=== PATIENT | male | born 1935 | race Caucasian/White ===

== ENCOUNTER 2016-05-01 23:28 | Emergency (ER) | payer MEDICARE ==
[~2016-05-01] VITALS: Ht 177.8 cm; Wt 102.1 kg
--- NOTE | 2016-05-01 23:35 | ED Headache ---
General Chief Complaint: Head/Cervical Problems Stated Complaint: MIGRAINE History of Present Illness Time seen by provider: 11:30 Initial Comments 80-year-old male who comes in with left sided headache. States has been going on for 2 days. It comes and goes. States the last about 10 August minutes. States his kind of a throbbing. It is located in his left jain. Denies any nausea vomiting fevers chills or vision changes. States he never had any headache like this in the past. pt denies any headache at this time. Allergies and Home Medications Allergies Coded Allergies: No Known Drug Allergies (Unverified , 05/01/16) Home Medications Amlodipine Besylate 5 Mg Tablet 5 MG PO DAILY (Reported) Aspirin 81 Mg Tab.chew 81 MG PO DAILY (Reported) Sertraline HCl 50 Mg Tablet 50 MG PO DAILY (Reported) Constitutional: No chills, No dizziness, No fever Eyes: Denies Blurred Vision, Denies Decreased Acuity, Denies Vision Changes Ears, Nose, Mouth, Throat: denies ear pain, denies ear discharge Respiratory: No cough, No dyspnea on exertion, No short of breath Cardiovascular: No chest pain Gastrointestinal: no symptoms reported Genitourinary: no symptoms reported Musculoskeletal: no symptoms reported Skin: no symptoms reported Psychiatric/Neurological: See HPI Headache Past Ivipmrj-Nwzjol-Onsljv Hx Patient Social History Recent Foreign Travel: No Contact w/Someone Who Travel: No Physical Exam Vital Signs Vital Sign - Last 12Hours 05/01/16 23:33 Temp 98.4 Pulse 20 Resp 20 B/P 191/104 Pulse Ox 96 Capillary Refill : General Appearance: WD/WN no apparent distress HEENT: PERRL/EOMI normal ENT inspection Neck: non-tender full range of motion supple Cardiovascular: regular rate, rhythm no edema Respiratory: chest non-tender lungs clear normal breath sounds no respiratory distress Gastrointestinal: non tender soft Psychiatric: alert oriented x 3 Crainal Nerves: normal hearing normal speech PERRLNo facial droop, No facial paresthesias, No facial weakness Coordination/Gait: normal gait Motor/Sensory: no motor deficit no sensory deficit Skin: normal color warm/dry Lymphatic: no adenopathy Progress/Results/Core Measures Results/Orders Lab Results Laboratory Tests Test 05/01/16 23:30 05/01/16 23:38 Range/Units C-Reactive Protein High Sensitivity 0.27 0.00-0.50 MG/DL Alanine Aminotransferase (ALT/SGPT) 15 0-55 U/L Albumin 4.1 3.2-4.5 G/DL Alkaline Phosphatase 46 40-136 U/L Anion Gap 12 5-14 MMOL/L Aspartate Amino Transf (AST/SGOT) 17 5-34 U/L BUN/Creatinine Ratio 17 Basophils # (Auto) 0.0 0.0-0.1 10^3/uL Basophils (%) (Auto) 0 0-10 % Blood Urea Nitrogen 23 H 7-18 MG/DL Calcium Level 8.7 8.5-10.1 MG/DL Carbon Dioxide Level 22 21-32 MMOL/L Chloride Level 105 98-107 MMOL/L Creatinine 1.39 H 0.60-1.30 MG/DL Eosinophils # (Auto) 0.2 0.0-0.3 10^3/uL Eosinophils (%) (Auto) 3 0-10 % Estimat Glomerular Filtration Rate 49 Glucose Level 114 H 70-105 MG/DL Hematocrit 43 40-54 % Hemoglobin 14.8 13.3-17.7 G/DL Lymphocytes # (Auto) 1.9 1.0-4.0 X 10^3 Lymphocytes (%) (Auto) 25 12-44 % Mean Corpuscular Hemoglobin 32 25-34 PG Mean Corpuscular Hemoglobin Concent 35 32-36 G/DL Mean Corpuscular Volume 93 80-99 FL Mean Platelet Volume 11.4 H 7.4-10.4 FL Monocytes # (Auto) 0.7 0.0-1.0 X 10^3 Monocytes (%) (Auto) 10 0-12 % Neutrophils # (Auto) 4.6 1.8-7.8 X 10^3 Neutrophils (%) (Auto) 62 42-75 % Platelet Count 137 130-400 10^3/uL Potassium Level 4.1 3.6-5.0 MMOL/L Red Blood Count 4.62 4.35-5.85 10^6/uL Red Cell Distribution Width 13.4 10.0-14.5 % Sodium Level 139 135-145 MMOL/L Total Bilirubin 0.6 0.1-1.0 MG/DL Total Protein 7.2 6.4-8.2 G/DL White Blood Count 7.4 4.3-11.0 10^3/uL My Orders Orders-MCARTHUR,YVONNE L DO Ct Head Wo (05/01/16 23:35) Cbc With Automated Diff (05/01/16 23:35) Comprehensive Metabolic Panel (05/01/16 23:35) Erythrocyte Sedimentation Rate (05/01/16 23:35) Saline Lock/Iv-Start (05/01/16 23:41) Hs C Reactive Protein (05/01/16 23:45) Methylprednisolone Sod Succ (Solu-Medrol (05/02/16 00:30) Vital Signs/I&O Vital Sign - Last 12Hours 05/01/16 23:33 Temp 98.4 Pulse 20 Resp 20 B/P 191/104 Pulse Ox 96 Progress Note : Time: 00:26 Progress Note pt remained without headache throughout stay, discussed need to follow up with pcp to get esr results to ensure no temporal arteritis, will treat prophylactically with 80 solumedrol tonight. instructed pt to use tylenol or ibuprofen for headache as needed. Diagnostic Imaging Diagonstic Imaging: CT Comments no acute change, Reviewed: Reviewed [place] Study Departure Impression Impression: Primary Impression: Headache Qualified Code: R51 - Headache Disposition: 01 HOME, SELF-CARE Condition: Stable/Unchanged Departure-Patient Inst. Referrals: MARCELLA ANAND DO (PCP/Family) Primary Care Physician Patient Instructions: Headache, Adult (DC) YVONNE MCARTHUR DO May 01, 2016 23:35
[2016-05-01] MEDS ORDERED: SERT50TA9 PO (23:38)
[2016-05-01] MEDS ORDERED: ASPI-999 PO (23:38)
[2016-05-01] MEDS ORDERED: AMLO5TAB4 PO (23:38)
[2016-05-01 23:49] LABS: BASOPHILS % (AUTO) 0 % (0-10); EOSINOPHILS # (AUTO) 0.2 10^3/uL (0.0-0.3); EOSINOPHILS % (AUTO) 3 % (0-10); LYMPHOCYTES # (AUTO) 1.9 X 10^3 (1.0-4.0); LYMPHOCYTES % (AUTO) 25 % (12-44); MEAN CORPUSCULAR HEMOGLOBIN 32 PG (25-34); MEAN CORPUSCULAR HGB CONC 35 G/DL (32-36); MEAN CORPUSCULAR VOLUME 93 FL (80-99); MEAN PLATELET VOLUME 11.4 FL (7.4-10.4); MONOCYTES # (AUTO) 0.7 X 10^3 (0.0-1.0); MONOCYTES % (AUTO) 10 % (0-12); NEUTROPHILS # (AUTO) 4.6 X 10^3 (1.8-7.8); NEUTROPHILS % (AUTO) 62 % (42-75); PLATELET COUNT 137 10^3/uL (130-400); RED BLOOD COUNT 4.62 10^6/uL (4.35-5.85); RED CELL DISTRIBUTION WIDTH 13.4 % (10.0-14.5); WHITE BLOOD COUNT 7.4 10^3/uL (4.3-11.0)
[2016-05-02 00:07] LABS: ALBUMIN 4.1 G/DL (3.2-4.5); BILIRUBIN,TOTAL 0.6 MG/DL (0.1-1.0); CALCIUM 8.7 MG/DL (8.5-10.1); CREATININE SERUM 1.39 MG/DL (0.60-1.30); POTASSIUM 4.1 MMOL/L (3.6-5.0); TOTAL PROTEIN 7.2 G/DL (6.4-8.2)
[2016-05-02] MEDS ORDERED: methylPREDNISolone 40 MG/ML (Solu-MEDROL) VIAL IV ONE (00:30)
[2016-05-02 00:42] VITALS: BP 171/110
--- NOTE | 2016-05-02 05:29 | Diagnostic Imaging Report ---
Clinical indication: Patient with migraine headaches. Exam: Axial CT scan of brain performed without IV contrast. Comparison: None. Findings: There is no evidence of acute cerebral infarct, intracranial hemorrhage, or gross mass effect. There is patchy and confluent areas of low-attenuation white matter changes throughout both cerebral hemispheres and periventricular regions, likely representing chronic small vessel ischemic disease. There is normal parks-white matter distinction. The brain parenchymal volume appears appropriate for patient's age. There is mild prominence of the extra-axial CSF seen anteriorly, likely related to brain parenchymal volume loss. There is no significant midline shift or herniation. There is no evidence of hydrocephalus. The basal cisterns are unremarkable. The skull, extracranial soft tissue, and orbits are unremarkable. There is mild mucosal thickening involving the ethmoid sinus. Impression: 1.: There is no evidence of acute intracranial process. 2: Age-related brain parenchymal changes with diffuse chronic small vessel ischemic disease and leukoaraiosis. 3: Mild ethmoid sinus disease. I agree with [employer] report Dictated by: Dictated on workstation # [id number]
== END 2016-05-02 00:42 | disposition home or self-care (01) ==
LOC: EDUNIT# 23:28 → ER 23:29
DX: R51 Headache (principal); Z79.82 Long term (current) use of aspirin; Z79.899 Other long term (current) drug therapy
CPT/HCPCS: 36415; 70450; 80053; 85025; 85652; 86141; 96374

== ENCOUNTER 2016-05-26 15:12 | Inpatient (IN) | payer MEDICARE ==
[~2016-05-26] VITALS: Ht 170.2 cm; Wt 107.5 kg
[~2016-05-26 15:12] MED LIST: AMLO5TAB4 PO; ASPI-999 PO; SERT50TA9 PO
--- OUTSIDE RECORDS SUMMARY | 2016-05-26 15:16 | XMS REPORT | Continuity of Care Document ---
Author Author [facility] Organization [facility] Address Unknown Phone Unavailable Care Team Providers Care Structured Cabling Technician Name Role Phone MARCELLA ANAND DO PCP Insurance Providers Payer Name Policy Number Subscriber Name Relationship [employer] [id number] Criss Gill 18 Self / Same As Patient Advance Directives Directive Response Recorded Date/Time Advance Directives No 05/01/16 11:33pm Resuscitation Status Full Code 05/01/16 11:33pm Chief Complaint and Reason for Visit Chief Complaint Head/Cervical Problems Reason for Visit Headache Problems Active Problems Medical Problem Onset Date Status Headache Unknown Acute Medications Current Home Medications Medication Dose Units Route Directions Days/Qty Instructions Start Date Aspirin 81 Mg 81 Mg Oral Daily 05/01/16 Sertraline Hcl 50 Mg 50 Mg Oral Daily 05/01/16 Amlodipine Besylate 5 Mg 5 Mg Oral Daily 05/01/16 Social History Social History Problem Response Recorded Date/Time Alcohol Use Denies Use 05/01/2016 11:33pm Recreational Drug Use No 05/01/2016 11:33pm Recent Foreign Travel No 05/01/2016 11:33pm Recent Infectious Disease Exposure No 05/01/2016 11:33pm Hospitalization with Isolation Denies 05/01/2016 11:33pm Smoking Status Never a Smoker 05/01/2016 11:33pm Recent Hopitalizations No 05/01/2016 11:33pm Hospitalization with Isolation Denies 05/01/2016 11:33pm Query Response Start Date Stop Date Smoking Status Never a Smoker Hospital Discharge Instructions No hospital discharge instructions. Plan of Care Discharge Date 05/02/16 12:42am Disposition 01 HOME, SELF-CARE Condition at Discharge Stable/Unchanged Instructions/Education Provided Headache, Adult (DC) Prescriptions See Medication Section Referrals MARCELLA ANAND DO - Primary Care Physician Functional Status No functional status results. Allergies, Adverse Reactions, Alerts No known allergies. Immunizations No immunization records. Vital Signs Acute Vital Signs Vital Response Date/Time Temperature (Fahrenheit) 98.4 degrees F (97.6 - 99.5) 05/01/2016 11:33pm Temperature (Calculated Celsius) 36.62996 degrees C (36.4 - 37.5) 05/01/2016 11:33pm Pulse Rate (adult) 20 bpm (60 - 90) 05/01/2016 11:33pm Respiratory Rate 20 bpm (12 - 24) 05/01/2016 11:33pm O2 Sat by Pulse Oximetry 96 % (88 - 100) 05/01/2016 11:33pm Blood Pressure 191/104 mm Hg 05/01/2016 11:33pm Blood Pressure Mean 133 mm Hg 05/01/2016 11:33pm Pain Numeric Pain Scale 0-No Pain 05/01/2016 11:33pm Height (Feet) 5 feet 05/01/2016 11:33pm Height (Inches) 10 inches 05/01/2016 11:33pm Height (Calculated Centimeters) 177.755797 cm 05/01/2016 11:33pm Weight (Pounds) 225 pounds 05/01/2016 11:33pm Weight (Calculated Kilograms) 102.620245 kilograms 05/01/2016 11:33pm Capillary Refill Capillary Refill Less Than 3 Seconds 05/01/2016 11:33pm Height 5 ft 10 in Weight 225 lb Body Mass Index 32.3 kg/m^2 Results Laboratory Results Test Name Result Units Flags Reference Collection Date/Time Result Date/ Time Comments White Blood Count 7.4 10^3/uL 4.3-11.0 05/01/2016 11:38pm 05/01/2016 11 :50pm Red Blood Count 4.62 10^6/uL 4.35-5.85 05/01/2016 11:38pm 05/01/2016 11 :50pm Hemoglobin 14.8 G/DL 13.3-17.7 05/01/2016 11:38pm 05/01/2016 11:50pm Hematocrit 43 % 40-54 05/01/2016 11:38pm 05/01/2016 11:50pm Mean Corpuscular Volume 93 FL 80-99 05/01/2016 11:38pm 05/01/2016 11: 50pm Mean Corpuscular Hemoglobin 32 PG 25-34 05/01/2016 11:38pm 05/01/2016 11:50pm Mean Corpuscular Hemoglobin Concent 35 G/DL 32-36 05/01/2016 11:38pm 11:50pm Red Cell Distribution Width 13.4 % 10.0-14.5 05/01/2016 11:38pm 2016 11:50pm Platelet Count 137 10^3/uL 130-400 05/01/2016 11:38pm 05/01/2016 11: 50pm Mean Platelet Volume 11.4 FL H 7.4-10.4 05/01/2016 11:38pm 05/01/2016 11: 50pm Neutrophils (%) (Auto) 62 % 42-75 05/01/2016 11:38pm 05/01/2016 11: 50pm Lymphocytes (%) (Auto) 25 % 12-44 05/01/2016 11:38pm 05/01/2016 11: 50pm Monocytes (%) (Auto) 10 % 0-12 05/01/2016 11:38pm 05/01/2016 11:50pm Eosinophils (%) (Auto) 3 % 0-10 05/01/2016 11:38pm 05/01/2016 11:50pm Basophils (%) (Auto) 0 % 0-10 05/01/2016 11:38pm 05/01/2016 11:50pm Neutrophils # (Auto) 4.6 X 10^3 1.8-7.8 05/01/2016 11:38pm 05/01/2016 11:50pm Lymphocytes # (Auto) 1.9 X 10^3 1.0-4.0 05/01/2016 11:38pm 05/01/2016 11:50pm Monocytes # (Auto) 0.7 X 10^3 0.0-1.0 05/01/2016 11:38pm 05/01/2016 11: 50pm Eosinophils # (Auto) 0.2 10^3/uL 0.0-0.3 05/01/2016 11:38pm 05/01/2016 11:50pm Basophils # (Auto) 0.0 10^3/uL 0.0-0.1 05/01/2016 11:38pm 05/01/2016 11 :50pm Sodium Level 139 MMOL/L 135-145 05/01/2016 11:38pm 05/02/2016 12:08am Potassium Level 4.1 MMOL/L 3.6-5.0 05/01/2016 11:38pm 05/02/2016 12: 08am Chloride Level 105 MMOL/L 98-107 05/01/2016 11:38pm 05/02/2016 12:08am Carbon Dioxide Level 22 MMOL/L 21-32 05/01/2016 11:38pm 05/02/2016 12: 08am Anion Gap 12 MMOL/L 5-14 05/01/2016 11:38pm 05/02/2016 12:08am Blood Urea Nitrogen 23 MG/DL H 7-18 05/01/2016 11:38pm 05/02/2016 12: 08am Creatinine 1.39 MG/DL H 0.60-1.30 05/01/2016 11:38pm 05/02/2016 12:08am BUN/Creatinine Ratio 17 05/01/2016 11:38pm 05/02/2016 12:08am Estimat Glomerular Filtration Rate 49 05/01/2016 11:38pm 2016 12:08am GFR INTERPRETIVE DATA UNITS FOR ESTIMATED GFR (eGFR): mL/min/1.73 M2 REFERENCE RANGE FOR ESTIMATED GFR (eGFR) eGFR NORMAL eGFR >60 MODERATELY DECREASED eGFR 30-59 SEVERLY DECREASED eGFR 15-29 KIDNEY FAILURE <15 (OR DIALYSIS) Glucose Level 114 MG/DL H 70-105 05/01/2016 11:38pm 05/02/2016 12:08am Calcium Level 8.7 MG/DL 8.5-10.1 05/01/2016 11:38pm 05/02/2016 12:08am Total Bilirubin 0.6 MG/DL 0.1-1.0 05/01/2016 11:38pm 05/02/2016 12: 08am Alkaline Phosphatase 46 U/L 40-136 05/01/2016 11:38pm 05/02/2016 12: 08am Aspartate Amino Transf (AST/SGOT) 17 U/L 5-34 05/01/2016 11:38pm 2016 12:08am Alanine Aminotransferase (ALT/SGPT) 15 U/L 0-55 05/01/2016 11:38pm 12:08am Total Protein 7.2 G/DL 6.4-8.2 05/01/2016 11:38pm 05/02/2016 12:08am Albumin 4.1 G/DL 3.2-4.5 05/01/2016 11:38pm 05/02/2016 12:08am C-Reactive Protein High Sensitivity 0.27 MG/DL 0.00-0.50 05/01/2016 11: 30pm 05/02/2016 12:08am Procedures No known history of procedures. Encounters Encounter Location Arrival/Admit Date Discharge/Depart Date Attending Provider Registered Emergency Room [facility] 05/01/16 11:29pm YVONNE MCARTHUR DO Recent Diagnosis
[2016-05-26] MEDS ORDERED: LACTATED RINGERS 1,000 ML IV ONE (16:55)
[2016-05-26] MEDS ORDERED: ONDANSETRON 4 MG/2 ML (SDV) Z0FRAN IVP ONE (17:00)
[2016-05-26 17:18] LABS: BASOPHILS % (AUTO) 0 % (0-10); EOSINOPHILS % (AUTO) 0 % (0-10); LYMPHOCYTES # (AUTO) 0.8 X 10^3 (1.0-4.0); LYMPHOCYTES % (AUTO) 5 % (12-44); MEAN CORPUSCULAR HEMOGLOBIN 32 PG (25-34); MEAN CORPUSCULAR HGB CONC 35 G/DL (32-36); MEAN CORPUSCULAR VOLUME 93 FL (80-99); MEAN PLATELET VOLUME 10.9 FL (7.4-10.4); MONOCYTES # (AUTO) 1.6 X 10^3 (0.0-1.0); MONOCYTES % (AUTO) 9 % (0-12); NEUTROPHILS # (AUTO) 15.3 X 10^3 (1.8-7.8); NEUTROPHILS % (AUTO) 86 % (42-75); PLATELET COUNT 166 10^3/uL (130-400); RED BLOOD COUNT 4.14 10^6/uL (4.35-5.85); RED CELL DISTRIBUTION WIDTH 13.3 % (10.0-14.5); WHITE BLOOD COUNT 17.7 10^3/uL (4.3-11.0)
[2016-05-26 17:26] LABS: INR 1.1 (0.8-1.4); PROTHROMBIN TIME PATIENT 13.6 SEC (12.2-14.7)
--- NOTE | 2016-05-26 17:32 | Diagnostic Imaging Report ---
INDICATION: Status post fall. TECHNIQUE: Single view chest at 5:18 PM. CORRELATION STUDY: 01/22/2016 FINDINGS: Heart size relatively stable. Mediastinum is prominent likely relatively stable given difference in technique. Vasculature within normal limits. There does appear to be perhaps patchy infiltrate versus atelectasis at left lung base. Remaining lung ryder with senescent-type changes. Mildly displaced left posterolateral rib fractures appearing unchanged. IMPRESSION: 1. Patchy infiltrate versus atelectasis of the left lung base. Dictated by: Dictated on workstation # [id number]
[2016-05-26 17:41] LABS: ALANINE AMINOTRANSFERASE 43 U/L (0-55); ALBUMIN 3.8 G/DL (3.2-4.5); AMYLASE 25 U/L (25-125); ANION GAP 12 MMOL/L (5-14); ASPARTATE AMINO TRANSFERASE 43 U/L (5-34); BILIRUBIN,TOTAL 1.3 MG/DL (0.1-1.0); BLOOD UREA NITROGEN 29 MG/DL (7-18); BUN/CREATININE RATIO 22; CALCIUM 8.8 MG/DL (8.5-10.1); CARBON DIOXIDE 21 MMOL/L (21-32); CHLORIDE 102 MMOL/L (98-107); CREATININE SERUM 1.32 MG/DL (0.60-1.30); GFR ESTIMATED 52; GLUCOSE 145 MG/DL (70-105); LIPASE 7 U/L (8-78); MAGNESIUM 2.2 MG/DL (1.8-2.4); POTASSIUM 3.9 MMOL/L (3.6-5.0); SODIUM 135 MMOL/L (135-145); TOTAL PROTEIN 7.3 G/DL (6.4-8.2)
[2016-05-26 17:47] LABS: TROPONIN I < 0.30 NG/ML (<0.30)
[2016-05-26 17:50] LABS: LYMPHOCYTES % (MANUAL) 3 %; NEUTROPHILS % (MANUAL) 89 %
--- NOTE | 2016-05-26 17:53 | Diagnostic Imaging Report ---
INDICATION: Fall. Memory loss TECHNIQUE: Routine non contrast-enhanced axial images were obtained from the skull base to the vertex. COMPARISON: 05/01/2016 FINDINGS: The ventricles and cortical sulci are diffusely prominent, compatible with age-related volume loss. There are confluent areas of abnormal, low attenuation in the periventricular white matter. This is consistent with chronic small vessel ischemic changes. There is no midline shift or mass-effect. No acute intra-axial hemorrhage is seen. There are no abnormal areas of increased or decreased density to suggest acute hemorrhage or edema. No extra-axial masses or collections are present. The bony calvarium is intact. The visualized paranasal sinuses show minimal mucosal thickening of the left sphenoid sinus. The mastoid air cells are clear. IMPRESSION: 1. No acute intracranial abnormality. No CT evidence of mass, acute infarct or intracranial hemorrhage. 2. Chronic small vessel ischemic changes in the deep white matter. Dictated by: Dictated on workstation # [id number]
[2016-05-26] MEDS ORDERED: cefTRIAXone INJECTION 1,000 MG in NS (IVPB) 50 ML IV ONE (18:15)
--- NOTE | 2016-05-26 18:32 | ED General ---
General Chief Complaint: Trauma-Non Activation Stated Complaint: LLL PNEUMONIA,INFLUENZA LIKE ILLNESS,DEHYDRATION Nursing Triage Note: SENT OVER FROM DR CHAMORRO OFFICE. PT FELL OUT OF BED LAST NOC HITTING HEAD. DENIES LOC. STATES HE WAS NOT ABLE TO ANSWER ALL OF 'S QUESTIONS SO DR SENT HIM HERE. Nursing Sepsis Screen: No Definite Risk Source of Information: Patient History of Present Illness Time Seen by Provider: 16:40 Initial Comments PT ARRIVES VIA POV FROM DR. ANAND'S OFFICE PT STATES HE "WOKE UP ON THE FLOOR" DURING THE NIGHT/EARLY THIS AM. PT DOES NOT RECALL THE EVENT, BUT POSSIBLY HIT HIS HEAD, ALTHOUGH HE DOES NOT HAVE ANY PAIN IN HIS HEAD OR SCALP AND NO BRUISING OR SWELLING TO HIS HEAD. HE REPORTS NO APPARENT INJURY FROM THIS AND NO DISCRETE AREAS OF PAIN PT C/O FEELING VERY BAD IN GENERAL TODAY STATES HE HAS HAD SUBJECTIVE FEVER ALL DAY C/O BODY ACHES C/O NAUSEA, NO VOMITING--STATES HE HAS NOT HAD ANYTHING TO EAT OR DRINK ALL DAY TODAY BECAUSE HE WAS NAUSEATED AND AFRAID HE MIGHT GET SICK AND THROW UP IF HE ATE OR DRANK ANYTHING C/O NON-PRODUCTIVE COUGH AND CHEST CONGESTION C/O MILD SHORTNESS OF BREATH NO CHEST PAIN OR PAIN WITH BREATHING C/O URINARY URGENCY AND FREQUENCY TODAY NO ABDOMINAL OR BACK OR NECK PAIN NO KNOWN SICK CONTACTS PCP: DR. ANAND Allergies and Home Medications Allergies Coded Allergies: No Known Drug Allergies (Unverified , 05/01/16) Home Medications Amlodipine Besylate 5 Mg Tablet 5 MG PO DAILY (Reported) Aspirin 81 Mg Tab.chew 81 MG PO DAILY (Reported) Sertraline HCl 50 Mg Tablet 50 MG PO DAILY (Reported) Constitutional: see HPI chills fever malaise weakness EENTM: nose congestion see HPI Respiratory: see HPI cough short of breathNo wheezing Cardiovascular: no symptoms reportedNo chest pain, No edema, No palpitations, No vascular heart diseas Gastrointestinal: see HPINo abdominal pain, loss of appetite nauseaNo vomiting Genitourinary: see HPI frequency Musculoskeletal: see HPI (BODY ACHES) Skin: no symptoms reported Psychiatric/Neurological: See HPIDenies Headache, Denies Numbness, Denies Paresthesia, Denies Tingling, Denies Weakness Hematologic/Lymphatic: No Symptoms Reported Immunological/Allergic: no symptoms reported Past Dpbjial-Jmklaf-Fgdtmm Hx Patient Social History Alcohol Use: Denies Use Recreational Drug Use: No Smoking Status: Never a Smoker Recent Foreign Travel: No Contact w/Someone Who Travel: No Recent Infectious Disease Expo: No Recent Hopitalizations: No Surgeries HX Surgeries: Yes Surgeries: Eye Surgery Respiratory Hx Respiratory Disorders: No Cardiovascular Hx Cardiac Disorders: Yes Cardiac Disorders: Hypertension Neurological Hx Neurological Disorders: No Genitourinary Hx Genitourinary Disorders: No Gastrointestinal Hx Gastrointestinal Disorders: No Musculoskeletal Hx Musculoskeletal Disorders: No Endocrine Hx Endocrine Disorders: No HEENT HX ENT Disorders: No Cancer Hx Cancer: No Psychosocial Hx Psychiatric Problems: Yes Behavioral Health Disorders: Depression Integumentary HX Skin/Integumentary Disorder: No Blood Transfusions Hx Blood Disorders: No Physical Exam Vital Signs Vital Sign - Last 12Hours 05/26/16 16:15 Temp 98.5 Pulse 83 Resp 16 B/P 163/91 Pulse Ox 94 Capillary Refill : Less Than 3 Seconds General Appearance: No Apparent Distress WD/WN Other (LOOKS MILDLY ILL) HEENT: PERRL/EOMI TMs Normal Pharynx Normal Other (NASAL CONGESTION AND CLEAR RHINORRHEA; LEFT PAROTID GLAND MORE PROMINENT THAN RIGHT, BUT IS NON TENDER. ) Neck: Full Range of Motion Normal Inspection Non Tender Supple Respiratory: No Accessory Muscle Use No Respiratory Distress Rales (IN LEFT > RIGHT BASE) Cardiovascular: Regular Rate, Rhythm No Edema No JVD No Murmur Normal Peripheral Pulses Gastrointestinal: Normal Bowel Sounds No Organomegaly No Pulsatile Mass Non Tender Soft Back: Normal Inspection No CVA Tenderness No Vertebral Tenderness Extremity: Normal Capillary Refill Normal Inspection Normal Range of Motion Non Tender No Calf Tenderness No Pedal Edema Neurologic/Psychiatric: Alert Oriented x3 No Motor/Sensory Deficits hitting coach II- XII Norm as Tested Other (MILDLY LETHARGIC) Skin: Normal Color Warm/Dry Progress/Results/Core Measures Results/Orders Lab Results Laboratory Tests Test 05/26/16 17:00 Range/Units Activated Partial Thromboplast Time 29 24-35 SEC Alanine Aminotransferase (ALT/SGPT) 43 0-55 U/L Albumin 3.8 3.2-4.5 G/DL Alkaline Phosphatase 59 40-136 U/L Amylase Level 25 25-125 U/L Anion Gap 12 5-14 MMOL/L Aspartate Amino Transf (AST/SGOT) 43 H 5-34 U/L BUN/Creatinine Ratio 22 Basophils # (Auto) 0.0 0.0-0.1 10^3/uL Basophils (%) (Auto) 0 0-10 % Blood Morphology Comment NORMAL Blood Urea Nitrogen 29 H 7-18 MG/DL Calcium Level 8.8 8.5-10.1 MG/DL Carbon Dioxide Level 21 21-32 MMOL/L Chloride Level 102 98-107 MMOL/L Creatinine 1.32 H 0.60-1.30 MG/DL Eosinophils # (Auto) 0.0 0.0-0.3 10^3/uL Eosinophils (%) (Auto) 0 0-10 % Estimat Glomerular Filtration Rate 52 Glucose Level 145 H 70-105 MG/DL Hematocrit 38 L 40-54 % Hemoglobin 13.3 13.3-17.7 G/DL INR Comment 1.1 0.8-1.4 Lactic Acid Level 1.1 0.5-2.0 MMOL/L Lipase 7 L 8-78 U/L Lymphocytes # (Auto) 0.8 L 1.0-4.0 X 10^3 Lymphocytes % (Manual) 3 % Lymphocytes (%) (Auto) 5 L 12-44 % Magnesium Level 2.2 1.8-2.4 MG/DL Mean Corpuscular Hemoglobin 32 25-34 PG Mean Corpuscular Hemoglobin Concent 35 32-36 G/DL Mean Corpuscular Volume 93 80-99 FL Mean Platelet Volume 10.9 H 7.4-10.4 FL Monocytes # (Auto) 1.6 H 0.0-1.0 X 10^3 Monocytes % (Manual) 8 % Monocytes (%) (Auto) 9 0-12 % Neutrophils # (Auto) 15.3 H 1.8-7.8 X 10^3 Neutrophils % (Manual) 89 % Neutrophils (%) (Auto) 86 H 42-75 % Platelet Count 166 130-400 10^3/uL Potassium Level 3.9 3.6-5.0 MMOL/L Prothrombin Time 13.6 12.2-14.7 SEC Red Blood Count 4.14 L 4.35-5.85 10^6/uL Red Cell Distribution Width 13.3 10.0-14.5 % Sodium Level 135 135-145 MMOL/L Total Bilirubin 1.3 H 0.1-1.0 MG/DL Total Protein 7.3 6.4-8.2 G/DL Troponin I < 0.30 <0.30 NG/ML White Blood Count 17.7 H 4.3-11.0 10^3/uL Micro Results Microbiology 05/26/16 Influenza Types A,B Antigen (GENEVA) - Final, Complete My Orders Orders-ELMER RIZO DO Saline Lock/Iv-Start (05/26/16 16:46) Monitor-Rhythm Ecg Trace Only (05/26/16 16:46) Ct Head Wo (05/26/16 16:46) Cbc With Automated Diff (05/26/16 16:46) Comprehensive Metabolic Panel (05/26/16 16:46) Magnesium (05/26/16 16:46) Protime With Inr (05/26/16 16:46) Partial Thromboplastin Time (05/26/16 16:46) Troponin I (05/26/16 16:46) Ua Culture If Indicated (05/26/16 16:46) Chest 1 View, Ap/Pa Only (05/26/16 16:46) Amylase (05/26/16 16:55) Lactic Acid Analyzer (05/26/16 16:55) Lipase (05/26/16 16:55) Blood Culture (05/26/16 16:55) Influenza A And B Antigens (05/26/16 16:55) Ondansetron Injection (Zofran Injectio (05/26/16 17:00) Saline Lock/Iv-Start (05/26/16 16:55) Lactated Ringers (Lr 1000 Ml Iv Solution (05/26/16 16:55) Manual Differential (05/26/16 17:00) Ceftriaxone Injection (Rocephin Injectio (05/26/16 18:15) Albuterol/Ipra Inhalation Soln (Duoneb I (05/26/16 18:45) Rt Request For Service (05/26/16 18:37) Svn Sm Volume Nebulizer Rt-Rfs (05/26/16 18:37) Methylprednisolone Sod Succ (Solu-Medrol (05/26/16 19:00) Medications Given in ED Current Medications Medications Dose Ordered Sig/Norbert Route Start Time Stop Time Status Last Admin Dose Admin Lactated Ringer's 1,000 ml @ 0 mls/hr Q0M ONCE IV 05/26/16 16:55 05/26/16 16:57 DC 05/26/16 17:13 1,000 MLS/HR Ondansetron HCl 4 mg 4 mg ONCE ONCE IVP 05/26/16 17:00 05/26/16 17:01 DC 05/26/16 17:12 4 MG Vital Signs/I&O Vital Sign - Last 12Hours 05/26/16 16:15 Temp 98.5 Pulse 83 Resp 16 B/P 163/91 Pulse Ox 94 Blood Pressure Mean: 115 Progress Note : Progress Note 1840--PT NOW NOTED TO HAVE SOME AUDIBLE WHEEZING. NEB TREATMENT ORDERED. MILD DECREASE IN WHEEZING AFTER TREATMENT PT NOW STATES HE HAS BEEN HAVING WHEEZING FOR THE LAST 2-3 DAYS WELL OTHER SYMPTOMS NAUSEA IMPROVED WITH ZOFRAN, PT TOLERATING SIPS OF WATER AND ICE CHIPS Diagnostic Imaging Comments CT HEAD--NO ACUTE PROCESS, CHRONIC CHANGES CXR--LLL INFILTRATE/ATELECTASIS PER RADIOLOGIST REPORTS @ 1740 Reviewed: Reviewed by Me Departure Communication Progress Notes 7255--SPOKE WITH DR. ANAND--ACCEPTS PT FOR ADMIT Impression Impression: Primary Impression: LLL pneumonia Additional Impressions: Dehydration Influenza-like illness Disposition: ADMITTED INPATIENT Condition: Stable Decision to Admit Reason: Admit from ER (General) Decision to Admit/Date: May 26, 2016 Time/Decision to Admit Time: 17:55 Departure-Patient Inst. Referrals: MARCELLA ANAND DO (PCP/Family) Primary Care Physician ELMER RIZO DO May 26, 2016 18:32
[2016-05-26] MEDS ORDERED: RT-ALBUTEROL/IPRATROPIUM 3 ML (DUONEB) VIAL INH ONE (18:45)
[2016-05-26] MEDS ORDERED: methylPREDNISolone 125 MG (Solu-MEDROL) VIAL IVP ONE (19:00)
[2016-05-26 19:15] VITALS: BP 190/83
[2016-05-26] MEDS ORDERED: D5 1/2 NS 1000 ML IV SOLUTION 1,000 ML IV ONE (19:22)
[2016-05-26] MEDS ORDERED: AZITHROMYCIN 500 MG/NS 250 ML IVPB IV NR ×2 (19:30)
[2016-05-26] MEDS ORDERED: CATHETER FLUSH 10 ML SYR IV PRN (19:45)
[2016-05-26] MEDS ORDERED: ACETAMINOPHEN 500 MG TAB (TYLENOL) PO PRN (19:45)
[2016-05-26] MEDS ORDERED: IBUPROFEN 800 MG (MOTRIN) TAB PO PRN (19:45)
[2016-05-26] MEDS: D5 1/2 NS 1000 ML IV SOLUTION 1,000 ML IV SCH (19:45)
[2016-05-26] MEDS ORDERED: ONDANSETRON 4 MG/2 ML (SDV) Z0FRAN IV PRN (19:45)
[2016-05-26] MEDS: OSELTAMIVIR 75 MG (TAMIFLU) BOX OF 10 PO SCH (21:48)
[2016-05-26 22:00] VITALS: BP 180/93
[2016-05-27] VITALS (8 sets, daily range): BP systolic 142–177; BP diastolic 74–90
[2016-05-27] MEDS: methylPREDNISolone 125 MG (Solu-MEDROL) VIAL IV SCH ×3 (00:41→13:23)
[2016-05-27 01:35] LABS: BILIRUBIN,URINE NEGATIVE (NEGATIVE); KETONES,URINE NEGATIVE (NEGATIVE); LEUKOCYTE ESTERASE ,URINE 3+ (NEGATIVE); NITRITE,URINE NEGATIVE (NEGATIVE); PH,URINE 6 (5-9); PROTEIN,URINE 2+ (NEGATIVE); UROBILINOGEN,URINE 1 MG/DL (NORMAL)
[2016-05-27 01:45] LABS: WBC,URINE 50-100 /HPF
[2016-05-27] MEDS: D5 1/2 NS 1000 ML IV SOLUTION 1,000 ML IV SCH ×4 (02:25→22:25)
[2016-05-27 04:58] LABS: BASOPHILS % (AUTO) 0 % (0-10); EOSINOPHILS % (AUTO) 0 % (0-10); LYMPHOCYTES # (AUTO) 0.6 X 10^3 (1.0-4.0); LYMPHOCYTES % (AUTO) 4 % (12-44); MEAN CORPUSCULAR HEMOGLOBIN 32 PG (25-34); MEAN CORPUSCULAR HGB CONC 35 G/DL (32-36); MEAN CORPUSCULAR VOLUME 93 FL (80-99); MEAN PLATELET VOLUME 11.3 FL (7.4-10.4); MONOCYTES # (AUTO) 0.4 X 10^3 (0.0-1.0); MONOCYTES % (AUTO) 2 % (0-12); NEUTROPHILS % (AUTO) 94 % (42-75); PLATELET COUNT 149 10^3/uL (130-400); RED BLOOD COUNT 4.04 10^6/uL (4.35-5.85); RED CELL DISTRIBUTION WIDTH 13.1 % (10.0-14.5)
[2016-05-27 05:36] LABS: ALBUMIN 3.3 G/DL (3.2-4.5); BILIRUBIN,TOTAL 0.8 MG/DL (0.1-1.0); CALCIUM 8.7 MG/DL (8.5-10.1); CREATININE SERUM 1.2 MG/DL (0.60-1.30); POTASSIUM 4.1 MMOL/L (3.6-5.0); TOTAL PROTEIN 6.8 G/DL (6.4-8.2)
[2016-05-27] MEDS ORDERED: FLU TRIvalent (5 YOA+) 2016-17 (AFLURIA) 0.5 ML IM ONE (07:00)
--- NOTE | 2016-05-27 08:08 | History & Physicial ---
History of Present Illness History of Present Illness Reason for visit/HPI patient was brought to the office by daughter. Patient was found on the floor not aware of that happening. Patient confused. Patient did not know what 10-8 equals. Patient sent out to the emergency room. Chest x-ray shows pneumonia. Patient not eating the whole day. Patient had change in mental status. Patient has a history of 5 blood pressure. Family history mother lung cancer. Denies asthma TB diabetes heart disease lung disease. Surgeries patient denies having any Date of Admission May 26, 2016 at 17:55 I consulted on this patient on 05/27/16 08:04 Attending Physician Henrik Anand DO Admitting Physician Henrik Anand DO Consult Allergies and Home Medications Allergies Coded Allergies: No Known Drug Allergies (Unverified , 05/01/16) Home Medications Amlodipine Besylate 5 Mg Tablet 5 MG PO DAILY (Reported) Aspirin 81 Mg Tab.chew 81 MG PO DAILY (Reported) Sertraline HCl 50 Mg Tablet 50 MG PO DAILY (Reported) Past Yfykfen-Fguxhv-Ckptgr Hx Patient Social History Employed/Student: unemployed Alcohol Use: Denies Use Recreational Drug Use: No Smoking Status: Never a Smoker Physical Abuse Screen: No Sexual Abuse: No Recent Foreign Travel: No Contact w/other who traveled: No Recent Hopitalizations: No Recent Infectious Disease Expo: No Seasonal Allergies Seasonal Allergies: No Surgeries HX Surgeries: Yes Surgeries: Eye Surgery Respiratory Hx Respiratory Disorders: No Respiratory Disorders: Pneumonia Cardiovascular Hx Cardiovascular Disorders: Yes Cardiac Disorders: Hypertension Neurological Hx Neurological Disorders: No Reproductive System Sexually Transmitted Disease: No HIV/AIDS: No Genitourinary Hx Genitourinary Disorders: No Gastrointestinal Hx Gastrointestinal Disorders: No Musculoskeletal Hx Musculoskeletal Disorders: No Endocrine Hx Endocrine Disorders: No HEENT HX ENT Disorders: No Loss of Vision: Denies Hearing Impairment: Hard of Hearing Cancer Hx Cancer: No Psychosocial Hx Psychiatric Problems: Yes Behavioral Health Disorders: Depression Integumentary HX Skin/Integumentary Disorder: No Blood Transfusions Hx Blood Disorders: No Adverse Reaction to a Blood Tr: No Family Medical History Family Hx: FH: cancer 19 MOTHER Constitutional: malaise weakness other (confusion) EENTM: no symptoms reported Respiratory: cough wheezing Cardiovascular: no symptoms reported other (hypertension history) Gastrointestinal: no symptoms reported Genitourinary: no symptoms reported Physical Exam Vital Signs Vital Sign - Last 12Hours 05/26/16 05/26/16 05/26/16 16:15 19:15 23:53 Temp 98.5 Pulse 83 Resp 16 B/P 163/91 Pulse Ox 94 O2 Delivery Room Air O2 Flow Rate 2.00 Capillary Refill : Less Than 3 Seconds General Appearance: No Apparent Distress WD/WN Eyes: Bilateral Eye Normal Inspection HEENT: TMs Normal Normal ENT Inspection Neck: Full Range of Motion Normal Inspection Non Tender Supple Respiratory: Chest Non Tender Lungs Clear Normal Breath Sounds No Accessory Muscle Use No Respiratory Distress Cardiovascular: Regular Rate, Rhythm No Murmur Gastrointestinal: Non Tender Soft Assessment/Plan Assessment and Plan syncope. Altered mental status. Confusion. Pneumonia. Not eating. Renal insufficiency Clinical Quality Measures DVT/VTE Risk/Contraindication: Risk Factor Score Per Nursin RFS Level Per Nursing on Admit: 3=High HENRIK ANAND DO May 27, 2016 08:08
[2016-05-27] MEDS: ENOXAPARIN 40 MG/0.4 ML (LOVENOX) SYR SC SCH (09:51)
[2016-05-27] MEDS: ASPIRIN 81 MG CHEW (CHILDREN'S ASA) PO SCH (09:52)
[2016-05-27] MEDS: amLODIPine 5 MG (NORVASC) TAB PO SCH (09:52)
[2016-05-27] MEDS: AZITHROMYCIN 250 MG TAB (ZITHROMAX) PO SCH (09:53)
[2016-05-27] MEDS: SERTRALINE 50 MG (ZOLOFT) TABLET PO SCH (09:53)
[2016-05-27] MEDS: OSELTAMIVIR 75 MG (TAMIFLU) BOX OF 10 PO SCH ×2 (09:53→20:49)
[2016-05-27] MEDS: RT-ALBUTEROL SULF 2.5 MG/3 ML PRE-MIX VIAL INH SCH ×2 (13:52→20:12)
[2016-05-28] VITALS: BP 185/90
[2016-05-28 04:00] VITALS: BP 150/63
[2016-05-28 06:15] LABS: BASOPHILS % (AUTO) 0 % (0-10); EOSINOPHILS % (AUTO) 0 % (0-10); LYMPHOCYTES # (AUTO) 0.6 X 10^3 (1.0-4.0); LYMPHOCYTES % (AUTO) 4 % (12-44); MEAN CORPUSCULAR HEMOGLOBIN 32 PG (25-34); MEAN CORPUSCULAR HGB CONC 35 G/DL (32-36); MEAN CORPUSCULAR VOLUME 93 FL (80-99); MEAN PLATELET VOLUME 11.2 FL (7.4-10.4); MONOCYTES # (AUTO) 0.5 X 10^3 (0.0-1.0); MONOCYTES % (AUTO) 3 % (0-12); NEUTROPHILS % (AUTO) 93 % (42-75); PLATELET COUNT 173 10^3/uL (130-400); RED BLOOD COUNT 3.76 10^6/uL (4.35-5.85); RED CELL DISTRIBUTION WIDTH 13.1 % (10.0-14.5); WHITE BLOOD COUNT 16.1 10^3/uL (4.3-11.0)
[2016-05-28] MEDS: D5 1/2 NS 1000 ML IV SOLUTION 1,000 ML IV SCH (06:15)
[2016-05-28 06:43] LABS: ALANINE AMINOTRANSFERASE 112 U/L (0-55); ALBUMIN 3.2 G/DL (3.2-4.5); ANION GAP 12 MMOL/L (5-14); ASPARTATE AMINO TRANSFERASE 111 U/L (5-34); BILIRUBIN,TOTAL 0.3 MG/DL (0.1-1.0); BLOOD UREA NITROGEN 32 MG/DL (7-18); BUN/CREATININE RATIO 28; CALCIUM 8.4 MG/DL (8.5-10.1); CARBON DIOXIDE 20 MMOL/L (21-32); CHLORIDE 106 MMOL/L (98-107); CREATININE SERUM 1.13 MG/DL (0.60-1.30); GFR ESTIMATED > 60; GLUCOSE 155 MG/DL (70-105); POTASSIUM 4.1 MMOL/L (3.6-5.0); SODIUM 138 MMOL/L (135-145); TOTAL PROTEIN 6.4 G/DL (6.4-8.2)
[2016-05-28] MEDS: RT-ALBUTEROL SULF 2.5 MG/3 ML PRE-MIX VIAL INH SCH ×4 (07:30→19:17)
[2016-05-28 08:00] VITALS: BP 146/77
--- NOTE | 2016-05-28 08:12 | Progress Note (SOAP) ---
Subjective Subjective/Events-last exam syncope. Confusion. Leukocytosis. Pneumonia. infection. Elevated liver enzymes. Patient states she's feeling better today. Patient feels stuff in his chest going away. Patient not confused. Patient improving. Objective Exam Vital Signs Date Time Temp Pulse Resp B/P Pulse Ox O2 Delivery O2 Flow Rate FiO2 05/28/16 07:30 94 2.50 05/28/16 04:00 97.5 60 20 150/63 96 Room Air 05/28/16 00:00 97.7 76 20 185/90 94 Room Air 05/27/16 20:13 96 2.50 05/27/16 20:00 Nasal Cannula 2.00 05/27/16 19:57 95.6 74 20 177/77 96 Room Air 05/27/16 16:50 98.1 70 22 142/86 95 Room Air 05/27/16 13:54 2.50 05/27/16 12:00 97.0 67 20 153/74 96 Room Air I & O 05/28/16 07:00 Intake Total 2270 ml Output Total 1500 ml Balance 770 ml Capillary Refill : Less Than 3 Seconds General Appearance: No Apparent Distress WD/WN HEENT: Normal ENT Inspection Neck: Full Range of Motion Normal Inspection Respiratory: Chest Non Tender Normal Breath Sounds No Accessory Muscle Use Decreased Breath Sounds Cardiovascular: Regular Rate, Rhythm No Murmur Gastrointestinal: non tender soft Results Lab Laboratory Tests 05/28/16 05:54 Laboratory Tests 05/28/16 05:54: Alanine Aminotransferase (ALT/SGPT) 112H, Albumin 3.2, Alkaline Phosphatase 61, Anion Gap 12, Aspartate Amino Transf (AST/SGOT) 111H, BUN/Creatinine Ratio 28, Basophils # (Auto) 0.0, Basophils (%) (Auto) 0, Blood Urea Nitrogen 32H, Calcium Level 8.4L, Carbon Dioxide Level 20L, Chloride Level 106, Creatinine 1.13, Eosinophils # (Auto) 0.0, Eosinophils (%) (Auto) 0, Estimat Glomerular Filtration Rate > 60, Glucose Level 155H, Hematocrit 35L, Hemoglobin 12.1L, Lymphocytes # (Auto) 0.6L, Lymphocytes (%) (Auto) 4L, Mean Corpuscular Hemoglobin 32, Mean Corpuscular Hemoglobin Concent 35, Mean Corpuscular Volume 93, Mean Platelet Volume 11.2H, Monocytes # (Auto) 0.5, Monocytes (%) (Auto) 3, Neutrophils # (Auto) 15.0H, Neutrophils (%) (Auto) 93H, Platelet Count 173, Potassium Level 4.1, Red Blood Count 3.76L, Red Cell Distribution Width 13.1, Sodium Level 138, Total Bilirubin 0.3, Total Protein 6.4, White Blood Count 16.1H Microbiology 05/26/16 Blood Culture - Preliminary, Resulted No growth 05/26/16 Influenza Types A,B Antigen ([facility]) - Final, Complete Assessment/Plan Assessment/Plan Assess & Plan/Chief Complaint syncope. Confusion. Altered mental status. Pneumonia. infection. Weakness. Patient doing better. Patient alert knows the date. Elevated liver tests plateaued and put ibuprofen on hold Diagnosis/Problems: Clinical Quality Measures DVT/VTE Risk/Contraindication: Risk Factor Score Per Nursin RFS Level Per Nursing on Admit: 3=High MARCELLA ANAND DO May 28, 2016 08:12
--- NOTE | 2016-05-28 09:22 | Diagnostic Imaging Report ---
INDICATION: Pneumonia. TECHNIQUE: PA and lateral views of the chest were obtained at 0849 hours. COMPARISON: 05/26/2016. FINDINGS: The heart is borderline in size. The aorta is tortuous. There is no focal infiltrate, pneumothorax, or pleural fluid. There are multiple old left-sided rib fractures again noted. IMPRESSION: No acute infiltrate, pleural fluid, or pneumothorax. The small area of infiltrate questioned in the left base appears resolved compared to the prior study. There are multiple old left-sided rib fractures as well as an old left clavicle fracture. Dictated by: Dictated on workstation # [id number]
[2016-05-28] MEDS: ENOXAPARIN 40 MG/0.4 ML (LOVENOX) SYR SC SCH (11:07)
[2016-05-28] MEDS: AZITHROMYCIN 250 MG TAB (ZITHROMAX) PO SCH (11:07)
[2016-05-28] MEDS: ASPIRIN 81 MG CHEW (CHILDREN'S ASA) PO SCH (11:07)
[2016-05-28] MEDS: amLODIPine 5 MG (NORVASC) TAB PO SCH (11:07)
[2016-05-28] MEDS: SERTRALINE 50 MG (ZOLOFT) TABLET PO SCH (11:08)
[2016-05-28] MEDS: OSELTAMIVIR 75 MG (TAMIFLU) BOX OF 10 PO SCH ×2 (11:09→20:33)
[2016-05-28 11:24] LABS: BILIRUBIN,URINE NEGATIVE (NEGATIVE); KETONES,URINE NEGATIVE (NEGATIVE); LEUKOCYTE ESTERASE ,URINE NEGATIVE (NEGATIVE); NITRITE,URINE NEGATIVE (NEGATIVE); PH,URINE 6 (5-9); PROTEIN,URINE 2+ (NEGATIVE); UROBILINOGEN,URINE 1 MG/DL (NORMAL)
[2016-05-28 11:34] LABS: HYALINE CASTS, URINE 0-2 /LPF; SQUAMOUS EPITHELIAL CELL,UR 0-2 /HPF
[2016-05-28 12:00] VITALS: BP 157/82
[2016-05-28 16:00] VITALS: BP 142/74
[2016-05-28 20:00] VITALS: BP 143/72
[2016-05-29 00:51] VITALS: BP 158/81
[2016-05-29] MEDS: RT-ALBUTEROL SULF 2.5 MG/3 ML PRE-MIX VIAL INH SCH ×2 (07:16→11:00)
[2016-05-29 07:48] LABS: BASOPHILS % (AUTO) 0 % (0-10); EOSINOPHILS % (AUTO) 0 % (0-10); LYMPHOCYTES # (AUTO) 1.2 X 10^3 (1.0-4.0); LYMPHOCYTES % (AUTO) 11 % (12-44); MEAN CORPUSCULAR HEMOGLOBIN 32 PG (25-34); MEAN CORPUSCULAR HGB CONC 34 G/DL (32-36); MEAN CORPUSCULAR VOLUME 94 FL (80-99); MEAN PLATELET VOLUME 10.7 FL (7.4-10.4); MONOCYTES # (AUTO) 0.8 X 10^3 (0.0-1.0); MONOCYTES % (AUTO) 7 % (0-12); NEUTROPHILS # (AUTO) 8.7 X 10^3 (1.8-7.8); NEUTROPHILS % (AUTO) 82 % (42-75); PLATELET COUNT 168 10^3/uL (130-400); RED CELL DISTRIBUTION WIDTH 13.3 % (10.0-14.5); WHITE BLOOD COUNT 10.6 10^3/uL (4.3-11.0)
[2016-05-29] MEDS: AZITHROMYCIN 250 MG TAB (ZITHROMAX) PO SCH (07:53)
[2016-05-29] MEDS: amLODIPine 5 MG (NORVASC) TAB PO SCH (07:53)
[2016-05-29] MEDS: ASPIRIN 81 MG CHEW (CHILDREN'S ASA) PO SCH (07:54)
[2016-05-29] MEDS: OSELTAMIVIR 75 MG (TAMIFLU) BOX OF 10 PO SCH ×2 (07:54→20:20)
[2016-05-29] MEDS: ENOXAPARIN 40 MG/0.4 ML (LOVENOX) SYR SC SCH (07:54)
[2016-05-29] MEDS: SERTRALINE 50 MG (ZOLOFT) TABLET PO SCH (07:54)
[2016-05-29 08:00] VITALS: BP 182/86
[2016-05-29 08:10] LABS: ALANINE AMINOTRANSFERASE 125 U/L (0-55); ALBUMIN 2.8 G/DL (3.2-4.5); ANION GAP 8 MMOL/L (5-14); ASPARTATE AMINO TRANSFERASE 64 U/L (5-34); BILIRUBIN,TOTAL 0.3 MG/DL (0.1-1.0); BLOOD UREA NITROGEN 33 MG/DL (7-18); BUN/CREATININE RATIO 30; CALCIUM 7.9 MG/DL (8.5-10.1); CARBON DIOXIDE 25 MMOL/L (21-32); CHLORIDE 107 MMOL/L (98-107); GFR ESTIMATED > 60; GLUCOSE 110 MG/DL (70-105); POTASSIUM 3.8 MMOL/L (3.6-5.0); SODIUM 140 MMOL/L (135-145); TOTAL PROTEIN 5.7 G/DL (6.4-8.2)
[2016-05-29] MEDS ORDERED: fluCOnazole (DIFLUCAN) 100 MG TAB PO NR (08:15)
--- NOTE | 2016-05-29 08:19 | Progress Note (SOAP) ---
Subjective Subjective/Events-last exam pneumonia. UTI. Confusion. All these has resolved. Patient feeling better. Patient not having any complaints. Plan to discharge today Objective Exam Vital Signs Date Time Temp Pulse Resp B/P Pulse Ox O2 Delivery O2 Flow Rate FiO2 05/29/16 07:16 92 05/29/16 00:51 98.3 60 20 158/81 95 Room Air 05/28/16 20:05 Room Air 05/28/16 20:00 96.6 68 21 143/72 93 Room Air 05/28/16 19:17 91 05/28/16 16:00 96.9 60 18 142/74 97 Room Air 05/28/16 13:59 95 2.50 05/28/16 12:00 97.6 92 18 157/82 96 Room Air 05/28/16 10:45 97 2.50 I & O 05/29/16 07:00 Intake Total 1030 ml Output Total 1200 ml Balance -170 ml Capillary Refill : Less Than 3 Seconds General Appearance: No Apparent Distress WD/WN HEENT: Normal ENT Inspection Neck: Full Range of Motion Normal Inspection Respiratory: Chest Non Tender Lungs Clear Normal Breath Sounds No Accessory Muscle Use No Respiratory Distress Cardiovascular: Regular Rate, Rhythm No Murmur Gastrointestinal: non tender soft Results Lab Laboratory Tests 05/29/16 07:37 Laboratory Tests 05/28/16 11:15: Urine Bacteria NEGATIVE, Urine Bilirubin NEGATIVE, Urine Casts PRESENT, Urine Clarity CLEAR, Urine Color YELLOW, Urine Crystals NONE, Urine Culture Indicated NO, Urine Glucose (UA) 1+H, Urine Hyaline Casts 0-2H, Urine Ketones NEGATIVE, Urine Leukocyte Esterase NEGATIVE, Urine Mucus NEGATIVE, Urine Nitrite NEGATIVE , Urine Protein 2+H, Urine RBC NONE, Urine RBC (Auto) 2+H, Urine Specific Lohn 1.020, Urine Squamous Epithelial Cells 0-2, Urine Urobilinogen 1, Urine WBC NONE, Urine pH 6 05/29/16 07:37: Alanine Aminotransferase (ALT/SGPT) 125H, Albumin 2.8L, Alkaline Phosphatase 56 , Anion Gap 8, Aspartate Amino Transf (AST/SGOT) 64H, BUN/Creatinine Ratio 30, Basophils # (Auto) 0.0, Basophils (%) (Auto) 0, Blood Urea Nitrogen 33H, Calcium Level 7.9L, Carbon Dioxide Level 25, Chloride Level 107, Creatinine 1.10 , Eosinophils # (Auto) 0.0, Eosinophils (%) (Auto) 0, Estimat Glomerular Filtration Rate > 60, Glucose Level 110H, Hematocrit 36L, Hemoglobin 12.1L, Lymphocytes # (Auto) 1.2, Lymphocytes (%) (Auto) 11L, Mean Corpuscular Hemoglobin 32, Mean Corpuscular Hemoglobin Concent 34, Mean Corpuscular Volume 94, Mean Platelet Volume 10.7H, Monocytes # (Auto) 0.8, Monocytes (%) (Auto) 7, Neutrophils # (Auto) 8.7H, Neutrophils (%) (Auto) 82H, Platelet Count 168, Potassium Level 3.8, Red Blood Count 3.80L, Red Cell Distribution Width 13.3, Sodium Level 140, Total Bilirubin 0.3, Total Protein 5.7L, White Blood Count 10.6 Microbiology 05/26/16 Blood Culture - Preliminary, Resulted No growth 05/26/16 Influenza Types A,B Antigen ([facility]) - Final, Complete 05/27/16 Urine Culture - Preliminary, Resulted Strep Species, Alpha Hemolytic Yeast Species Assessment/Plan Assessment/Plan Assess & Plan/Chief Complaint syncope. Confusion. Altered mental status. Pneumonia. infection. Weakness. Patient doing better. Patient alert knows the date. Elevated liver tests plateaued and put ibuprofen on hold. . 05/29/16. Chest x-ray shows pneumonia resolved. UTI better. Patient not confused. Patient getting around better. Patient alert and knows what's going on. Patient has no confusion. Plan to discharge today on Omnicef 300 mg number 10 one twice a day and Ventolin HFA Diagnosis/Problems: Clinical Quality Measures DVT/VTE Risk/Contraindication: Risk Factor Score Per Nursin RFS Level Per Nursing on Admit: 3=High MARCELLA ANAND DO May 29, 2016 08:19
[2016-05-29] MEDS ORDERED: CEFD300C3 PO (08:22)
[2016-05-29] MEDS ORDERED: RT-ALBUINH IH (08:24)
[2016-05-29] MEDS ORDERED: RELABEL FOR HOME USE MC SCH (11:15)
[2016-05-29] MEDS ORDERED: OSELTAMIVIR 75 MG (TAMIFLU) BOX OF 10 PO SCH (11:15)
[2016-05-29 15:35] VITALS: BP 161/79
[2016-05-29] MEDS: D5 1/2 NS 1000 ML IV SOLUTION 1,000 ML IV SCH (16:47)
[2016-05-29] MEDS ORDERED: MILK OF MAGNESIA 400 MG/5 ML 30 ML UDC PO PRN (19:45)
[2016-05-29] MEDS: CATHETER FLUSH 10 ML SYR IV SCH (20:20)
[2016-05-30] VITALS: BP 171/91
[2016-05-30] MEDS: CATHETER FLUSH 10 ML SYR IV SCH (05:54)
[2016-05-30] MEDS: RT-ALBUTEROL SULF 2.5 MG/3 ML PRE-MIX VIAL INH SCH ×2 (06:34→09:54)
[2016-05-30 07:50] VITALS: BP 145/75
--- NOTE | 2016-05-30 07:55 | Progress Note (SOAP) ---
Subjective Subjective/Events-last exam patient feeling better. Patient wants to go home. Patient breathing good. Pneumonia. UTI. Confusion. Altered mental status. Hypertension. Blood pressure this morning good Objective Exam Vital Signs Date Time Temp Pulse Resp B/P Pulse Ox O2 Delivery O2 Flow Rate FiO2 05/30/16 06:34 91 05/30/16 00:00 99.8 71 22 171/91 94 Room Air 05/29/16 20:25 Room Air 05/29/16 15:35 98.5 72 22 161/79 95 Room Air 05/29/16 11:00 91 05/29/16 08:00 95 Room Air 05/29/16 08:00 96.2 62 20 182/86 93 Room Air I & O 05/30/16 07:00 Intake Total 1730 ml Output Total 1550 ml Balance 180 ml Capillary Refill : Less Than 3 Seconds General Appearance: No Apparent Distress WD/WN Respiratory: Chest Non Tender Lungs Clear Normal Breath Sounds No Accessory Muscle Use No Respiratory Distress Cardiovascular: Regular Rate, Rhythm No Murmur Gastrointestinal: non tender soft Results Lab Microbiology 05/26/16 Blood Culture - Preliminary, Resulted No growth 05/26/16 Influenza Types A,B Antigen ([facility]A) - Final, Complete 05/27/16 Urine Culture - Final, Complete Assessment/Plan Assessment/Plan Assess & Plan/Chief Complaint syncope. Confusion. Altered mental status. Pneumonia. infection. Weakness. Patient doing better. Patient alert knows the date. Elevated liver tests plateaued and put ibuprofen on hold. . 05/29/16. Chest x-ray shows pneumonia resolved. UTI better. Patient not confused. Patient getting around better. Patient alert and knows what's going on. Patient has no confusion. Plan to discharge today on Omnicef 300 mg number 10 one twice a day and Ventolin HFA. . 05/30/16. Patient feeling good. Patient ready to be discharge. Pneumonia. UTI. Diagnosis/Problems: Clinical Quality Measures DVT/VTE Risk/Contraindication: Risk Factor Score Per Nursin RFS Level Per Nursing on Admit: 3=High MARCELLA ANNAD DO May 30, 2016 07:55
[2016-05-30] MEDS: ASPIRIN 81 MG CHEW (CHILDREN'S ASA) PO SCH (08:02)
[2016-05-30] MEDS: OSELTAMIVIR 75 MG (TAMIFLU) BOX OF 10 PO SCH (08:03)
[2016-05-30] MEDS: AZITHROMYCIN 250 MG TAB (ZITHROMAX) PO SCH (08:03)
[2016-05-30] MEDS: SERTRALINE 50 MG (ZOLOFT) TABLET PO SCH (08:04)
[2016-05-30] MEDS: ENOXAPARIN 40 MG/0.4 ML (LOVENOX) SYR SC SCH (08:13)
[2016-05-30] MEDS: amLODIPine 5 MG (NORVASC) TAB PO SCH (08:13)
[2016-05-30 11:10] VITALS: BP 148/88
--- NOTE | 2016-06-01 07:30 | Discharge Summary ---
Diagnosis/Chief Complaint Date of Admission May 26, 2016 at 17:55 Date of Discharge May 30, 2016 at 11:10 Discharge Date: May 30, 2016 Admission Diagnosis Admission Diagnosis syncope. Altered mental status. Confusion. Pneumonia. Not eating. Renal insufficiency Discharge Diagnosis pneumonia unspecified organism . Dehydration. Essential hypertension. Syncope and collapse. Altered mental status. Disorientation. Leukocytosis. Renal insufficiency. Elevated liver tests. infection Reason Hospital Visit patient was brought to the office by daughter. Patient was found on the floor not aware of that happening. Patient confused. Patient did not know what 10-8 equals. Patient sent out to the emergency room. Chest x-ray shows pneumonia. Patient not eating the whole day. Patient had change in mental status. Patient has a history of 5 blood pressure. Family history mother lung cancer. Denies asthma TB diabetes heart disease lung disease. Surgeries patient denies having any Discharge Summary Discharge Physical Examination Allergies: Coded Allergies: No Known Drug Allergies (Unverified , 05/01/16) Vitals & I&Os Vital Signs Date Time Temp Pulse Resp B/P Pulse Ox O2 Delivery O2 Flow Rate FiO2 05/30/16 11:10 88 22 148/88 94 05/30/16 08:00 Room Air 05/30/16 07:50 98.4 05/28/16 13:59 2.50 Hospital Course patient in hospital did better. Patient was able to breathe better. Patient was alert. Acute mental status resolved Labs (last 24 hrs) Laboratory Tests 05/26/16 17:00: Activated Partial Thromboplast Time 29, Alanine Aminotransferase (ALT/SGPT) 43, Albumin 3.8, Alkaline Phosphatase 59, Amylase Level 25, Anion Gap 12, Aspartate Amino Transf (AST/SGOT) 43H, BUN/Creatinine Ratio 22, Basophils # (Auto) 0.0, Basophils (%) (Auto) 0, Blood Morphology Comment NORMAL, Blood Urea Nitrogen 29H , Calcium Level 8.8, Carbon Dioxide Level 21, Chloride Level 102, Creatinine 1.32H, Eosinophils # (Auto) 0.0, Eosinophils (%) (Auto) 0, Estimat Glomerular Filtration Rate 52, Glucose Level 145H, Hematocrit 38L, Hemoglobin 13.3, INR Comment 1.1, Lactic Acid Level 1.1, Lipase 7L, Lymphocytes # (Auto) 0.8L, Lymphocytes % (Manual) 3, Lymphocytes (%) (Auto) 5L, Magnesium Level 2.2, Mean Corpuscular Hemoglobin 32, Mean Corpuscular Hemoglobin Concent 35, Mean Corpuscular Volume 93, Mean Platelet Volume 10.9H, Monocytes # (Auto) 1.6H, Monocytes % (Manual) 8, Monocytes (%) (Auto) 9, Neutrophils # (Auto) 15.3H, Neutrophils % (Manual) 89, Neutrophils (%) (Auto) 86H, Platelet Count 166, Potassium Level 3.9, Prothrombin Time 13.6, Red Blood Count 4.14L, Red Cell Distribution Width 13.3, Sodium Level 135, Total Bilirubin 1.3H, Total Protein 7.3, Troponin I < 0.30, White Blood Count 17.7H 05/27/16 01:25: Urine Bacteria MODERATEH, Urine Bilirubin NEGATIVE, Urine Casts NONE, Urine Clarity VERY CLOUDYH, Urine Color YELLOW, Urine Crystals NONE, Urine Culture Indicated YES, Urine Glucose (UA) 3+H, Urine Ketones NEGATIVE, Urine Leukocyte Esterase 3+H, Urine Mucus MODERATEH, Urine Nitrite NEGATIVE, Urine Protein 2+H, Urine RBC NONE, Urine RBC (Auto) 4+H, Urine Specific [place] 1.010L, Urine Squamous Epithelial Cells 5-10, Urine Urobilinogen 1, Urine WBC 50-100H, Urine pH 6 05/27/16 04:20: Alanine Aminotransferase (ALT/SGPT) 62H, Albumin 3.3, Alkaline Phosphatase 62, Anion Gap 10, Aspartate Amino Transf (AST/SGOT) 52H, BUN/Creatinine Ratio 18, Basophils # (Auto) 0.0, Basophils (%) (Auto) 0, Blood Urea Nitrogen 22H, Calcium Level 8.7, Carbon Dioxide Level 22, Chloride Level 104, Creatinine 1.20 , Eosinophils # (Auto) 0.0, Eosinophils (%) (Auto) 0, Estimat Glomerular Filtration Rate 58, Glucose Level 263H, Hematocrit 37L, Hemoglobin 13.0L, Lymphocytes # (Auto) 0.6L, Lymphocytes (%) (Auto) 4L, Mean Corpuscular Hemoglobin 32, Mean Corpuscular Hemoglobin Concent 35, Mean Corpuscular Volume 93, Mean Platelet Volume 11.3H, Monocytes # (Auto) 0.4, Monocytes (%) (Auto) 2, Neutrophils # (Auto) 14.0H, Neutrophils (%) (Auto) 94H, Platelet Count 149, Potassium Level 4.1, Red Blood Count 4.04L, Red Cell Distribution Width 13.1, Sodium Level 136, Total Bilirubin 0.8, Total Protein 6.8, White Blood Count 15.0H 05/28/16 05:54: Alanine Aminotransferase (ALT/SGPT) 112H, Albumin 3.2, Alkaline Phosphatase 61, Anion Gap 12, Aspartate Amino Transf (AST/SGOT) 111H, BUN/Creatinine Ratio 28, Basophils # (Auto) 0.0, Basophils (%) (Auto) 0, Blood Urea Nitrogen 32H, Calcium Level 8.4L, Carbon Dioxide Level 20L, Chloride Level 106, Creatinine 1.13, Eosinophils # (Auto) 0.0, Eosinophils (%) (Auto) 0, Estimat Glomerular Filtration Rate > 60, Glucose Level 155H, Hematocrit 35L, Hemoglobin 12.1L, Lymphocytes # (Auto) 0.6L, Lymphocytes (%) (Auto) 4L, Mean Corpuscular Hemoglobin 32, Mean Corpuscular Hemoglobin Concent 35, Mean Corpuscular Volume 93, Mean Platelet Volume 11.2H, Monocytes # (Auto) 0.5, Monocytes (%) (Auto) 3, Neutrophils # (Auto) 15.0H, Neutrophils (%) (Auto) 93H, Platelet Count 173, Potassium Level 4.1, Red Blood Count 3.76L, Red Cell Distribution Width 13.1, Sodium Level 138, Total Bilirubin 0.3, Total Protein 6.4, White Blood Count 16.1H 05/28/16 11:15: Urine Bacteria NEGATIVE, Urine Bilirubin NEGATIVE, Urine Casts PRESENT, Urine Clarity CLEAR, Urine Color YELLOW, Urine Crystals NONE, Urine Culture Indicated NO, Urine Glucose (UA) 1+H, Urine Hyaline Casts 0-2H, Urine Ketones NEGATIVE, Urine Leukocyte Esterase NEGATIVE, Urine Mucus NEGATIVE, Urine Nitrite NEGATIVE , Urine Protein 2+H, Urine RBC NONE, Urine RBC (Auto) 2+H, Urine Specific [place] 1.020, Urine Squamous Epithelial Cells 0-2, Urine Urobilinogen 1, Urine WBC NONE, Urine pH 6 05/29/16 07:37: Alanine Aminotransferase (ALT/SGPT) 125H, Albumin 2.8L, Alkaline Phosphatase 56 , Anion Gap 8, Aspartate Amino Transf (AST/SGOT) 64H, BUN/Creatinine Ratio 30, Basophils # (Auto) 0.0, Basophils (%) (Auto) 0, Blood Urea Nitrogen 33H, Calcium Level 7.9L, Carbon Dioxide Level 25, Chloride Level 107, Creatinine 1.10 , Eosinophils # (Auto) 0.0, Eosinophils (%) (Auto) 0, Estimat Glomerular Filtration Rate > 60, Glucose Level 110H, Hematocrit 36L, Hemoglobin 12.1L, Lymphocytes # (Auto) 1.2, Lymphocytes (%) (Auto) 11L, Mean Corpuscular Hemoglobin 32, Mean Corpuscular Hemoglobin Concent 34, Mean Corpuscular Volume 94, Mean Platelet Volume 10.7H, Monocytes # (Auto) 0.8, Monocytes (%) (Auto) 7, Neutrophils # (Auto) 8.7H, Neutrophils (%) (Auto) 82H, Platelet Count 168, Potassium Level 3.8, Red Blood Count 3.80L, Red Cell Distribution Width 13.3, Sodium Level 140, Total Bilirubin 0.3, Total Protein 5.7L, White Blood Count 10.6 Microbiology 05/26/16 Blood Culture - Preliminary, Resulted No growth 05/26/16 Influenza Types A,B Antigen (GENEVA) - Final, Complete 05/27/16 Urine Culture - Final, Complete Laboratory Tests 05/26/16 17:00 05/27/16 04:20 05/28/16 05:54 05/29/16 07:37 Pending Labs Microbiology Date/Time Source Procedure Growth Status 05/26/16 18:36 Peripheral Rt Forearm Blood Culture - Preliminary No growth Resulted 05/26/16 17:00 Peripheral Lt Hand Blood Culture - Preliminary No growth Resulted 05/26/16 17:05 Nasopharynx Influenza Types A,B Antigen (GENEVA) - Final Complete 05/27/16 01:25 Urine Clean Catch Urine Culture - Final Complete Laboratory Tests 05/26/16 17:00: Activated Partial Thromboplast Time 29, Alanine Aminotransferase (ALT/SGPT) 43, Albumin 3.8, Alkaline Phosphatase 59, Amylase Level 25, Anion Gap 12, Aspartate Amino Transf (AST/SGOT) 43, BUN/Creatinine Ratio 22, Basophils # (Auto) 0.0, Basophils (%) (Auto) 0, Blood Morphology Comment NORMAL, Blood Urea Nitrogen 29 , Calcium Level 8.8, Carbon Dioxide Level 21, Chloride Level 102, Creatinine 1.32, Eosinophils # (Auto) 0.0, Eosinophils (%) (Auto) 0, Estimat Glomerular Filtration Rate 52, Glucose Level 145, Hematocrit 38, Hemoglobin 13.3, INR Comment 1.1, Lactic Acid Level 1.1, Lipase 7, Lymphocytes # (Auto) 0.8, Lymphocytes % (Manual) 3, Lymphocytes (%) (Auto) 5, Magnesium Level 2.2, Mean Corpuscular Hemoglobin 32, Mean Corpuscular Hemoglobin Concent 35, Mean Corpuscular Volume 93, Mean Platelet Volume 10.9, Monocytes # (Auto) 1.6, Monocytes % (Manual) 8, Monocytes (%) (Auto) 9, Neutrophils # (Auto) 15.3, Neutrophils % (Manual) 89, Neutrophils (%) (Auto) 86, Platelet Count 166, Potassium Level 3.9, Prothrombin Time 13.6, Red Blood Count 4.14, Red Cell Distribution Width 13.3, Sodium Level 135, Total Bilirubin 1.3, Total Protein 7.3, Troponin I < 0.30, White Blood Count 17.7 05/27/16 01:25: Urine Bacteria MODERATE, Urine Bilirubin NEGATIVE, Urine Casts NONE, Urine Clarity VERY CLOUDY, Urine Color YELLOW, Urine Crystals NONE, Urine Culture Indicated YES, Urine Glucose (UA) 3+, Urine Ketones NEGATIVE, Urine Leukocyte Esterase 3+, Urine Mucus MODERATE, Urine Nitrite NEGATIVE, Urine Protein 2+, Urine RBC NONE, Urine RBC (Auto) 4+, Urine Specific [place] 1.010, Urine Squamous Epithelial Cells 5-10, Urine Urobilinogen 1, Urine WBC 50-100, Urine pH 6 05/27/16 04:20: Alanine Aminotransferase (ALT/SGPT) 62, Albumin 3.3, Alkaline Phosphatase 62, Anion Gap 10, Aspartate Amino Transf (AST/SGOT) 52, BUN/Creatinine Ratio 18, Basophils # (Auto) 0.0, Basophils (%) (Auto) 0, Blood Urea Nitrogen 22, Calcium Level 8.7, Carbon Dioxide Level 22, Chloride Level 104, Creatinine 1.20, Eosinophils # (Auto) 0.0, Eosinophils (%) (Auto) 0, Estimat Glomerular Filtration Rate 58, Glucose Level 263, Hematocrit 37, Hemoglobin 13.0, Lymphocytes # (Auto) 0.6, Lymphocytes (%) (Auto) 4, Mean Corpuscular Hemoglobin 32, Mean Corpuscular Hemoglobin Concent 35, Mean Corpuscular Volume 93, Mean Platelet Volume 11.3, Monocytes # (Auto) 0.4, Monocytes (%) (Auto) 2, Neutrophils # (Auto) 14.0, Neutrophils (%) (Auto) 94, Platelet Count 149, Potassium Level 4.1, Red Blood Count 4.04, Red Cell Distribution Width 13.1, Sodium Level 136, Total Bilirubin 0.8, Total Protein 6.8, White Blood Count 15.0 05/28/16 05:54: Alanine Aminotransferase (ALT/SGPT) 112, Albumin 3.2, Alkaline Phosphatase 61, Anion Gap 12, Aspartate Amino Transf (AST/SGOT) 111, BUN/Creatinine Ratio 28, Basophils # (Auto) 0.0, Basophils (%) (Auto) 0, Blood Urea Nitrogen 32, Calcium Level 8.4, Carbon Dioxide Level 20, Chloride Level 106, Creatinine 1.13, Eosinophils # (Auto) 0.0, Eosinophils (%) (Auto) 0, Estimat Glomerular Filtration Rate > 60, Glucose Level 155, Hematocrit 35, Hemoglobin 12.1, Lymphocytes # (Auto) 0.6, Lymphocytes (%) (Auto) 4, Mean Corpuscular Hemoglobin 32, Mean Corpuscular Hemoglobin Concent 35, Mean Corpuscular Volume 93, Mean Platelet Volume 11.2, Monocytes # (Auto) 0.5, Monocytes (%) (Auto) 3, Neutrophils # (Auto) 15.0, Neutrophils (%) (Auto) 93, Platelet Count 173, Potassium Level 4.1, Red Blood Count 3.76, Red Cell Distribution Width 13.1, Sodium Level 138, Total Bilirubin 0.3, Total Protein 6.4, White Blood Count 16.1 05/28/16 11:15: Urine Bacteria NEGATIVE, Urine Bilirubin NEGATIVE, Urine Casts PRESENT, Urine Clarity CLEAR, Urine Color YELLOW, Urine Crystals NONE, Urine Culture Indicated NO, Urine Glucose (UA) 1+, Urine Hyaline Casts 0-2, Urine Ketones NEGATIVE, Urine Leukocyte Esterase NEGATIVE, Urine Mucus NEGATIVE, Urine Nitrite NEGATIVE , Urine Protein 2+, Urine RBC NONE, Urine RBC (Auto) 2+, Urine Specific [place] 1.020, Urine Squamous Epithelial Cells 0-2, Urine Urobilinogen 1, Urine WBC NONE , Urine pH 6 05/29/16 07:37: Alanine Aminotransferase (ALT/SGPT) 125, Albumin 2.8, Alkaline Phosphatase 56, Anion Gap 8, Aspartate Amino Transf (AST/SGOT) 64, BUN/Creatinine Ratio 30, Basophils # (Auto) 0.0, Basophils (%) (Auto) 0, Blood Urea Nitrogen 33, Calcium Level 7.9, Carbon Dioxide Level 25, Chloride Level 107, Creatinine 1.10, Eosinophils # (Auto) 0.0, Eosinophils (%) (Auto) 0, Estimat Glomerular Filtration Rate > 60, Glucose Level 110, Hematocrit 36, Hemoglobin 12.1, Lymphocytes # (Auto) 1.2, Lymphocytes (%) (Auto) 11, Mean Corpuscular Hemoglobin 32, Mean Corpuscular Hemoglobin Concent 34, Mean Corpuscular Volume 94, Mean Platelet Volume 10.7, Monocytes # (Auto) 0.8, Monocytes (%) (Auto) 7, Neutrophils # (Auto) 8.7, Neutrophils (%) (Auto) 82, Platelet Count 168, Potassium Level 3.8, Red Blood Count 3.80, Red Cell Distribution Width 13.3, Sodium Level 140, Total Bilirubin 0.3, Total Protein 5.7, White Blood Count 10.6 Radiology Reviewed CAT scan of the head no acute intracranial process area Chest x-ray 05/26/16 patchy infiltrate. Chest x-ray 05/28/16 no acute infiltrate. Infiltrate left base not there anymore Discussion & Recommendations to check liver tests in office Discharge Home Medications: Active Scripts Active Ventolin Hfa (Albuterol Sulfate) 1 Puff Puff 2 Puff IH TID 1 PUFF = 90 MCG Cefdinir 300 Mg Capsule 300 Mg PO BID Reported Norvasc (Amlodipine Besylate) 5 Mg Tablet 5 Mg PO DAILY Sertraline HCl 50 Mg Tablet 50 Mg PO DAILY Aspirin 81 Mg Tab.chew 81 Mg PO DAILY Instructions to patient/family Please see electonic discharge instructions given to patient. Clinical Quality Measures DVT/VTE Risk/Contraindication: Risk Factor Score Per Nursin RFS Level Per Nursing on Admit: 3=High MARCELLA ANAND DO Jun 01, 2016 07:30
== END 2016-05-30 11:10 | disposition home or self-care (01) | DRG 194 ==
LOC: EDUNIT# 15:12 → ER 15:14 → 4TH 17:55
PROVIDERS: ADMIT Family Medicine; ATTEND Family Medicine
DX: J18.9 Pneumonia, unspecified organism (principal); N39.0 Urinary tract infection, site not specified; E86.0 Dehydration; I10 Essential (primary) hypertension; R55 Syncope and collapse; R41.0 Disorientation, unspecified; R63.0 Anorexia; N28.9 Disorder of kidney and ureter, unspecified; F32.9 Major depressive disorder, single episode, unspecified; R79.89 Other specified abnormal findings of blood chemistry; Z91.81 History of falling
CPT/HCPCS: 36415; 70450; 71010; 71020; 80053; 81000; 82150; 83605; 83690; 83735; 84484; 85007; 85025; 85027; 85610; 85730; 87040; 87088; 87804; 93041; 94640; 94760; 96361; 96365; 96375

== ENCOUNTER 2016-06-25 18:15 | Inpatient (IN) | payer MEDICARE ==
[~2016-06-25] VITALS: Ht 175.3 cm; Wt 104.3 kg
[~2016-06-25 18:15] MED LIST changes: +CEFD300C3 PO; +RT-ALBUINH IH
[2016-06-25] MEDS ORDERED: LACTATED RINGERS 1,000 ML IV ONE (18:34)
--- NOTE | 2016-06-25 18:40 | ED GI ---
General Chief Complaint: Abdominal/GI Problems Stated Complaint: NAUSEA/VOMITING Nursing Triage Note: PT STATES N/V AND UPPER ABD PAIN FOR 2-3 DAYS Sepsis Screen: No Definite Risk Source of Information: Patient History of Present Illness Time Seen By Provider: 18:28 Initial Comments C/O EPIGASTRIC PAIN AND NAUSEA/VOMITING X 3 DAYS -- STATES HE HAD HAD NAUSEA FOR A WEEK VOMITED 2-3 TIMES JUST PRIOR TO ARRIVAL NO PAIN AT THIS TIME NO DIARRHEA C/O DECREASED URINE OUTPUT HAS NOT HAD ANYTHING TO EAT OR DRINK SINCE Thursday06/23/16 NO FEVER NO KNOWN SICK CONTACTS ADMITTED 05/26-05/30 FOR PNEUMONIA--THOSE SYMPTOMS RESOLVED. PCP: DR. ANAND Allergies and Home Medications Allergies Coded Allergies: No Known Drug Allergies (Unverified , 05/01/16) Home Medications Albuterol Sulfate 1 Puff Puff, 2 PUFF IH TID, #1 1 PUFF = 90 MCG Prescribed by: SHERRY CISNEROS on 05/29/16 0824 Amlodipine Besylate 5 Mg Tablet, 5 MG PO DAILY, (Reported) Aspirin 81 Mg Tab.chew, 81 MG PO DAILY, (Reported) Cefdinir 300 Mg Capsule, 300 MG PO BID, #10 Prescribed by: SHERRY CISNEROS on 05/29/16 0822 Sertraline HCl 50 Mg Tablet, 50 MG PO DAILY, (Reported) Review of Systems Constitutional: No chills, No diaphoresis, No dizziness, No fever, malaise, weakness EENTM: No Symptoms Reported Respiratory: No Symptoms Reported Cardiovascular: No Symptoms Reported Gastrointestinal: See HPI, Abdominal Pain, Denies Constipated, Denies Diarrhea , Nausea, Poor Appetite, Poor Fluid Intake, Vomiting Genitourinary: See HPI (DECREASED OUTPUT) Musculoskeletal: no symptoms reported Skin: no symptoms reported Psychiatric/Neurological: No Symptoms Reported Endocrine: No Symptoms Reported Hematologic/Lymphatic: No Symptoms Reported Past [id number] Hx Patient Social History Alcohol Use: Denies Use Recreational Drug Use: No Smoking Status: Never a Smoker Recent Foreign Travel: No Contact w/Someone Who Travel: No Recent Infectious Disease Expo: No Recent Hopitalizations: No Immunizations Up To Date Tetanus Booster (TDap): Unknown Seasonal Allergies Seasonal Allergies: No Surgeries HX Surgeries: Yes Surgeries: Eye Surgery Respiratory Hx Respiratory Disorders: Yes Respiratory Disorders: Pneumonia Cardiovascular Hx Cardiac Disorders: Yes Cardiac Disorders: Hypertension Neurological Hx Neurological Disorders: No Reproductive System Hx Reproductive Disorders: No Sexually Transmitted Disease: No HIV/AIDS: No Genitourinary Hx Genitourinary Disorders: No Gastrointestinal Hx Gastrointestinal Disorders: No Musculoskeletal Hx Musculoskeletal Disorders: No Endocrine Hx Endocrine Disorders: No HEENT HX ENT Disorders: No Loss of Vision: Denies Hearing Impairment: Hard of Hearing Cancer Hx Cancer: No Psychosocial Hx Psychiatric Problems: Yes Behavioral Health Disorders: Depression Integumentary HX Skin/Integumentary Disorder: No Blood Transfusions Hx Blood Disorders: No Adverse Reaction to a Blood Tr: No Family Medical History Family Medial History: FH: cancer 19 MOTHER Physical Exam Vital Signs VS - Last 72 Hours, by Label 06/25/16 18:26 Temp 98.2 Pulse 78 Resp 16 B/P (MAP) 159/101 Capillary Refill : Less Than 3 Seconds General Appearance: WD/WN, no apparent distress HEENT: PERRL/EOMI, other (DRY ORAL MUCOSA) Respiratory: normal breath sounds, no respiratory distress, no accessory muscle use Cardiovascular: regular rate, rhythm, no murmur Gastrointestinal: normal bowel sounds, non tender, soft, no organomegaly, no pulsatile mass, No distended, No guarding, No rebound, No tenderness, No hernia , No mass Extremities: normal inspection, no pedal edema, no calf tenderness, normal capillary refill Back: no CVA tenderness Neurologic/Psychiatric: bottom scrubber II-XII nml as tested, no motor/sensory deficits, alert, normal mood/affect, oriented x 3 Skin: normal color, warm/dry Progress/Results/Core Measures Results/Orders Lab Results Laboratory Tests Test 06/25/16 19:01 06/25/16 19:14 Range/Units White Blood Count 8.5 4.3-11.0 10^3/uL Red Blood Count 4.17 L 4.35-5.85 10^6/uL Hemoglobin 12.9 L 13.3-17.7 G/DL Hematocrit 38 L 40-54 % Mean Corpuscular Volume 91 80-99 FL Mean Corpuscular Hemoglobin 31 25-34 PG Mean Corpuscular Hemoglobin Concent 34 32-36 G/DL Red Cell Distribution Width 13.5 10.0-14.5 % Platelet Count 133 130-400 10^3/uL Mean Platelet Volume 11.0 H 7.4-10.4 FL Neutrophils (%) (Auto) 76 H 42-75 % Lymphocytes (%) (Auto) 13 12-44 % Monocytes (%) (Auto) 10 0-12 % Eosinophils (%) (Auto) 1 0-10 % Basophils (%) (Auto) 0 0-10 % Neutrophils # (Auto) 6.5 1.8-7.8 X 10^3 Lymphocytes # (Auto) 1.1 1.0-4.0 X 10^3 Monocytes # (Auto) 0.9 0.0-1.0 X 10^3 Eosinophils # (Auto) 0.1 0.0-0.3 10^3/uL Basophils # (Auto) 0.0 0.0-0.1 10^3/uL Sodium Level 139 135-145 MMOL/L Potassium Level 3.8 3.6-5.0 MMOL/L Chloride Level 104 98-107 MMOL/L Carbon Dioxide Level 22 21-32 MMOL/L Anion Gap 13 5-14 MMOL/L Blood Urea Nitrogen 12 7-18 MG/DL Creatinine 0.98 0.60-1.30 MG/DL Estimat Glomerular Filtration Rate > 60 BUN/Creatinine Ratio 12 Glucose Level 127 H 70-105 MG/DL Calcium Level 8.5 8.5-10.1 MG/DL Magnesium Level 2.0 1.8-2.4 MG/DL Total Bilirubin 5.5 H 0.1-1.0 MG/DL Aspartate Amino Transf (AST/SGOT) 444 H 5-34 U/L Alanine Aminotransferase (ALT/SGPT) 523 H 0-55 U/L Alkaline Phosphatase 396 H 40-136 U/L Total Protein 6.8 6.4-8.2 G/DL Albumin 3.5 3.2-4.5 G/DL Amylase Level 1924 H 25-125 U/L Lipase 2735 H 8-78 U/L Urine Color RUIZ H Urine Clarity SLIGHTLY CLOUDY Urine pH 7 5-9 Urine Specific [place] 1.015 L 1.016-1.022 Urine Protein 2+ H NEGATIVE Urine Glucose (UA) NEGATIVE NEGATIVE Urine Ketones NEGATIVE NEGATIVE Urine Nitrite NEGATIVE NEGATIVE Urine Bilirubin 2+ H NEGATIVE Urine Urobilinogen 8 H NORMAL MG/DL Urine Leukocyte Esterase 1+ H NEGATIVE Urine RBC (Auto) 1+ H NEGATIVE Urine RBC RARE /HPF Urine WBC 2-5 /HPF Urine Squamous Epithelial Cells 10-25 H /HPF Urine Crystals NONE /LPF Urine Bacteria TRACE /HPF Urine Casts NONE /LPF Urine Mucus MODERATE H /LPF Urine Culture Indicated NO My Orders Orders - ELMER RIZO K DO Saline Lock/Iv-Start (06/25/16 18:34) Amylase (06/25/16 18:34) Cbc With Automated Diff (06/25/16 18:34) Comprehensive Metabolic Panel (06/25/16 18:34) Lipase (06/25/16 18:34) Magnesium (06/25/16 18:34) Ua Culture If Indicated (06/25/16 18:34) Saline Lock/Iv-Start (06/25/16 18:34) Lactated Ringers (Lr 1000 Ml Iv Solution (06/25/16 18:34) Ct Abdomen/Pelvis Wo (06/25/16 18:34) Acute Abd Series (06/25/16 18:34) Saline Lock/Iv-Start (06/25/16 18:34) Ondansetron Injection (Zofran Injectio (06/25/16 18:45) Piperacillin Sodium/Tazobactam (Zosyn Vi (06/25/16 20:15) Pantoprazole Injection (Protonix Injecti (06/25/16 20:15) Medications Given in ED Current Medications Medications Dose Ordered Sig/Norbert Route Start Time Stop Time Status Last Admin Dose Admin Lactated Ringer's 1,000 ml @ 0 mls/hr Q0M ONCE IV 06/25/16 18:34 06/25/16 18:35 DC 06/25/16 18:41 999 MLS/HR Ondansetron HCl 4 mg ONCE ONCE IVP 06/25/16 18:45 06/25/16 18:46 DC 06/25/16 18:41 4 MG Vital Signs/I&O Vital Sign - Last 12Hours 06/25/16 18:26 Temp 98.2 Pulse 78 Resp 16 B/P (MAP) 159/101 Blood Pressure Mean: 120 Progress Note : Progress Note NAUSEA RESOLVED WITH ZOFRAN PT DOES NOT C/O PAIN DURING ER STAY Diagnostic Imaging Comments ACUTE ABDOMEN XRAYS--NO ACUTE PROCESS CT ABDOMEN/PELVIS--CHOLELITHIASIS WITH CHOLECYSTITIS AND PANCREATITIS. NO BILIARY DILATION, OTHER NON-ACUTE FINDINGS PER RADIOLOGIST REPORTS @ 2008 Reviewed: Reviewed by Me Departure Communication Progress Notes 1958--SPOKE WITH DR. ANAND. ACCEPTS PT FOR ADMIT. WOULD LIKE DR. HORTON CONSULTED IN THE AM. Impression Impression: Primary Impression: Cholecystitis, acute with cholelithiasis Additional Impressions: Pancreatitis Elevated liver enzymes Disposition: ADMITTED INPATIENT Condition: Improved Decision to Admit Reason: Admit from ER (General) Decision to Admit/Date: Jun 25, 2016 Time/Decision to Admit Time: 20:00 Departure-Patient Inst. Referrals: MARCELLA ANAND DO (PCP/Family) Primary Care Physician ELMER RIZO DO Jun 25, 2016 18:40
[2016-06-25] MEDS ORDERED: ONDANSETRON 4 MG/2 ML (SDV) Z0FRAN IVP ONE (18:45)
[2016-06-25 19:14] LABS: BASOPHILS % (AUTO) 0 % (0-10); EOSINOPHILS # (AUTO) 0.1 10^3/uL (0.0-0.3); EOSINOPHILS % (AUTO) 1 % (0-10); LYMPHOCYTES # (AUTO) 1.1 X 10^3 (1.0-4.0); LYMPHOCYTES % (AUTO) 13 % (12-44); MEAN CORPUSCULAR HEMOGLOBIN 31 PG (25-34); MEAN CORPUSCULAR HGB CONC 34 G/DL (32-36); MEAN CORPUSCULAR VOLUME 91 FL (80-99); MONOCYTES # (AUTO) 0.9 X 10^3 (0.0-1.0); MONOCYTES % (AUTO) 10 % (0-12); NEUTROPHILS # (AUTO) 6.5 X 10^3 (1.8-7.8); NEUTROPHILS % (AUTO) 76 % (42-75); PLATELET COUNT 133 10^3/uL (130-400); RED BLOOD COUNT 4.17 10^6/uL (4.35-5.85); RED CELL DISTRIBUTION WIDTH 13.5 % (10.0-14.5); WHITE BLOOD COUNT 8.5 10^3/uL (4.3-11.0)
[2016-06-25 19:20] LABS: KETONES,URINE NEGATIVE (NEGATIVE); LEUKOCYTE ESTERASE ,URINE 1+ (NEGATIVE); NITRITE,URINE NEGATIVE (NEGATIVE); PH,URINE 7 (5-9); PROTEIN,URINE 2+ (NEGATIVE); UROBILINOGEN,URINE 8 MG/DL (NORMAL)
[2016-06-25 19:29] LABS: ALANINE AMINOTRANSFERASE 523 U/L (0-55); ALBUMIN 3.5 G/DL (3.2-4.5); AMYLASE 1924 U/L (25-125); ANION GAP 13 MMOL/L (5-14); ASPARTATE AMINO TRANSFERASE 444 U/L (5-34); BILIRUBIN,TOTAL 5.5 MG/DL (0.1-1.0); BLOOD UREA NITROGEN 12 MG/DL (7-18); BUN/CREATININE RATIO 12; CALCIUM 8.5 MG/DL (8.5-10.1); CARBON DIOXIDE 22 MMOL/L (21-32); CHLORIDE 104 MMOL/L (98-107); CREATININE SERUM 0.98 MG/DL (0.60-1.30); GFR ESTIMATED > 60; GLUCOSE 127 MG/DL (70-105); POTASSIUM 3.8 MMOL/L (3.6-5.0); SODIUM 139 MMOL/L (135-145); TOTAL PROTEIN 6.8 G/DL (6.4-8.2)
[2016-06-25 19:30] LABS: BILIRUBIN,URINE 2+ (NEGATIVE)
[2016-06-25 19:52] LABS: LIPASE 2735 U/L (8-78)
--- NOTE | 2016-06-25 20:06 | Diagnostic Imaging Report ---
EXAMINATION: Acute abdomen series. INDICATION: Abdominal pain. FINDINGS: The accompanying erect PA chest shows the heart size to be within normal limits and stable when compared to 05/28/2016. The lungs are clear. There is still no sign of failure, pneumonia, or of pleural effusion. The mediastinum is not widened. The posttraumatic changes involving the left thorax and the left clavicle noted on the prior study are again visualized. There is no acute bony abnormality identified. Supine and erect views of the abdomen were obtained. There is gas in both the large and small bowel in a nonspecific fashion. There is no evidence for bowel obstruction. The cholelithiasis seen on the CT abdomen/pelvis exam performed prior to this study is not well appreciated on this exam. There is no mass or organomegaly evident. The enlargement of the prostate gland seen on the CT exam is not well appreciated on this study either. IMPRESSION: 1. The bowel gas pattern is nonspecific. There is no acute abnormality identified. 2. The cholelithiasis and the prostatomegaly seen on the CT exam performed prior to this study are not well appreciated on this exam. Dictated by: Dictated on workstation # [id number]
--- NOTE | 2016-06-25 20:07 | Diagnostic Imaging Report ---
PROCEDURE: CT abdomen and pelvis without contrast. TECHNIQUE: Multiple contiguous axial images were obtained through the abdomen and pelvis without the use of intravenous contrast. INDICATION: Abdominal pain. FINDINGS: The visualized lung bases demonstrate some mild dependent atelectasis. There are prior posttraumatic deformities demonstrated of multiple left-sided lower ribs. There is no pleural or pericardial effusion. The liver demonstrate a low-density cyst within the right hepatic lobe. No other intrahepatic abnormality is demonstrated. There are multiple gallstones present within the gallbladder. There is abnormal gallbladder distention and gallbladder wall thickening with some adjacent fat stranding suggesting cholecystitis. There is no abnormal biliary dilatation. The spleen appears normal in caliber. There is no adrenal mass. The kidneys are nonobstructed. There is a low-density exophytic lesion arising from the right kidney which appears nonobstructed. There is some mild induration demonstrated about the pancreas. Pancreatitis could not be excluded. There is no focal pancreatic abnormality. The small and large bowel appear normal in caliber without evidence of obstruction. Uncomplicated diverticulosis is noted. There is no evidence of diverticulitis. There is no free air, free fluid or abscess. There is no pathologic adenopathy. There are bilateral inguinal hernias. The prostate is enlarged. There are multilevel degenerative features present throughout the lumbar spine but no acute or suspicious osseous abnormality. There are bilateral pars defects at L5. IMPRESSION: 1. Numerous gallstones are demonstrated within the gallbladder with abnormal gallbladder wall thickening and adjacent fat stranding suggesting cholecystitis. There is no biliary dilatation. Ultrasound may be useful for further evaluation if indicated. 2. There is also some mild induration demonstrated about the pancreatic head. An associated pancreatitis would be a consideration. Correlate with lipase. 3. Diverticulosis. 4. Prostatic enlargement. 5. Inguinal hernias. 6. 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 Dictated by: Dictated on workstation # [id number]
[2016-06-25] MEDS ORDERED: PIPERACILLIN/TAZO 4.5 GM VIAL (ZOSYN) IV ONE (20:09)
[2016-06-25] MEDS ORDERED: NS (IVPB) 100 ML ONE (20:09)
[2016-06-25] MEDS ORDERED: PIPERACILLIN SODIUM/TAZOBACTAM 4.5 GM in NS (IVPB) 100 ML IV ONE (20:15)
[2016-06-25] MEDS ORDERED: PANTOPRAZOLE 40 MG/10 ML (PROTONIX) VIAL IV ONE (20:15)
[2016-06-25] MEDS ORDERED: ENALAPRILAT 2.5 MG/2 ML (VASOTEC) VIAL IV ONE ×2 (20:28→20:30)
[2016-06-25 21:10] VITALS: BP 178/79
[2016-06-25] MEDS ORDERED: D5 1/2 NS W/KCL 20 MEQ/L 1,000 ML IV ONE (21:14)
[2016-06-25] MEDS ORDERED: fentaNYL INJECTION 100 MCG/2 ML AMP IV PRN (21:30)
[2016-06-25 21:40] VITALS: BP 179/73
[2016-06-25] MEDS: ONDANSETRON 4 MG/2 ML (SDV) Z0FRAN IV PRN (22:39)
[2016-06-25] MEDS: CATHETER FLUSH 10 ML SYR IV SCH (22:39)
[2016-06-25] MEDS: D5 1/2 NS W/KCL 20 MEQ/L 1,000 ML IV SCH (22:40)
[2016-06-25 23:55] VITALS: BP 171/93
[2016-06-26] MEDS: ENALAPRILAT 2.5 MG/2 ML (VASOTEC) VIAL IV PRN ×2 (00:09→19:53)
[2016-06-26] MEDS: PIPERACILLIN/TAZOBACTAM 4.5 GM/NS100 ML IVPB IV SCH ×6 (02:33→15:15)
[2016-06-26 03:00] VITALS: BP 172/92
[2016-06-26 05:54] LABS: BASOPHILS % (AUTO) 0 % (0-10); EOSINOPHILS % (AUTO) 0 % (0-10); LYMPHOCYTES # (AUTO) 1.1 X 10^3 (1.0-4.0); LYMPHOCYTES % (AUTO) 9 % (12-44); MEAN CORPUSCULAR HEMOGLOBIN 31 PG (25-34); MEAN CORPUSCULAR HGB CONC 34 G/DL (32-36); MEAN CORPUSCULAR VOLUME 91 FL (80-99); MEAN PLATELET VOLUME 11.6 FL (7.4-10.4); MONOCYTES # (AUTO) 1.3 X 10^3 (0.0-1.0); MONOCYTES % (AUTO) 10 % (0-12); NEUTROPHILS # (AUTO) 10.6 X 10^3 (1.8-7.8); NEUTROPHILS % (AUTO) 81 % (42-75); PLATELET COUNT 131 10^3/uL (130-400); RED BLOOD COUNT 4.27 10^6/uL (4.35-5.85); RED CELL DISTRIBUTION WIDTH 13.8 % (10.0-14.5); WHITE BLOOD COUNT 13.1 10^3/uL (4.3-11.0)
[2016-06-26] MEDS: D5 1/2 NS W/KCL 20 MEQ/L 1,000 ML IV SCH ×3 (06:03→19:26)
[2016-06-26] MEDS: CATHETER FLUSH 10 ML SYR IV SCH ×3 (06:04→19:53)
[2016-06-26] MEDS: ONDANSETRON 4 MG/2 ML (SDV) Z0FRAN IV PRN ×2 (06:04→15:47)
[2016-06-26 06:19] LABS: ALANINE AMINOTRANSFERASE 468 U/L (0-55); ALBUMIN 3.3 G/DL (3.2-4.5); AMYLASE 647 U/L (25-125); ANION GAP 12 MMOL/L (5-14); ASPARTATE AMINO TRANSFERASE 344 U/L (5-34); BILIRUBIN,TOTAL 5.5 MG/DL (0.1-1.0); BLOOD UREA NITROGEN 10 MG/DL (7-18); BUN/CREATININE RATIO 10; CALCIUM 8.1 MG/DL (8.5-10.1); CARBON DIOXIDE 19 MMOL/L (21-32); CHLORIDE 105 MMOL/L (98-107); CREATININE SERUM 1.04 MG/DL (0.60-1.30); GFR ESTIMATED > 60; GLUCOSE 143 MG/DL (70-105); LIPASE 513 U/L (8-78); POTASSIUM 3.8 MMOL/L (3.6-5.0); SODIUM 136 MMOL/L (135-145); TOTAL PROTEIN 6.5 G/DL (6.4-8.2)
[2016-06-26] MEDS ORDERED: FLU TRIvalent (5 YOA+) 2016-17 (AFLURIA) 0.5 ML IM ONE (07:15)
[2016-06-26 08:00] VITALS: BP 163/81
[2016-06-26] MEDS: PANTOPRAZOLE 40 MG/10 ML (PROTONIX) VIAL IV SCH (08:06)
--- NOTE | 2016-06-26 08:39 | History & Physicial ---
History of Present Illness History of Present Illness Reason for visit/HPI patient came out to the emergency room due to having nausea and vomiting for days and abdominal pain. Prior to arrival patient had 3 vomiting episodes. CAT scan shows acute cholecystitis and pancreatitis. Patient has elevated liver tests and elevated amylase and lipase. Previous surgery denies any family history denies asthma TB diabetes Date of Admission Jun 25, 2016 at 20:13 I consulted on this patient on 06/26/16 08:35 Attending Physician Henrik Anand DO Admitting Physician Henrik Anand DO Consult Allergies and Home Medications Allergies Coded Allergies: No Known Drug Allergies (Unverified , 05/01/16) Home Medications Albuterol Sulfate 1 Puff Puff, 2 PUFF IH TID, #1 1 PUFF = 90 MCG Prescribed by: SHERRY CISNEROS on 05/29/16 0824 Amlodipine Besylate 5 Mg Tablet, 5 MG PO DAILY, (Reported) Aspirin 81 Mg Tab.chew, 81 MG PO DAILY, (Reported) Sertraline HCl 50 Mg Tablet, 50 MG PO DAILY, (Reported) Past Zmdbbnt-Tgmrsa-Fbfjye Hx Patient Social History Alcohol Use: Denies Use Recreational Drug Use: No Smoking Status: Never a Smoker Physical Abuse Screen: No Sexual Abuse: No Recent Foreign Travel: No Contact w/other who traveled: No Recent Hopitalizations: No Recent Infectious Disease Expo: No Immunizations Up To Date Tetanus Booster (TDap): Unknown Seasonal Allergies Seasonal Allergies: No Surgeries HX Surgeries: Yes Surgeries: Eye Surgery Respiratory Hx Respiratory Disorders: Yes Respiratory Disorders: Pneumonia Cardiovascular Hx Cardiovascular Disorders: Yes Cardiac Disorders: Hypertension Neurological Hx Neurological Disorders: No Reproductive System Hx Reproductive Disorders: No Sexually Transmitted Disease: No HIV/AIDS: No Genitourinary Hx Genitourinary Disorders: No Gastrointestinal Hx Gastrointestinal Disorders: No Musculoskeletal Hx Musculoskeletal Disorders: No Endocrine Hx Endocrine Disorders: No HEENT HX ENT Disorders: No Loss of Vision: Denies Hearing Impairment: Hard of Hearing Cancer Hx Cancer: No Psychosocial Hx Psychiatric Problems: Yes Behavioral Health Disorders: Depression Integumentary HX Skin/Integumentary Disorder: No Blood Transfusions Hx Blood Disorders: No Adverse Reaction to a Blood Tr: No Family Medical History Family Hx: FH: cancer 19 MOTHER Constitutional: weakness EENTM: no symptoms reported Respiratory: no symptoms reported Cardiovascular: no symptoms reported Gastrointestinal: RUQ, abdominal pain (RUQ) Genitourinary: decreased output Physical Exam Vital Signs Vital Sign - Last 12Hours 06/25/16 06/25/16 06/25/16 18:26 20:44 21:00 Temp 98.2 Pulse 78 Resp 16 B/P (MAP) 159/101 Pulse Ox 95 O2 Delivery Room Air Capillary Refill : Less Than 3 Seconds General Appearance: No Apparent Distress, WD/WN Eyes: Bilateral Eye Normal Inspection HEENT: Normal ENT Inspection Neck: Full Range of Motion, Normal Inspection Respiratory: Chest Non Tender, Lungs Clear, Normal Breath Sounds, No Accessory Muscle Use, No Respiratory Distress Cardiovascular: Regular Rate, Rhythm, No Murmur Gastrointestinal: Non Tender, Soft Assessment/Plan Assessment and Plan acute cholecystitis. Acute pancreatitis. History of hypertension. Stone obstruction Problems: Clinical Quality Measures DVT/VTE Risk/Contraindication: Risk Factor Score Per Nursin RFS Level Per Nursing on Admit: 4+=Very High HENRIK ANAND DO Jun 26, 2016 08:39
--- NOTE | 2016-06-26 10:36 | Diagnostic Imaging Report ---
PROCEDURE: US abdomen complete. TECHNIQUE: Multiple real-time grayscale images were obtained over the abdomen in various projections. INDICATION: Abdominal pain. FINDINGS: The pancreas is obscured by bowel gas. The liver demonstrates a simple-appearing cyst measuring 2 cm in the anterior right hepatic lobe. The liver parenchyma is partially obscured by bowel gas. There are multiple stones in the gallbladder with no associated wall thickening or intrahepatic fluid. There is dilatation of the CBD of mild degree at 7 mm. There is slight prominence of the intrahepatic bile ducts centrally as well. Sonographic Lee sign reportedly negative. The right kidney is 9.9 cm, and the left kidney is 8.7 cm in length. There is no hydronephrosis. The spleen is at the upper limits of normal in size, measuring 12.8 x 5.5 x 5.4 cm. No fluid collection or ascites seen. Aorta and IVC are obscured by bowel gas. IMPRESSION: 1. Cholelithiasis. No evidence of cholecystitis. 2. Minimal dilatation of the bile ducts. Consider MRCP evaluation to rule out a CBD stone. Dictated by: Dictated on workstation # [id number]
--- NOTE | 2016-06-26 11:36 | Consultation ---
History of Present Illness History of Present Illness Patient Consulted On(sanam/time) 06/26/16 11:27 Reason for Visit: acute upper abdominal pain resulting in ER visit. History of Present Illness acute abdominal pain with the discovery of gallstone pancreatitis. Bilirubin elevated and patient looks jaundiced. Denies previous episodes of biliary colic. Allergies and Home Medications Allergies Coded Allergies: No Known Drug Allergies (Unverified , 05/01/16) Home Medications Albuterol Sulfate 1 Puff Puff, 2 PUFF IH TID, #1 1 PUFF = 90 MCG Prescribed by: SHERRY CISNEROS on 05/29/16 0824 Amlodipine Besylate 5 Mg Tablet, 5 MG PO DAILY, (Reported) Aspirin 81 Mg Tab.chew, 81 MG PO DAILY, (Reported) Sertraline HCl 50 Mg Tablet, 50 MG PO DAILY, (Reported) Past Wuulhzi-Avcrjg-Dipbmh Hx Patient Social History Alcohol Use: Denies Use Recreational Drug Use: No Smoking Status: Never a Smoker Recent Foreign Travel: No Contact w/Someone Who Travel: No Recent Infectious Disease Expo: No Recent Hopitalizations: No Physical Abuse Screen: No Sexual Abuse: No Immunizations Up To Date Tetanus Booster (TDap): Unknown Seasonal Allergies Seasonal Allergies: No Surgeries HX Surgeries: Yes Surgeries: Eye Surgery Respiratory Hx Respiratory Disorders: Yes Respiratory Disorders: Pneumonia Cardiovascular Hx Cardiac Disorders: Yes Cardiac Disorders: Hypertension Neurological Hx Neurological Disorders: No Reproductive System Hx Reproductive Disorders: No Sexually Transmitted Disease: No HIV/AIDS: No Genitourinary Hx Genitourinary Disorders: No Gastrointestinal Hx Gastrointestinal Disorders: No Musculoskeletal Hx Musculoskeletal Disorders: No Musculoskeletal Disorders: Back Injury Endocrine Hx Endocrine Disorders: No HEENT HX ENT Disorders: No Loss of Vision: Denies Hearing Impairment: Hard of Hearing Cancer Hx Cancer: No Psychosocial Hx Psychiatric Problems: Yes Behavioral Health Disorders: Depression Integumentary HX Skin/Integumentary Disorder: No Blood Transfusions Hx Blood Disorders: No Adverse Reaction to a Blood Tr: No Family Medical History Family Medial History: FH: cancer 19 MOTHER Review of Systems-General Constitutional: weakness Respiratory: no symptoms reported Cardiovascular: no symptoms reported Gastrointestinal: RUQ, abdominal pain (RUQ), jaundice, loss of appetite, nausea Genitourinary: no symptoms reported Musculoskeletal: no symptoms reported Skin: change in color Psychiatric/Neurological: No Symptoms Reported Physical Exam-General Problems Physical Exam Vital Signs Vital Sign - Last 12Hours 06/25/16 06/25/16 06/25/16 18:26 20:44 21:00 Temp 98.2 Pulse 78 Resp 16 B/P (MAP) 159/101 Pulse Ox 95 O2 Delivery Room Air Capillary Refill : Less Than 3 Seconds General Appearance: no apparent distress HEENT: normal ENT inspection Neck: full range of motion, normal inspection Respiratory: lungs clear Cardiovascular: normal peripheral pulses Gastrointestinal: soft, tenderness Rectal: deferred Extremities: normal inspection Skin: jaundice Lymphatic: no adenopathy Comments mild epigastric tenderness with no guarding. No hernia Assessment/Plan Assessment/Plan Admission Diagnosis/Plan gentleman with gallstones and otitis. Hypertension, controlled. Hyperbilirubinemia. Most likely choledocholithiasis as the offending pathology. Reasonable to perform therapeutic ERCP first followed by cholecystectomy. Clinical Quality Measures DVT/VTE Risk/Contraindication: VTE Present on Admission: No Risk Factor Score Per Nursin RFS Level Per Nursing on Admit: 4+=Very High Contraindications-Pharm: Other *list below* SHASHI HORTON MD Jun 26, 2016 11:36 am
[2016-06-26 12:00] VITALS: BP 170/73
[2016-06-26 15:45] VITALS: BP 182/89
[2016-06-26 19:35] VITALS: BP 179/89
[2016-06-26] MEDS: ACETAMINOPHEN 650 MG SUPP (TYLENOL) PR PRN (22:28)
[2016-06-27] VITALS (15 sets, daily range): BP systolic 133–187; BP diastolic 56–91
[2016-06-27] MEDS: PIPERACILLIN/TAZOBACTAM 4.5 GM/NS100 ML IVPB IV SCH ×8 (00:02→23:40)
[2016-06-27] MEDS: D5 1/2 NS W/KCL 20 MEQ/L 1,000 ML IV SCH ×2 (02:14→09:29)
[2016-06-27] MEDS: CATHETER FLUSH 10 ML SYR IV SCH ×3 (05:42→21:44)
[2016-06-27] MEDS: ENALAPRILAT 2.5 MG/2 ML (VASOTEC) VIAL IV PRN (05:53)
[2016-06-27 06:18] LABS: BASOPHILS % (AUTO) 0 % (0-10); EOSINOPHILS % (AUTO) 0 % (0-10); LYMPHOCYTES # (AUTO) 1.2 X 10^3 (1.0-4.0); LYMPHOCYTES % (AUTO) 7 % (12-44); MEAN CORPUSCULAR HEMOGLOBIN 31 PG (25-34); MEAN CORPUSCULAR HGB CONC 34 G/DL (32-36); MEAN CORPUSCULAR VOLUME 91 FL (80-99); MEAN PLATELET VOLUME 11.4 FL (7.4-10.4); MONOCYTES # (AUTO) 1.4 X 10^3 (0.0-1.0); MONOCYTES % (AUTO) 8 % (0-12); NEUTROPHILS # (AUTO) 15.4 X 10^3 (1.8-7.8); NEUTROPHILS % (AUTO) 85 % (42-75); PLATELET COUNT 122 10^3/uL (130-400); RED CELL DISTRIBUTION WIDTH 13.8 % (10.0-14.5)
[2016-06-27 06:34] LABS: ALANINE AMINOTRANSFERASE 284 U/L (0-55); ALBUMIN 2.9 G/DL (3.2-4.5); ANION GAP 9 MMOL/L (5-14); ASPARTATE AMINO TRANSFERASE 96 U/L (5-34); BILIRUBIN,TOTAL 2.8 MG/DL (0.1-1.0); BLOOD UREA NITROGEN 8 MG/DL (7-18); BUN/CREATININE RATIO 8; CALCIUM 7.8 MG/DL (8.5-10.1); CARBON DIOXIDE 19 MMOL/L (21-32); CHLORIDE 105 MMOL/L (98-107); CREATININE SERUM 0.95 MG/DL (0.60-1.30); GFR ESTIMATED > 60; GLUCOSE 166 MG/DL (70-105); POTASSIUM 3.9 MMOL/L (3.6-5.0); SODIUM 133 MMOL/L (135-145); TOTAL PROTEIN 5.9 G/DL (6.4-8.2)
[2016-06-27 06:48] LABS: AMYLASE 119 U/L (25-125); LIPASE 85 U/L (8-78)
[2016-06-27 07:06] LABS: BAND NEUTROPHILS 2 %; LYMPHOCYTES % (MANUAL) 4 %; NEUTROPHILS % (MANUAL) 88 %
[2016-06-27 07:07] LABS: BASOPHILS % (MANUAL) 0 %; EOSINOPHILS % (MANUAL) 0 %; REACTIVE LYMPHOCYTES 3 %
--- NOTE | 2016-06-27 07:07 | Progress Note (SOAP) ---
Subjective Subjective/Events-last exam Fever finally broke. White blood cell count elevated at 18,100. Amylase 119 decreased lipase 85 decreased better. Liver enzymes decreased. Bilirubin 2.8 down from 5.5. Patient states he feels 50 percent better. Patient states she still has some pain but can't explain it. Patient had ERCP today done by Dr. López. Objective Exam Vital Signs Date Time Temp Pulse Resp B/P (MAP) Pulse Ox O2 Delivery O2 Flow Rate FiO2 06/27/16 06:31 146/56 06/27/16 05:49 72 22 178/89 93 Room Air 06/27/16 05:42 99.4 06/27/16 04:00 173/82 06/27/16 00:34 99.6 06/27/16 00:00 100.2 06/26/16 23:00 101.4 06/26/16 22:55 101.4 06/26/16 22:43 102.3 06/26/16 19:35 100.5 82 20 179/89 95 Room Air 06/26/16 15:45 100.3 80 22 182/89 95 Room Air 06/26/16 12:00 99.8 77 20 170/73 96 Room Air 06/26/16 08:00 99.2 74 20 163/81 92 Room Air I & O 06/27/16 07:00 Intake Total 1300 ml Balance 1300 ml Capillary Refill : Less Than 3 Seconds General Appearance: No Apparent Distress, WD/WN HEENT: Normal ENT Inspection Neck: Normal Inspection, Non Tender Respiratory: Chest Non Tender, Lungs Clear, Normal Breath Sounds, No Accessory Muscle Use, No Respiratory Distress Cardiovascular: Regular Rate, Rhythm, No Murmur Gastrointestinal: non tender, soft Results Lab Laboratory Tests 06/27/16 06:00 Laboratory Tests 06/27/16 06:00: White Blood Count 18.0H, Red Blood Count 3.90L, Hemoglobin 12.2L, Hematocrit 36L , Mean Corpuscular Volume 91, Mean Corpuscular Hemoglobin 31, Mean Corpuscular Hemoglobin Concent 34, Red Cell Distribution Width 13.8, Platelet Count 122L, Mean Platelet Volume 11.4H, Neutrophils (%) (Auto) 85H, Lymphocytes (%) (Auto) 7L, Monocytes (%) (Auto) 8, Eosinophils (%) (Auto) 0, Basophils (%) (Auto) 0, Neutrophils # (Auto) 15.4H, Lymphocytes # (Auto) 1.2, Monocytes # (Auto) 1.4H, Eosinophils # (Auto) 0.0, Basophils # (Auto) 0.0, Sodium Level 133L, Potassium Level 3.9, Chloride Level 105, Carbon Dioxide Level 19L, Anion Gap 9, Blood Urea Nitrogen 8, Creatinine 0.95, Estimat Glomerular Filtration Rate > 60, BUN/ Creatinine Ratio 8, Glucose Level 166H, Calcium Level 7.8L, Total Bilirubin 2.8H , Aspartate Amino Transf (AST/SGOT) 96H, Alanine Aminotransferase (ALT/SGPT) 284H, Alkaline Phosphatase 288H, Total Protein 5.9L, Albumin 2.9L, Amylase Level 119, Lipase 85H Assessment/Plan Assessment/Plan Assess & Plan/Chief Complaint Acute cholecystitis. Pancreatic stone. Pancreatitis resolving. Leukocytosis. Fever resolving. To have ERCP today. Clinical Quality Measures DVT/VTE Risk/Contraindication: VTE Present on Admission: No Risk Factor Score Per Nursin RFS Level Per Nursing on Admit: 4+=Very High Contraindications-Pharm: Other *list below* MARCELLA ANAND DO Jun 27, 2016 07:07
[2016-06-27] MEDS: PANTOPRAZOLE 40 MG/10 ML (PROTONIX) VIAL IV SCH (08:07)
[2016-06-27] MEDS: amLODIPine 5 MG (NORVASC) TAB PO SCH (08:07)
--- NOTE | 2016-06-27 10:38 | Progress Note-Pre Operative ---
Pre-Operative Progress Note H&P Reviewed The H&P was reviewed, patient examined and no changes noted. Date H&P Reviewed: Jun 27, 2016 Time H&P Reviewed: 10:38 Pre-Operative Diagnosis: Gallstone pancreatitis SHASHI HORTON MD Jun 27, 2016 10:38 am
--- NOTE | 2016-06-27 10:41 | Progress Note-Standard ---
Standard Progress Note Progress Notes/Assess & Plan Progress/Assessment & Plan 06/27/16: Spiked fever last night, resolved now. No abdominal pain. LFTs improving and therefore, it's reasonable to proceed with cholecystectomy with cholangiogram first, holding off ERCP Final Diagnosis Gallstone pancreatitis SHASHI HORTON MD Jun 27, 2016 10:41 am
[2016-06-27] MEDS ORDERED: ceFAZolin 2 GM/50 ML NS 50 ML IV NR (10:45)
[2016-06-27] MEDS: LACTATED RINGERS 1,000 ML IV PRN ×2 (11:05→12:37)
[2016-06-27] MEDS ORDERED: BUP/EPI 0.25% 1:200,000 (MARCAINE) 30 ML VIAL ONE (11:13)
[2016-06-27] MEDS ORDERED: ROCURONIUM 50 MG/5 ML (ZEMURON) VIAL IV ONE ×2 (11:14→12:45)
[2016-06-27] MEDS ORDERED: LIDOCAINE PF 2% 10 ML (XYLOCAINE) AMP ONE (11:14)
[2016-06-27] MEDS ORDERED: ONDANSETRON 4 MG/2 ML (SDV) Z0FRAN ONE ×2 (11:14→13:41)
[2016-06-27] MEDS ORDERED: proPOfol 200 MG/20 ML (DIPRIVAN) VIAL IV ONE (11:14)
[2016-06-27] MEDS ORDERED: LIDOCAINE JELLY 2% (XYLOCAINE) 5 ML TUBE ONE (11:14)
[2016-06-27] MEDS ORDERED: LACTATED RINGERS 1,000 ML IV ONE ×2 (11:14→12:45)
[2016-06-27] MEDS ORDERED: fentaNYL INJECTION 100 MCG/2 ML AMP ONE ×2 (11:15→13:41)
[2016-06-27] MEDS ORDERED: MIDAZOLAM 2 MG/2 ML (VERSED) VIAL ONE (11:15)
[2016-06-27] MEDS: metroNIDAZOLE 500MG/100ML IVPB 100 ML IV NR ×2 (11:21→11:23)
[2016-06-27] MEDS ORDERED: morphine INJ 10 MG/ML 1ML (SYR OR VIAL) ONE (13:41)
[2016-06-27] MEDS ORDERED: GLYCOPYRROLATE 0.2 MG/ML (ROBINUL) 2 ML VIAL ONE (13:50)
[2016-06-27] MEDS ORDERED: NEOSTIGMINE (BLOXIVERZ ) 1 MG/1ML 10 ML VIAL ONE (13:50)
[2016-06-27] MEDS ORDERED: SEVOFLURANE (ULTANE) 15 ML INHAL SOLN ONE (13:54)
[2016-06-27] MEDS ORDERED: MEPERIDINE (DEMEROL) INJ 50 MG/ML IVP PRN (14:15)
[2016-06-27] MEDS ORDERED: ONDANSETRON 4 MG/2 ML (SDV) Z0FRAN IVP PRN ×2 (14:15→15:15)
[2016-06-27] MEDS ORDERED: morphine INJ 10 MG/ML 1ML (SYR OR VIAL) IVP PRN (14:15)
--- NOTE | 2016-06-27 15:10 | Progress Note-Post Operative ---
Post-Operative Progess Note Pre-Operative Diagnosis Gallstone pancreatitis Post-Operative Diagnosis 1. Gallstone pancreatitis 2. Empyema of gallbladder Post-Op Procedure Note Date of Procedure: Jun 27, 2016 Name of Procedure: Robotic-assisted cholecystectomy Anesthesia Type Gen. Estimated blood loss (mL): 200 mL Specimen(s) collected Gallbladder SHASHI HORTON MD Jun 27, 2016 15:10
[2016-06-27] MEDS ORDERED: FUROSEMIDE 40 MG/4 ML INJ (LASIX) IVP NR (15:45)
[2016-06-27] MEDS: LACTATED RINGERS 1,000 ML IV SCH (16:16)
[2016-06-27] MEDS: fentaNYL INJECTION 100 MCG/2 ML AMP IV PRN ×2 (18:09→20:51)
[2016-06-27] MEDS: RT-ALBUTEROL/IPRATROPIUM 3 ML (DUONEB) VIAL INH SCH ×2 (20:15→22:19)
[2016-06-27] MEDS ORDERED: FUROSEMIDE 40 MG/4 ML INJ (LASIX) IVP ONE (21:45)
[2016-06-27 22:17] LABS: CALCIUM 8.2 MG/DL (8.5-10.1); CREATININE SERUM 1.41 MG/DL (0.60-1.30); MAGNESIUM 1.6 MG/DL (1.8-2.4); POTASSIUM 4.2 MMOL/L (3.6-5.0)
[2016-06-28] VITALS (23 sets, daily range): BP systolic 103–149; BP diastolic 58–115
[2016-06-28] MEDS: ACETAMINOPHEN 650 MG SUPP (TYLENOL) PR PRN (00:30)
[2016-06-28] MEDS: RT-ALBUTEROL/IPRATROPIUM 3 ML (DUONEB) VIAL INH SCH ×6 (02:26→20:56)
[2016-06-28 03:49] LABS: BASOPHILS % (AUTO) 0 % (0-10); EOSINOPHILS % (AUTO) 0 % (0-10); LYMPHOCYTES # (AUTO) 1.3 X 10^3 (1.0-4.0); LYMPHOCYTES % (AUTO) 7 % (12-44); MEAN CORPUSCULAR HEMOGLOBIN 31 PG (25-34); MEAN CORPUSCULAR HGB CONC 34 G/DL (32-36); MEAN CORPUSCULAR VOLUME 93 FL (80-99); MEAN PLATELET VOLUME 11.4 FL (7.4-10.4); MONOCYTES # (AUTO) 1.2 X 10^3 (0.0-1.0); MONOCYTES % (AUTO) 7 % (0-12); NEUTROPHILS % (AUTO) 86 % (42-75); PLATELET COUNT 130 10^3/uL (130-400); RED BLOOD COUNT 3.83 10^6/uL (4.35-5.85); RED CELL DISTRIBUTION WIDTH 14.1 % (10.0-14.5); WHITE BLOOD COUNT 18.5 10^3/uL (4.3-11.0)
[2016-06-28] MEDS: LACTATED RINGERS 1,000 ML IV SCH ×5 (04:07→22:45)
[2016-06-28 04:13] LABS: MAGNESIUM 1.3 MG/DL (1.8-2.4); PHOSPHORUS 3.4 MG/DL (2.3-4.7)
[2016-06-28 04:15] LABS: ALBUMIN 2.6 G/DL (3.2-4.5); BILIRUBIN,TOTAL 1.9 MG/DL (0.1-1.0); CALCIUM 7.7 MG/DL (8.5-10.1); CREATININE SERUM 1.7 MG/DL (0.60-1.30); POTASSIUM 4.1 MMOL/L (3.6-5.0); TOTAL PROTEIN 5.3 G/DL (6.4-8.2)
[2016-06-28 04:16] LABS: AMYLASE 34 U/L (25-125); LIPASE 16 U/L (8-78)
[2016-06-28] MEDS: CATHETER FLUSH 10 ML SYR IV SCH ×3 (04:33→20:06)
[2016-06-28] MEDS: POTASSIUM CL 10MEQ/50ML IVPB 50 ML IV SCH (04:51)
[2016-06-28] MEDS: KCL 20 MEQ TAB (K-DUR) PO SCH (04:52)
[2016-06-28] MEDS: MAGNESIUM 1 GM/100 ML IVPB 100 ML IV SCH ×5 (06:00→10:00)
--- NOTE | 2016-06-28 07:54 | Diagnostic Imaging Report ---
INDICATION: Dyspnea Upright portable chest shows normal heart size and vascularity. The lungs are clear. There is no effusion or pneumothorax. There is no significant change from 06/25/16. IMPRESSION: Stable chest. Dictated by: Dictated on workstation # [id number]
[2016-06-28] MEDS: PIPERACILLIN/TAZOBACTAM 4.5 GM/NS100 ML IVPB IV SCH ×4 (08:48→16:38)
--- NOTE | 2016-06-28 08:48 | Progress Note (SOAP) ---
Subjective Subjective/Events-last exam patient awake this morning. Patient alert. Patient afebrile. White blood cell count still elevated 18,500. Platelet little low at 130,000.. GFR decreased in the 30s. Amylase and lipase normal now. Bilirubin decreased 1.9. AST 39 decreased. AST 149 decreasing. Magnesium 1.3 replaced. Increase IV fluids 100 mL per hour. Patient had another gallbladder yesterday. Patient doing well Objective Exam Vital Signs Date Time Temp Pulse Resp B/P (MAP) Pulse Ox O2 Delivery O2 Flow Rate FiO2 06/28/16 08:27 97.9 06/28/16 07:00 85 06/28/16 06:28 93 2.00 06/28/16 05:00 82 25 103/63 93 Nasal Cannula 2.00 06/28/16 04:00 87 26 113/63 94 Nasal Cannula 2.00 06/28/16 04:00 98.1 06/28/16 04:00 92 2.00 06/28/16 03:00 93 27 111/66 93 Nasal Cannula 2.00 06/28/16 02:26 94 2.00 06/28/16 02:00 97 29 108/58 93 Nasal Cannula 2.00 06/28/16 01:47 101 06/28/16 01:02 99.4 06/28/16 01:00 103 29 115/67 92 Nasal Cannula 2.00 06/28/16 00:57 99.4 06/28/16 00:30 101.8 06/28/16 00:26 101.8 06/28/16 00:00 107 31 122/75 92 Nasal Cannula 2.00 06/28/16 00:00 92 2.00 06/27/16 23:37 100.8 107 16 133/77 92 Nasal Cannula 2.00 06/27/16 22:19 96 2.00 06/27/16 22:00 105 30 134/74 95 Nasal Cannula 2.00 06/27/16 21:00 105 28 141/82 95 Nasal Cannula 2.00 06/27/16 21:00 95 2.00 06/27/16 20:16 95 2.00 06/27/16 19:40 96.8 98 14 156/91 96 Nasal Cannula 2.00 06/27/16 19:00 90 19 156/91 90 Nasal Cannula 3.00 06/27/16 19:00 90 06/27/16 18:00 91 22 161/87 96 Nasal Cannula 3.00 06/27/16 17:15 Nasal Cannula 3.00 06/27/16 17:00 80 28 156/85 98 Nasal Cannula 3.00 06/27/16 16:00 73 26 147/74 96 Nasal Cannula 3.00 06/27/16 15:45 154/78 Nasal Cannula 3.00 06/27/16 15:15 66 29 143/78 96 Nasal Cannula 3.00 06/27/16 15:10 96.8 70 30 147/75 97 Nasal Cannula 3.00 I & O 06/28/16 07:00 Intake Total 1350 ml Output Total 2155 ml Balance -805 ml Capillary Refill : Less Than 3 Seconds General Appearance: No Apparent Distress, WD/WN HEENT: Normal ENT Inspection Neck: Full Range of Motion, Non Tender Respiratory: Chest Non Tender, Lungs Clear, No Accessory Muscle Use, No Respiratory Distress Cardiovascular: Regular Rate, Rhythm, No Murmur Gastrointestinal: non tender Results Lab Laboratory Tests 06/27/16 21:54 06/28/16 03:30 Laboratory Tests 06/27/16 21:54: Sodium Level 134L, Potassium Level 4.2, Chloride Level 104, Carbon Dioxide Level 20L, Anion Gap 10, Blood Urea Nitrogen 11, Creatinine 1.41H, Estimat Glomerular Filtration Rate 48, BUN/Creatinine Ratio 8, Glucose Level 144H, Calcium Level 8.2L, Magnesium Level 1.6L, B-Type Natriuretic Peptide 129.6H, Albumin 3.0L 06/28/16 03:30: Sodium Level 136, Potassium Level 4.1, Chloride Level 105, Carbon Dioxide Level 20L, Anion Gap 11, Blood Urea Nitrogen 14, Creatinine 1.70H, Estimat Glomerular Filtration Rate 39, BUN/Creatinine Ratio 8, Glucose Level 135H, Calcium Level 7.7L, Magnesium Level 1.3L, Albumin 2.6L, White Blood Count 18.5H, Red Blood Count 3.83L, Hemoglobin 12.0L, Hematocrit 36L, Mean Corpuscular Volume 93, Mean Corpuscular Hemoglobin 31, Mean Corpuscular Hemoglobin Concent 34, Red Cell Distribution Width 14.1, Platelet Count 130, Mean Platelet Volume 11.4H, Neutrophils (%) (Auto) 86H, Lymphocytes (%) (Auto) 7L, Monocytes (%) (Auto) 7, Eosinophils (%) (Auto) 0, Basophils (%) (Auto) 0, Neutrophils # (Auto) 16.0H, Lymphocytes # (Auto) 1.3, Monocytes # (Auto) 1.2H, Eosinophils # (Auto) 0.0, Basophils # (Auto) 0.0, Phosphorus Level 3.4, Total Bilirubin 1.9H, Aspartate Amino Transf (AST/SGOT) 35H, Alanine Aminotransferase (ALT/SGPT) 145H, Alkaline Phosphatase 211H, Total Protein 5.3L, Amylase Level 34, Lipase 16 Assessment/Plan Assessment/Plan Assess & Plan/Chief Complaint Acute cholecystitis. Pancreatic stone. Pancreatitis resolving. Leukocytosis. Fever resolving. To have ERCP today. . 06/28/16. Patient had gallbladder taken out yesterday. Gallbladder ugly. Patient's blood tests look better today. Pancreatic enzymes and liver enzymes decreased. Patient afebrile. GFR decreased. White blood cell count states that 500 still elevated Patient feeling better. Clinical Quality Measures DVT/VTE Risk/Contraindication: VTE Present on Admission: No Risk Factor Score Per Nursin RFS Level Per Nursing on Admit: 4+=Very High Contraindications-Pharm: Other *list below* MARCELLA ANAND DO Jun 28, 2016 08:48
[2016-06-28] MEDS ORDERED: NS IV 1000 ML 1,000 ML ONE (08:53)
[2016-06-28] MEDS: amLODIPine 5 MG (NORVASC) TAB PO SCH (08:57)
[2016-06-28] MEDS: PANTOPRAZOLE 40 MG/10 ML (PROTONIX) VIAL IV SCH (08:59)
[2016-06-28] MEDS: NS IV 1000 ML 1,000 ML IV SCH ×3 (09:00→21:49)
--- NOTE | 2016-06-28 10:23 | OPERATIVE REPORT ---
PROCEDURE PHYSICIAN: SHASHI HORTON DATE OF PROCEDURE: 06/27/2016 PREOPERATIVE DIAGNOSIS: Gallstone pancreatitis. POSTOPERATIVE DIAGNOSES: 1. Gallstone pancreatitis. 2. Empyema of gallbladder. OPERATION: Robotic assisted cholecystectomy. SURGEON: Juan ANESTHESIA: General anesthesia. BLOOD LOSS: 200 mL. FLUIDS: 1800 mL of crystalloids. TYPE OF WOUND: Type IV (dirty wound). INDICATION FOR THE PROCEDURE: This gentleman presented with gallstone pancreatitis. Due to hyperbilirubinemia, it was initially felt reasonable to perform therapeutic ERCP to clear his bile duct and follow by robotic assisted cholecystomy. However, his bilirubin decreased and therefore early cholecystectomy was felt to be reasonable. Informed consent was obtained after reviewing the operative details and complications of wound infection, bile leak, cardiorespiratory dysfunction and the potential for an endoscopic stent placement. DESCRIPTION OF PROCEDURE: He was placed supine on the operating table and general anesthesia induced using an endotracheal tube. 2 grams of Ancef and 500 mg of Flagyl were administered intravenously as prophylaxis against wound infection. Sequential compression devices were placed around his legs, to minimize the risk of venous thrombosis. Abdomen was prepared and draped in the usual sterile manner. A supraumbilical incision was made and pneumoperitoneum established using a Veress needle. Intra-abdominal pressure was maintained at 15 mmHg using carbon dioxide insufflation. A 12 mm trocar was placed and anatomy visualized using the high definition, 3 dimensional laparoscope associated with da Kike system. A phlegmon was found over the right upper quadrant. Under direct view, I placed an 8 mm cannula over each side of the abdomen, followed by a 5 mm trocar over the left upper quadrant. As the operation progressed, the 5 mm trocar had to be converted to 8 mm to facilitate larger instrumentation. In addition, another 12 mm trocar was placed over the right upper quadrant during the later part of the operation. The patient was then turned into reverse Trendelenburg position, with the right side tilted up. The robotic system was then docked in place. By blunt dissection, omentum contained over the phlegmon was revealing an empyema of the gallbladder. During the process of blunt dissection, pus extruded from the gallbladder, confirming empyema. By tedious dissection, a fundus first technique of cholecystectomy was performed using a combination of vessel sealing device and hook cautery. The neck of the gallbladder was isolated and initially I attempted to control it using an Endo MARCELLO stapler introduced via the 12 mm trocar over the right upper quadrant. Since it could not be accomplished, the stump was oversewn with a 2-0 V-Loc suture with robotic assistance. The gallbladder was then placed in an Endo Catch bag to be removed via the supraumbilical trocar site. Subhepatic space was thoroughly irrigated with saline and a 19-Stateless Navdeep-Martin drain left for postoperative drainage and in anticipation of bile leak. It was secured using a silk suture. Once the Endo Catch bag was removed, the fascia over the supraumbilical incision was closed using number 1 Vicryl. Skin incisions were closed using 4-0 Vicryl, in a subcuticular fashion. 0.25% Marcaine with epinephrine was infiltrated along the incisions, both preemptively and at the conclusion of the operation. He tolerated the procedure well, was extubated in the operating room and taken to the recovery room in a stable condition. [place], sponges, and instruments were correct the end of the operation. Job ID: [id number] Dictated Date: 06/27/2016 13:59:28 Field Research Assistant Date: 06/28/2016 10:15:34 / lee ROUSSEAU
--- NOTE | 2016-06-28 11:12 | Progress Note-Standard ---
Standard Progress Note Progress Notes/Assess & Plan Progress/Assessment & Plan intubated. resting well. OVIDIO Mcdonald CRNA Jun 28, 2016 11:12
--- NOTE | 2016-06-28 12:59 | Progress Note ---
Subjective Subjective/Events-last exam Pt seen and examined. Sitting up in chair, does not appear to be in any distress. States he feels "horrible"; I asked why and he said "I feel like I' ve been cut open". He admits to some RUQ and RLQ pain. He is taking liquids and denies N/V. States he is hungry. Pt walked a little bit this am, but is now back in bed. Review of Systems General: No Chills, No Night Sweats, Fatigue HEENT: No Head Aches, No Dysphasia, No Sore Throat Pulmonary: Dyspnea, Cough (non-productive) Cardiovascular: No: Chest Pain, Palpitations Gastrointestinal: Abdominal Pain, No: Nausea, Vomiting Objective Exam Vital Signs Date Time Temp Pulse Resp B/P (MAP) Pulse Ox O2 Delivery O2 Flow Rate FiO2 06/28/16 11:20 94 3.50 06/28/16 08:27 97.9 06/28/16 07:00 85 06/28/16 06:28 93 2.00 06/28/16 05:00 82 25 103/63 93 Nasal Cannula 2.00 06/28/16 04:00 87 26 113/63 94 Nasal Cannula 2.00 06/28/16 04:00 98.1 06/28/16 04:00 92 2.00 06/28/16 03:00 93 27 111/66 93 Nasal Cannula 2.00 06/28/16 02:26 94 2.00 06/28/16 02:00 97 29 108/58 93 Nasal Cannula 2.00 06/28/16 01:47 101 06/28/16 01:02 99.4 06/28/16 01:00 103 29 115/67 92 Nasal Cannula 2.00 06/28/16 00:57 99.4 06/28/16 00:30 101.8 06/28/16 00:26 101.8 06/28/16 00:00 107 31 122/75 92 Nasal Cannula 2.00 06/28/16 00:00 92 2.00 06/27/16 23:37 100.8 107 16 133/77 92 Nasal Cannula 2.00 06/27/16 22:19 96 2.00 06/27/16 22:00 105 30 134/74 95 Nasal Cannula 2.00 06/27/16 21:00 105 28 141/82 95 Nasal Cannula 2.00 06/27/16 21:00 95 2.00 06/27/16 20:16 95 2.00 06/27/16 19:40 96.8 98 14 156/91 96 Nasal Cannula 2.00 06/27/16 19:00 90 19 156/91 90 Nasal Cannula 3.00 06/27/16 19:00 90 06/27/16 18:00 91 22 161/87 96 Nasal Cannula 3.00 06/27/16 17:15 Nasal Cannula 3.00 06/27/16 17:00 80 28 156/85 98 Nasal Cannula 3.00 06/27/16 16:00 73 26 147/74 96 Nasal Cannula 3.00 06/27/16 15:45 154/78 Nasal Cannula 3.00 06/27/16 15:15 66 29 143/78 96 Nasal Cannula 3.00 06/27/16 15:10 96.8 70 30 147/75 97 Nasal Cannula 3.00 I & O 06/28/16 07:00 Intake Total 1350 ml Output Total 2155 ml Balance -805 ml Capillary Refill : Less Than 3 Seconds General Appearance: WD/WN, Mild Distress HEENT: PERRL/EOMI, No Scleral Icterus (L), No Scleral Icterus (R) Neck: Full Range of Motion, Non Tender Respiratory: Chest Non Tender, No Accessory Muscle Use, No Respiratory Distress , Crackles, Rhonci (at bases) Cardiovascular: Regular Rate, Rhythm, No Murmur Gastrointestinal: soft, no organomegaly, tenderness (RUQ and RLQ) Results Lab Laboratory Tests 06/27/16 21:54: Sodium Level 134L, Potassium Level 4.2, Chloride Level 104, Carbon Dioxide Level 20L, Anion Gap 10, Blood Urea Nitrogen 11, Creatinine 1.41H, Estimat Glomerular Filtration Rate 48, BUN/Creatinine Ratio 8, Glucose Level 144H, Calcium Level 8.2L, Magnesium Level 1.6L, B-Type Natriuretic Peptide 129.6H, Albumin 3.0L 06/28/16 03:30: Sodium Level 136, Potassium Level 4.1, Chloride Level 105, Carbon Dioxide Level 20L, Anion Gap 11, Blood Urea Nitrogen 14, Creatinine 1.70H, Estimat Glomerular Filtration Rate 39, BUN/Creatinine Ratio 8, Glucose Level 135H, Calcium Level 7.7L, Magnesium Level 1.3L, Albumin 2.6L, White Blood Count 18.5H, Red Blood Count 3.83L, Hemoglobin 12.0L, Hematocrit 36L, Mean Corpuscular Volume 93, Mean Corpuscular Hemoglobin 31, Mean Corpuscular Hemoglobin Concent 34, Red Cell Distribution Width 14.1, Platelet Count 130, Mean Platelet Volume 11.4H, Neutrophils (%) (Auto) 86H, Lymphocytes (%) (Auto) 7L, Monocytes (%) (Auto) 7, Eosinophils (%) (Auto) 0, Basophils (%) (Auto) 0, Neutrophils # (Auto) 16.0H, Lymphocytes # (Auto) 1.3, Monocytes # (Auto) 1.2H, Eosinophils # (Auto) 0.0, Basophils # (Auto) 0.0, Phosphorus Level 3.4, Total Bilirubin 1.9H, Aspartate Amino Transf (AST/SGOT) 35H, Alanine Aminotransferase (ALT/SGPT) 145H, Alkaline Phosphatase 211H, Total Protein 5.3L, Amylase Level 34, Lipase 16 Assessment/Plan Assessment/Plan Assessment/Plan Acute cholecystitis with Pancreatitis - S/P Robotic Cholecystectomy. Will need ERCP, which I was told is scheduled for 06/29. Will make NPO after MN Acute Renal Failure - may just be dehydration. Will try a fluid bolus and recheck labs, if creatnine continues rising may need further work-up, possibly stopping Lasix. Leukocytosis - probably secondary to surgery yesterday and bad gallbladder, continue ABX and monitor labs. Pt is afebrile. Hypomagnesemia - being replaced per protocol, but may need to be held because of increasing creatnine. Low protein - will start ensure clear liquids to help, hopefully pt can start eating more after ERCP. Pt has some crackles and rhonchi; encouraged to use IS, deep breathe and cough, will also consult RT for MAT protocol. Clinical Quality Measures DVT/VTE Risk/Contraindication: VTE Present on Admission: No Risk Factor Score Per Nursin RFS Level Per Nursing on Admit: 4+=Very High Contraindications-Pharm: Other *list below* LISSY ARCE DO Jun 28, 2016 12:59
--- NOTE | 2016-06-28 16:07 | Anesthesia-General Post-Op ---
General Patient Condition Mental Status/LOC: Same as Preop Cardiovascular: Satisfactory Nausea/Vomiting: Absent Respiratory: Satisfactory Pain: Controlled Complications: Absent Post Op Complications Complications None Follow Up Care/Instructions Patient Instructions None needed. Anesthesia/Patient Condition Patient Condition Patient is doing well, no complaints, stable vital signs, no apparent adverse anesthesia problems. No complications reported per nursing. OVIDIO BURROWS CRNA Jun 28, 2016 16:07
[2016-06-28] MEDS: fentaNYL INJECTION 100 MCG/2 ML AMP IV PRN (22:34)
[2016-06-29] VITALS (24 sets, daily range): BP systolic 123–169; BP diastolic 65–87
[2016-06-29] MEDS: PIPERACILLIN/TAZOBACTAM 4.5 GM/NS100 ML IVPB IV SCH ×6 (00:05→16:19)
[2016-06-29] MEDS: RT-ALBUTEROL/IPRATROPIUM 3 ML (DUONEB) VIAL INH SCH ×6 (02:27→22:22)
[2016-06-29 04:24] LABS: BASOPHILS % (AUTO) 0 % (0-10); EOSINOPHILS # (AUTO) 0.1 10^3/uL (0.0-0.3); EOSINOPHILS % (AUTO) 1 % (0-10); LYMPHOCYTES # (AUTO) 1.2 X 10^3 (1.0-4.0); LYMPHOCYTES % (AUTO) 10 % (12-44); MEAN CORPUSCULAR HEMOGLOBIN 31 PG (25-34); MEAN CORPUSCULAR HGB CONC 33 G/DL (32-36); MEAN CORPUSCULAR VOLUME 93 FL (80-99); MEAN PLATELET VOLUME 11.3 FL (7.4-10.4); MONOCYTES % (AUTO) 8 % (0-12); NEUTROPHILS # (AUTO) 10.1 X 10^3 (1.8-7.8); NEUTROPHILS % (AUTO) 81 % (42-75); PLATELET COUNT 128 10^3/uL (130-400); RED BLOOD COUNT 3.49 10^6/uL (4.35-5.85); RED CELL DISTRIBUTION WIDTH 14.1 % (10.0-14.5); WHITE BLOOD COUNT 12.4 10^3/uL (4.3-11.0)
[2016-06-29 04:45] LABS: ALBUMIN 2.4 G/DL (3.2-4.5); AMYLASE 18 U/L (25-125); BILIRUBIN,TOTAL 1.4 MG/DL (0.1-1.0); CALCIUM 7.4 MG/DL (8.5-10.1); CREATININE SERUM 1.43 MG/DL (0.60-1.30); LIPASE 8 U/L (8-78); PHOSPHORUS 2.5 MG/DL (2.3-4.7); POTASSIUM 3.7 MMOL/L (3.6-5.0); TOTAL PROTEIN 5.1 G/DL (6.4-8.2)
[2016-06-29] MEDS: LACTATED RINGERS 1,000 ML IV SCH ×5 (04:48→23:45)
[2016-06-29] MEDS: POTASSIUM CL 10MEQ/50ML IVPB 50 ML IV SCH (05:07)
[2016-06-29] MEDS: CATHETER FLUSH 10 ML SYR IV SCH ×3 (05:07→22:00)
[2016-06-29] MEDS: MAGNESIUM 1 GM/100 ML IVPB 100 ML IV SCH (05:11)
[2016-06-29] MEDS: KCL 20 MEQ TAB (K-DUR) PO SCH (05:11)
--- NOTE | 2016-06-29 07:45 | Progress Note (SOAP) ---
Subjective Subjective/Events-last exam acute pancreatitis with cholecystitis. Patient feeling better today. Pain less. Patient afebrile. White blood cell 12,400 better than yesterday at 18,500. Hemoglobin 10.7 hematocrit 32 less than yesterday. Platelet count 128. GFR better today 39 yesterday 47. Total bilirubin improved 1.4 from 1.9. Liver enzyme AST 19 normal. AST 146 coming down yesterday to 211 Objective Exam Vital Signs Date Time Temp Pulse Resp B/P (MAP) Pulse Ox O2 Delivery O2 Flow Rate FiO2 06/29/16 07:06 94 2.50 06/29/16 06:00 81 26 155/75 93 Nasal Cannula 2.00 06/29/16 05:00 78 24 140/75 94 Nasal Cannula 2.00 06/29/16 04:00 79 24 137/72 95 Nasal Cannula 2.00 06/29/16 03:00 83 14 150/74 96 Nasal Cannula 2.00 06/29/16 02:27 93 2.50 06/29/16 02:00 82 26 150/70 96 Nasal Cannula 2.00 06/29/16 01:00 85 06/29/16 01:00 85 28 148/69 95 Nasal Cannula 2.00 06/29/16 00:00 98.7 88 18 148/69 95 Nasal Cannula 2.00 06/28/16 23:00 88 28 140/76 96 Nasal Cannula 2.00 06/28/16 22:00 92 21 147/80 94 Nasal Cannula 2.00 06/28/16 21:00 92 15 129/79 94 Nasal Cannula 2.00 06/28/16 20:56 93 3.00 06/28/16 20:34 95 Nasal Cannula 2.00 06/28/16 20:00 92 20 141/98 95 Nasal Cannula 2.00 06/28/16 19:55 99.7 92 20 129/66 95 Nasal Cannula 2.00 06/28/16 19:00 94 06/28/16 19:00 94 30 124/64 94 Nasal Cannula 2.00 06/28/16 18:40 95 4.00 06/28/16 18:00 92 26 123/86 97 Nasal Cannula 2.00 06/28/16 17:00 90 26 126/115 95 Nasal Cannula 2.00 06/28/16 16:44 99.6 06/28/16 16:00 93 26 149/83 83 Nasal Cannula 2.00 06/28/16 15:00 88 26 144/68 96 Nasal Cannula 2.00 06/28/16 14:17 94 3.50 06/28/16 14:00 98.0 90 25 130/67 95 Nasal Cannula 2.00 06/28/16 13:00 91 06/28/16 13:00 89 26 125/69 94 Nasal Cannula 2.00 06/28/16 12:00 92 28 136/77 94 Nasal Cannula 2.00 06/28/16 12:00 97.9 06/28/16 11:20 94 3.50 06/28/16 11:00 87 25 137/73 95 Nasal Cannula 2.00 06/28/16 10:00 97.8 86 22 144/70 93 Nasal Cannula 2.00 06/28/16 09:00 Nasal Cannula 2.00 06/28/16 09:00 82 28 140/81 94 Nasal Cannula 2.00 06/28/16 08:27 97.9 06/28/16 08:00 88 28 133/63 93 Nasal Cannula 2.00 I & O 06/29/16 07:00 Intake Total 4090 ml Output Total 1135 ml Balance 2955 ml Capillary Refill : Less Than 3 Seconds General Appearance: No Apparent Distress, WD/WN HEENT: Normal ENT Inspection Neck: Full Range of Motion, Normal Inspection Respiratory: Chest Non Tender, No Accessory Muscle Use, No Respiratory Distress , Decreased Breath Sounds Cardiovascular: Regular Rate, Rhythm, No Murmur Gastrointestinal: other (discomfort in right upper quadrant to palpation) Results Lab Laboratory Tests 06/29/16 03:50 Laboratory Tests 06/29/16 03:50: White Blood Count 12.4H, Red Blood Count 3.49L, Hemoglobin 10.7L, Hematocrit 32L , Mean Corpuscular Volume 93, Mean Corpuscular Hemoglobin 31, Mean Corpuscular Hemoglobin Concent 33, Red Cell Distribution Width 14.1, Platelet Count 128L, Mean Platelet Volume 11.3H, Neutrophils (%) (Auto) 81H, Lymphocytes (%) (Auto) 10L, Monocytes (%) (Auto) 8, Eosinophils (%) (Auto) 1, Basophils (%) (Auto) 0, Neutrophils # (Auto) 10.1H, Lymphocytes # (Auto) 1.2, Monocytes # (Auto) 1.0, Eosinophils # (Auto) 0.1, Basophils # (Auto) 0.0, Sodium Level 133L, Potassium Level 3.7, Chloride Level 104, Carbon Dioxide Level 20L, Anion Gap 9, Blood Urea Nitrogen 16, Creatinine 1.43H, Estimat Glomerular Filtration Rate 47, BUN/ Creatinine Ratio 11, Glucose Level 112H, Calcium Level 7.4L, Phosphorus Level 2.5, Magnesium Level 2.0, Total Bilirubin 1.4H, Aspartate Amino Transf (AST/SGOT ) 18, Alanine Aminotransferase (ALT/SGPT) 73H, Alkaline Phosphatase 146H, Total Protein 5.1L, Albumin 2.4L, Amylase Level 18L, Lipase 8 Assessment/Plan Assessment/Plan Assess & Plan/Chief Complaint Acute cholecystitis. Pancreatic stone. Pancreatitis resolving. Leukocytosis. Fever resolving. To have ERCP today. . 06/28/16. Patient had gallbladder taken out yesterday. Gallbladder ugly. Patient's blood tests look better today. Pancreatic enzymes and liver enzymes decreased. Patient afebrile. GFR decreased. White blood cell count states that 500 still elevated Patient feeling better.. . 06/29/16. Acute cholecystitis with pancreatitis. Patient feeling better today. Lab tests have improved. History of hypertension. Patient afebrile. Patient's abdominal pain has improved Clinical Quality Measures DVT/VTE Risk/Contraindication: VTE Present on Admission: No Risk Factor Score Per Nursin RFS Level Per Nursing on Admit: 4+=Very High Contraindications-Pharm: Other *list below* MARCELLA ANAND DO Jun 29, 2016 07:45
[2016-06-29] MEDS: PANTOPRAZOLE 40 MG/10 ML (PROTONIX) VIAL IV SCH (08:00)
[2016-06-29] MEDS: amLODIPine 5 MG (NORVASC) TAB PO SCH (08:00)
[2016-06-29] MEDS: NS IV 1000 ML 1,000 ML IV SCH ×2 (08:00→21:13)
[2016-06-29] MEDS: fentaNYL INJECTION 100 MCG/2 ML AMP IV PRN ×2 (08:33→13:04)
--- NOTE | 2016-06-29 10:18 | Diagnostic Imaging Report ---
INDICATION: Dyspnea. FINDINGS: Portable chest shows normal heart size and vascularity. There is bilateral discoid atelectasis with no infiltrates or effusion seen. These findings are similar to the prior study from 06/28/2016. IMPRESSION: Stable chest. Dictated by: Dictated on workstation # [id number]
--- NOTE | 2016-06-29 10:34 | Progress Note ---
Subjective Subjective/Events-last exam Pt seen and examined, states he still feels "bad" but better than yesterday. Tolerating diet without Nausea or vomiting. He was able to walk to nursing station and back. Still has some "cough and rattles" when breathing. Review of Systems General: No Chills, No Night Sweats HEENT: No Head Aches, No Sore Throat Pulmonary: Dyspnea, Cough Cardiovascular: No: Chest Pain, Palpitations Gastrointestinal: Abdominal Pain, No: Nausea, Vomiting Objective Exam Vital Signs Date Time Temp Pulse Resp B/P (MAP) Pulse Ox O2 Delivery O2 Flow Rate FiO2 06/29/16 09:40 94 3.00 06/29/16 08:06 98.1 94 Nasal Cannula 2.50 06/29/16 07:06 94 2.50 06/29/16 07:00 80 06/29/16 06:00 81 26 155/75 93 Nasal Cannula 2.00 06/29/16 05:00 78 24 140/75 94 Nasal Cannula 2.00 06/29/16 04:00 79 24 137/72 95 Nasal Cannula 2.00 06/29/16 03:00 83 14 150/74 96 Nasal Cannula 2.00 06/29/16 02:27 93 2.50 06/29/16 02:00 82 26 150/70 96 Nasal Cannula 2.00 06/29/16 01:00 85 06/29/16 01:00 85 28 148/69 95 Nasal Cannula 2.00 06/29/16 00:00 98.7 88 18 148/69 95 Nasal Cannula 2.00 06/28/16 23:00 88 28 140/76 96 Nasal Cannula 2.00 06/28/16 22:00 92 21 147/80 94 Nasal Cannula 2.00 06/28/16 21:00 92 15 129/79 94 Nasal Cannula 2.00 06/28/16 20:56 93 3.00 06/28/16 20:34 95 Nasal Cannula 2.00 06/28/16 20:00 92 20 141/98 95 Nasal Cannula 2.00 06/28/16 19:55 99.7 92 20 129/66 95 Nasal Cannula 2.00 06/28/16 19:00 94 06/28/16 19:00 94 30 124/64 94 Nasal Cannula 2.00 06/28/16 18:40 95 4.00 06/28/16 18:00 92 26 123/86 97 Nasal Cannula 2.00 06/28/16 17:00 90 26 126/115 95 Nasal Cannula 2.00 06/28/16 16:44 99.6 06/28/16 16:00 93 26 149/83 83 Nasal Cannula 2.00 06/28/16 15:00 88 26 144/68 96 Nasal Cannula 2.00 06/28/16 14:17 94 3.50 06/28/16 14:00 98.0 90 25 130/67 95 Nasal Cannula 2.00 06/28/16 13:00 91 06/28/16 13:00 89 26 125/69 94 Nasal Cannula 2.00 06/28/16 12:00 92 28 136/77 94 Nasal Cannula 2.00 06/28/16 12:00 97.9 06/28/16 11:20 94 3.50 06/28/16 11:00 87 25 137/73 95 Nasal Cannula 2.00 I & O 06/29/16 07:00 Intake Total 4090 ml Output Total 1135 ml Balance 2955 ml Capillary Refill : Less Than 3 Seconds General Appearance: WD/WN, Mild Distress HEENT: PERRL/EOMI, No Scleral Icterus (L), No Scleral Icterus (R) Neck: Full Range of Motion, Normal Inspection Respiratory: Chest Non Tender, No Accessory Muscle Use, No Respiratory Distress , Crackles, Decreased Breath Sounds, Rhonci Cardiovascular: Regular Rate, Rhythm, No Murmur Gastrointestinal: soft, No distended, tenderness (mild tenderness Right side), other (reggie with serosanguinous fluid, light red) Neurologic/Psychiatric: Alert, Oriented x3 Results Lab Laboratory Tests 06/29/16 03:50: White Blood Count 12.4H, Red Blood Count 3.49L, Hemoglobin 10.7L, Hematocrit 32L , Mean Corpuscular Volume 93, Mean Corpuscular Hemoglobin 31, Mean Corpuscular Hemoglobin Concent 33, Red Cell Distribution Width 14.1, Platelet Count 128L, Mean Platelet Volume 11.3H, Neutrophils (%) (Auto) 81H, Lymphocytes (%) (Auto) 10L, Monocytes (%) (Auto) 8, Eosinophils (%) (Auto) 1, Basophils (%) (Auto) 0, Neutrophils # (Auto) 10.1H, Lymphocytes # (Auto) 1.2, Monocytes # (Auto) 1.0, Eosinophils # (Auto) 0.1, Basophils # (Auto) 0.0, Sodium Level 133L, Potassium Level 3.7, Chloride Level 104, Carbon Dioxide Level 20L, Anion Gap 9, Blood Urea Nitrogen 16, Creatinine 1.43H, Estimat Glomerular Filtration Rate 47, BUN/ Creatinine Ratio 11, Glucose Level 112H, Calcium Level 7.4L, Phosphorus Level 2.5, Magnesium Level 2.0, Total Bilirubin 1.4H, Aspartate Amino Transf (AST/SGOT ) 18, Alanine Aminotransferase (ALT/SGPT) 73H, Alkaline Phosphatase 146H, Total Protein 5.1L, Albumin 2.4L, Amylase Level 18L, Lipase 8 Assessment/Plan Assessment/Plan Assessment/Plan Acute cholecystitis with Pancreatitis - S/P Robotic Cholecystectomy. Will need ERCP, I was misinformed it is actually scheduled for 06/30. Will make NPO after MN Acute Renal Failure - may just be dehydration, improved slightyly; will continue fluids and recheck labs Leukocytosis - improved compared to yesterday, continue ABX and monitor labs. Pt is afebrile. Hypomagnesemia - being replaced per protocol, but may need to be held because of increasing creatnine. Low protein - will continue ensure clear liquids to help, hopefully pt can start eating more after ERCP. Pt has some crackles and rhonchi- Again encouraged to use IS, deep breathe and cough, RT is performing MAT protocol; will add Mucinex. Hyponatremia - will monitor, may need to replace. Clinical Quality Measures DVT/VTE Risk/Contraindication: VTE Present on Admission: No Risk Factor Score Per Nursin RFS Level Per Nursing on Admit: 4+=Very High Contraindications-Pharm: Other *list below* LISSY ARCE DO Jun 29, 2016 10:34
[2016-06-29] MEDS ORDERED: guaiFENesin (MUCINEX) 600 MG TAB PO ONE (16:09)
[2016-06-29] MEDS: guaiFENesin (MUCINEX) 600 MG TAB PO SCH (21:13)
[2016-06-30] VITALS (23 sets, daily range): BP systolic 128–188; BP diastolic 71–112
[2016-06-30] MEDS: PIPERACILLIN/TAZOBACTAM 4.5 GM/NS100 ML IVPB IV SCH ×6 (00:47→16:35)
[2016-06-30] MEDS: RT-ALBUTEROL/IPRATROPIUM 3 ML (DUONEB) VIAL INH SCH ×6 (02:06→21:22)
[2016-06-30 04:17] LABS: BASOPHILS % (AUTO) 0 % (0-10); EOSINOPHILS # (AUTO) 0.1 10^3/uL (0.0-0.3); EOSINOPHILS % (AUTO) 2 % (0-10); LYMPHOCYTES % (AUTO) 12 % (12-44); MEAN CORPUSCULAR HEMOGLOBIN 31 PG (25-34); MEAN CORPUSCULAR HGB CONC 33 G/DL (32-36); MEAN CORPUSCULAR VOLUME 93 FL (80-99); MEAN PLATELET VOLUME 11.1 FL (7.4-10.4); MONOCYTES # (AUTO) 0.7 X 10^3 (0.0-1.0); MONOCYTES % (AUTO) 9 % (0-12); NEUTROPHILS # (AUTO) 6.3 X 10^3 (1.8-7.8); NEUTROPHILS % (AUTO) 78 % (42-75); PLATELET COUNT 137 10^3/uL (130-400); RED BLOOD COUNT 3.24 10^6/uL (4.35-5.85); RED CELL DISTRIBUTION WIDTH 13.9 % (10.0-14.5); WHITE BLOOD COUNT 8.1 10^3/uL (4.3-11.0)
[2016-06-30 04:38] LABS: ALBUMIN 2.3 G/DL (3.2-4.5); BILIRUBIN,TOTAL 1.2 MG/DL (0.1-1.0); CALCIUM 7.3 MG/DL (8.5-10.1); CREATININE SERUM 1.17 MG/DL (0.60-1.30); MAGNESIUM 1.9 MG/DL (1.8-2.4); PHOSPHORUS 1.9 MG/DL (2.3-4.7); POTASSIUM 3.6 MMOL/L (3.6-5.0)
[2016-06-30] MEDS: LACTATED RINGERS 1,000 ML IV SCH (04:45)
[2016-06-30] MEDS: CATHETER FLUSH 10 ML SYR IV SCH ×3 (05:05→20:46)
[2016-06-30] MEDS: MAGNESIUM 1 GM/100 ML IVPB 100 ML IV SCH (05:05)
[2016-06-30] MEDS: KCL 20 MEQ TAB (K-DUR) PO SCH (05:05)
[2016-06-30] MEDS: POTASSIUM CL 10MEQ/50ML IVPB 50 ML IV SCH ×3 (05:05→06:31)
[2016-06-30] MEDS: NS IV 1000 ML 1,000 ML IV SCH (07:24)
--- NOTE | 2016-06-30 07:35 | Progress Note (SOAP) ---
Subjective Subjective/Events-last exam patient feeling better today. Patient not complaining of any pain. Patient afebrile. Patient passing gas. White blood cell count 8100 normal. Total bilirubin 1.2 decreased. Chest x-ray yesterday stable. Liver enzymes normal. Patient to have ERCP today in [place] Objective Exam Vital Signs Date Time Temp Pulse Resp B/P (MAP) Pulse Ox O2 Delivery O2 Flow Rate FiO2 06/30/16 07:19 95 2.00 06/30/16 06:00 78 28 155/112 94 Nasal Cannula 3.00 06/30/16 05:00 80 16 139/79 94 Nasal Cannula 3.00 06/30/16 04:00 98.0 06/30/16 04:00 79 26 155/77 94 Nasal Cannula 3.00 06/30/16 03:00 82 28 152/76 94 Nasal Cannula 3.00 06/30/16 02:06 93 2.00 06/30/16 02:00 81 27 160/78 93 Nasal Cannula 3.00 06/30/16 01:00 81 06/30/16 01:00 80 25 151/76 94 Nasal Cannula 3.00 06/30/16 00:00 98.5 81 20 158/74 94 Nasal Cannula 3.00 06/29/16 23:00 84 31 146/83 94 Nasal Cannula 3.00 06/29/16 22:22 93 2.00 06/29/16 22:00 82 39 163/83 92 Nasal Cannula 3.00 06/29/16 21:00 84 22 169/85 93 Nasal Cannula 3.00 06/29/16 21:00 95 Nasal Cannula 2.00 06/29/16 20:00 80 26 162/80 94 Nasal Cannula 3.00 06/29/16 20:00 99.1 06/29/16 19:00 79 28 151/73 94 Nasal Cannula 3.00 06/29/16 19:00 79 06/29/16 18:41 96 2.00 06/29/16 18:00 80 15 149/76 97 Nasal Cannula 3.00 06/29/16 17:00 78 27 142/81 96 Nasal Cannula 3.00 06/29/16 16:00 76 28 145/72 95 Nasal Cannula 3.00 06/29/16 15:00 77 24 136/77 95 Nasal Cannula 3.00 06/29/16 14:48 97 2.50 06/29/16 14:00 76 133/70 94 Nasal Cannula 3.00 06/29/16 13:00 87 06/29/16 13:00 87 31 159/81 92 Nasal Cannula 3.00 06/29/16 12:00 82 30 144/81 95 Nasal Cannula 3.00 06/29/16 12:00 99.3 Nasal Cannula 3.00 06/29/16 11:00 84 22 139/65 95 Nasal Cannula 2.50 06/29/16 10:00 92 28 123/87 94 Nasal Cannula 2.50 06/29/16 09:40 94 3.00 06/29/16 09:00 95 Nasal Cannula 2.00 06/29/16 09:00 87 20 138/75 91 Nasal Cannula 2.50 06/29/16 08:06 98.1 94 Nasal Cannula 2.50 06/29/16 08:00 79 26 154/78 95 Nasal Cannula 2.00 I & O 06/30/16 07:00 Intake Total 1750 ml Output Total 1920 ml Balance -170 ml Capillary Refill : Less Than 3 Seconds General Appearance: No Apparent Distress, WD/WN HEENT: Normal ENT Inspection Neck: Full Range of Motion, Normal Inspection Respiratory: Chest Non Tender, No Accessory Muscle Use, No Respiratory Distress Cardiovascular: Regular Rate, Rhythm Gastrointestinal: soft, other (no pain) Results Lab Laboratory Tests 06/30/16 03:50 Laboratory Tests 06/30/16 03:50: White Blood Count 8.1, Red Blood Count 3.24L, Hemoglobin 10.0L, Hematocrit 30L, Mean Corpuscular Volume 93, Mean Corpuscular Hemoglobin 31, Mean Corpuscular Hemoglobin Concent 33, Red Cell Distribution Width 13.9, Platelet Count 137, Mean Platelet Volume 11.1H, Neutrophils (%) (Auto) 78H, Lymphocytes (%) (Auto) 12, Monocytes (%) (Auto) 9, Eosinophils (%) (Auto) 2, Basophils (%) (Auto) 0, Neutrophils # (Auto) 6.3, Lymphocytes # (Auto) 1.0, Monocytes # (Auto) 0.7, Eosinophils # (Auto) 0.1, Basophils # (Auto) 0.0, Sodium Level 137, Potassium Level 3.6, Chloride Level 108H, Carbon Dioxide Level 22, Anion Gap 7, Blood Urea Nitrogen 12, Creatinine 1.17, Estimat Glomerular Filtration Rate 60, BUN/ Creatinine Ratio 10, Glucose Level 136H, Calcium Level 7.3L, Phosphorus Level 1.9L, Magnesium Level 1.9, Total Bilirubin 1.2H, Aspartate Amino Transf (AST/ SGOT) 24, Alanine Aminotransferase (ALT/SGPT) 54, Alkaline Phosphatase 125, Total Protein 5.0L, Albumin 2.3L Assessment/Plan Assessment/Plan Assess & Plan/Chief Complaint Acute cholecystitis. Pancreatic stone. Pancreatitis resolving. Leukocytosis. Fever resolving. To have ERCP today. . 06/28/16. Patient had gallbladder taken out yesterday. Gallbladder ugly. Patient's blood tests look better today. Pancreatic enzymes and liver enzymes decreased. Patient afebrile. GFR decreased. White blood cell count states that 500 still elevated Patient feeling better.. . 06/29/16. Acute cholecystitis with pancreatitis. Patient feeling better today. Lab tests have improved. History of hypertension. Patient afebrile. Patient's abdominal pain has improved. . 06/30/16. Acute cholecystitis with pancreatitis. Patient feeling better today. Kidney function good. Lab tests improving. White blood cell count within normal limits. Bilirubin and liver enzymes decreasing. Chest x-ray stable. Hypertension history. Patient have ERCP today Clinical Quality Measures DVT/VTE Risk/Contraindication: VTE Present on Admission: No Risk Factor Score Per Nursin RFS Level Per Nursing on Admit: 4+=Very High Contraindications-Pharm: Other *list below* MARCELLA ANAND DO Jun 30, 2016 07:35
[2016-06-30] MEDS: PANTOPRAZOLE 40 MG/10 ML (PROTONIX) VIAL IV SCH (08:14)
[2016-06-30] MEDS: guaiFENesin (MUCINEX) 600 MG TAB PO SCH ×3 (08:14→20:51)
[2016-06-30] MEDS: ENALAPRILAT 2.5 MG/2 ML (VASOTEC) VIAL IV PRN ×2 (08:25→20:08)
[2016-06-30] MEDS: amLODIPine 5 MG (NORVASC) TAB PO SCH ×2 (08:25→08:33)
--- NOTE | 2016-06-30 09:14 | Diagnostic Imaging Report ---
INDICATION: Dyspnea. TECHNIQUE: Single view chest at 5:02 AM. CORRELATION STUDY: 06/29/2016. FINDINGS: The heart size and mediastinum are relatively stable. The vasculature is slightly increased from the prior study. There are small bilateral pleural effusions along with atelectasis or infiltrate at the lung bases, right greater than left. Multiple old left posterior rib fracture deformities. Old overriding displaced left clavicle fracture. IMPRESSION: The vasculature is overall slightly increased from the prior study along with small pleural effusions. Atelectasis or infiltrate at the lung bases. Dictated by: Dictated on workstation # [id number]
--- NOTE | 2016-06-30 09:50 | Physical Therapy Evaluation ---
PT Evaluation-General Medical Diagnosis Admission Date Jun 25, 2016 at 20:13 Medical Diagnosis: acute cholecystitis/elevated liver enzymes/pancreatitis Onset Date: Jun 25, 2016 Therapy Diagnosis Therapy Diagnosis: generalized weakness and debility Height/Weight Height (Feet): 5 Height (Inches): 9.00 Weight (Pounds): 230 Weight (Ounces): 2.0 Precautions Precautions/Isolations: Fall Prevention, Standard Precautions Referral Physician: Surendra Reason for Referral: Evaluation/Treatment Medical History Pertinent Medical History: HTN Additional Medical History N&V x several days Current History ERCP in [place] on this date Reviewed History: Yes Social History Home: Single Level Current Living Status: Spouse Entry Into Home: Level Entry Prior/Core FIM Prior Level of Function Functional [place] Measure 0=Not Assessed/NA 4=Minimal Assistance 1=Total Assistance 5=Supervision or Setup 2=Maximal Assistance 6=Modified [place] 3=Moderate Assistance 7=Complete [place] Bed Mobility: 7 Transfers (B,C,W/C) (FIM): 7 Gait: 7 PT Evaluation-Current Subjective Patient agrees to PT. He states he is feeling a little better today. Pain Numeric Pain Scale: 5-Moderate Pain Location: Lower Location Body Site: Abdomen Pain Description: Pressure Objective Patient Orientation: Normal For Age Problem Solving: Fair Attachments: Oxygen, Drains, Reaves Catheter, IV ROM/Strength ROM Lower Extremities bilateral LE WFL Strenght Lower Extremities right knee flexion/extension 3+/5; hip flexion 3/5; ankle dorsi/plantarflexion 3 +/5 left knee flexion/extension 3+/5; hip flexion 3/5; ankle dorsi/plantarflexion 3+ /5 Integumentary/Posture Integumentary refer to nursing notes Bowel Incontinence: No Bladder Incontinence: Reaves Cath Posture flexed hip posture Neuromuscular (Tone, Coordination, Reflexes) grossly intact Sensory Vision: Functional Hearing: Impaired Sensation Right Lower Extremit: Intact Sensation Left Lower Extremity: Intact Transfers Functional [place] Measure 0=Not Assessed/NA 4=Minimal Assistance 1=Total Assistance 5=Supervision or Setup 2=Maximal Assistance 6=Modified [place] 3=Moderate Assistance 7=Complete [place] Transfers (B, C, W/C) (FIM): 4 Scootin Rollin Supine to/from Sit: 4 Sit to/from Stand: 5 Gait Mode of Locomotion: Walk Anticipated Mode of Locomotion: Walk Gait (FIM): 4 Distance (FIM): 3=150 ft Distance: 225' Gait Level of Assist: 4 Gait Persons Needed: 1 Gait Assistive Device: FWW Comments/Gait Description CGA for safety Balance Sitting Static: Normal Sitting Dynamic: Normal Standing Static: Normal Standing Dynamic: Normal Assessment/Needs 80 y.o. male, will benefit from skilled PT to address functional strength and mobility to improve current LOF and to safely return to home with spouse at maximum LOF. Rehab Potential: Good PT Cna Caregiver Goals Fdc Goals PT Fdc Goals Time Frame: Jul 14, 2016 Transfers (B,C,W/C) (FIM): 6 Gait (FIM): 6 Gait distance (FIM): 3=150 ft Distance: 300' Gait Level of Assist: 6 Gait Assistive Device: None, FWW PT Plan Problem List Problem List: Activity Tolerance, Functional Strength Treatment/Plan Treatment Plan: Continue Plan of Care Treatment Plan: Bed Mobility, Education, Functional Activity Raheel, Functional Strength, Gait, Safety, Therapeutic Exercise, Transfers Treatment Duration: Jul 14, 2016 # of days/week 5-6 Visits Per Week: 5-6 Pt/Family Agrees w/Plan: Yes Safety Risks/Education Patient Education: Safety Issues Teaching Recipient: Patient Teaching Methods: Discussion Response to Teaching: Verbalize Understanding Discharge Recommendations Therapy D/C Recommendations: Home w/ Family Support, Physical Therapy Home Care Time/GCodes Time In: 830 Time Out: 900 Total Billed Treatment Time: 30 Total Billed Treatment 1 visit EVModC 30 min LEN ROSE PT Jun 30, 2016 09:50
[2016-06-30] MEDS ORDERED: POTASSIUM PHOSPHATE INJ 30 MM in NS (IVPB) 250 ML IV ONE (10:00)
[2016-06-30] MEDS ORDERED: POTASSIUM PHOSPHATE INJ 30 MM in NS (IVPB) 250 ML IV NR (10:00)
[2016-06-30] MEDS: fentaNYL INJECTION 100 MCG/2 ML AMP IV PRN (13:48)
--- NOTE | 2016-06-30 16:37 | Progress Note-Standard ---
Standard Progress Note Progress Notes/Assess & Plan Progress/Assessment & Plan 06/27/16: Spiked fever last night, resolved now. No abdominal pain. LFTs improving and therefore, it's reasonable to proceed with cholecystectomy with cholangiogram first, holding off ERCPcontinues to improve. No bile in 06/30/16:continues to improve. No bile in the drain. Liver function improving. Incisions dry. Poor respiratory deferred and encouraged to use incentive spirometry. [facility] Final Diagnosis acute gallstone pancreatitis with empyema of GB SHASHI HORTON MD Jun 30, 2016 4:37 pm
[2016-06-30] MEDS ORDERED: HYDROcodone/APAP 5 MG/325 MG (LORTAB) TAB PO PRN (16:45)
[2016-06-30] MEDS ORDERED: FUROSEMIDE 40 MG/4 ML INJ (LASIX) IVP ONE (21:30)
[2016-06-30 21:50] LABS: MEAN PLATELET VOLUME 10.6 FL (7.4-10.4); RED BLOOD COUNT 3.69 10^6/uL (4.35-5.85); RED CELL DISTRIBUTION WIDTH 14.1 % (10.0-14.5); WHITE BLOOD COUNT 10.4 10^3/uL (4.3-11.0)
--- NOTE | 2016-06-30 21:55 | Diagnostic Imaging Report ---
INDICATION: Wheezing. COMPARISON: 06/30/2016 at 5:02 AM. FINDINGS: Stable right basilar heterogeneous opacities. More linear opacities in the left lung base are unchanged. Small bilateral pleural effusions are similar. No pneumothorax. Stable cardiomediastinal silhouette. IMPRESSION: 1. Stable right basilar heterogeneous opacities. Left basilar patchy linear opacities are also similar. 2. Stable small bilateral pleural effusions. Dictated by: Dictated on workstation # [id number]
[2016-06-30 22:10] LABS: ALANINE AMINOTRANSFERASE 62 U/L (0-55); ALBUMIN 2.7 G/DL (3.2-4.5); ANION GAP 9 MMOL/L (5-14); ASPARTATE AMINO TRANSFERASE 39 U/L (5-34); BILIRUBIN,TOTAL 1.1 MG/DL (0.1-1.0); BLOOD UREA NITROGEN 14 MG/DL (7-18); BUN/CREATININE RATIO 12; CALCIUM 7.9 MG/DL (8.5-10.1); CARBON DIOXIDE 21 MMOL/L (21-32); CHLORIDE 106 MMOL/L (98-107); CREATININE SERUM 1.17 MG/DL (0.60-1.30); GFR ESTIMATED 60; GLUCOSE 187 MG/DL (70-105); SODIUM 136 MMOL/L (135-145); TOTAL PROTEIN 5.8 G/DL (6.4-8.2)
[2016-06-30 22:16] LABS: TROPONIN I < 0.30 NG/ML (<0.30)
[2016-07-01] MEDS: RT-ALBUTEROL/IPRATROPIUM 3 ML (DUONEB) VIAL INH SCH ×6 (02:50→22:46)
[2016-07-01 04:00] VITALS: BP 164/91
[2016-07-01 06:10] LABS: BASOPHILS % (AUTO) 0 % (0-10); EOSINOPHILS # (AUTO) 0.1 10^3/uL (0.0-0.3); EOSINOPHILS % (AUTO) 1 % (0-10); LYMPHOCYTES # (AUTO) 1.1 X 10^3 (1.0-4.0); LYMPHOCYTES % (AUTO) 10 % (12-44); MEAN CORPUSCULAR HEMOGLOBIN 30 PG (25-34); MEAN CORPUSCULAR HGB CONC 33 G/DL (32-36); MEAN CORPUSCULAR VOLUME 93 FL (80-99); MEAN PLATELET VOLUME 10.4 FL (7.4-10.4); MONOCYTES # (AUTO) 1.1 X 10^3 (0.0-1.0); MONOCYTES % (AUTO) 10 % (0-12); NEUTROPHILS # (AUTO) 8.6 X 10^3 (1.8-7.8); NEUTROPHILS % (AUTO) 79 % (42-75); PLATELET COUNT 156 10^3/uL (130-400); RED BLOOD COUNT 3.58 10^6/uL (4.35-5.85); RED CELL DISTRIBUTION WIDTH 14.1 % (10.0-14.5)
[2016-07-01 06:31] LABS: MAGNESIUM 1.7 MG/DL (1.8-2.4); PHOSPHORUS 2.8 MG/DL (2.3-4.7)
[2016-07-01 06:35] LABS: ALBUMIN 2.7 G/DL (3.2-4.5); BILIRUBIN,TOTAL 1.2 MG/DL (0.1-1.0); CREATININE SERUM 1.16 MG/DL (0.60-1.30); POTASSIUM 3.6 MMOL/L (3.6-5.0); TOTAL PROTEIN 5.8 G/DL (6.4-8.2)
[2016-07-01] MEDS: CATHETER FLUSH 10 ML SYR IV SCH ×3 (06:45→20:15)
[2016-07-01] MEDS ORDERED: FUROSEMIDE 40 MG/4 ML INJ (LASIX) IVP ONE (07:00)
--- NOTE | 2016-07-01 07:56 | Progress Note (SOAP) ---
Subjective Subjective/Events-last exam patient had a rough night last night with his breathing. Patient given Lasix and improved. Patient to have consult with cardiology and pulmonology. Chest x-ray stable. Patient hypertensive Objective Exam Vital Signs Date Time Temp Pulse Resp B/P (MAP) Pulse Ox O2 Delivery O2 Flow Rate FiO2 07/01/16 07:00 88 07/01/16 06:21 97 3.00 07/01/16 04:00 98.2 87 18 164/91 91 Nasal Cannula 3.00 07/01/16 02:50 96 3.00 07/01/16 01:03 93 06/30/16 23:29 99.3 95 36 174/84 96 Nasal Cannula 3.00 06/30/16 21:55 95 3.00 06/30/16 21:22 97 2.00 06/30/16 21:21 100.1 93 36 188/90 95 Nasal Cannula 3.00 06/30/16 21:00 Nasal Cannula 3.00 06/30/16 20:22 99.3 96 28 183/92 94 Nasal Cannula 3.00 06/30/16 19:30 95 18 168/88 95 Nasal Cannula 3.00 06/30/16 19:00 90 06/30/16 18:10 93 2.00 06/30/16 18:00 89 14 165/81 93 Nasal Cannula 3.00 06/30/16 17:00 79 31 152/75 91 Nasal Cannula 3.00 06/30/16 16:00 82 32 163/74 93 Nasal Cannula 3.00 06/30/16 16:00 98.9 06/30/16 15:00 78 23 143/80 98 Nasal Cannula 3.00 06/30/16 14:56 92 2.00 06/30/16 14:00 82 29 145/78 92 Nasal Cannula 3.00 06/30/16 13:00 85 31 159/83 95 Nasal Cannula 3.00 06/30/16 13:00 82 06/30/16 12:00 98.7 85 30 150/79 93 Nasal Cannula 3.00 06/30/16 12:00 Nasal Cannula 2.00 06/30/16 11:32 94 2.00 06/30/16 11:00 85 30 134/97 94 Nasal Cannula 3.00 06/30/16 10:00 84 32 129/71 95 Nasal Cannula 3.00 06/30/16 09:00 87 12 152/85 95 Nasal Cannula 3.00 06/30/16 08:05 Nasal Cannula 2.00 06/30/16 08:05 97.8 06/30/16 08:00 79 30 160/82 92 Nasal Cannula 3.00 I & O 07/01/16 07:00 Intake Total 2850 ml Output Total 2880 ml Balance -30 ml Capillary Refill : Less Than 3 Seconds General Appearance: No Apparent Distress, WD/WN HEENT: Normal ENT Inspection Neck: Full Range of Motion Respiratory: Chest Non Tender, No Accessory Muscle Use, No Respiratory Distress Cardiovascular: Regular Rate, Rhythm Gastrointestinal: non tender, soft Results Lab Laboratory Tests 06/30/16 21:44 07/01/16 05:53 Laboratory Tests 06/30/16 21:44: White Blood Count 10.4, Red Blood Count 3.69L, Hemoglobin 11.3L, Hematocrit 34L , Mean Corpuscular Volume 93, Mean Corpuscular Hemoglobin 31, Mean Corpuscular Hemoglobin Concent 33, Red Cell Distribution Width 14.1, Platelet Count 172, Mean Platelet Volume 10.6H, Sodium Level 136, Potassium Level 4.0, Chloride Level 106, Carbon Dioxide Level 21, Anion Gap 9, Blood Urea Nitrogen 14, Creatinine 1.17, Estimat Glomerular Filtration Rate 60, BUN/Creatinine Ratio 12 , Glucose Level 187H, Calcium Level 7.9L, Total Bilirubin 1.1H, Aspartate Amino Transf (AST/SGOT) 39H, Alanine Aminotransferase (ALT/SGPT) 62H, Alkaline Phosphatase 137H, Troponin I < 0.30, B-Type Natriuretic Peptide 75.9, Total Protein 5.8L, Albumin 2.7L 07/01/16 05:53: White Blood Count 11.0, Red Blood Count 3.58L, Hemoglobin 10.9L, Hematocrit 33L , Mean Corpuscular Volume 93, Mean Corpuscular Hemoglobin 30, Mean Corpuscular Hemoglobin Concent 33, Red Cell Distribution Width 14.1, Platelet Count 156, Mean Platelet Volume 10.4, Sodium Level 138, Potassium Level 3.6, Chloride Level 104, Carbon Dioxide Level 24, Anion Gap 10, Blood Urea Nitrogen 14, Creatinine 1.16, Estimat Glomerular Filtration Rate 60, BUN/Creatinine Ratio 12 , Glucose Level 143H, Calcium Level 8.0L, Total Bilirubin 1.2H, Aspartate Amino Transf (AST/SGOT) 31, Alanine Aminotransferase (ALT/SGPT) 58H, Alkaline Phosphatase 128, Total Protein 5.8L, Albumin 2.7L, Neutrophils (%) (Auto) 79H, Lymphocytes (%) (Auto) 10L, Monocytes (%) (Auto) 10, Eosinophils (%) (Auto) 1, Basophils (%) (Auto) 0, Neutrophils # (Auto) 8.6H, Lymphocytes # (Auto) 1.1, Monocytes # (Auto) 1.1H, Eosinophils # (Auto) 0.1, Basophils # (Auto) 0.0, Phosphorus Level 2.8, Magnesium Level 1.7L Assessment/Plan Assessment/Plan Assess & Plan/Chief Complaint Acute cholecystitis. Pancreatic stone. Pancreatitis resolving. Leukocytosis. Fever resolving. To have ERCP today. . 06/28/16. Patient had gallbladder taken out yesterday. Gallbladder ugly. Patient's blood tests look better today. Pancreatic enzymes and liver enzymes decreased. Patient afebrile. GFR decreased. White blood cell count states that 500 still elevated Patient feeling better.. . 06/29/16. Acute cholecystitis with pancreatitis. Patient feeling better today. Lab tests have improved. History of hypertension. Patient afebrile. Patient's abdominal pain has improved. . 06/30/16. Acute cholecystitis with pancreatitis. Patient feeling better today. Kidney function good. Lab tests improving. White blood cell count within normal limits. Bilirubin and liver enzymes decreasing. Chest x-ray stable. Hypertension history. Patient have ERCP today . Acute cholecystitis area Pancreatitis. Leukocytosis. Fever resolved. Patient had trouble breathing last night. Hypertension. To get cardiology and pulmonology on board Clinical Quality Measures DVT/VTE Risk/Contraindication: VTE Present on Admission: No Risk Factor Score Per Nursin RFS Level Per Nursing on Admit: 4+=Very High Contraindications-Pharm: Other *list below* MARCELLA ANAND DO Jul 01, 2016 07:56
[2016-07-01 08:00] VITALS: BP 152/86
--- NOTE | 2016-07-01 08:02 | Pulmonary Consultation ---
History of Present Illness History of Present Illness Date of Consultation 07/01/16 07:58 Date of Admission Reason for Visit: acute upper abdominal pain resulting in ER visit. History of Present Illness 80yo who presented secondary to gall stone pancreatitis pt is now s/p lap cholecystectomy on 06/27. Pt is having worsening dyspnea and wheezing. I am consulted for pulmonary management. Allergies and Home Medications Allergies Coded Allergies: No Known Drug Allergies (Unverified , 05/01/16) Home Medications Albuterol Sulfate 1 Puff Puff, 2 PUFF IH TID, #1 1 PUFF = 90 MCG Prescribed by: SHERRY CISNEROS on 05/29/16 0824 Amlodipine Besylate 5 Mg Tablet, 5 MG PO DAILY, (Reported) Aspirin 81 Mg Tab.chew, 81 MG PO DAILY, (Reported) Sertraline HCl 50 Mg Tablet, 50 MG PO DAILY, (Reported) Past Efegqmf-Xftxki-Njdwrk Hx Patient Social History Alcohol Use: Denies Use Recreational Drug Use: No Smoking Status: Never a Smoker Recent Foreign Travel: No Contact w/Someone Who Travel: No Recent Infectious Disease Expo: No Recent Hopitalizations: No Physical Abuse Screen: No Sexual Abuse: No Immunizations Up To Date Tetanus Booster (TDap): Unknown Seasonal Allergies Seasonal Allergies: No Surgeries HX Surgeries: Yes Surgeries: Eye Surgery Respiratory Hx Respiratory Disorders: Yes Respiratory Disorders: Pneumonia Cardiovascular Hx Cardiac Disorders: Yes Cardiac Disorders: Hypertension Neurological Hx Neurological Disorders: No Reproductive System Hx Reproductive Disorders: No Sexually Transmitted Disease: No HIV/AIDS: No Genitourinary Hx Genitourinary Disorders: No Gastrointestinal Hx Gastrointestinal Disorders: No Musculoskeletal Hx Musculoskeletal Disorders: No Musculoskeletal Disorders: Back Injury Endocrine Hx Endocrine Disorders: No HEENT HX ENT Disorders: No Loss of Vision: Denies Hearing Impairment: Hard of Hearing Cancer Hx Cancer: No Psychosocial Hx Psychiatric Problems: Yes Behavioral Health Disorders: Depression Integumentary HX Skin/Integumentary Disorder: No Blood Transfusions Hx Blood Disorders: No Adverse Reaction to a Blood Tr: No Family Medical History Family Medial History: FH: cancer 19 MOTHER Exam Exam Vital Signs Date Time Temp Pulse Resp B/P (MAP) Pulse Ox O2 Delivery O2 Flow Rate FiO2 07/01/16 07:00 88 07/01/16 06:21 97 3.00 07/01/16 04:00 98.2 87 18 164/91 91 Nasal Cannula 3.00 07/01/16 02:50 96 3.00 07/01/16 01:03 93 06/30/16 23:29 99.3 95 36 174/84 96 Nasal Cannula 3.00 06/30/16 21:55 95 3.00 06/30/16 21:22 97 2.00 06/30/16 21:21 100.1 93 36 188/90 95 Nasal Cannula 3.00 06/30/16 21:00 Nasal Cannula 3.00 06/30/16 20:22 99.3 96 28 183/92 94 Nasal Cannula 3.00 06/30/16 19:30 95 18 168/88 95 Nasal Cannula 3.00 06/30/16 19:00 90 06/30/16 18:10 93 2.00 06/30/16 18:00 89 14 165/81 93 Nasal Cannula 3.00 06/30/16 17:00 79 31 152/75 91 Nasal Cannula 3.00 06/30/16 16:00 82 32 163/74 93 Nasal Cannula 3.00 06/30/16 16:00 98.9 06/30/16 15:00 78 23 143/80 98 Nasal Cannula 3.00 06/30/16 14:56 92 2.00 06/30/16 14:00 82 29 145/78 92 Nasal Cannula 3.00 06/30/16 13:00 85 31 159/83 95 Nasal Cannula 3.00 06/30/16 13:00 82 06/30/16 12:00 98.7 85 30 150/79 93 Nasal Cannula 3.00 06/30/16 12:00 Nasal Cannula 2.00 06/30/16 11:32 94 2.00 06/30/16 11:00 85 30 134/97 94 Nasal Cannula 3.00 06/30/16 10:00 84 32 129/71 95 Nasal Cannula 3.00 06/30/16 09:00 87 12 152/85 95 Nasal Cannula 3.00 06/30/16 08:05 Nasal Cannula 2.00 06/30/16 08:05 97.8 06/30/16 08:00 79 30 160/82 92 Nasal Cannula 3.00 I & O 07/01/16 07:00 Intake Total 2850 ml Output Total 2880 ml Balance -30 ml General Appearance: No Apparent Distress, WD/WN HEENT: Normal ENT Inspection Neck: Full Range of Motion Respiratory: Chest Non Tender, No Accessory Muscle Use, No Respiratory Distress , Wheezing Cardiovascular: Regular Rate, Rhythm Capillary Refill: Less Than 3 Seconds Gastrointestinal: non tender, soft Neurologic/Psychiatric: Alert, Oriented x3 Results Lab Laboratory Tests 06/30/16 03:50 06/30/16 21:44 07/01/16 05:53 Assessment/Plan Assessment/Plan acute gallstone pancreatitis with empyema of GB Dyspnea with small bilateral pleural effusions and atelectasis r/o pneumonia -restart vanco zosyn -Start solumedrol -mcarthur culture -Increase activity -SVNS -monitor Clinical Quality Measures DVT/VTE Risk/Contraindication: VTE Present on Admission: No Risk Factor Score Per Nursin RFS Level Per Nursing on Admit: 4+=Very High Contraindications-Pharm: Other *list below* HALEY NOE DO Jul 01, 2016 08:02
[2016-07-01] MEDS ORDERED: PHARMACY TO DOSE IV SCH (08:15)
--- NOTE | 2016-07-01 08:15 | Progress Note-Standard ---
Standard Progress Note Progress Notes/Assess & Plan Progress/Assessment & Plan 06/27/16: Spiked fever last night, resolved now. No abdominal pain. LFTs improving and therefore, it's reasonable to proceed with cholecystectomy with cholangiogram first, holding off ERCPcontinues to improve. No bile in 06/30/16:continues to improve. No bile in the drain. Liver function improving. Incisions dry. Poor respiratory deferred and encouraged to use incentive spirometry. Could be transferred to the floor 07/01/16:very minimal output from the drain. No bile. Continues to suffer respiratory difficulties. Bilateral basal crepitations. Hypertension inadequately controlled. Urinary retention with the dribbling possibly due to prostatic hypertrophy. We'll consult cardiology and neurology to address the issues. 2-D echocardiogram requested. Anticipated longer hospital stay and therefore will be transferred to swing bed status Final Diagnosis gallstone pancreatitis. Empyema of gallbladder.hypertension. Prostatic hypertrophy. SHASHI HORTON MD Jul 01, 2016 8:14 am
[2016-07-01] MEDS ORDERED: VANCOMYCIN 2000 MG/NS 500 ML IVPB IV NR ×2 (08:30)
[2016-07-01 09:16] LABS: BILIRUBIN,URINE NEGATIVE (NEGATIVE); KETONES,URINE NEGATIVE (NEGATIVE); LEUKOCYTE ESTERASE ,URINE NEGATIVE (NEGATIVE); NITRITE,URINE NEGATIVE (NEGATIVE); PH,URINE 6 (5-9); PROTEIN,URINE NEGATIVE (NEGATIVE); SQUAMOUS EPITHELIAL CELL,UR 0-2 /HPF; UROBILINOGEN,URINE NORMAL (NORMAL)
[2016-07-01] MEDS: methylPREDNISolone 40 MG/ML (Solu-MEDROL) VIAL IV SCH ×3 (09:27→20:09)
[2016-07-01] MEDS: PIPERACILLIN SODIUM/TAZOBACTAM 4.5 GM in NS (IVPB) 100 ML IV SCH ×2 (09:29→15:31)
[2016-07-01] MEDS ORDERED: LIDOCAINE UROJET 2% GEL 10 ML PKG ONE (09:37)
[2016-07-01] MEDS: MAGNESIUM 1 GM/100 ML IVPB 100 ML IV SCH ×3 (09:38→11:56)
[2016-07-01] MEDS: amLODIPine 5 MG (NORVASC) TAB PO SCH (09:38)
[2016-07-01] MEDS: ENOXAPARIN 40 MG/0.4 ML (LOVENOX) SYR SC SCH (09:38)
[2016-07-01] MEDS: NEO/POLY/BAC (NEOSPORIN) OINT 15 GM TUBE TOP SCH ×2 (09:38→20:14)
[2016-07-01] MEDS: guaiFENesin (MUCINEX) 600 MG TAB PO SCH ×2 (09:38→20:10)
--- NOTE | 2016-07-01 09:45 | CONSULTATION REPORT ---
DATE OF CONSULTATION: 07/01/2016 ATTENDING PHYSICIAN: Dr. Martinez. Dr. Livingston SUMMARY: 80-year-old white man recovering from a cholecystectomy for cholecystitis and pancreatitis. His postop course was complicated by some cardiorespiratory issues and wheezing as well as urinary issues in the form of dribbling and retention. Questioning the patient about previous symptoms, he admits to nocturia x4, urgency, urgency incontinence, and question emptying his bladder. He is not on any medication for the prostate. He has never had any surgery on his prostate or bladder. PHYSICAL EXAM: Was deferred to the time of cystoscopy. IMPRESSION: 1. BPH with prostatism. 2. Possible overactive bladder. 3. Possible retention. PLAN: 1. Start him on Flomax. 2. Bladder scan postvoid residual and manage accordingly. 3. Cystoscopy at bedside under local today. 4. Urecholine, if used, should be wisely used because of the wheezing and possible COPD. Thank you for letting me participate in the care of this patient. We will follow with you. Job ID: [id number] Dictated Date: 07/01/2016 08:18:12 Core Blower Operator Date: 07/01/2016 09:40:16/carlos
--- NOTE | 2016-07-01 10:11 | Physical Therapy Progress Note ---
Therapy Progress Note Patient is on hold per RN due to decline in medical status. PT will consult RN in p.m. on POC. HOLD LEN ROSE PT Jul 01, 2016 10:11
--- NOTE | 2016-07-01 11:29 | Progress Note-Post Operative ---
Post-Operative Progess Note Surgeon (s)/Final Expense Agent (s) Surgeon LAKESHA PARRY MD Final Expense Agent: none Pre-Operative Diagnosis urine retention Post-Operative Diagnosis same Post-Op Procedure Note Date of Procedure: Jul 01, 2016 Name of Procedure Performed: cystoscopy Description of the Procedure: cystoscopy Findings of the Procedure enlarged prostate with obstruction Anesthesia Type local Estimated blood loss (mL): 0 Packing: o Specimen(s) collected/removed none LAKESHA PARRY MD Jul 01, 2016 11:29 am
[2016-07-01 12:00] VITALS: BP 163/79
[2016-07-01 16:00] VITALS: BP 146/77
[2016-07-01] MEDS: ALFUZOSIN HCL 10 MG TAB (UROXATRAL) PO SCH (17:58)
[2016-07-01] MEDS ORDERED: RT-ALBUTEROL/IPRATROPIUM 3 ML (DUONEB) VIAL INH PRN (20:00)
[2016-07-01 20:02] VITALS: BP 154/91
[2016-07-02] MEDS: PIPERACILLIN SODIUM/TAZOBACTAM 4.5 GM in NS (IVPB) 100 ML IV SCH ×4 (00:11→23:58)
[2016-07-02] MEDS: CATHETER FLUSH 10 ML SYR IV SCH ×3 (00:11→22:00)
[2016-07-02 00:35] VITALS: BP 121/65
[2016-07-02] MEDS: methylPREDNISolone 40 MG/ML (Solu-MEDROL) VIAL IV SCH ×4 (02:09→20:13)
[2016-07-02] MEDS: RT-ALBUTEROL/IPRATROPIUM 3 ML (DUONEB) VIAL INH SCH ×6 (02:14→21:31)
[2016-07-02 04:25] VITALS: BP 117/69
[2016-07-02 06:23] LABS: BASOPHILS % (AUTO) 0 % (0-10); EOSINOPHILS % (AUTO) 0 % (0-10); LYMPHOCYTES # (AUTO) 0.5 X 10^3 (1.0-4.0); LYMPHOCYTES % (AUTO) 4 % (12-44); MEAN CORPUSCULAR HEMOGLOBIN 31 PG (25-34); MEAN CORPUSCULAR HGB CONC 33 G/DL (32-36); MEAN CORPUSCULAR VOLUME 93 FL (80-99); MEAN PLATELET VOLUME 11.3 FL (7.4-10.4); MONOCYTES # (AUTO) 0.3 X 10^3 (0.0-1.0); MONOCYTES % (AUTO) 3 % (0-12); NEUTROPHILS # (AUTO) 10.3 X 10^3 (1.8-7.8); NEUTROPHILS % (AUTO) 93 % (42-75); PLATELET COUNT 169 10^3/uL (130-400); RED BLOOD COUNT 3.16 10^6/uL (4.35-5.85); RED CELL DISTRIBUTION WIDTH 13.7 % (10.0-14.5); WHITE BLOOD COUNT 11.1 10^3/uL (4.3-11.0)
[2016-07-02 06:39] LABS: ALBUMIN 2.6 G/DL (3.2-4.5); BILIRUBIN,TOTAL 0.8 MG/DL (0.1-1.0); CREATININE SERUM 1.33 MG/DL (0.60-1.30); MAGNESIUM 2.3 MG/DL (1.8-2.4); PHOSPHORUS 3.3 MG/DL (2.3-4.7); POTASSIUM 3.7 MMOL/L (3.6-5.0); TOTAL PROTEIN 5.8 G/DL (6.4-8.2)
[2016-07-02 06:41] LABS: BAND NEUTROPHILS 6 %; LYMPHOCYTES % (MANUAL) 3 %; NEUTROPHILS % (MANUAL) 90 %
--- NOTE | 2016-07-02 07:38 | Pulmonary Progress Note ---
Subjective Subjective/Events-last exam PT feels much improved. Exam Exam Vital Signs Date Time Temp Pulse Resp B/P (MAP) Pulse Ox O2 Delivery O2 Flow Rate FiO2 07/02/16 06:59 92 2.00 07/02/16 04:25 97.6 80 18 117/69 91 Nasal Cannula 2.00 07/02/16 02:14 91 2.00 07/02/16 01:16 89 07/02/16 00:35 96.6 85 18 121/65 91 Nasal Cannula 3.00 07/01/16 22:47 92 2.00 07/01/16 21:00 Nasal Cannula 3.00 07/01/16 20:02 96.5 98 24 154/91 93 Nasal Cannula 3.00 07/01/16 19:00 84 07/01/16 18:16 92 2.00 07/01/16 16:00 96.6 82 20 146/77 94 Nasal Cannula 3.00 07/01/16 13:00 94 2.00 07/01/16 13:00 92 07/01/16 12:00 97.4 89 20 163/79 93 Nasal Cannula 3.00 07/01/16 10:54 95 3.00 07/01/16 09:00 95 Nasal Cannula 3.00 07/01/16 08:00 98.3 87 22 152/86 94 Nasal Cannula 3.00 I & O 07/02/16 07:00 Intake Total 2550 ml Output Total 540 ml Balance 2010 ml General Appearance: No Apparent Distress, WD/WN HEENT: Normal ENT Inspection Neck: Full Range of Motion Respiratory: Chest Non Tender, No Accessory Muscle Use, No Respiratory Distress , Wheezing Cardiovascular: Regular Rate, Rhythm Capillary Refill: Less Than 3 Seconds Gastrointestinal: non tender, soft Neurologic/Psychiatric: Alert, Oriented x3 Results Lab Laboratory Tests 06/30/16 21:44 07/01/16 05:53 07/02/16 05:07 Assessment/Plan Assessment/Plan acute gallstone pancreatitis with empyema of GB Dyspnea with small bilateral pleural effusions and atelectasis/pneumonia - vanco zosyn - solumedrol -mcarthur culture pending -Increase activity -SVNS -monitor Clinical Quality Measures DVT/VTE Risk/Contraindication: VTE Present on Admission: No Risk Factor Score Per Nursin RFS Level Per Nursing on Admit: 4+=Very High Contraindications-Pharm: Other *list below* HALEY NOE DO Jul 02, 2016 07:38
--- NOTE | 2016-07-02 07:40 | Progress Note (SOAP) ---
Subjective Subjective/Events-last exam Patient feeling much better today and breathing better. Patient states he feels good. Lungs are clearer. Acute cholecystitis with pancreatitis. Hypertension. Atelectasis versus pneumonia Objective Exam Vital Signs Date Time Temp Pulse Resp B/P (MAP) Pulse Ox O2 Delivery O2 Flow Rate FiO2 07/02/16 06:59 92 2.00 07/02/16 04:25 97.6 80 18 117/69 91 Nasal Cannula 2.00 07/02/16 02:14 91 2.00 07/02/16 01:16 89 07/02/16 00:35 96.6 85 18 121/65 91 Nasal Cannula 3.00 07/01/16 22:47 92 2.00 07/01/16 21:00 Nasal Cannula 3.00 07/01/16 20:02 96.5 98 24 154/91 93 Nasal Cannula 3.00 07/01/16 19:00 84 07/01/16 18:16 92 2.00 07/01/16 16:00 96.6 82 20 146/77 94 Nasal Cannula 3.00 07/01/16 13:00 94 2.00 07/01/16 13:00 92 07/01/16 12:00 97.4 89 20 163/79 93 Nasal Cannula 3.00 07/01/16 10:54 95 3.00 07/01/16 09:00 95 Nasal Cannula 3.00 07/01/16 08:00 98.3 87 22 152/86 94 Nasal Cannula 3.00 I & O 07/02/16 07:00 Intake Total 2550 ml Output Total 540 ml Balance 2010 ml Capillary Refill : Less Than 3 SecondsLess Than 3 Seconds General Appearance: No Apparent Distress, WD/WN HEENT: Normal ENT Inspection Neck: Full Range of Motion, Normal Inspection Respiratory: Chest Non Tender, Lungs Clear, Normal Breath Sounds, No Accessory Muscle Use, No Respiratory Distress Gastrointestinal: soft Results Lab Laboratory Tests 07/02/16 05:07 Laboratory Tests 07/01/16 08:36: Urine Color YELLOW, Urine Clarity CLEAR, Urine pH 6, Urine Specific [place] 1.010L, Urine Protein NEGATIVE, Urine Glucose (UA) NEGATIVE, Urine Ketones NEGATIVE, Urine Nitrite NEGATIVE, Urine Bilirubin NEGATIVE, Urine Urobilinogen NORMAL, Urine Leukocyte Esterase NEGATIVE, Urine RBC (Auto) NEGATIVE, Urine RBC RARE, Urine WBC NONE, Urine Squamous Epithelial Cells 0-2, Urine Crystals NONE, Urine Bacteria NEGATIVE, Urine Casts NONE, Urine Mucus NEGATIVE, Urine Culture Indicated NO, Lactic Acid Level 0.83 07/02/16 05:07: White Blood Count 11.1H, Red Blood Count 3.16L, Hemoglobin 9.7L, Hematocrit 29L , Mean Corpuscular Volume 93, Mean Corpuscular Hemoglobin 31, Mean Corpuscular Hemoglobin Concent 33, Red Cell Distribution Width 13.7, Platelet Count 169, Mean Platelet Volume 11.3H, Neutrophils (%) (Auto) 93H, Lymphocytes (%) (Auto) 4L, Monocytes (%) (Auto) 3, Eosinophils (%) (Auto) 0, Basophils (%) (Auto) 0, Neutrophils # (Auto) 10.3H, Lymphocytes # (Auto) 0.5L, Monocytes # (Auto) 0.3, Eosinophils # (Auto) 0.0, Basophils # (Auto) 0.0, Neutrophils % (Manual) 90, Lymphocytes % (Manual) 3, Monocytes % (Manual) 1, Band Neutrophils 6, Blood Morphology Comment NORMAL, Sodium Level 138, Potassium Level 3.7, Chloride Level 104, Carbon Dioxide Level 25, Anion Gap 9, Blood Urea Nitrogen 21H, Creatinine 1.33H, Estimat Glomerular Filtration Rate 52, BUN/Creatinine Ratio 16 , Glucose Level 257H, Calcium Level 8.0L, Phosphorus Level 3.3, Magnesium Level 2.3, Total Bilirubin 0.8, Aspartate Amino Transf (AST/SGOT) 22, Alanine Aminotransferase (ALT/SGPT) 45, Alkaline Phosphatase 114, Total Protein 5.8L, Albumin 2.6L Assessment/Plan Assessment/Plan Assess & Plan/Chief Complaint Acute cholecystitis. Pancreatic stone. Pancreatitis resolving. Leukocytosis. Fever resolving. To have ERCP today. . 06/28/16. Patient had gallbladder taken out yesterday. Gallbladder ugly. Patient's blood tests look better today. Pancreatic enzymes and liver enzymes decreased. Patient afebrile. GFR decreased. White blood cell count states that 500 still elevated Patient feeling better.. . 06/29/16. Acute cholecystitis with pancreatitis. Patient feeling better today. Lab tests have improved. History of hypertension. Patient afebrile. Patient's abdominal pain has improved. . 06/30/16. Acute cholecystitis with pancreatitis. Patient feeling better today. Kidney function good. Lab tests improving. White blood cell count within normal limits. Bilirubin and liver enzymes decreasing. Chest x-ray stable. Hypertension history. Patient have ERCP today . Acute cholecystitis area Pancreatitis. Leukocytosis. Fever resolved. Patient had trouble breathing last night. Hypertension. To get cardiology and pulmonology on board. . Acute cholecystitis. Pancreatitis. Fever resolved. Patient breathing better today. Patient feeling good Hypertension resolved Clinical Quality Measures DVT/VTE Risk/Contraindication: VTE Present on Admission: No Risk Factor Score Per Nursin RFS Level Per Nursing on Admit: 4+=Very High Contraindications-Pharm: Other *list below* MARCELLA ANAND DO Jul 02, 2016 07:40
[2016-07-02 07:50] VITALS: BP 153/74
[2016-07-02] MEDS: VANCOMYCIN 1500 MG/NS 500 ML IVPB IV SCH ×2 (08:40)
[2016-07-02] MEDS: ENOXAPARIN 40 MG/0.4 ML (LOVENOX) SYR SC SCH (08:40)
[2016-07-02] MEDS: FINASTERIDE (PROSCAR) 5 MG TAB PO SCH (08:41)
[2016-07-02] MEDS: NEO/POLY/BAC (NEOSPORIN) OINT 15 GM TUBE TOP SCH ×2 (08:41→20:14)
[2016-07-02] MEDS: amLODIPine 5 MG (NORVASC) TAB PO SCH (08:41)
[2016-07-02] MEDS: guaiFENesin (MUCINEX) 600 MG TAB PO SCH ×2 (08:41→21:35)
--- NOTE | 2016-07-02 08:45 | Consultation-Cardiology ---
HPI-Cardiology Cardiology Consultation Date of Consultation 07/02/16 Date of Admission Indication: Dysnea HPI Patient is a very pleasant 80 year old male underwent cholecystectomy secondary to acute gallstone pancreatitis and empyema of gallbladder. Began having increased dyspnea Thursday night. Denies any CP, palpitations, dizziness, lightheadedness, or syncope. States dyspnea has improved some. No other complaints at this time. Patient was seen and evaluated with Keri is an 80-year-old gentleman status post cholecystectomy and pancreatitis, empyema of the gallbladder. Was recovering well, started having increasing shortness of breath, currently reporting improvement. Denied any further episode of chest pain, shortness of breath or palpitation. Home Medications & Allergies Allergies: Coded Allergies: No Known Drug Allergies (Unverified , 05/01/16) Home Medication List Reviewed: Yes [id number] Hx Patient Social History Alcohol Use: Denies Use Recreational Drug Use: No Smoking Status: Never a Smoker Recent Foreign Travel: No Recent Infectious Disease Expo: No Recent Hopitalizations: No Physical Abuse Screen: No Sexual Abuse: No Immunizations Up To Date Tetanus Booster (TDap): Unknown Past Medical History HTN, COPD Family Medical History Significant Family History: No Pertinent Family Hx Family History: FH: cancer 19 MOTHER Constitutional: No chills, No diaphoresis, No dizziness, No fever, malaise, No weakness EENTM: No blurred vision, No double vision, No ear pain, No nose pain, No throat pain, No vision loss Respiratory: cough, dyspnea on exertion, phlegm, short of breath, wheezing Cardiovascular: No chest pain, No edema, No palpitations, No syncope, No vascular heart diseas Gastrointestinal: No abdominal pain, No constipation, No diarrhea Genitourinary: No dysuria, No frequency, No hematuria Musculoskeletal: No back pain Skin: No dryness, No lesions Reviewed Test Results Reviewed Test Results Lab Laboratory Tests 07/02/16 05:07: White Blood Count 11.1H, Red Blood Count 3.16L, Hemoglobin 9.7L, Hematocrit 29L , Mean Corpuscular Volume 93, Mean Corpuscular Hemoglobin 31, Mean Corpuscular Hemoglobin Concent 33, Red Cell Distribution Width 13.7, Platelet Count 169, Mean Platelet Volume 11.3H, Neutrophils (%) (Auto) 93H, Lymphocytes (%) (Auto) 4L, Monocytes (%) (Auto) 3, Eosinophils (%) (Auto) 0, Basophils (%) (Auto) 0, Neutrophils # (Auto) 10.3H, Lymphocytes # (Auto) 0.5L, Monocytes # (Auto) 0.3, Eosinophils # (Auto) 0.0, Basophils # (Auto) 0.0, Neutrophils % (Manual) 90, Lymphocytes % (Manual) 3, Monocytes % (Manual) 1, Band Neutrophils 6, Blood Morphology Comment NORMAL, Sodium Level 138, Potassium Level 3.7, Chloride Level 104, Carbon Dioxide Level 25, Anion Gap 9, Blood Urea Nitrogen 21H, Creatinine 1.33H, Estimat Glomerular Filtration Rate 52, BUN/Creatinine Ratio 16 , Glucose Level 257H, Calcium Level 8.0L, Phosphorus Level 3.3, Magnesium Level 2.3, Total Bilirubin 0.8, Aspartate Amino Transf (AST/SGOT) 22, Alanine Aminotransferase (ALT/SGPT) 45, Alkaline Phosphatase 114, Total Protein 5.8L, Albumin 2.6L Physical Exam Vital Signs Vital Sign - Last 12Hours 06/26/16 06/27/16 03:00 15:10 Temp 100.3 Pulse 81 Resp 20 B/P (MAP) 172/92 Pulse Ox 93 O2 Delivery Room Air O2 Flow Rate 3.00 Capillary Refill : Less Than 3 SecondsLess Than 3 Seconds General Appearance: No Apparent Distress, WD/WN HEENT: PERRL/EOMI, Normal ENT Inspection Neck: Full Range of Motion, Normal Inspection, Non Tender, Supple Respiratory: Chest Non Tender, No Accessory Muscle Use, No Respiratory Distress , Decreased Breath Sounds Cardiovascular: Regular Rate, Rhythm, No Edema, No Gallop, No JVD, No Murmur, Normal Peripheral Pulses Gastrointestinal: Soft, Tenderness (RUQ, LUQ) Rectal: Deferred Back: No CVA Tenderness Extremity: Non Tender, No Calf Tenderness Neurologic/Psychiatric: Alert, Oriented x3, agricultural technical officer II-XII Norm as Tested Skin: Normal Color, Warm/Dry Lymphatic: No Adenopathy A/P-Cardiology Admission Diagnosis Dyspnea Pancreatitis and Empyema of GB HTN COPD Assessment/Plan Dyspnea- reports increased dyspnea Thursday night, now improved. CXR reveals sm. bilat effusion and atelectasis. BNP WNL. Results of 2D Echo pending. Patient was encouraged to continue with IS. Continue to monitor Acute gallstone pancreatitis with empyema of gallbladder- s/p cholecystectomy. Slowly recovering. LFT's WNL today. Continue to monitor. HTN- controlled. Continue to monitor BP/HR. COPD- continue MAT protocol. Patient was hospitalized in 2016 for pneumonia. Continue to monitor closely. Acute on chronic renal insufficiency- continue to monitor. Hypomagnesemia- replace, monitor. Thank you for allowing us to participate in the management of Mr. Isaac. This is Keri Christopher PA-C as a scribe for Dr. Jade. This is Dr Jade. Patient was seen and evaluated with Keri, he is an 80-year -old gentleman with cholecystectomy secondary to empyema of the gallbladder and pancreatitis, recovering slowly, had worsening shortness of breath, underwent 2- D echocardiogram evaluation which was showing normal left ventricular size and function with normal ejection fraction. His blood pressure is controlled. Has history of COPD, hospitalized for pneumonia in May, continue on mat protocol at this time, replace electrolytes and monitor closely. His dyspnea is unlikely cardiac in nature. Patient had SCD and currently on Lovenox 40 mg for DVT prophylaxis.on examination lungs were clear to auscultation bilaterally , heart is regular rate and rhythm. I reviewed the note and agree with the current scribe, made a few minor modification to the note and use Italic Font Clinical Quality Measures DVT/VTE Risk/Contraindication: VTE Present on Admission: No Risk Factor Score Per Nursin RFS Level Per Nursing on Admit: 4+=Very High Contraindications-Pharm: Other *list below* KERI EAGLE Jul 02, 2016 08:45 CARLOS JADE MD Jul 02, 2016 11:38
--- NOTE | 2016-07-02 09:46 | Progress Note (SOAP) ---
Subjective Subjective/Events-last exam doing well. tolerating diet and having bowel fxn. improving with PT and ADL's. Objective Exam Vital Signs Date Time Temp Pulse Resp B/P (MAP) Pulse Ox O2 Delivery O2 Flow Rate FiO2 07/02/16 07:50 95.3 81 22 153/74 93 Nasal Cannula 2.00 07/02/16 06:59 92 2.00 07/02/16 04:25 97.6 80 18 117/69 91 Nasal Cannula 2.00 07/02/16 02:14 91 2.00 07/02/16 01:16 89 07/02/16 00:35 96.6 85 18 121/65 91 Nasal Cannula 3.00 07/01/16 22:47 92 2.00 07/01/16 21:00 Nasal Cannula 3.00 07/01/16 20:02 96.5 98 24 154/91 93 Nasal Cannula 3.00 07/01/16 19:00 84 07/01/16 18:16 92 2.00 07/01/16 16:00 96.6 82 20 146/77 94 Nasal Cannula 3.00 07/01/16 13:00 94 2.00 07/01/16 13:00 92 07/01/16 12:00 97.4 89 20 163/79 93 Nasal Cannula 3.00 07/01/16 10:54 95 3.00 I & O 07/02/16 07:00 Intake Total 2550 ml Output Total 540 ml Balance 2010 ml Capillary Refill : Less Than 3 SecondsLess Than 3 Seconds General Appearance: No Apparent Distress HEENT: PERRL/EOMI Neck: Full Range of Motion Respiratory: Chest Non Tender, Lungs Clear Cardiovascular: Regular Rate, Rhythm Gastrointestinal: normal bowel sounds, soft Extremity: Normal Capillary Refill Neurologic/Psychiatric: Alert, Oriented x3 Skin: Normal Color Lymphatic: No Adenopathy Results Lab Laboratory Tests 07/02/16 05:07: White Blood Count 11.1H, Red Blood Count 3.16L, Hemoglobin 9.7L, Hematocrit 29L , Mean Corpuscular Volume 93, Mean Corpuscular Hemoglobin 31, Mean Corpuscular Hemoglobin Concent 33, Red Cell Distribution Width 13.7, Platelet Count 169, Mean Platelet Volume 11.3H, Neutrophils (%) (Auto) 93H, Lymphocytes (%) (Auto) 4L, Monocytes (%) (Auto) 3, Eosinophils (%) (Auto) 0, Basophils (%) (Auto) 0, Neutrophils # (Auto) 10.3H, Lymphocytes # (Auto) 0.5L, Monocytes # (Auto) 0.3, Eosinophils # (Auto) 0.0, Basophils # (Auto) 0.0, Neutrophils % (Manual) 90, Lymphocytes % (Manual) 3, Monocytes % (Manual) 1, Band Neutrophils 6, Blood Morphology Comment NORMAL, Sodium Level 138, Potassium Level 3.7, Chloride Level 104, Carbon Dioxide Level 25, Anion Gap 9, Blood Urea Nitrogen 21H, Creatinine 1.33H, Estimat Glomerular Filtration Rate 52, BUN/Creatinine Ratio 16 , Glucose Level 257H, Calcium Level 8.0L, Phosphorus Level 3.3, Magnesium Level 2.3, Total Bilirubin 0.8, Aspartate Amino Transf (AST/SGOT) 22, Alanine Aminotransferase (ALT/SGPT) 45, Alkaline Phosphatase 114, Total Protein 5.8L, Albumin 2.6L Assessment/Plan Assessment/Plan Assess & Plan/Chief Complaint s/p lap eli. continue PT and ambulation. Clinical Quality Measures DVT/VTE Risk/Contraindication: VTE Present on Admission: No Risk Factor Score Per Nursin RFS Level Per Nursing on Admit: 4+=Very High Contraindications-Pharm: Other *list below* TIKA SKAGGS MD Jul 02, 2016 09:46
--- NOTE | 2016-07-02 09:53 | ECHOCARDIOGRAPHY REPORT ---
PROCEDURE PHYSICIAN: NEIL LAINEZ DATE OF PROCEDURE: 07/01/2016 TWO DIMENSIONAL ECHOCARDIOGRAM REPORT PRIMARY PHYSICIAN: OTHER PHYSICIAN: REFERRING PHYSICIAN: ORDERING PHYSICIAN: INDICATION FOR THE PROCEDURE: MEASUREMENTS DERIVED VALUES LV DIAMETER (LAX) NORMALS NORMALS Diastolic 3.4 (3.6-5.2) Eject. Fract. (60%+/-6%) Systolic (2.3-3.9) Diastolic Vol. % Shortening (0.22-0.42) Systolic Vol. Aortic Root 3.3 IVS THICKNESS Diastolic 1.3 (0.6-1.1) LVPW THICKNESS Diastolic 1.2 (0.6-1.1) LA DIAMETER Systolic 3.5 (2.1-3.7) DESCRIPTION: Two dimensional echocardiography shows normal global left ventricular systolic function without distinct wall motion abnormality. The aortic, mitral and tricuspid valve leaflets show good leaflet excursion. There is no significant pericardial effusion. Doppler imaging shows trivial aortic and mitral regurgitation. There is no Doppler evidence of any significant valvular stenosis. Mitral inflow is consistent with grade 1 diastolic dysfunction of the left ventricle. There is no evidence of significant intracardiac shunt on this transthoracic echocardiographic study, although subcostal views are limited and the study is not ideal for evaluation for intracardiac shunt. Inferior vena cava does not appear to be dilated. It is mostly collapsed during this study. CONCLUSIONS: 1. Normal global left ventricular systolic function with an ejection fraction of approximately 65%. 2. Mild concentric left ventricular hypertrophy and mild diastolic dysfunction of the left ventricle. 3. Trivial mitral and aortic regurgitation. 4. No evidence of any significant valvular stenosis. 5. Pulmonary artery systolic pressure is estimated approximately 35 mmHg Job ID: [id number] Dictated Date: 07/01/2016 15:01:34 Visual Educator Date: 07/02/2016 09:46:46 / lee
--- NOTE | 2016-07-02 10:03 | Physical Therapy Daily Note ---
PT Daily Note-Current Subjective Pt sitting in recliner upon arrival. Per nursing, pt is better medically and it is okay to see pt today. Pt agrees to PT for walk. Pain Location: No Pain Reported Mental Status Patient Orientation: Person, Place, Time, Situation Attachments: Oxygen (2L in room but walked w/o), Drains, IV Transfers Functional [place] Measure 0=Not Assessed/NA 4=Minimal Assistance 1=Total Assistance 5=Supervision or Setup 2=Maximal Assistance 6=Modified [place] 3=Moderate Assistance 7=Complete IndependenceIRFPAI Quality Coding Scale 6 Independent with activity with or without an assistive device 5 Patient requires set up or clean up by helper. Patient completes activity by themselves 4 Supervision or touching assist (CGA). [place] provide cues , steadying assist 3 The helper provides less than half the effort to complete the activity 2 The helper provides more than half the effort to complete the activity 1 Dependent. The helper does all the effort to complete an activity 7 Patient refused to complete or attempt activity 9 The patient did not perform the activity before the current illness or injury 88 Not attempted due to Medical conditions or safety concerns Transfers (B, C, W/C) (FIM): 5 Scootin Sit to/from Stand: 5 Weight Bearing Weight Bearing Restriction: Full Weight Bearing Location Restriction: LE Bilateral Gait Training Gait (FIM): 4 Distance (FIM): 3=150 ft Distance: 350' Gait Level of Assist: 4 Gait Persons Needed: 1 Gait Assistive Device: FWW Pt's collins is slow but steady with no LOB and pt walks with slight slumped posture. Treatments Pt transferred from recliner to standing using FWW at [facility]. Pt didn't use O2 during ambulation, O2 remained at 92% during ambulation. Pt ambulated in hallway using FWW at [facility] for support and to help with IV pole. After ambulating , pt returned to room to rest. Wound Care Nurse checked pt before transferring back to sitting in recliner. Pt left with all needs met at end of tx. Assessment Current Status: Good Progress Pt's O2 remained at 92% so Pt notified nurse and she removed O2. Pt ambulated well and didn't fatigue quickly. Pt was steady with gait and PT only really needed to be CGA to assist keeping pt's brief up during walk. Pt is improving. 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 Time Frame: Jul 14, 2016 Transfers (B,C,W/C) (FIM): 6 Gait (FIM): 6 Gait distance (FIM): 3=150 ft Distance: 300' Gait Level of Assist: 6 Gait Assistive Device: None, FWW PT Plan Problem List Problem List: Activity Tolerance, Gait, Transfer Treatment/Plan Treatment Plan: Continue Plan of Care Treatment Plan: Bed Mobility, Education, Functional Activity Raheel, Functional Strength, Gait, Safety, Therapeutic Exercise, Transfers Treatment Duration: Jul 14, 2016 Visits Per Week: 5-6 Safety Risks/Education Patient Education: Gait Training, Transfer Techniques, Correct Positioning, Safety Issues Teaching Recipient: Patient Teaching Methods: Discussion Response to Teaching: Verbalize Understanding Time/GCodes Time In: 925 Time Out: 950 Total Billed Treatment Time: 25 Total Billed Treatment visit, GT (15m) & FA (10m) DON VIVEROS PTA Jul 02, 2016 10:03
--- NOTE | 2016-07-02 10:44 | Diagnostic Imaging Report ---
EXAMINATION: PA and lateral views of the chest. INDICATION: Wheezing. FINDINGS: There is right lower lobe infiltrate or atelectasis. When compared to the prior exam of 06/30/2016, there is improved aeration in the lung bases. There is a component of atelectasis in the right perihilar region. Relatively low lung volumes are seen bilaterally. The heart size is at the upper limits of normal. A tiny right pleural effusion is present. Left rib fractures are again seen. IMPRESSION: Low lung volumes. There is improved right basilar infiltrate and small effusion. Dictated by: Dictated on workstation # [id number]
--- NOTE | 2016-07-02 11:06 | OPERATIVE REPORT ---
PROCEDURE PHYSICIAN: LAKESHA PARRY DATE OF PROCEDURE: 07/01/2016 PREOPERATIVE DIAGNOSIS: Urinary retention. POSTOPERATIVE DIAGNOSIS: Urinary retention. OPERATION: Cystoscopy. SURGEON: Nicole ANESTHESIA: Local. COMPLICATIONS: None. PROCEDURE: With the patient supine in his bed, the genitalia were prepped and draped in usual sterile fashion The urethra was infiltrated with 2% lidocaine jelly and a flexible cystoscope was introduced under vision. The anterior urethra was normal. The prostate revealed enlargement of the lateral lobe meeting in the midline, causing bladder neck obstruction, bladder trabeculation and cellules. No foreign body, bladder tumor, stone visualized. Cystoscopy was confirmed in an antegrade fashion and the cystoscope was removed. The patient tolerated the procedure and anesthesia well and remained in his bed in stable condition. PLAN: We started him this morning on the Flomax we will add Proscar. We will try to avoid any surgical procedure whether a TURP or a UroLift procedure. Job ID: [id number] Dictated Date: 07/01/2016 11:30:54 Electrical Tester Date: 07/02/2016 11:02:37 / lee
[2016-07-02 11:45] VITALS: BP 138/63
[2016-07-02 16:35] VITALS: BP 130/72
[2016-07-02] MEDS: ALFUZOSIN HCL 10 MG TAB (UROXATRAL) PO SCH (17:36)
[2016-07-02 20:59] VITALS: BP 148/80
[2016-07-03] VITALS: BP 161/72
[2016-07-03] MEDS: RT-ALBUTEROL/IPRATROPIUM 3 ML (DUONEB) VIAL INH SCH ×6 (01:40→22:04)
[2016-07-03] MEDS: methylPREDNISolone 40 MG/ML (Solu-MEDROL) VIAL IV SCH ×2 (02:30→08:28)
[2016-07-03 04:00] VITALS: BP 145/78
[2016-07-03 05:09] LABS: BASOPHILS % (AUTO) 0 % (0-10); EOSINOPHILS % (AUTO) 0 % (0-10); LYMPHOCYTES # (AUTO) 0.8 X 10^3 (1.0-4.0); LYMPHOCYTES % (AUTO) 6 % (12-44); MEAN CORPUSCULAR HEMOGLOBIN 31 PG (25-34); MEAN CORPUSCULAR HGB CONC 33 G/DL (32-36); MEAN CORPUSCULAR VOLUME 94 FL (80-99); MEAN PLATELET VOLUME 10.9 FL (7.4-10.4); MONOCYTES # (AUTO) 0.5 X 10^3 (0.0-1.0); MONOCYTES % (AUTO) 3 % (0-12); NEUTROPHILS # (AUTO) 12.7 X 10^3 (1.8-7.8); NEUTROPHILS % (AUTO) 91 % (42-75); PLATELET COUNT 210 10^3/uL (130-400); RED BLOOD COUNT 3.21 10^6/uL (4.35-5.85); RED CELL DISTRIBUTION WIDTH 13.9 % (10.0-14.5)
[2016-07-03 05:30] LABS: CREATININE SERUM 1.3 MG/DL (0.60-1.30); MAGNESIUM 2.2 MG/DL (1.8-2.4); PHOSPHORUS 3.4 MG/DL (2.3-4.7); POTASSIUM 3.6 MMOL/L (3.6-5.0)
[2016-07-03] MEDS ORDERED: TROUGH ORDER-PHARMACY XX NR (07:00)
[2016-07-03 07:54] LABS: ALBUMIN 2.7 G/DL (3.2-4.5); BILIRUBIN,TOTAL 0.8 MG/DL (0.1-1.0); CALCIUM 8.2 MG/DL (8.5-10.1); CREATININE SERUM 1.27 MG/DL (0.60-1.30); POTASSIUM 3.8 MMOL/L (3.6-5.0); TOTAL PROTEIN 6.1 G/DL (6.4-8.2)
[2016-07-03] MEDS: CATHETER FLUSH 10 ML SYR IV SCH ×3 (07:59→22:28)
--- NOTE | 2016-07-03 08:17 | Progress Note (SOAP) ---
Subjective Subjective/Events-last exam acute cholecystitis. Pancreatitis. Dyspnea resolved. Patient feeling better. Chest x-ray yesterday improvement. Patient in the right direction Objective Exam Vital Signs Date Time Temp Pulse Resp B/P (MAP) Pulse Ox O2 Delivery O2 Flow Rate FiO2 07/03/16 07:09 91 1.00 07/03/16 04:00 97.2 85 18 145/78 98 Nasal Cannula 1.00 07/03/16 01:40 91 1.00 07/03/16 01:00 77 07/03/16 00:00 98.1 88 17 161/72 92 Nasal Cannula 1.00 07/02/16 21:31 92 1.00 07/02/16 21:00 Room Air 2.00 07/02/16 20:59 98.3 98 26 148/80 92 Nasal Cannula 1.00 07/02/16 19:00 81 07/02/16 18:34 92 1.00 07/02/16 16:35 96.1 76 20 130/72 91 Nasal Cannula 1.00 07/02/16 14:40 93 1.00 07/02/16 13:00 85 07/02/16 11:45 95.5 79 20 138/63 92 Nasal Cannula 2.00 07/02/16 10:47 91 07/02/16 09:00 Room Air I & O 07/03/16 07:00 Intake Total 1480 ml Output Total 55 ml Balance 1425 ml Capillary Refill : Less Than 3 SecondsLess Than 3 Seconds General Appearance: No Apparent Distress, WD/WN HEENT: Normal ENT Inspection Neck: Full Range of Motion, Normal Inspection Respiratory: Chest Non Tender, Normal Breath Sounds, No Accessory Muscle Use, No Respiratory Distress Cardiovascular: Regular Rate, Rhythm, No Murmur Gastrointestinal: non tender, soft, other (patient has drainage and) Results Lab Laboratory Tests 07/03/16 04:25 07/03/16 07:25 Laboratory Tests 07/03/16 04:25: White Blood Count 14.0H, Red Blood Count 3.21L, Hemoglobin 10.0L, Hematocrit 30L , Mean Corpuscular Volume 94, Mean Corpuscular Hemoglobin 31, Mean Corpuscular Hemoglobin Concent 33, Red Cell Distribution Width 13.9, Platelet Count 210, Mean Platelet Volume 10.9H, Neutrophils (%) (Auto) 91H, Lymphocytes (%) (Auto) 6L, Monocytes (%) (Auto) 3, Eosinophils (%) (Auto) 0, Basophils (%) (Auto) 0, Neutrophils # (Auto) 12.7H, Lymphocytes # (Auto) 0.8L, Monocytes # (Auto) 0.5, Eosinophils # (Auto) 0.0, Basophils # (Auto) 0.0, Sodium Level 139, Potassium Level 3.6, Chloride Level 104, Carbon Dioxide Level 24, Anion Gap 11, Blood Urea Nitrogen 25H, Creatinine 1.30, Estimat Glomerular Filtration Rate 53, BUN/ Creatinine Ratio 19, Glucose Level 210H, Calcium Level 8.0L, Phosphorus Level 3.4, Magnesium Level 2.2 07/03/16 07:25: Sodium Level 140, Potassium Level 3.8, Chloride Level 105, Carbon Dioxide Level 27, Anion Gap 8, Blood Urea Nitrogen 25H, Creatinine 1.27, Estimat Glomerular Filtration Rate 54, BUN/Creatinine Ratio 20, Glucose Level 181H, Calcium Level 8.2L, Total Bilirubin 0.8, Aspartate Amino Transf (AST/SGOT) 37H, Alanine Aminotransferase (ALT/SGPT) 58H, Alkaline Phosphatase 119, Total Protein 6.1L, Albumin 2.7L, Vancomycin Level Trough 10.9 Microbiology 07/01/16 Blood Culture - Preliminary, Resulted No growth Assessment/Plan Assessment/Plan Assess & Plan/Chief Complaint Acute cholecystitis. Pancreatic stone. Pancreatitis resolving. Leukocytosis. Fever resolving. To have ERCP today. . 06/28/16. Patient had gallbladder taken out yesterday. Gallbladder ugly. Patient's blood tests look better today. Pancreatic enzymes and liver enzymes decreased. Patient afebrile. GFR decreased. White blood cell count states that 500 still elevated Patient feeling better.. . 06/29/16. Acute cholecystitis with pancreatitis. Patient feeling better today. Lab tests have improved. History of hypertension. Patient afebrile. Patient's abdominal pain has improved. . 06/30/16. Acute cholecystitis with pancreatitis. Patient feeling better today. Kidney function good. Lab tests improving. White blood cell count within normal limits. Bilirubin and liver enzymes decreasing. Chest x-ray stable. Hypertension history. Patient have ERCP today . Acute cholecystitis area Pancreatitis. Leukocytosis. Fever resolved. Patient had trouble breathing last night. Hypertension. To get cardiology and pulmonology on board. . Acute cholecystitis. Pancreatitis. Fever resolved. Patient breathing better today. Patient feeling good Hypertension resolved. . 07/03/16 acute cholecystitis. Pancreatitis. Fever resolved. White blood cell count elevated due to Solu-Medrol. Breathing better. Patient feeling much better Clinical Quality Measures DVT/VTE Risk/Contraindication: VTE Present on Admission: No Risk Factor Score Per Nursin RFS Level Per Nursing on Admit: 4+=Very High Contraindications-Pharm: Other *list below* MARCELLA ANAND DO Jul 03, 2016 08:17
[2016-07-03 08:23] VITALS: BP 135/91
[2016-07-03] MEDS: PIPERACILLIN SODIUM/TAZOBACTAM 4.5 GM in NS (IVPB) 100 ML IV SCH (08:26)
[2016-07-03] MEDS: NEO/POLY/BAC (NEOSPORIN) OINT 15 GM TUBE TOP SCH ×2 (08:30→20:42)
[2016-07-03] MEDS: amLODIPine 5 MG (NORVASC) TAB PO SCH (08:30)
[2016-07-03] MEDS: FINASTERIDE (PROSCAR) 5 MG TAB PO SCH (08:30)
[2016-07-03] MEDS: guaiFENesin (MUCINEX) 600 MG TAB PO SCH ×2 (08:30→20:41)
[2016-07-03] MEDS: ENOXAPARIN 40 MG/0.4 ML (LOVENOX) SYR SC SCH (08:31)
--- NOTE | 2016-07-03 08:35 | Cardiology Progress Note ---
Subjective Subjective/Events-last exam patient is laying down in bed, feeling better, breathing better, denied any chest pain. Review of Systems General: No Chills, No Night Sweats, No Fatigue, No Malaise, No Appetite, No Other HEENT: No Head Aches, No Visual Changes, No Eye Pain, No Ear Pain, No Dysphasia , No Sinus Congestion, No Post Nasal Drip, No Sore Throat, No Other Pulmonary: Dyspnea, No Cough, No Pleuritic Chest Pain, No Other Cardiovascular: No: Chest Pain, Edema, Lt Headedness, Orthopnea, Other, Palpitations, Paroxysmal Noc. Dyspnea Objective-Cardiology Exam Last Set of Vital Signs Vital Signs 07/03/16 08:23 Temp 96.9 Pulse 85 Resp 20 B/P (MAP) 135/91 Pulse Ox 91 O2 Delivery Nasal Cannula O2 Flow Rate 1.00 Capillary Refill : Less Than 3 SecondsLess Than 3 Seconds I&O Intake and Output 07/03/16 00:00 Intake Total 1380 ml Output Total 40 ml Balance 1340 ml Intake Oral 1180 ml IV Total 200 ml Drainage Total 40 ml # Voids 8 # Bowel Movements 2 General: Alert, Oriented X3, Cooperative HEENT: Atraumatic, PERRLA Neck: Supple, No JVD, No Thyromegaly Lungs: Clear to Auscultation, Normal Air Movement Heart: Regular Rate, Normal S1, Normal S2, No Murmurs Abdomen: Normal Bowel Sounds, Soft, No Tenderness, No Hepatosplenomegaly, No Masses Extremities: No Clubbing, No Cyanosis, No Edema, Normal Pulses, No Tenderness/ Swelling Skin: No Rashes, No Breakdown, No Significant Lesion Neuro: Normal Gait, Normal Speech, Strength at 5/5 X4 Ext, Normal Tone, Sensation Intact Psych/Mental Status: Mental Status NL, Mood NL Results Lab Laboratory Tests 07/03/16 04:25 07/03/16 07:25 A/P-Cardiology Admission Diagnosis Dyspnea Pancreatitis and Empyema of GB HTN COPD Assessment/Plan Dyspnea, reporting improvement. Continue to monitor. Echocardiogram showed normal LV size and function with ejection fraction 60 percent. Continue to monitor. Acute gallstone pancreatitis with empyema of gallbladder- s/p cholecystectomy. Slowly recovering. LFT's WNL today. Continue to monitor. Hypertension, good control, continue to monitor. COPD- continue MAT protocol. Patient was hospitalized in 2016 for pneumonia. Continue to monitor closely. Acute on chronic renal insufficiency- continue to monitor. Clinical Quality Measures DVT/VTE Risk/Contraindication: VTE Present on Admission: No Risk Factor Score Per Nursin RFS Level Per Nursing on Admit: 4+=Very High Contraindications-Pharm: Other *list below* CARLOS LOMELI MD Jul 03, 2016 08:35
[2016-07-03] MEDS: VANCOMYCIN 1500 MG/NS 500 ML IVPB IV SCH ×2 (09:34)
--- NOTE | 2016-07-03 11:16 | Physical Therapy Daily Note ---
PT Daily Note-Current Subjective Patient is sitting up in recliner and states, "I just want to go home!" Pain Numeric Pain Scale: 0-No Pain Location: No Pain Reported Mental Status Patient Orientation: Normal For Age Attachments: Oxygen, IV Transfers Functional [place] Measure 0=Not Assessed/NA 4=Minimal Assistance 1=Total Assistance 5=Supervision or Setup 2=Maximal Assistance 6=Modified [place] 3=Moderate Assistance 7=Complete IndependenceIRFPAI Quality Coding Scale 6 Independent with activity with or without an assistive device 5 Patient requires set up or clean up by helper. Patient completes activity by themselves 4 Supervision or touching assist (CGA). [place] provide cues , steadying assist 3 The helper provides less than half the effort to complete the activity 2 The helper provides more than half the effort to complete the activity 1 Dependent. The helper does all the effort to complete an activity 7 Patient refused to complete or attempt activity 9 The patient did not perform the activity before the current illness or injury 88 Not attempted due to Medical conditions or safety concerns Transfers (B, C, W/C) (FIM): 6 Scootin Sit to/from Stand: 6 Gait Training Gait (FIM): 6 Distance (FIM): 3=150 ft Distance: 400' Gait Level of Assist: 6 Gait Assistive Device: FWW assist for IV pole and O2 tank Assessment Patient tolerated treatment well and remains up in recliner with needs met. Patient desires to return home soon. PT Chief Port Director Goals Chief Port Director Goals PT Chief Port Director Goals Time Frame: Jul 14, 2016 Transfers (B,C,W/C) (FIM): 6 Gait (FIM): 6 Gait distance (FIM): 3=150 ft Distance: 300' Gait Level of Assist: 6 Gait Assistive Device: None, FWW PT Plan Treatment/Plan Treatment Plan: Continue Plan of Care Treatment Plan: Bed Mobility, Education, Functional Activity Raheel, Functional Strength, Gait, Safety, Therapeutic Exercise, Transfers Treatment Duration: Jul 14, 2016 Visits Per Week: 5-6 Discharge Recommendations Equpiment Recommendations-D/C: Front Wheeled Walker Time/GCodes Time In: 1040 Time Out: 1050 Total Billed Treatment Time: 10 Total Billed Treatment 1 visit FA 10 min LEN ROSE PT Jul 03, 2016 11:16
--- NOTE | 2016-07-03 11:16 | Progress Note-Urology ---
Progress Note-Urology Progress Notes/Assess & Plan Progress/Assessment & Plan voiding on own, plan bladder scan PVR Final Diagnosis URINE RETENTION LAKESHA PARRY MD Jul 03, 2016 11:16 am
[2016-07-03 12:00] VITALS: BP 157/72
[2016-07-03 16:00] VITALS: BP 156/79
--- NOTE | 2016-07-03 16:50 | Progress Note (SOAP) ---
Subjective Subjective/Events-last exam doing well. tolerating diet. pain controlled. ambulating relatively well with PT. minimal JOSE output which is SS. Objective Exam Vital Signs Date Time Temp Pulse Resp B/P (MAP) Pulse Ox O2 Delivery O2 Flow Rate FiO2 07/03/16 14:54 93 1.00 07/03/16 13:00 83 07/03/16 12:00 96.9 82 16 157/72 93 Nasal Cannula 1.00 07/03/16 10:51 94 1.00 07/03/16 09:00 95 Nasal Cannula 2.50 07/03/16 08:23 96.9 85 20 135/91 91 Nasal Cannula 1.00 07/03/16 07:09 91 1.00 07/03/16 07:00 76 07/03/16 04:00 97.2 85 18 145/78 98 Nasal Cannula 1.00 07/03/16 01:40 91 1.00 07/03/16 01:00 77 07/03/16 00:00 98.1 88 17 161/72 92 Nasal Cannula 1.00 07/02/16 21:31 92 1.00 07/02/16 21:00 Room Air 2.00 07/02/16 20:59 98.3 98 26 148/80 92 Nasal Cannula 1.00 07/02/16 19:00 81 07/02/16 18:34 92 1.00 I & O 07/03/16 07:00 Intake Total 1480 ml Output Total 55 ml Balance 1425 ml Capillary Refill : Less Than 3 SecondsLess Than 3 Seconds General Appearance: No Apparent Distress HEENT: PERRL/EOMI Neck: Full Range of Motion Respiratory: Chest Non Tender, Normal Breath Sounds, Rhonci Cardiovascular: Regular Rate, Rhythm Gastrointestinal: normal bowel sounds, non tender, soft Extremity: Normal Capillary Refill Neurologic/Psychiatric: Alert, Oriented x3 Skin: Normal Color Lymphatic: No Adenopathy Results Lab Laboratory Tests 07/03/16 04:25: White Blood Count 14.0H, Red Blood Count 3.21L, Hemoglobin 10.0L, Hematocrit 30L , Mean Corpuscular Volume 94, Mean Corpuscular Hemoglobin 31, Mean Corpuscular Hemoglobin Concent 33, Red Cell Distribution Width 13.9, Platelet Count 210, Mean Platelet Volume 10.9H, Neutrophils (%) (Auto) 91H, Lymphocytes (%) (Auto) 6L, Monocytes (%) (Auto) 3, Eosinophils (%) (Auto) 0, Basophils (%) (Auto) 0, Neutrophils # (Auto) 12.7H, Lymphocytes # (Auto) 0.8L, Monocytes # (Auto) 0.5, Eosinophils # (Auto) 0.0, Basophils # (Auto) 0.0, Sodium Level 139, Potassium Level 3.6, Chloride Level 104, Carbon Dioxide Level 24, Anion Gap 11, Blood Urea Nitrogen 25H, Creatinine 1.30, Estimat Glomerular Filtration Rate 53, BUN/ Creatinine Ratio 19, Glucose Level 210H, Calcium Level 8.0L, Phosphorus Level 3.4, Magnesium Level 2.2 07/03/16 07:25: Sodium Level 140, Potassium Level 3.8, Chloride Level 105, Carbon Dioxide Level 27, Anion Gap 8, Blood Urea Nitrogen 25H, Creatinine 1.27, Estimat Glomerular Filtration Rate 54, BUN/Creatinine Ratio 20, Glucose Level 181H, Calcium Level 8.2L, Total Bilirubin 0.8, Aspartate Amino Transf (AST/SGOT) 37H, Alanine Aminotransferase (ALT/SGPT) 58H, Alkaline Phosphatase 119, Total Protein 6.1L, Albumin 2.7L, Vancomycin Level Trough 10.9 Microbiology 07/01/16 Blood Culture - Preliminary, Resulted No growth Assessment/Plan Assessment/Plan Assess & Plan/Chief Complaint s/p lap eli. continue PT and ambulation. remove drain in am. switch to PO abx. Clinical Quality Measures DVT/VTE Risk/Contraindication: VTE Present on Admission: No Risk Factor Score Per Nursin RFS Level Per Nursing on Admit: 4+=Very High Contraindications-Pharm: Other *list below* TIKA SKAGGS MD Jul 03, 2016 4:50 pm
--- NOTE | 2016-07-03 16:52 | Pulmonary Progress Note ---
PIYUSH JOHNSON WINDOW FRAMER 07/03/16 1652: Subjective Subjective/Events-last exam Pt reports feeling improved and that his breathing is better. He is requiring oxygen and does not wear oxygen at home, however he is requiring only 1 L and is >92%. Review of Systems General: No Chills, No Night Sweats, No Fatigue, No Malaise, No Appetite, No Other HEENT: No Head Aches, No Visual Changes, No Eye Pain, No Ear Pain, No Dysphasia , No Sinus Congestion, No Post Nasal Drip, No Sore Throat, No Other Pulmonary: No Dyspnea, No Cough, No Pleuritic Chest Pain, No Other Cardiovascular: No: Chest Pain, Edema, Lt Headedness, Orthopnea, Other, Palpitations, Paroxysmal Noc. Dyspnea Gastrointestinal: No: Abdominal Pain, Constipation, Diarrhea, Hematochezia, Melena, Nausea, Other, Vomiting Genitourinary: No Dysuria, No Frequency, No Incontinence, No Hematuria, No Retention, No Other Neurological: No: Change in speech, Confusion, Incoordination, Numbness, Other , Seizures, Weakness Exam Exam Vital Signs Date Time Temp Pulse Resp B/P (MAP) Pulse Ox O2 Delivery O2 Flow Rate FiO2 07/03/16 14:54 93 1.00 07/03/16 13:00 83 07/03/16 12:00 96.9 82 16 157/72 93 Nasal Cannula 1.00 07/03/16 10:51 94 1.00 07/03/16 09:00 95 Nasal Cannula 2.50 07/03/16 08:23 96.9 85 20 135/91 91 Nasal Cannula 1.00 07/03/16 07:09 91 1.00 07/03/16 07:00 76 07/03/16 04:00 97.2 85 18 145/78 98 Nasal Cannula 1.00 07/03/16 01:40 91 1.00 07/03/16 01:00 77 07/03/16 00:00 98.1 88 17 161/72 92 Nasal Cannula 1.00 07/02/16 21:31 92 1.00 07/02/16 21:00 Room Air 2.00 07/02/16 20:59 98.3 98 26 148/80 92 Nasal Cannula 1.00 07/02/16 19:00 81 07/02/16 18:34 92 1.00 I & O 07/03/16 07:00 Intake Total 1480 ml Output Total 55 ml Balance 1425 ml General Appearance: No Apparent Distress, WD/WN HEENT: Normal ENT Inspection Neck: Full Range of Motion, Normal Inspection Respiratory: Chest Non Tender, Normal Breath Sounds, No Accessory Muscle Use, No Respiratory Distress, Rhonci Cardiovascular: Regular Rate, Rhythm, No Murmur, Normal Peripheral Pulses Capillary Refill: Less Than 3 Seconds Peripheral Pulses: 2+ Dorsalis Pedis (R), 2+ Left Dors-Pedis (L) Gastrointestinal: non tender, soft, other (patient has drainage and) Extremity: Non Tender, No Calf Tenderness Neurologic/Psychiatric: Alert, Oriented x3, parking 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 Norm as Tested Skin: Normal Color, Warm/Dry Lymphatic: No Adenopathy Results Lab Laboratory Tests 07/02/16 05:07 07/03/16 04:25 07/03/16 07:25 Assessment/Plan Assessment/Plan acute gallstone pancreatitis with empyema of GB Dyspnea with small bilateral pleural effusions and atelectasis/pneumonia - vanco zosyn - solumedrol -mcarthur culture pending -Increase activity -SVNS -monitor Clinical Quality Measures DVT/VTE Risk/Contraindication: VTE Present on Admission: No Risk Factor Score Per Nursin RFS Level Per Nursing on Admit: 4+=Very High Contraindications-Pharm: Other *list below* HALEY NOE DO 07/04/16 0822: Subjective Subjective/Events-last exam PT is doing better. No complications noted. Exam Exam General Appearance: No Apparent Distress, WD/WN Respiratory: Chest Non Tender, Normal Breath Sounds, No Accessory Muscle Use, No Respiratory Distress Cardiovascular: Regular Rate, Rhythm, No Murmur, Normal Peripheral Pulses Assessment/Plan Assessment/Plan cute gallstone pancreatitis with empyema of GB Dyspnea with small bilateral pleural effusions and atelectasis/pneumonia - vanco zosyn - solumedrol -mcarthur culture pending -Increase activity -SVNS -monitor PIYUSH JOHNSON APRN Jul 03, 2016 16:52 HALEY NOE DO Jul 04, 2016 08:22
[2016-07-03] MEDS: ALFUZOSIN HCL 10 MG TAB (UROXATRAL) PO SCH (17:49)
[2016-07-03 20:00] VITALS: BP 173/85
[2016-07-03] MEDS ORDERED: VANCOMYCIN 1 GM/NS 250 ML IVPB IV SCH ×2 (21:00)
[2016-07-04] VITALS (8 sets, daily range): BP systolic 142–189; BP diastolic 68–90
[2016-07-04] MEDS: ENALAPRILAT 2.5 MG/2 ML (VASOTEC) VIAL IV PRN (00:01)
[2016-07-04] MEDS: RT-ALBUTEROL/IPRATROPIUM 3 ML (DUONEB) VIAL INH SCH ×6 (02:30→23:05)
[2016-07-04] MEDS: CATHETER FLUSH 10 ML SYR IV SCH ×3 (05:31→20:56)
[2016-07-04 06:15] LABS: BASOPHILS % (AUTO) 0 % (0-10); EOSINOPHILS % (AUTO) 0 % (0-10); LYMPHOCYTES # (AUTO) 1.1 X 10^3 (1.0-4.0); LYMPHOCYTES % (AUTO) 13 % (12-44); MEAN CORPUSCULAR HEMOGLOBIN 30 PG (25-34); MEAN CORPUSCULAR HGB CONC 31 G/DL (32-36); MEAN CORPUSCULAR VOLUME 94 FL (80-99); MEAN PLATELET VOLUME 10.6 FL (7.4-10.4); MONOCYTES # (AUTO) 0.6 X 10^3 (0.0-1.0); MONOCYTES % (AUTO) 6 % (0-12); NEUTROPHILS # (AUTO) 7.2 X 10^3 (1.8-7.8); NEUTROPHILS % (AUTO) 81 % (42-75); PLATELET COUNT 234 10^3/uL (130-400); RED BLOOD COUNT 3.17 10^6/uL (4.35-5.85); RED CELL DISTRIBUTION WIDTH 14.1 % (10.0-14.5); WHITE BLOOD COUNT 8.8 10^3/uL (4.3-11.0)
[2016-07-04 06:30] LABS: ANION GAP 7 MMOL/L (5-14); BLOOD UREA NITROGEN 27 MG/DL (7-18); BUN/CREATININE RATIO 24; CALCIUM 7.7 MG/DL (8.5-10.1); CARBON DIOXIDE 27 MMOL/L (21-32); CHLORIDE 110 MMOL/L (98-107); CREATININE SERUM 1.13 MG/DL (0.60-1.30); GFR ESTIMATED > 60; GLUCOSE 111 MG/DL (70-105); MAGNESIUM 2.1 MG/DL (1.8-2.4); PHOSPHORUS 2.9 MG/DL (2.3-4.7); POTASSIUM 3.6 MMOL/L (3.6-5.0); SODIUM 144 MMOL/L (135-145)
--- NOTE | 2016-07-04 08:01 | Progress Note (SOAP) ---
Subjective Subjective/Events-last exam acute cholecystitis with pancreatitis resolved. Empyema. Hypertension. Voiding okay. Patient feeling over 90 percent better. Patient is getting around. Patient voices no complaints Objective Exam Vital Signs Date Time Temp Pulse Resp B/P (MAP) Pulse Ox O2 Delivery O2 Flow Rate FiO2 07/04/16 06:19 94 1.00 07/04/16 04:25 70 18 158/81 97 Nasal Cannula 1.00 07/04/16 04:07 97.4 80 18 168/81 95 Nasal Cannula 1.00 07/04/16 02:30 93 1.00 07/04/16 01:30 98.4 81 19 161/79 94 Nasal Cannula 1.00 07/04/16 00:58 83 07/04/16 00:56 97.9 84 18 189/68 94 Nasal Cannula 1.00 07/03/16 22:09 94 1.00 07/03/16 20:00 97.4 92 20 173/85 93 Nasal Cannula 1.00 07/03/16 19:35 94 Nasal Cannula 2.00 07/03/16 18:53 86 07/03/16 18:28 93 1.00 07/03/16 16:00 96.5 84 20 156/79 94 Nasal Cannula 1.00 07/03/16 14:54 93 1.00 07/03/16 13:00 83 07/03/16 12:00 96.9 82 16 157/72 93 Nasal Cannula 1.00 07/03/16 10:51 94 1.00 07/03/16 09:00 95 Nasal Cannula 2.50 07/03/16 08:23 96.9 85 20 135/91 91 Nasal Cannula 1.00 I & O 07/04/16 07:00 Intake Total 2885 ml Output Total 1060 ml Balance 1825 ml Capillary Refill : Less Than 3 SecondsLess Than 3 Seconds General Appearance: No Apparent Distress, WD/WN HEENT: Normal ENT Inspection Neck: Full Range of Motion, Non Tender Respiratory: Chest Non Tender, Normal Breath Sounds, No Accessory Muscle Use, No Respiratory Distress, Other Cardiovascular: Regular Rate, Rhythm, No Murmur Gastrointestinal: non tender, soft Results Lab Laboratory Tests 07/04/16 05:31 Laboratory Tests 07/04/16 05:31: White Blood Count 8.8, Red Blood Count 3.17L, Hemoglobin 9.4L, Hematocrit 30L, Mean Corpuscular Volume 94, Mean Corpuscular Hemoglobin 30, Mean Corpuscular Hemoglobin Concent 31L, Red Cell Distribution Width 14.1, Platelet Count 234, Mean Platelet Volume 10.6H, Neutrophils (%) (Auto) 81H, Lymphocytes (%) (Auto) 13, Monocytes (%) (Auto) 6, Eosinophils (%) (Auto) 0, Basophils (%) (Auto) 0, Neutrophils # (Auto) 7.2, Lymphocytes # (Auto) 1.1, Monocytes # (Auto) 0.6, Eosinophils # (Auto) 0.0, Basophils # (Auto) 0.0, Sodium Level 144, Potassium Level 3.6, Chloride Level 110H, Carbon Dioxide Level 27, Anion Gap 7, Blood Urea Nitrogen 27H, Creatinine 1.13, Estimat Glomerular Filtration Rate > 60, BUN /Creatinine Ratio 24, Glucose Level 111H, Calcium Level 7.7L, Phosphorus Level 2.9, Magnesium Level 2.1 Microbiology 07/01/16 Blood Culture - Preliminary, Resulted No growth Assessment/Plan Assessment/Plan Assess & Plan/Chief Complaint Acute cholecystitis. Pancreatic stone. Pancreatitis resolving. Leukocytosis. Fever resolving. To have ERCP today. . 06/28/16. Patient had gallbladder taken out yesterday. Gallbladder ugly. Patient's blood tests look better today. Pancreatic enzymes and liver enzymes decreased. Patient afebrile. GFR decreased. White blood cell count states that 500 still elevated Patient feeling better.. . 06/29/16. Acute cholecystitis with pancreatitis. Patient feeling better today. Lab tests have improved. History of hypertension. Patient afebrile. Patient's abdominal pain has improved. . 06/30/16. Acute cholecystitis with pancreatitis. Patient feeling better today. Kidney function good. Lab tests improving. White blood cell count within normal limits. Bilirubin and liver enzymes decreasing. Chest x-ray stable. Hypertension history. Patient have ERCP today . Acute cholecystitis area Pancreatitis. Leukocytosis. Fever resolved. Patient had trouble breathing last night. Hypertension. To get cardiology and pulmonology on board. . Acute cholecystitis. Pancreatitis. Fever resolved. Patient breathing better today. Patient feeling good Hypertension resolved. . 07/03/16 acute cholecystitis. Pancreatitis. Fever resolved. White blood cell count elevated due to Solu-Medrol. Breathing better. Patient feeling much better. . 07/04/16 area Acute cholecystitis with pancreatitis. Pneumonia. Hypertension. Patient feeling much better. Patient feels over 90 percent better. Patient getting around. No problems urinating. Clinical Quality Measures DVT/VTE Risk/Contraindication: VTE Present on Admission: No Risk Factor Score Per Nursin RFS Level Per Nursing on Admit: 4+=Very High Contraindications-Pharm: Other *list below* MARCELLA ANAND DO Jul 04, 2016 08:01
--- NOTE | 2016-07-04 08:23 | Pulmonary Progress Note ---
Subjective Subjective/Events-last exam Pt is more wheezy today. Exam Exam Vital Signs Date Time Temp Pulse Resp B/P (MAP) Pulse Ox O2 Delivery O2 Flow Rate FiO2 07/04/16 06:19 94 1.00 07/04/16 04:25 70 18 158/81 97 Nasal Cannula 1.00 07/04/16 04:07 97.4 80 18 168/81 95 Nasal Cannula 1.00 07/04/16 02:30 93 1.00 07/04/16 01:30 98.4 81 19 161/79 94 Nasal Cannula 1.00 07/04/16 00:58 83 07/04/16 00:56 97.9 84 18 189/68 94 Nasal Cannula 1.00 07/03/16 22:09 94 1.00 07/03/16 20:00 97.4 92 20 173/85 93 Nasal Cannula 1.00 07/03/16 19:35 94 Nasal Cannula 2.00 07/03/16 18:53 86 07/03/16 18:28 93 1.00 07/03/16 16:00 96.5 84 20 156/79 94 Nasal Cannula 1.00 07/03/16 14:54 93 1.00 07/03/16 13:00 83 07/03/16 12:00 96.9 82 16 157/72 93 Nasal Cannula 1.00 07/03/16 10:51 94 1.00 07/03/16 09:00 95 Nasal Cannula 2.50 07/03/16 08:23 96.9 85 20 135/91 91 Nasal Cannula 1.00 I & O 07/04/16 07:00 Intake Total 2885 ml Output Total 1060 ml Balance 1825 ml General Appearance: No Apparent Distress, WD/WN HEENT: Normal ENT Inspection Neck: Full Range of Motion, Non Tender Respiratory: Chest Non Tender, Normal Breath Sounds, No Accessory Muscle Use, No Respiratory Distress Cardiovascular: Regular Rate, Rhythm, No Murmur, Normal Peripheral Pulses Capillary Refill: Less Than 3 Seconds Peripheral Pulses: 2+ Dorsalis Pedis (R), 2+ Left Dors-Pedis (L) Gastrointestinal: non tender, soft Extremity: Non Tender, No Calf Tenderness Neurologic/Psychiatric: Alert, Oriented x3, certified marine mechanic II-XII Norm as Tested Skin: Normal Color, Warm/Dry Lymphatic: No Adenopathy Results Lab Laboratory Tests 07/03/16 04:25 07/03/16 07:25 07/04/16 05:31 Assessment/Plan Assessment/Plan cute gallstone pancreatitis with empyema of GB Dyspnea with small bilateral pleural effusions and atelectasis/pneumonia - increase solumedrol and SVN txs -Increase activity -SVNS -monitor Hold discharge until tomorrow secondary acute bronchospasms Clinical Quality Measures DVT/VTE Risk/Contraindication: VTE Present on Admission: No Risk Factor Score Per Nursin RFS Level Per Nursing on Admit: 4+=Very High Contraindications-Pharm: Other *list below* HALEY NOE DO Jul 04, 2016 08:23
--- NOTE | 2016-07-04 08:51 | Diagnostic Imaging Report ---
INDICATION: Pneumonia PA and lateral views of the chest are obtained. Comparison is made to study of 07/02/2016. There is suboptimal inspiration with crowding of pulmonary markings in the perihilar and basilar regions. Multiple old left rib fractures are noted. There is associated blunting of the left costophrenic sulcus. Note is made of displaced left clavicle fracture. There is no pneumothorax or new infiltrate. No significant pleural fluid is identified. IMPRESSION: Old left chest wall trauma with mild basilar and perihilar atelectasis which may be due to suboptimal inspiration. Dictated by: Dictated on workstation # [id number]
[2016-07-04] MEDS ORDERED: methylPREDNISolone 40 MG/ML (Solu-MEDROL) VIAL IV SCH (09:00)
[2016-07-04] MEDS: guaiFENesin (MUCINEX) 600 MG TAB PO SCH ×2 (09:12→20:56)
[2016-07-04] MEDS: FINASTERIDE (PROSCAR) 5 MG TAB PO SCH (09:12)
[2016-07-04] MEDS: amLODIPine 5 MG (NORVASC) TAB PO SCH (09:13)
[2016-07-04] MEDS: ENOXAPARIN 40 MG/0.4 ML (LOVENOX) SYR SC SCH (09:36)
[2016-07-04] MEDS: NEO/POLY/BAC (NEOSPORIN) OINT 15 GM TUBE TOP SCH ×2 (09:37→20:55)
[2016-07-04] MEDS ORDERED: methylPREDNISolone 125 MG (Solu-MEDROL) VIAL IVP NR (09:49)
[2016-07-04] MEDS: CATHETER FLUSH 10 ML SYR IV PRN ×2 (10:32→17:45)
--- NOTE | 2016-07-04 12:17 | Physical Therapy Daily Note ---
PT Daily Note-Current Subjective Patient is in bed and agrees to PT. Pain Numeric Pain Scale: 0-No Pain Location: No Pain Reported Mental Status Patient Orientation: Normal For Age Attachments: Oxygen RT and PT discussed patient trial with no O2 secondary to not established at home prior. Transfers Functional [place] Measure 0=Not Assessed/NA 4=Minimal Assistance 1=Total Assistance 5=Supervision or Setup 2=Maximal Assistance 6=Modified [place] 3=Moderate Assistance 7=Complete IndependenceIRFPAI Quality Coding Scale 6 Independent with activity with or without an assistive device 5 Patient requires set up or clean up by helper. Patient completes activity by themselves 4 Supervision or touching assist (CGA). [place] provide cues , steadying assist 3 The helper provides less than half the effort to complete the activity 2 The helper provides more than half the effort to complete the activity 1 Dependent. The helper does all the effort to complete an activity 7 Patient refused to complete or attempt activity 9 The patient did not perform the activity before the current illness or injury 88 Not attempted due to Medical conditions or safety concerns Transfers (B, C, W/C) (FIM): 6 Scootin Rollin Supine to/from Sit: 6 Sit to/from Stand: 6 Gait Training Gait (FIM): 6 Distance (FIM): 3=150 ft Distance: 500' Gait Level of Assist: 6 Gait Persons Needed: 1 Gait Assistive Device: FWW SAO2 taken every 150' with SAO2 maintaining 95% on RA safe and functional with FWW; this PT recommends FWW for home use, SW notified Assessment Per RN, O2 2L placed on patient after treatment with SAO2 95% on RA. Patient has progressed with treatment and desires to return to home soon. This PT recommends FWW for home use for safety and stability with patient agreeing. SW notified. 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 Time Frame: Jul 14, 2016 Transfers (B,C,W/C) (FIM): 6 Gait (FIM): 6 Gait distance (FIM): 3=150 ft Distance: 300' Gait Level of Assist: 6 Gait Assistive Device: None, FWW PT Plan Treatment/Plan Treatment Plan: Continue Plan of Care Treatment Plan: Bed Mobility, Education, Functional Activity Raheel, Functional Strength, Gait, Safety, Therapeutic Exercise, Transfers Treatment Duration: Jul 14, 2016 Visits Per Week: 5-6 Discharge Recommendations Equpiment Recommendations-D/C: Front Wheeled Walker Time/GCodes Time In: 1020 Time Out: 1045 Total Billed Treatment Time: 25 Total Billed Treatment 1 visit FA x 2 25 min LEN ROSE PT Jul 04, 2016 12:17
--- NOTE | 2016-07-04 13:25 | Progress Note-Urology ---
Progress Note-Urology Progress Notes/Assess & Plan Progress/Assessment & Plan CONTINUES WELL ON FLOMAX AND PROSCAR. PVR 150CC. F/U OFFICE IN 3 WEEKS Final Diagnosis URINE RETENTION LAKESHA PARRY MD Jul 04, 2016 1:25 pm
--- NOTE | 2016-07-04 14:17 | Progress Note-Cardiology ---
Cardiology SOAP Progress Note Subjective: In bed. Feels breathing is doing better. No c/o abdominal discomfort. No c/o CP, palpitations, syncope or near syncope. Objective: I&O/Vital Signs Vital Sign - Last 12Hours 07/04/16 07/04/16 07/04/16 07/04/16 04:07 04:25 06:19 07:00 Temp 97.4 Pulse 80 70 77 Resp 18 18 B/P (MAP) 168/81 158/81 Pulse Ox 95 97 94 O2 Delivery Nasal Cannula Nasal Cannula O2 Flow Rate 1.00 1.00 1.00 07/04/16 07/04/16 07/04/16 07/04/16 08:00 08:00 10:04 12:00 Temp 96.9 96.8 Pulse 80 71 Resp 16 20 B/P (MAP) 142/76 167/77 Pulse Ox 93 95 95 94 O2 Delivery Nasal Cannula Nasal Cannula Nasal Cannula O2 Flow Rate 1.00 2.00 1.00 1.00 07/04/16 07/04/16 13:00 14:51 Pulse 83 Pulse Ox 95 O2 Flow Rate 1.00 Intake and Output 07/04/16 00:00 Intake Total 2785 ml Output Total 800 ml Balance 1985 ml Weight (Pounds): 233 Weight (Ounces): 8.0 Weight (Calculated Kilograms): 105.884307 Constitutional: AAO x 3 Respiratory: No accessory muscle use, No respiratory distress, other ( diminished bases bilat) Cardiovascular: regular rate-rhythm, No JVD, S1 and S2 Gastrointestional: soft, round, other (JOSE drain in place) Extremities: no lower extremity edema bilateral Neurologic/Psychiatric: grossly intact Results/Procedures: Labs Laboratory Tests 07/04/16 05:31: White Blood Count 8.8, Red Blood Count 3.17L, Hemoglobin 9.4L, Hematocrit 30L, Mean Corpuscular Volume 94, Mean Corpuscular Hemoglobin 30, Mean Corpuscular Hemoglobin Concent 31L, Red Cell Distribution Width 14.1, Platelet Count 234, Mean Platelet Volume 10.6H, Neutrophils (%) (Auto) 81H, Lymphocytes (%) (Auto) 13, Monocytes (%) (Auto) 6, Eosinophils (%) (Auto) 0, Basophils (%) (Auto) 0, Neutrophils # (Auto) 7.2, Lymphocytes # (Auto) 1.1, Monocytes # (Auto) 0.6, Eosinophils # (Auto) 0.0, Basophils # (Auto) 0.0, Sodium Level 144, Potassium Level 3.6, Chloride Level 110H, Carbon Dioxide Level 27, Anion Gap 7, Blood Urea Nitrogen 27H, Creatinine 1.13, Estimat Glomerular Filtration Rate > 60, BUN /Creatinine Ratio 24, Glucose Level 111H, Calcium Level 7.7L, Phosphorus Level 2.9, Magnesium Level 2.1 Microbiology 07/01/16 Blood Culture - Preliminary, Resulted No growth A/P: Assessment: Dyspnea - improved - management per pulmonary services Echocardiogram showed normal LV size and function with ejection fraction 60 percent on 07-01-[address] Jade Acute gallstone pancreatitis with empyema of gallbladder- s/p cholecystectomy Hypertension COPD- continue MAT protocol. Patient was hospitalized in 2016 for pneumonia - being followed by pulmonary services Acute on chronic renal insufficiency- continue to monitor Reported intolerance to LOURDES (-) d/t cough Plan: Cardiac status clinically stable Continue current regimen Monitor lab Physician Assessment Physician Assessment Lungs: fair to good air entry Cor: reg A&R * As documented in our note above CHAN JAMES Jul 04, 2016 14:17 NEIL LAINEZ MD FACP [facility] Jul 04, 2016 16:03
[2016-07-04] MEDS: methylPREDNISolone 40 MG/ML (Solu-MEDROL) VIAL IV SCH ×3 (15:44→17:48)
[2016-07-04] MEDS: ALFUZOSIN HCL 10 MG TAB (UROXATRAL) PO SCH (17:48)
[2016-07-05] VITALS: BP 130/75
[2016-07-05] MEDS: methylPREDNISolone 40 MG/ML (Solu-MEDROL) VIAL IV SCH ×4 (00:13→17:18)
[2016-07-05] MEDS: RT-ALBUTEROL/IPRATROPIUM 3 ML (DUONEB) VIAL INH SCH ×4 (02:25→15:03)
[2016-07-05 04:00] VITALS: BP 170/79
[2016-07-05] MEDS: CATHETER FLUSH 10 ML SYR IV SCH ×2 (05:39→13:06)
[2016-07-05 07:00] LABS: BASOPHILS % (AUTO) 0 % (0-10); EOSINOPHILS % (AUTO) 0 % (0-10); LYMPHOCYTES # (AUTO) 0.7 X 10^3 (1.0-4.0); LYMPHOCYTES % (AUTO) 7 % (12-44); MEAN CORPUSCULAR HEMOGLOBIN 30 PG (25-34); MEAN CORPUSCULAR HGB CONC 32 G/DL (32-36); MEAN CORPUSCULAR VOLUME 93 FL (80-99); MEAN PLATELET VOLUME 10.5 FL (7.4-10.4); MONOCYTES # (AUTO) 0.3 X 10^3 (0.0-1.0); MONOCYTES % (AUTO) 3 % (0-12); NEUTROPHILS % (AUTO) 90 % (42-75); PLATELET COUNT 261 10^3/uL (130-400); RED BLOOD COUNT 3.35 10^6/uL (4.35-5.85); RED CELL DISTRIBUTION WIDTH 13.9 % (10.0-14.5); WHITE BLOOD COUNT 10.1 10^3/uL (4.3-11.0)
[2016-07-05 07:17] LABS: ANION GAP 8 MMOL/L (5-14); BLOOD UREA NITROGEN 26 MG/DL (7-18); BUN/CREATININE RATIO 27; CALCIUM 7.6 MG/DL (8.5-10.1); CARBON DIOXIDE 26 MMOL/L (21-32); CHLORIDE 107 MMOL/L (98-107); CREATININE SERUM 0.96 MG/DL (0.60-1.30); GFR ESTIMATED > 60; GLUCOSE 162 MG/DL (70-105); MAGNESIUM 2.2 MG/DL (1.8-2.4); PHOSPHORUS 3.3 MG/DL (2.3-4.7); POTASSIUM 3.8 MMOL/L (3.6-5.0); SODIUM 141 MMOL/L (135-145)
[2016-07-05 08:00] VITALS: BP 163/77
[2016-07-05] MEDS ORDERED: TROUGH ORDER-PHARMACY XX ONE (08:00)
[2016-07-05] MEDS: amLODIPine 5 MG (NORVASC) TAB PO SCH (08:58)
[2016-07-05] MEDS: ENOXAPARIN 40 MG/0.4 ML (LOVENOX) SYR SC SCH (08:58)
[2016-07-05] MEDS: FINASTERIDE (PROSCAR) 5 MG TAB PO SCH (08:58)
[2016-07-05] MEDS: guaiFENesin (MUCINEX) 600 MG TAB PO SCH (08:58)
[2016-07-05] MEDS: NEO/POLY/BAC (NEOSPORIN) OINT 15 GM TUBE TOP SCH (08:59)
[2016-07-05] MEDS ORDERED: LEVOFLOXACIN 500 MG TAB (LEVAQUIN) PO ONE (09:45)
[2016-07-05] MEDS ORDERED: LACT1CAP72 PO (09:50)
[2016-07-05] MEDS ORDERED: PRED10TA22 PO (09:50)
[2016-07-05] MEDS ORDERED: LEVO500T80 PO (09:50)
[2016-07-05] MEDS ORDERED: NEOM28.33 TOP (09:50)
[2016-07-05] MEDS ORDERED: Finasteride PO (09:50)
[2016-07-05] MEDS ORDERED: ALFU10TA11 PO (09:50)
[2016-07-05] MEDS ORDERED: HYDR-3812 PO (09:50)
--- NOTE | 2016-07-05 09:52 | Discharge Inst-Complex ---
PDI Med Rec & Follow Up Appt. New Medications: Lactobacillus Combo No.10 (Probiotic) 1 Each Capsule 1 EACH PO DAILY, #30 CAP Levofloxacin (Levofloxacin) 500 Mg Tablet 500 MG PO DAILY, #6 TAB Prednisone (Prednisone) 10 Mg Tab.ds.pk 10 MG PO DAILY, #21 PKG Take 6 tabs(60mg)daily,decrease by 1 tab(10MG)daily. Alfuzosin HCl (Alfuzosin HCl ER) 10 Mg Tab.er.24h 10 MG PO DAILY@1800, #20 TAB 1 Refill Hydrocodone/Acetaminophen (Hydrocodon -Acetaminophen 5-325) 1 Each Tablet 1 TAB PO Q4H PRN for MODERATE PAIN, #60 TAB Neomycin Vazquez/Bacitrac Zn/Poly (Neosporin Ointment) 28.3 Gm Oint...g. 0 GM TOP BID for 10 Days, #1 TUBE apply to incision sites twice daily [Finasteride] () 5 MG TAB 5 MG PO DAILY, #30 TAB 1 Refill Continued Medications: Albuterol Sulfate (Ventolin Hfa) 1 Puff Puff 2 PUFF IH TID, #1 PUFF 1 PUFF = 90 MCG Amlodipine Besylate (Norvasc) 5 Mg Tablet 5 MG PO DAILY, TAB Aspirin (Aspirin) 81 Mg Tab.chew 81 MG PO DAILY, TAB Sertraline HCl (Sertraline HCl) 50 Mg Tablet 50 MG PO DAILY, TAB Prescription: Transmitted to Pharmacy Activity, Diet and PDI Resume Normal Activity: Yes Discharge Diet: Regular Diet Driving Instructions: No Driving for 1 Week Return to The Hospital For: any concern for worsening symptoms, increase in abdominal pain, nausea that is uncontrolled, or lifethreatening illness or injury Symptoms to Reoprt to : Appetite Changes, Bleeding Excessive, Fever Over 101 Degrees F, Pain/Pressure in Chest, Diarrhea(Persistant), Nausea/Vomiting, Shortness of Breath For Problems or Questions: Contact Your Physician, Go to Emergency Room Infection Signs and Symptoms: Increased Redness, Foul Odor of Wound, Increased Drainage, Skin Itchy or Has a Rash, Temperature Above 101 F MADONNA MONK MD Jul 05, 2016 09:52
--- NOTE | 2016-07-05 09:53 | Progress Note (SOAP) ---
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 THE PATIENT HAD CHOLECYSTECTOMY WITH DRAIN PLACEMENT LAST WEEK - HE REPORTS THAT HIS ABDOMINAL PAIN HAS IMPROVED, HE IS EATING WELL AND WOULD LIKE TO BE DISCHARGED TO HOME TODAY. HE REPORTS THAT HIS FAMILY IS COMING UP FROM [place] TODAY TO PICK HIM UP AND TAKE HIM HOME. Review of Systems General: Fatigue HEENT: No Head Aches Pulmonary: No Dyspnea, No Cough Cardiovascular: No: Chest Pain Gastrointestinal: No: Abdominal Pain, Nausea Genitourinary: No Dysuria Neurological: No: Confusion, Weakness Objective Exam Vital Signs Date Time Temp Pulse Resp B/P (MAP) Pulse Ox O2 Delivery O2 Flow Rate FiO2 07/05/16 08:00 97.3 83 20 163/77 93 Room Air 07/05/16 06:46 92 1.50 07/05/16 04:00 97.2 76 18 170/79 92 Room Air 07/05/16 02:26 92 1.50 07/05/16 01:00 80 07/05/16 00:00 97.8 85 18 130/75 93 Nasal Cannula 1.00 07/04/16 23:05 95 1.00 07/04/16 21:40 98.2 86 22 170/90 94 Room Air 07/04/16 20:00 Nasal Cannula 2.00 07/04/16 19:00 84 07/04/16 16:30 97.8 77 22 164/90 93 Room Air 07/04/16 14:51 95 1.00 07/04/16 13:00 83 07/04/16 12:00 96.8 71 20 167/77 94 Nasal Cannula 1.00 07/04/16 10:04 95 1.00 I & O 07/05/16 07:00 Intake Total 1590 ml Output Total 1765 ml Balance -175 ml Capillary Refill : Less Than 3 SecondsLess Than 3 Seconds General Appearance: No Apparent Distress, WD/WN HEENT: PERRL/EOMI, Pharynx Normal Neck: Full Range of Motion, Normal Inspection, Non Tender, Supple Respiratory: Chest Non Tender, Lungs Clear, Normal Breath Sounds, No Accessory Muscle Use Cardiovascular: Regular Rate, Rhythm, No Edema Gastrointestinal: normal bowel sounds, soft, no organomegaly, no pulsatile mass , other (MILDLY TTP OVER ABDOMEN - INCISION SITES C/D/I, DRAIN IN PLACE IN RIGHT UPPER ABDOMEN WITH CLEAR SEROUS DRAINAGE) Extremity: Normal Capillary Refill, No Calf Tenderness, No Pedal Edema Neurologic/Psychiatric: Alert, Oriented x3, No Motor/Sensory Deficits, Normal Mood/Affect Skin: Warm/Dry Lymphatic: No Adenopathy Results Lab Laboratory Tests 07/05/16 05:30: White Blood Count 10.1, Red Blood Count 3.35L, Hemoglobin 9.9L, Hematocrit 31L, Mean Corpuscular Volume 93, Mean Corpuscular Hemoglobin 30, Mean Corpuscular Hemoglobin Concent 32, Red Cell Distribution Width 13.9, Platelet Count 261, Mean Platelet Volume 10.5H, Neutrophils (%) (Auto) 90H, Lymphocytes (%) (Auto) 7L, Monocytes (%) (Auto) 3, Eosinophils (%) (Auto) 0, Basophils (%) (Auto) 0, Neutrophils # (Auto) 9.0H, Lymphocytes # (Auto) 0.7L, Monocytes # (Auto) 0.3, Eosinophils # (Auto) 0.0, Basophils # (Auto) 0.0, Sodium Level 141, Potassium Level 3.8, Chloride Level 107, Carbon Dioxide Level 26, Anion Gap 8, Blood Urea Nitrogen 26H, Creatinine 0.96, Estimat Glomerular Filtration Rate > 60, BUN/ Creatinine Ratio 27, Glucose Level 162H, Calcium Level 7.6L, Phosphorus Level 3.3, Magnesium Level 2.2 Microbiology 07/01/16 Blood Culture - Preliminary, Resulted No growth Assessment/Plan Assessment/Plan Assess & Plan/Chief Complaint ACUTE CHOLECYSTITIS HYPERTENSION BPH PT IS POST OP CHOLECYSTECTOMY WITH DRAIN PLACEMENT - DISCUSSED WITH DR. SKINNER - HE ADVISES PT TO BE ON ANTIBIOTIC X 7 MORE DAYS - ORAL DOSE THIS MORNING OF LEVAQUIN- RX FOR 6 MORE DAYS FROM TODAY - SENT TO PHARMACY. DRAIN TO BE REMOVED BY DR. SKINNER TODAY. HTN - RESTARTED NORVASC - BP FAIRLY WELL CONTROLLED. BPH - RX FOR MEDS SENT TO PHARMACY. PT TO BE DISCHARGED TO HOME TODAY. FOLLOW UP PER DR. HORTON AND DR. ANAND. Clinical Quality Measures DVT/VTE Risk/Contraindication: VTE Present on Admission: No Risk Factor Score Per Nursin RFS Level Per Nursing on Admit: 4+=Very High Contraindications-Pharm: Other *list below* FRANCISCO CHAN SCHEDULING ADMINISTRATOR 07/05/16 1043: Subjective Subjective/Events-last exam Patient seen with Dr. Skinner. Patient reports that he is doing well. Minimal discomfort. No N/V. Ambulating and tolerating diet. No fever/chills. Having BMs. Patient reports that he is ready to go home. Review of Systems General: No Chills, No Night Sweats Gastrointestinal: No: Abdominal Pain, Nausea, Vomiting Objective Exam General Appearance: No Apparent Distress, WD/WN HEENT: PERRL/EOMI Neck: Full Range of Motion, Normal Inspection, Non Tender, Supple Respiratory: Normal Breath Sounds, No Accessory Muscle Use, No Respiratory Distress Cardiovascular: Regular Rate, Rhythm Gastrointestinal: normal bowel sounds, soft, tenderness, other (RUQ drain with minimal serous drainage.) Extremity: Normal Capillary Refill, Normal Inspection, Normal Range of Motion, Non Tender, No Calf Tenderness, No Pedal Edema Neurologic/Psychiatric: Alert, Oriented x3 Skin: Normal Color, Warm/Dry MADONNA MONK MD Jul 05, 2016 09:53 FRANCISCO CHAN APRN Jul 05, 2016 10:43
--- NOTE | 2016-07-05 10:10 | Progress Note-Urology ---
Progress Note-Urology Progress Notes/Assess & Plan Progress/Assessment & Plan CONTINUES WELL BROWN. CHECK BLADDER SCAN PVR TODAY Final Diagnosis URINE RETENTION LAKESHA PARRY MD Jul 05, 2016 10:10 am
--- NOTE | 2016-07-05 10:51 | Progress Note (SOAP) ---
Subjective Subjective/Events-last exam Patient seen with Dr. Skinner. Patient reports doing well. No N/V. Minimal abdominal discomfort. Tolerating diet and ambulating. No fever/chills. Having BMs. Reports that he is ready to go home. Review of Systems General: No Chills, No Night Sweats Gastrointestinal: No: Abdominal Pain, Nausea, Vomiting Objective Exam Vital Signs Date Time Temp Pulse Resp B/P (MAP) Pulse Ox O2 Delivery O2 Flow Rate FiO2 07/05/16 08:00 97.3 83 20 163/77 93 Room Air 07/05/16 06:46 92 1.50 07/05/16 04:00 97.2 76 18 170/79 92 Room Air 07/05/16 02:26 92 1.50 07/05/16 01:00 80 07/05/16 00:00 97.8 85 18 130/75 93 Nasal Cannula 1.00 07/04/16 23:05 95 1.00 07/04/16 21:40 98.2 86 22 170/90 94 Room Air 07/04/16 20:00 Nasal Cannula 2.00 07/04/16 19:00 84 07/04/16 16:30 97.8 77 22 164/90 93 Room Air 07/04/16 14:51 95 1.00 07/04/16 13:00 83 07/04/16 12:00 96.8 71 20 167/77 94 Nasal Cannula 1.00 I & O 07/05/16 07:00 Intake Total 1590 ml Output Total 1765 ml Balance -175 ml Capillary Refill : Less Than 3 SecondsLess Than 3 Seconds General Appearance: No Apparent Distress, WD/WN HEENT: PERRL/EOMI Neck: Full Range of Motion, Normal Inspection, Non Tender, Supple Respiratory: Normal Breath Sounds, No Accessory Muscle Use, No Respiratory Distress Cardiovascular: Regular Rate, Rhythm Gastrointestinal: normal bowel sounds, soft, tenderness, other (RUQ drain with minimal serous drainage.) Extremity: Normal Capillary Refill, Normal Inspection, Normal Range of Motion, Non Tender, No Calf Tenderness, No Pedal Edema Neurologic/Psychiatric: Alert, Oriented x3 Skin: Normal Color, Warm/Dry Results Lab Laboratory Tests 07/05/16 05:30: White Blood Count 10.1, Red Blood Count 3.35L, Hemoglobin 9.9L, Hematocrit 31L, Mean Corpuscular Volume 93, Mean Corpuscular Hemoglobin 30, Mean Corpuscular Hemoglobin Concent 32, Red Cell Distribution Width 13.9, Platelet Count 261, Mean Platelet Volume 10.5H, Neutrophils (%) (Auto) 90H, Lymphocytes (%) (Auto) 7L, Monocytes (%) (Auto) 3, Eosinophils (%) (Auto) 0, Basophils (%) (Auto) 0, Neutrophils # (Auto) 9.0H, Lymphocytes # (Auto) 0.7L, Monocytes # (Auto) 0.3, Eosinophils # (Auto) 0.0, Basophils # (Auto) 0.0, Sodium Level 141, Potassium Level 3.8, Chloride Level 107, Carbon Dioxide Level 26, Anion Gap 8, Blood Urea Nitrogen 26H, Creatinine 0.96, Estimat Glomerular Filtration Rate > 60, BUN/ Creatinine Ratio 27, Glucose Level 162H, Calcium Level 7.6L, Phosphorus Level 3.3, Magnesium Level 2.2 Microbiology 07/01/16 Blood Culture - Preliminary, Resulted No growth Assessment/Plan Assessment/Plan Assess & Plan/Chief Complaint s/p lap eli. DC Drain. August D/C home with PO pain medication. Follow up with Dr. Martinez 1 week. Clinical Quality Measures DVT/VTE Risk/Contraindication: VTE Present on Admission: No Risk Factor Score Per Nursin RFS Level Per Nursing on Admit: 4+=Very High Contraindications-Pharm: Other *list below* FRANCISCO CHAN APRN Jul 05, 2016 10:51
[2016-07-05 12:00] VITALS: BP 157/76
--- NOTE | 2016-07-05 12:34 | Physical Therapy Daily Note ---
PT Daily Note-Current Subjective Pt denied pain. Pt ready for discharge. Pt agreeable to treatment. Transfers Functional [place] Measure 0=Not Assessed/NA 4=Minimal Assistance 1=Total Assistance 5=Supervision or Setup 2=Maximal Assistance 6=Modified [place] 3=Moderate Assistance 7=Complete IndependenceIRFPAI Quality Coding Scale 6 Independent with activity with or without an assistive device 5 Patient requires set up or clean up by helper. Patient completes activity by themselves 4 Supervision or touching assist (CGA). [place] provide cues , steadying assist 3 The helper provides less than half the effort to complete the activity 2 The helper provides more than half the effort to complete the activity 1 Dependent. The helper does all the effort to complete an activity 7 Patient refused to complete or attempt activity 9 The patient did not perform the activity before the current illness or injury 88 Not attempted due to Medical conditions or safety concerns Gait Training Gait Assistive Device: FWW Pt amb with FWW and SBA x 400ft at slow and steady speed. Assessment Current Status: Good Progress Pt back to bedside chair with call light and all needs met. Pt mod (I) with mobility and demonstrated good balance during gait training in hallway and good endurance as well. Pt ready for discharge. Pt has FWW and plans to go home today. 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
--- NOTE | 2016-07-05 15:21 | Cardiology Progress Note ---
Cardiology SOAP Progress Note Subjective: no cardiac complaints Objective: I&O/Vital Signs Vital Sign - Last 12Hours 07/05/16 07/05/16 07/05/16 07/05/16 04:00 06:46 08:00 10:46 Temp 97.2 97.3 Pulse 76 83 Resp 18 20 B/P (MAP) 170/79 163/77 Pulse Ox 92 92 93 92 O2 Delivery Room Air Room Air O2 Flow Rate 1.50 07/05/16 07/05/16 07/05/16 12:00 13:00 15:03 Temp 97.1 Pulse 86 78 Resp 16 B/P (MAP) 157/76 Pulse Ox 92 92 O2 Delivery Room Air Intake and Output 07/05/16 00:00 Intake Total 1240 ml Output Total 1335 ml Balance -95 ml Weight (Pounds): 230 Weight (Ounces): 8.0 Weight (Calculated Kilograms): [phone] Constitutional: AAO x 3 Respiratory: No accessory muscle use, No respiratory distress, other ( diminished bases bilat) Cardiovascular: regular rate-rhythm, No JVD, S1 and S2 Gastrointestional: soft, round, other (JOSE drain in place) Extremities: no lower extremity edema bilateral Neurologic/Psychiatric: grossly intact Results/Procedures: Labs Laboratory Tests 07/05/16 05:30: White Blood Count 10.1, Red Blood Count 3.35L, Hemoglobin 9.9L, Hematocrit 31L, Mean Corpuscular Volume 93, Mean Corpuscular Hemoglobin 30, Mean Corpuscular Hemoglobin Concent 32, Red Cell Distribution Width 13.9, Platelet Count 261, Mean Platelet Volume 10.5H, Neutrophils (%) (Auto) 90H, Lymphocytes (%) (Auto) 7L, Monocytes (%) (Auto) 3, Eosinophils (%) (Auto) 0, Basophils (%) (Auto) 0, Neutrophils # (Auto) 9.0H, Lymphocytes # (Auto) 0.7L, Monocytes # (Auto) 0.3, Eosinophils # (Auto) 0.0, Basophils # (Auto) 0.0, Sodium Level 141, Potassium Level 3.8, Chloride Level 107, Carbon Dioxide Level 26, Anion Gap 8, Blood Urea Nitrogen 26H, Creatinine 0.96, Estimat Glomerular Filtration Rate > 60, BUN/ Creatinine Ratio 27, Glucose Level 162H, Calcium Level 7.6L, Phosphorus Level 3.3, Magnesium Level 2.2 Microbiology 07/01/16 Blood Culture - Preliminary, Resulted No growth A/P: Assessment/Dx: Assessment: Dyspnea - improved - management per pulmonary services Echocardiogram showed normal LV size and function with ejection fraction 60 percent on 07-01-[address] Jade Acute gallstone pancreatitis with empyema of gallbladder- s/p cholecystectomy Hypertension COPD- continue MAT protocol. Patient was hospitalized in 2016 for pneumonia - being followed by pulmonary services Acute on chronic renal insufficiency- continue to monitor Reported intolerance to LOURDES (-) d/t cough Plan: Plan: Cardiac status clinically stable Continue current regimen Monitor lab patient is being discharged today. Magda MARIN MD Jul 05, 2016 15:21
[2016-07-05 16:00] VITALS: BP 147/76
[2016-07-05] MEDS: ALFUZOSIN HCL 10 MG TAB (UROXATRAL) PO SCH (17:18)
[2016-07-05] MEDS: CATHETER FLUSH 10 ML SYR IV PRN (17:18)
--- NOTE | 2016-07-08 07:09 | Discharge Summary ---
Diagnosis/Chief Complaint Date of Admission Jun 25, 2016 at 20:13 Date of Discharge Jul 05, 2016 at 18:15 Discharge Date: Jul 05, 2016 Discharge Time: 1030 Admission Diagnosis Admission Diagnosis acute cholecystitis. Acute pancreatitis. History of hypertension. Stone obstruction Discharge Diagnosis acute cholecystitis. Gallstones. Acute pancreatitis. Urine retention. Hypertension. Elevated liver tests. Anemia. Hypertension. Atelectasis. Pneumonia. Renal insufficiency. Hypomagnesemia. Reason Hospital Visit patient came out to the emergency room due to having nausea and vomiting for days and abdominal pain. Prior to arrival patient had 3 vomiting episodes. CAT scan shows acute cholecystitis and pancreatitis. Patient has elevated liver tests and elevated amylase and lipase. Previous surgery denies any family history denies asthma TB diabetes Discharge Summary Procedures surgery of gallbladder Consultations surgeon. Pulmonology. Urology. Discharge Physical Examination Allergies: Coded Allergies: No Known Drug Allergies (Unverified , 05/01/16) Vitals & I&Os Vital Signs Date Time Temp Pulse Resp B/P (MAP) Pulse Ox O2 Delivery O2 Flow Rate FiO2 07/05/16 18:15 07/05/16 16:00 96.2 85 20 94 Room Air 07/05/16 06:46 1.50 Hospital Course patient in hospital did have problems. Patient was discharged doing better. Labs (last 24 hrs) Laboratory Tests 06/25/16 19:01: White Blood Count 8.5, Red Blood Count 4.17L, Hemoglobin 12.9L, Hematocrit 38L, Mean Corpuscular Volume 91, Mean Corpuscular Hemoglobin 31, Mean Corpuscular Hemoglobin Concent 34, Red Cell Distribution Width 13.5, Platelet Count 133, Mean Platelet Volume 11.0H, Neutrophils (%) (Auto) 76H, Lymphocytes (%) (Auto) 13, Monocytes (%) (Auto) 10, Eosinophils (%) (Auto) 1, Basophils (%) (Auto) 0, Neutrophils # (Auto) 6.5, Lymphocytes # (Auto) 1.1, Monocytes # (Auto) 0.9, Eosinophils # (Auto) 0.1, Basophils # (Auto) 0.0, Sodium Level 139, Potassium Level 3.8, Chloride Level 104, Carbon Dioxide Level 22, Anion Gap 13, Blood Urea Nitrogen 12, Creatinine 0.98, Estimat Glomerular Filtration Rate > 60, BUN/ Creatinine Ratio 12, Glucose Level 127H, Calcium Level 8.5, Magnesium Level 2.0 , Total Bilirubin 5.5H, Aspartate Amino Transf (AST/SGOT) 444H, Alanine Aminotransferase (ALT/SGPT) 523H, Alkaline Phosphatase 396H, Total Protein 6.8, Albumin 3.5, Amylase Level 1924H, Lipase 2735H 06/25/16 19:14: Urine Color AMBERH, Urine Clarity SLIGHTLY CLOUDY, Urine pH 7, Urine Specific [place] 1.015L, Urine Protein 2+H, Urine Glucose (UA) NEGATIVE, Urine Ketones NEGATIVE, Urine Nitrite NEGATIVE, Urine Bilirubin 2+H, Urine Urobilinogen 8H, Urine Leukocyte Esterase 1+H, Urine RBC (Auto) 1+H, Urine RBC RARE, Urine WBC 2- 5, Urine Squamous Epithelial Cells 10-25H, Urine Crystals NONE, Urine Bacteria TRACE, Urine Casts NONE, Urine Mucus MODERATEH, Urine Culture Indicated NO 06/26/16 05:25: White Blood Count 13.1H, Red Blood Count 4.27L, Hemoglobin 13.2L, Hematocrit 39L , Mean Corpuscular Volume 91, Mean Corpuscular Hemoglobin 31, Mean Corpuscular Hemoglobin Concent 34, Red Cell Distribution Width 13.8, Platelet Count 131, Mean Platelet Volume 11.6H, Neutrophils (%) (Auto) 81H, Lymphocytes (%) (Auto) 9L, Monocytes (%) (Auto) 10, Eosinophils (%) (Auto) 0, Basophils (%) (Auto) 0, Neutrophils # (Auto) 10.6H, Lymphocytes # (Auto) 1.1, Monocytes # (Auto) 1.3H, Eosinophils # (Auto) 0.0, Basophils # (Auto) 0.0, Sodium Level 136, Potassium Level 3.8, Chloride Level 105, Carbon Dioxide Level 19L, Anion Gap 12, Blood Urea Nitrogen 10, Creatinine 1.04, Estimat Glomerular Filtration Rate > 60, BUN/ Creatinine Ratio 10, Glucose Level 143H, Calcium Level 8.1L, Total Bilirubin 5.5H, Aspartate Amino Transf (AST/SGOT) 344H, Alanine Aminotransferase (ALT/SGPT ) 468H, Alkaline Phosphatase 388H, Total Protein 6.5, Albumin 3.3, Amylase Level 647H, Lipase 513H 06/27/16 06:00: White Blood Count 18.0H, Red Blood Count 3.90L, Hemoglobin 12.2L, Hematocrit 36L , Mean Corpuscular Volume 91, Mean Corpuscular Hemoglobin 31, Mean Corpuscular Hemoglobin Concent 34, Red Cell Distribution Width 13.8, Platelet Count 122L, Mean Platelet Volume 11.4H, Neutrophils (%) (Auto) 85H, Lymphocytes (%) (Auto) 7L, Monocytes (%) (Auto) 8, Eosinophils (%) (Auto) 0, Basophils (%) (Auto) 0, Neutrophils # (Auto) 15.4H, Lymphocytes # (Auto) 1.2, Monocytes # (Auto) 1.4H, Eosinophils # (Auto) 0.0, Basophils # (Auto) 0.0, Sodium Level 133L, Potassium Level 3.9, Chloride Level 105, Carbon Dioxide Level 19L, Anion Gap 9, Blood Urea Nitrogen 8, Creatinine 0.95, Estimat Glomerular Filtration Rate > 60, BUN/ Creatinine Ratio 8, Glucose Level 166H, Calcium Level 7.8L, Total Bilirubin 2.8H , Aspartate Amino Transf (AST/SGOT) 96H, Alanine Aminotransferase (ALT/SGPT) 284H, Alkaline Phosphatase 288H, Total Protein 5.9L, Albumin 2.9L, Amylase Level 119, Lipase 85H, Neutrophils % (Manual) 88, Lymphocytes % (Manual) 4, Monocytes % (Manual) 3, Eosinophils % (Manual) 0, Basophils % (Manual) 0, Band Neutrophils 2, Reactive Lymphocytes 3, Blood Morphology Comment NORMAL 06/27/16 21:54: Sodium Level 134L, Potassium Level 4.2, Chloride Level 104, Carbon Dioxide Level 20L, Anion Gap 10, Blood Urea Nitrogen 11, Creatinine 1.41H, Estimat Glomerular Filtration Rate 48, BUN/Creatinine Ratio 8, Glucose Level 144H, Calcium Level 8.2L, Magnesium Level 1.6L, B-Type Natriuretic Peptide 129.6H, Albumin 3.0L 06/28/16 03:30: Sodium Level 136, Potassium Level 4.1, Chloride Level 105, Carbon Dioxide Level 20L, Anion Gap 11, Blood Urea Nitrogen 14, Creatinine 1.70H, Estimat Glomerular Filtration Rate 39, BUN/Creatinine Ratio 8, Glucose Level 135H, Calcium Level 7.7L, Magnesium Level 1.3L, Albumin 2.6L, White Blood Count 18.5H, Red Blood Count 3.83L, Hemoglobin 12.0L, Hematocrit 36L, Mean Corpuscular Volume 93, Mean Corpuscular Hemoglobin 31, Mean Corpuscular Hemoglobin Concent 34, Red Cell Distribution Width 14.1, Platelet Count 130, Mean Platelet Volume 11.4H, Neutrophils (%) (Auto) 86H, Lymphocytes (%) (Auto) 7L, Monocytes (%) (Auto) 7, Eosinophils (%) (Auto) 0, Basophils (%) (Auto) 0, Neutrophils # (Auto) 16.0H, Lymphocytes # (Auto) 1.3, Monocytes # (Auto) 1.2H, Eosinophils # (Auto) 0.0, Basophils # (Auto) 0.0, Phosphorus Level 3.4, Total Bilirubin 1.9H, Aspartate Amino Transf (AST/SGOT) 35H, Alanine Aminotransferase (ALT/SGPT) 145H, Alkaline Phosphatase 211H, Total Protein 5.3L, Amylase Level 34, Lipase 16 06/29/16 03:50: Sodium Level 133L, Potassium Level 3.7, Chloride Level 104, Carbon Dioxide Level 20L, Anion Gap 9, Blood Urea Nitrogen 16, Creatinine 1.43H, Estimat Glomerular Filtration Rate 47, BUN/Creatinine Ratio 11, Glucose Level 112H, Calcium Level 7.4L, Magnesium Level 2.0, Albumin 2.4L, White Blood Count 12.4H, Red Blood Count 3.49L, Hemoglobin 10.7L, Hematocrit 32L, Mean Corpuscular Volume 93, Mean Corpuscular Hemoglobin 31, Mean Corpuscular Hemoglobin Concent 33, Red Cell Distribution Width 14.1, Platelet Count 128L, Mean Platelet Volume 11.3H, Neutrophils (%) (Auto) 81H, Lymphocytes (%) (Auto) 10L, Monocytes (%) ( Auto) 8, Eosinophils (%) (Auto) 1, Basophils (%) (Auto) 0, Neutrophils # (Auto) 10.1H, Lymphocytes # (Auto) 1.2, Monocytes # (Auto) 1.0, Eosinophils # (Auto) 0.1, Basophils # (Auto) 0.0, Phosphorus Level 2.5, Total Bilirubin 1.4H, Aspartate Amino Transf (AST/SGOT) 18, Alanine Aminotransferase (ALT/SGPT) 73H, Alkaline Phosphatase 146H, Total Protein 5.1L, Amylase Level 18L, Lipase 8 06/30/16 03:50: Sodium Level 137, Potassium Level 3.6, Chloride Level 108H, Carbon Dioxide Level 22, Anion Gap 7, Blood Urea Nitrogen 12, Creatinine 1.17, Estimat Glomerular Filtration Rate 60, BUN/Creatinine Ratio 10, Glucose Level 136H, Calcium Level 7.3L, Magnesium Level 1.9, Albumin 2.3L, White Blood Count 8.1, Red Blood Count 3.24L, Hemoglobin 10.0L, Hematocrit 30L, Mean Corpuscular Volume 93, Mean Corpuscular Hemoglobin 31, Mean Corpuscular Hemoglobin Concent 33, Red Cell Distribution Width 13.9, Platelet Count 137, Mean Platelet Volume 11.1H, Neutrophils (%) (Auto) 78H, Lymphocytes (%) (Auto) 12, Monocytes (%) ( Auto) 9, Eosinophils (%) (Auto) 2, Basophils (%) (Auto) 0, Neutrophils # (Auto) 6.3, Lymphocytes # (Auto) 1.0, Monocytes # (Auto) 0.7, Eosinophils # (Auto) 0.1 , Basophils # (Auto) 0.0, Phosphorus Level 1.9L, Total Bilirubin 1.2H, Aspartate Amino Transf (AST/SGOT) 24, Alanine Aminotransferase (ALT/SGPT) 54, Alkaline Phosphatase 125, Total Protein 5.0L 06/30/16 21:44: White Blood Count 10.4, Red Blood Count 3.69L, Hemoglobin 11.3L, Hematocrit 34L , Mean Corpuscular Volume 93, Mean Corpuscular Hemoglobin 31, Mean Corpuscular Hemoglobin Concent 33, Red Cell Distribution Width 14.1, Platelet Count 172, Mean Platelet Volume 10.6H, Sodium Level 136, Potassium Level 4.0, Chloride Level 106, Carbon Dioxide Level 21, Anion Gap 9, Blood Urea Nitrogen 14, Creatinine 1.17, Estimat Glomerular Filtration Rate 60, BUN/Creatinine Ratio 12 , Glucose Level 187H, Calcium Level 7.9L, Total Bilirubin 1.1H, Aspartate Amino Transf (AST/SGOT) 39H, Alanine Aminotransferase (ALT/SGPT) 62H, Alkaline Phosphatase 137H, Troponin I < 0.30, B-Type Natriuretic Peptide 75.9, Total Protein 5.8L, Albumin 2.7L 07/01/16 05:53: White Blood Count 11.0, Red Blood Count 3.58L, Hemoglobin 10.9L, Hematocrit 33L , Mean Corpuscular Volume 93, Mean Corpuscular Hemoglobin 30, Mean Corpuscular Hemoglobin Concent 33, Red Cell Distribution Width 14.1, Platelet Count 156, Mean Platelet Volume 10.4, Sodium Level 138, Potassium Level 3.6, Chloride Level 104, Carbon Dioxide Level 24, Anion Gap 10, Blood Urea Nitrogen 14, Creatinine 1.16, Estimat Glomerular Filtration Rate 60, BUN/Creatinine Ratio 12 , Glucose Level 143H, Calcium Level 8.0L, Total Bilirubin 1.2H, Aspartate Amino Transf (AST/SGOT) 31, Alanine Aminotransferase (ALT/SGPT) 58H, Alkaline Phosphatase 128, Total Protein 5.8L, Albumin 2.7L, Neutrophils (%) (Auto) 79H, Lymphocytes (%) (Auto) 10L, Monocytes (%) (Auto) 10, Eosinophils (%) (Auto) 1, Basophils (%) (Auto) 0, Neutrophils # (Auto) 8.6H, Lymphocytes # (Auto) 1.1, Monocytes # (Auto) 1.1H, Eosinophils # (Auto) 0.1, Basophils # (Auto) 0.0, Phosphorus Level 2.8, Magnesium Level 1.7L 07/01/16 08:36: Urine Color YELLOW, Urine Clarity CLEAR, Urine pH 6, Urine Specific [place] 1.010L, Urine Protein NEGATIVE, Urine Glucose (UA) NEGATIVE, Urine Ketones NEGATIVE, Urine Nitrite NEGATIVE, Urine Bilirubin NEGATIVE, Urine Urobilinogen NORMAL, Urine Leukocyte Esterase NEGATIVE, Urine RBC (Auto) NEGATIVE, Urine RBC RARE, Urine WBC NONE, Urine Squamous Epithelial Cells 0-2, Urine Crystals NONE, Urine Bacteria NEGATIVE, Urine Casts NONE, Urine Mucus NEGATIVE, Urine Culture Indicated NO, Lactic Acid Level 0.83 07/02/16 05:07: White Blood Count 11.1H, Red Blood Count 3.16L, Hemoglobin 9.7L, Hematocrit 29L , Mean Corpuscular Volume 93, Mean Corpuscular Hemoglobin 31, Mean Corpuscular Hemoglobin Concent 33, Red Cell Distribution Width 13.7, Platelet Count 169, Mean Platelet Volume 11.3H, Sodium Level 138, Potassium Level 3.7, Chloride Level 104, Carbon Dioxide Level 25, Anion Gap 9, Blood Urea Nitrogen 21H, Creatinine 1.33H, Estimat Glomerular Filtration Rate 52, BUN/Creatinine Ratio 16 , Glucose Level 257H, Calcium Level 8.0L, Total Bilirubin 0.8, Aspartate Amino Transf (AST/SGOT) 22, Alanine Aminotransferase (ALT/SGPT) 45, Alkaline Phosphatase 114, Total Protein 5.8L, Albumin 2.6L, Neutrophils (%) (Auto) 93H, Lymphocytes (%) (Auto) 4L, Monocytes (%) (Auto) 3, Eosinophils (%) (Auto) 0, Basophils (%) (Auto) 0, Neutrophils # (Auto) 10.3H, Lymphocytes # (Auto) 0.5L, Monocytes # (Auto) 0.3, Eosinophils # (Auto) 0.0, Basophils # (Auto) 0.0, Phosphorus Level 3.3, Magnesium Level 2.3, Neutrophils % (Manual) 90, Lymphocytes % (Manual) 3, Monocytes % (Manual) 1, Band Neutrophils 6, Blood Morphology Comment NORMAL 07/03/16 04:25: White Blood Count 14.0H, Red Blood Count 3.21L, Hemoglobin 10.0L, Hematocrit 30L , Mean Corpuscular Volume 94, Mean Corpuscular Hemoglobin 31, Mean Corpuscular Hemoglobin Concent 33, Red Cell Distribution Width 13.9, Platelet Count 210, Mean Platelet Volume 10.9H, Neutrophils (%) (Auto) 91H, Lymphocytes (%) (Auto) 6L, Monocytes (%) (Auto) 3, Eosinophils (%) (Auto) 0, Basophils (%) (Auto) 0, Neutrophils # (Auto) 12.7H, Lymphocytes # (Auto) 0.8L, Monocytes # (Auto) 0.5, Eosinophils # (Auto) 0.0, Basophils # (Auto) 0.0, Sodium Level 139, Potassium Level 3.6, Chloride Level 104, Carbon Dioxide Level 24, Anion Gap 11, Blood Urea Nitrogen 25H, Creatinine 1.30, Estimat Glomerular Filtration Rate 53, BUN/ Creatinine Ratio 19, Glucose Level 210H, Calcium Level 8.0L, Phosphorus Level 3.4, Magnesium Level 2.2 07/03/16 07:25: Sodium Level 140, Potassium Level 3.8, Chloride Level 105, Carbon Dioxide Level 27, Anion Gap 8, Blood Urea Nitrogen 25H, Creatinine 1.27, Estimat Glomerular Filtration Rate 54, BUN/Creatinine Ratio 20, Glucose Level 181H, Calcium Level 8.2L, Total Bilirubin 0.8, Aspartate Amino Transf (AST/SGOT) 37H, Alanine Aminotransferase (ALT/SGPT) 58H, Alkaline Phosphatase 119, Total Protein 6.1L, Albumin 2.7L, Vancomycin Level Trough 10.9 07/04/16 05:31: White Blood Count 8.8, Red Blood Count 3.17L, Hemoglobin 9.4L, Hematocrit 30L, Mean Corpuscular Volume 94, Mean Corpuscular Hemoglobin 30, Mean Corpuscular Hemoglobin Concent 31L, Red Cell Distribution Width 14.1, Platelet Count 234, Mean Platelet Volume 10.6H, Neutrophils (%) (Auto) 81H, Lymphocytes (%) (Auto) 13, Monocytes (%) (Auto) 6, Eosinophils (%) (Auto) 0, Basophils (%) (Auto) 0, Neutrophils # (Auto) 7.2, Lymphocytes # (Auto) 1.1, Monocytes # (Auto) 0.6, Eosinophils # (Auto) 0.0, Basophils # (Auto) 0.0, Sodium Level 144, Potassium Level 3.6, Chloride Level 110H, Carbon Dioxide Level 27, Anion Gap 7, Blood Urea Nitrogen 27H, Creatinine 1.13, Estimat Glomerular Filtration Rate > 60, BUN /Creatinine Ratio 24, Glucose Level 111H, Calcium Level 7.7L, Phosphorus Level 2.9, Magnesium Level 2.1 07/05/16 05:30: White Blood Count 10.1, Red Blood Count 3.35L, Hemoglobin 9.9L, Hematocrit 31L, Mean Corpuscular Volume 93, Mean Corpuscular Hemoglobin 30, Mean Corpuscular Hemoglobin Concent 32, Red Cell Distribution Width 13.9, Platelet Count 261, Mean Platelet Volume 10.5H, Neutrophils (%) (Auto) 90H, Lymphocytes (%) (Auto) 7L, Monocytes (%) (Auto) 3, Eosinophils (%) (Auto) 0, Basophils (%) (Auto) 0, Neutrophils # (Auto) 9.0H, Lymphocytes # (Auto) 0.7L, Monocytes # (Auto) 0.3, Eosinophils # (Auto) 0.0, Basophils # (Auto) 0.0, Sodium Level 141, Potassium Level 3.8, Chloride Level 107, Carbon Dioxide Level 26, Anion Gap 8, Blood Urea Nitrogen 26H, Creatinine 0.96, Estimat Glomerular Filtration Rate > 60, BUN/ Creatinine Ratio 27, Glucose Level 162H, Calcium Level 7.6L, Phosphorus Level 3.3, Magnesium Level 2.2 Microbiology 07/01/16 Blood Culture - Final, Complete No growth Laboratory Tests 06/25/16 19:01 06/26/16 05:25 06/27/16 06:00 06/27/16 21:54 06/28/16 03:30 06/29/16 03:50 06/30/16 03:50 06/30/16 21:44 07/01/16 05:53 07/02/16 05:07 07/03/16 04:25 07/03/16 07:25 07/04/16 05:31 07/05/16 05:30 Pending Labs Microbiology Date/Time Source Procedure Growth Status 07/01/16 08:50 Peripheral Rt Hand Blood Culture - Final No growth Complete 07/01/16 08:45 Peripheral Lt Hand Blood Culture - Final No growth Complete 07/01/16 08:35 Peripheral Left Wrist Blood Culture - Final No growth Complete Laboratory Tests 06/25/16 19:01: White Blood Count 8.5, Red Blood Count 4.17, Hemoglobin 12.9, Hematocrit 38, Mean Corpuscular Volume 91, Mean Corpuscular Hemoglobin 31, Mean Corpuscular Hemoglobin Concent 34, Red Cell Distribution Width 13.5, Platelet Count 133, Mean Platelet Volume 11.0, Neutrophils (%) (Auto) 76, Lymphocytes (%) (Auto) 13 , Monocytes (%) (Auto) 10, Eosinophils (%) (Auto) 1, Basophils (%) (Auto) 0, Neutrophils # (Auto) 6.5, Lymphocytes # (Auto) 1.1, Monocytes # (Auto) 0.9, Eosinophils # (Auto) 0.1, Basophils # (Auto) 0.0, Sodium Level 139, Potassium Level 3.8, Chloride Level 104, Carbon Dioxide Level 22, Anion Gap 13, Blood Urea Nitrogen 12, Creatinine 0.98, Estimat Glomerular Filtration Rate > 60, BUN/ Creatinine Ratio 12, Glucose Level 127, Calcium Level 8.5, Magnesium Level 2.0, Total Bilirubin 5.5, Aspartate Amino Transf (AST/SGOT) 444, Alanine Aminotransferase (ALT/SGPT) 523, Alkaline Phosphatase 396, Total Protein 6.8, Albumin 3.5, Amylase Level 1924, Lipase 2735 06/25/16 19:14: Urine Color RUIZ, Urine Clarity SLIGHTLY CLOUDY, Urine pH 7, Urine Specific [place] 1.015, Urine Protein 2+, Urine Glucose (UA) NEGATIVE, Urine Ketones NEGATIVE, Urine Nitrite NEGATIVE, Urine Bilirubin 2+, Urine Urobilinogen 8, Urine Leukocyte Esterase 1+, Urine RBC (Auto) 1+, Urine RBC RARE, Urine WBC 2-5 , Urine Squamous Epithelial Cells 10-25, Urine Crystals NONE, Urine Bacteria TRACE, Urine Casts NONE, Urine Mucus MODERATE, Urine Culture Indicated NO 06/26/16 05:25: White Blood Count 13.1, Red Blood Count 4.27, Hemoglobin 13.2, Hematocrit 39, Mean Corpuscular Volume 91, Mean Corpuscular Hemoglobin 31, Mean Corpuscular Hemoglobin Concent 34, Red Cell Distribution Width 13.8, Platelet Count 131, Mean Platelet Volume 11.6, Neutrophils (%) (Auto) 81, Lymphocytes (%) (Auto) 9, Monocytes (%) (Auto) 10, Eosinophils (%) (Auto) 0, Basophils (%) (Auto) 0, Neutrophils # (Auto) 10.6, Lymphocytes # (Auto) 1.1, Monocytes # (Auto) 1.3, Eosinophils # (Auto) 0.0, Basophils # (Auto) 0.0, Sodium Level 136, Potassium Level 3.8, Chloride Level 105, Carbon Dioxide Level 19, Anion Gap 12, Blood Urea Nitrogen 10, Creatinine 1.04, Estimat Glomerular Filtration Rate > 60, BUN/ Creatinine Ratio 10, Glucose Level 143, Calcium Level 8.1, Total Bilirubin 5.5, Aspartate Amino Transf (AST/SGOT) 344, Alanine Aminotransferase (ALT/SGPT) 468, Alkaline Phosphatase 388, Total Protein 6.5, Albumin 3.3, Amylase Level 647, Lipase 513 06/27/16 06:00: White Blood Count 18.0, Red Blood Count 3.90, Hemoglobin 12.2, Hematocrit 36, Mean Corpuscular Volume 91, Mean Corpuscular Hemoglobin 31, Mean Corpuscular Hemoglobin Concent 34, Red Cell Distribution Width 13.8, Platelet Count 122, Mean Platelet Volume 11.4, Neutrophils (%) (Auto) 85, Lymphocytes (%) (Auto) 7, Monocytes (%) (Auto) 8, Eosinophils (%) (Auto) 0, Basophils (%) (Auto) 0, Neutrophils # (Auto) 15.4, Lymphocytes # (Auto) 1.2, Monocytes # (Auto) 1.4, Eosinophils # (Auto) 0.0, Basophils # (Auto) 0.0, Sodium Level 133, Potassium Level 3.9, Chloride Level 105, Carbon Dioxide Level 19, Anion Gap 9, Blood Urea Nitrogen 8, Creatinine 0.95, Estimat Glomerular Filtration Rate > 60, BUN/ Creatinine Ratio 8, Glucose Level 166, Calcium Level 7.8, Total Bilirubin 2.8, Aspartate Amino Transf (AST/SGOT) 96, Alanine Aminotransferase (ALT/SGPT) 284, Alkaline Phosphatase 288, Total Protein 5.9, Albumin 2.9, Amylase Level 119, Lipase 85, Neutrophils % (Manual) 88, Lymphocytes % (Manual) 4, Monocytes % ( Manual) 3, Eosinophils % (Manual) 0, Basophils % (Manual) 0, Band Neutrophils 2 , Reactive Lymphocytes 3, Blood Morphology Comment NORMAL 06/27/16 21:54: Sodium Level 134, Potassium Level 4.2, Chloride Level 104, Carbon Dioxide Level 20, Anion Gap 10, Blood Urea Nitrogen 11, Creatinine 1.41, Estimat Glomerular Filtration Rate 48, BUN/Creatinine Ratio 8, Glucose Level 144, Calcium Level 8.2 , Magnesium Level 1.6, B-Type Natriuretic Peptide 129.6, Albumin 3.0 06/28/16 03:30: Sodium Level 136, Potassium Level 4.1, Chloride Level 105, Carbon Dioxide Level 20, Anion Gap 11, Blood Urea Nitrogen 14, Creatinine 1.70, Estimat Glomerular Filtration Rate 39, BUN/Creatinine Ratio 8, Glucose Level 135, Calcium Level 7.7 , Magnesium Level 1.3, Albumin 2.6, White Blood Count 18.5, Red Blood Count 3.83 , Hemoglobin 12.0, Hematocrit 36, Mean Corpuscular Volume 93, Mean Corpuscular Hemoglobin 31, Mean Corpuscular Hemoglobin Concent 34, Red Cell Distribution Width 14.1, Platelet Count 130, Mean Platelet Volume 11.4, Neutrophils (%) (Auto ) 86, Lymphocytes (%) (Auto) 7, Monocytes (%) (Auto) 7, Eosinophils (%) (Auto) 0 , Basophils (%) (Auto) 0, Neutrophils # (Auto) 16.0, Lymphocytes # (Auto) 1.3, Monocytes # (Auto) 1.2, Eosinophils # (Auto) 0.0, Basophils # (Auto) 0.0, Phosphorus Level 3.4, Total Bilirubin 1.9, Aspartate Amino Transf (AST/SGOT) 35 , Alanine Aminotransferase (ALT/SGPT) 145, Alkaline Phosphatase 211, Total Protein 5.3, Amylase Level 34, Lipase 16 06/29/16 03:50: Sodium Level 133, Potassium Level 3.7, Chloride Level 104, Carbon Dioxide Level 20, Anion Gap 9, Blood Urea Nitrogen 16, Creatinine 1.43, Estimat Glomerular Filtration Rate 47, BUN/Creatinine Ratio 11, Glucose Level 112, Calcium Level 7.4, Magnesium Level 2.0, Albumin 2.4, White Blood Count 12.4, Red Blood Count 3.49, Hemoglobin 10.7, Hematocrit 32, Mean Corpuscular Volume 93, Mean Corpuscular Hemoglobin 31, Mean Corpuscular Hemoglobin Concent 33, Red Cell Distribution Width 14.1, Platelet Count 128, Mean Platelet Volume 11.3, Neutrophils (%) (Auto) 81, Lymphocytes (%) (Auto) 10, Monocytes (%) (Auto) 8, Eosinophils (%) (Auto) 1, Basophils (%) (Auto) 0, Neutrophils # (Auto) 10.1, Lymphocytes # (Auto) 1.2, Monocytes # (Auto) 1.0, Eosinophils # (Auto) 0.1, Basophils # (Auto) 0.0, Phosphorus Level 2.5, Total Bilirubin 1.4, Aspartate Amino Transf (AST/SGOT) 18, Alanine Aminotransferase (ALT/SGPT) 73, Alkaline Phosphatase 146, Total Protein 5.1, Amylase Level 18, Lipase 8 06/30/16 03:50: Sodium Level 137, Potassium Level 3.6, Chloride Level 108, Carbon Dioxide Level 22, Anion Gap 7, Blood Urea Nitrogen 12, Creatinine 1.17, Estimat Glomerular Filtration Rate 60, BUN/Creatinine Ratio 10, Glucose Level 136, Calcium Level 7.3, Magnesium Level 1.9, Albumin 2.3, White Blood Count 8.1, Red Blood Count 3.24, Hemoglobin 10.0, Hematocrit 30, Mean Corpuscular Volume 93, Mean Corpuscular Hemoglobin 31, Mean Corpuscular Hemoglobin Concent 33, Red Cell Distribution Width 13.9, Platelet Count 137, Mean Platelet Volume 11.1, Neutrophils (%) (Auto) 78, Lymphocytes (%) (Auto) 12, Monocytes (%) (Auto) 9, Eosinophils (%) (Auto) 2, Basophils (%) (Auto) 0, Neutrophils # (Auto) 6.3, Lymphocytes # (Auto) 1.0, Monocytes # (Auto) 0.7, Eosinophils # (Auto) 0.1, Basophils # (Auto) 0.0, Phosphorus Level 1.9, Total Bilirubin 1.2, Aspartate Amino Transf (AST/SGOT) 24, Alanine Aminotransferase (ALT/SGPT) 54, Alkaline Phosphatase 125, Total Protein 5.0 06/30/16 21:44: White Blood Count 10.4, Red Blood Count 3.69, Hemoglobin 11.3, Hematocrit 34, Mean Corpuscular Volume 93, Mean Corpuscular Hemoglobin 31, Mean Corpuscular Hemoglobin Concent 33, Red Cell Distribution Width 14.1, Platelet Count 172, Mean Platelet Volume 10.6, Sodium Level 136, Potassium Level 4.0, Chloride Level 106, Carbon Dioxide Level 21, Anion Gap 9, Blood Urea Nitrogen 14, Creatinine 1.17, Estimat Glomerular Filtration Rate 60, BUN/Creatinine Ratio 12 , Glucose Level 187, Calcium Level 7.9, Total Bilirubin 1.1, Aspartate Amino Transf (AST/SGOT) 39, Alanine Aminotransferase (ALT/SGPT) 62, Alkaline Phosphatase 137, Troponin I < 0.30, B-Type Natriuretic Peptide 75.9, Total Protein 5.8, Albumin 2.7 07/01/16 05:53: White Blood Count 11.0, Red Blood Count 3.58, Hemoglobin 10.9, Hematocrit 33, Mean Corpuscular Volume 93, Mean Corpuscular Hemoglobin 30, Mean Corpuscular Hemoglobin Concent 33, Red Cell Distribution Width 14.1, Platelet Count 156, Mean Platelet Volume 10.4, Sodium Level 138, Potassium Level 3.6, Chloride Level 104, Carbon Dioxide Level 24, Anion Gap 10, Blood Urea Nitrogen 14, Creatinine 1.16, Estimat Glomerular Filtration Rate 60, BUN/Creatinine Ratio 12 , Glucose Level 143, Calcium Level 8.0, Total Bilirubin 1.2, Aspartate Amino Transf (AST/SGOT) 31, Alanine Aminotransferase (ALT/SGPT) 58, Alkaline Phosphatase 128, Total Protein 5.8, Albumin 2.7, Neutrophils (%) (Auto) 79, Lymphocytes (%) (Auto) 10, Monocytes (%) (Auto) 10, Eosinophils (%) (Auto) 1, Basophils (%) (Auto) 0, Neutrophils # (Auto) 8.6, Lymphocytes # (Auto) 1.1, Monocytes # (Auto) 1.1, Eosinophils # (Auto) 0.1, Basophils # (Auto) 0.0, Phosphorus Level 2.8, Magnesium Level 1.7 07/01/16 08:36: Urine Color YELLOW, Urine Clarity CLEAR, Urine pH 6, Urine Specific [place] 1.010, Urine Protein NEGATIVE, Urine Glucose (UA) NEGATIVE, Urine Ketones NEGATIVE, Urine Nitrite NEGATIVE, Urine Bilirubin NEGATIVE, Urine Urobilinogen NORMAL, Urine Leukocyte Esterase NEGATIVE, Urine RBC (Auto) NEGATIVE, Urine RBC RARE, Urine WBC NONE, Urine Squamous Epithelial Cells 0-2, Urine Crystals NONE, Urine Bacteria NEGATIVE, Urine Casts NONE, Urine Mucus NEGATIVE, Urine Culture Indicated NO, Lactic Acid Level 0.83 07/02/16 05:07: White Blood Count 11.1, Red Blood Count 3.16, Hemoglobin 9.7, Hematocrit 29, Mean Corpuscular Volume 93, Mean Corpuscular Hemoglobin 31, Mean Corpuscular Hemoglobin Concent 33, Red Cell Distribution Width 13.7, Platelet Count 169, Mean Platelet Volume 11.3, Sodium Level 138, Potassium Level 3.7, Chloride Level 104, Carbon Dioxide Level 25, Anion Gap 9, Blood Urea Nitrogen 21, Creatinine 1.33, Estimat Glomerular Filtration Rate 52, BUN/Creatinine Ratio 16 , Glucose Level 257, Calcium Level 8.0, Total Bilirubin 0.8, Aspartate Amino Transf (AST/SGOT) 22, Alanine Aminotransferase (ALT/SGPT) 45, Alkaline Phosphatase 114, Total Protein 5.8, Albumin 2.6, Neutrophils (%) (Auto) 93, Lymphocytes (%) (Auto) 4, Monocytes (%) (Auto) 3, Eosinophils (%) (Auto) 0, Basophils (%) (Auto) 0, Neutrophils # (Auto) 10.3, Lymphocytes # (Auto) 0.5, Monocytes # (Auto) 0.3, Eosinophils # (Auto) 0.0, Basophils # (Auto) 0.0, Phosphorus Level 3.3, Magnesium Level 2.3, Neutrophils % (Manual) 90, Lymphocytes % (Manual) 3, Monocytes % (Manual) 1, Band Neutrophils 6, Blood Morphology Comment NORMAL 07/03/16 04:25: White Blood Count 14.0, Red Blood Count 3.21, Hemoglobin 10.0, Hematocrit 30, Mean Corpuscular Volume 94, Mean Corpuscular Hemoglobin 31, Mean Corpuscular Hemoglobin Concent 33, Red Cell Distribution Width 13.9, Platelet Count 210, Mean Platelet Volume 10.9, Neutrophils (%) (Auto) 91, Lymphocytes (%) (Auto) 6, Monocytes (%) (Auto) 3, Eosinophils (%) (Auto) 0, Basophils (%) (Auto) 0, Neutrophils # (Auto) 12.7, Lymphocytes # (Auto) 0.8, Monocytes # (Auto) 0.5, Eosinophils # (Auto) 0.0, Basophils # (Auto) 0.0, Sodium Level 139, Potassium Level 3.6, Chloride Level 104, Carbon Dioxide Level 24, Anion Gap 11, Blood Urea Nitrogen 25, Creatinine 1.30, Estimat Glomerular Filtration Rate 53, BUN/ Creatinine Ratio 19, Glucose Level 210, Calcium Level 8.0, Phosphorus Level 3.4 , Magnesium Level 2.2 07/03/16 07:25: Sodium Level 140, Potassium Level 3.8, Chloride Level 105, Carbon Dioxide Level 27, Anion Gap 8, Blood Urea Nitrogen 25, Creatinine 1.27, Estimat Glomerular Filtration Rate 54, BUN/Creatinine Ratio 20, Glucose Level 181, Calcium Level 8.2, Total Bilirubin 0.8, Aspartate Amino Transf (AST/SGOT) 37, Alanine Aminotransferase (ALT/SGPT) 58, Alkaline Phosphatase 119, Total Protein 6.1, Albumin 2.7, Vancomycin Level Trough 10.9 07/04/16 05:31: White Blood Count 8.8, Red Blood Count 3.17, Hemoglobin 9.4, Hematocrit 30, Mean Corpuscular Volume 94, Mean Corpuscular Hemoglobin 30, Mean Corpuscular Hemoglobin Concent 31, Red Cell Distribution Width 14.1, Platelet Count 234, Mean Platelet Volume 10.6, Neutrophils (%) (Auto) 81, Lymphocytes (%) (Auto) 13 , Monocytes (%) (Auto) 6, Eosinophils (%) (Auto) 0, Basophils (%) (Auto) 0, Neutrophils # (Auto) 7.2, Lymphocytes # (Auto) 1.1, Monocytes # (Auto) 0.6, Eosinophils # (Auto) 0.0, Basophils # (Auto) 0.0, Sodium Level 144, Potassium Level 3.6, Chloride Level 110, Carbon Dioxide Level 27, Anion Gap 7, Blood Urea Nitrogen 27, Creatinine 1.13, Estimat Glomerular Filtration Rate > 60, BUN/ Creatinine Ratio 24, Glucose Level 111, Calcium Level 7.7, Phosphorus Level 2.9 , Magnesium Level 2.1 07/05/16 05:30: White Blood Count 10.1, Red Blood Count 3.35, Hemoglobin 9.9, Hematocrit 31, Mean Corpuscular Volume 93, Mean Corpuscular Hemoglobin 30, Mean Corpuscular Hemoglobin Concent 32, Red Cell Distribution Width 13.9, Platelet Count 261, Mean Platelet Volume 10.5, Neutrophils (%) (Auto) 90, Lymphocytes (%) (Auto) 7, Monocytes (%) (Auto) 3, Eosinophils (%) (Auto) 0, Basophils (%) (Auto) 0, Neutrophils # (Auto) 9.0, Lymphocytes # (Auto) 0.7, Monocytes # (Auto) 0.3, Eosinophils # (Auto) 0.0, Basophils # (Auto) 0.0, Sodium Level 141, Potassium Level 3.8, Chloride Level 107, Carbon Dioxide Level 26, Anion Gap 8, Blood Urea Nitrogen 26, Creatinine 0.96, Estimat Glomerular Filtration Rate > 60, BUN/ Creatinine Ratio 27, Glucose Level 162, Calcium Level 7.6, Phosphorus Level 3.3 , Magnesium Level 2.2 Other pending tests CAT scan of the abdomen and pelvis. Numerous gallstones, acute cholecystitis and pancreatitis. Chest x-ray on admission nothing acute. Chest x-ray taken later atelectasis versus pneumonia or both Discharge Home Medications: Active Scripts Active Probiotic (Lactobacillus Combo No.10) 1 Each Capsule 1 Each PO DAILY Levofloxacin 500 Mg Tablet 500 Mg PO DAILY Prednisone 10 Mg Tab.ds.pk 10 Mg PO DAILY Take 6 tabs(60mg)daily,decrease by 1 tab(10MG)daily. Alfuzosin HCl ER (Alfuzosin HCl) 10 Mg Tab.er.24h 10 Mg PO DAILY@1800 Hydrocodon -Acetaminophen 5-325 (Hydrocodone/Acetaminophen) 1 Each Tablet 1 Tab PO Q4H PRN Neosporin Ointment (Neomycin Vazquez/Bacitrac Zn/Poly) 28.3 Gm Oint...g. 0 Gm TOP BID 10 Days apply to incision sites twice daily [Finasteride] 5 MG Tab 5 Mg PO DAILY Ventolin Hfa (Albuterol Sulfate) 1 Puff Puff 2 Puff IH TID 1 PUFF = 90 MCG Reported Norvasc (Amlodipine Besylate) 5 Mg Tablet 5 Mg PO DAILY Sertraline HCl 50 Mg Tablet 50 Mg PO DAILY Aspirin 81 Mg Tab.chew 81 Mg PO DAILY Instructions to patient/family Please see electonic discharge instructions given to patient. Clinical Quality Measures DVT/VTE Risk/Contraindication: VTE Present on Admission: No Risk Factor Score Per Nursin RFS Level Per Nursing on Admit: 4+=Very High Contraindications-Pharm: Other *list below* MARCELLA ANAND DO Jul 08, 2016 07:09
== END 2016-07-05 18:15 | disposition home or self-care (01) | DRG 417 ==
LOC: DELPENDDIS → EDUNIT# 18:15 → ER 18:16 → 4TH 20:13 → ICU 06-27 15:10 → 4TH 06-30 20:20 → DELPENDDIS 07-05 10:30 → UNDODISIN 07-05 11:03
PROVIDERS: ADMIT Family Medicine; ATTEND Family Medicine
PROC: 8E0W4CZ Robotic Assisted Procedure of Trunk Region, Percutaneous Endoscopic Approach (ICD-10-PCS; 2016-06-27)
PROC: 0FT44ZZ Resection of Gallbladder, Percutaneous Endoscopic Approach (ICD-10-PCS; principal; 2016-06-27 11:23)
PROC: 0TJB8ZZ Inspection of Bladder, Via Natural or Artificial Opening Endoscopic (ICD-10-PCS; 2016-07-01)
DX: K80.01 Calculus of gallbladder with acute cholecystitis with obstruction (principal); K85.10 Biliary acute pancreatitis without necrosis or infection; I12.9 Hypertensive chronic kidney disease with stage 1 through stage 4 chronic kidney disease, or unspecified chronic kidney disease; J98.11 Atelectasis; J44.0 Chronic obstructive pulmonary disease with (acute) lower respiratory infection; J18.9 Pneumonia, unspecified organism; J90 Pleural effusion, not elsewhere classified; N18.9 Chronic kidney disease, unspecified; F32.9 Major depressive disorder, single episode, unspecified; H91.90 Unspecified hearing loss, unspecified ear; K86.89 Other specified diseases of pancreas; E86.0 Dehydration; D72.829 Elevated white blood cell count, unspecified; E83.42 Hypomagnesemia; N40.1 Benign prostatic hyperplasia with lower urinary tract symptoms; R33.9 Retention of urine, unspecified; Z23 Encounter for immunization
CPT/HCPCS: 36415; 71010; 71020; 74022; 74176; 76700; 80048; 80053; 80202; 81000; 82040; 82150; 83605; 83690; 83735; 83880; 84100; 84484; 85007; 85025; 85027; 87040; 88304; 93005; 93306; 94640; 94664; 94760; 96374; 96375

== ENCOUNTER 2019-08-28 23:08 | Inpatient (IN) | payer MEDICARE ==
[~2019-08-28] VITALS: Ht 175.3 cm; Wt 104.6 kg
[~2019-08-28 23:08] MED LIST changes: +ACHD5005 PO; +ALFU10TA12 PO; +Finasteride PO; +LACT1CAP72 PO; +LEVO500T80 PO; +NEOM28.33 TOP; +PRED10TA22 PO
[2019-08-28] MEDS ORDERED: ALTEPLASE 100 MG/VIAL (ACTIVASE) ONE (23:20)
[2019-08-28] MEDS ORDERED: ALTEPLASE 100 MG/VIAL (ACTIVASE) IV ONE (23:25)
[2019-08-28] MEDS ORDERED: NS IV 1000 ML 1,000 ML IV SCH ×2 (23:25→23:55)
[2019-08-28] MEDS ORDERED: niCARdipine IV 50 MG in NS (IVPB) 240 ML IV SCH (23:30)
--- NOTE | 2019-08-28 23:33 | ED Neurological Problem ---
General Stated Complaint: STROKE LIKE SYMPTOMS Source: patient Exam Limitations: no limitations History of Present Illness Date Seen by Provider: August 28, 2019 Time Seen by Provider: 23:09 Initial Comments Patient arrives by POV from dinner with family and with a chief complaint that while at dinner he became unintelligible and unresponsive. No history of stroke. Not on blood thinners and not diabetic. Family says is been down all day since about breakfast time. He's been having a cough the past couple days and spent all day with his daughter, Ely. Ely relates she gave him a cough medicine that was prescribed to him. She does not know the name of it. He has not taken it and since then he's felt down. Some of the family felt that they saw some left-sided facial droop although Ely nor nursing staff saw that. Patient gives no meaningful history and is very somnolent upon arrival. Other than the cough the patient has not made any complaints of pain, nausea, fever, chills, diarrhea or constipation or other symptoms to family. They went out to dinner at [employer] [facility] and he was quiet but ate. As ever getting in the vehicle to leave the reached up in the front seat and said something unintelligible and that's when they decided to drive him to the emergency room. She is going to go home and get a copy of all of his medications and called him into us. Family says the patient is usually cognizant, conversational. He just got out of a longterm in [place] and came to live with his daughter 30 days ago. He is a full code. Allergies and Home Medications Allergies Coded Allergies: No Known Drug Allergies (Unverified , 05/01/16) Home Medications Albuterol Sulfate 1 Puff Puff, 2 PUFF IH TID 1 PUFF = 90 MCG Prescribed by: SHERRY CISNEROS on 05/29/16 0824 Alfuzosin HCl 10 Mg Tab.er.24h, 10 MG PO DAILY@1800 Prescribed by: MADONNA MONK on 07/05/16 0950 Amlodipine Besylate 5 Mg Tablet, 5 MG PO DAILY, (Reported) Aspirin 81 Mg Tab.chew, 81 MG PO DAILY, (Reported) Hydrocodone Bit/Acetaminophen 1 Each Tablet, 1 TAB PO Q4H PRN for MODERATE PAIN Prescribed by: MADONNA OMNK on 4/1/17 0950 Lactobacillus Combo No.10 1 Each Capsule, 1 EACH PO DAILY Prescribed by: MADONNA MONK on 07/05/16949 Levofloxacin 500 Mg Tablet, 500 MG PO DAILY Prescribed by: MADONNA MONK on 07/05/16949 Neomycin Vazquez/Bacitrac Zn/Poly 28.3 Gm Oint...g., 0 GM TOP BID apply to incision sites twice daily Prescribed by: MADONNA MONK on 07/05/16949 Prednisone 10 Mg Tab.ds.pk, 10 MG PO DAILY Take 6 tabs(60mg)daily,decrease by 1 tab(10MG)daily. Prescribed by: MADONNA MONK on 07/05/16949 Sertraline HCl 50 Mg Tablet, 50 MG PO DAILY, (Reported) [Finasteride] 5 MG TAB, 5 MG PO DAILY Prescribed by: MADONNA MONK on 07/05/16949 Patient Home Medication List Home Medication List Reviewed: Yes Review of Systems Review of Systems Constitutional: see HPI (patient does not contribute to history of present illness or review of systems. Family contributes); No chills, No fever; malaise Eyes: Denies Blindness, Denies Pain, Denies Photophobia Ears, Nose, Mouth, Throat: denies ear pain, denies mouth pain Respiratory: No hemoptysis, No phlegm, No short of breath, No wheezing Cardiovascular: No chest pain, No edema Gastrointestinal: No abdominal pain, No nausea, No vomiting Genitourinary: No discharge, No dysuria Musculoskeletal: No back pain, No joint pain Skin: No pruritus, No rash Psychiatric/Neurological: Denies Anxiety, Denies Depressed All Other Systems Reviewed Negative Unless Noted: Yes Past Rilrirf-Kdbkdc-Ectadn Hx Patient Social History Alcohol Use: Denies Use Recreational Drug Use: No Smoking Status: Never a Smoker Recent Hopitalizations: No Immunizations Up To Date Tetanus Booster (TDap): Unknown Seasonal Allergies Seasonal Allergies: No Past Medical History Surgeries: Yes Eye Surgery Respiratory: Yes Pneumonia Currently Using CPAP: No Currently Using BIPAP: No Cardiac: Yes Hypertension Neurological: No Reproductive Disorders: No Sexually Transmitted Disease: No HIV/AIDS: No Genitourinary: Yes (INCONTINENCE) Gastrointestinal: No Musculoskeletal: No (RIB FX) Back Injury Endocrine: No HEENT: Yes Loss of Vision: Denies Hearing Impairment: Hard of Hearing Cancer: No Psychosocial: Yes Depression Integumentary: No Blood Disorders: No Adverse Reaction/Blood Tranf: No Family Medical History FH: cancer 19 MOTHER No Pertinent Family Hx Physical Exam Vital Signs Capillary Refill : Height, Weight, BMI Height: 5'9.00" Weight: 230lbs. 8.0oz. [id number]; 32.5 BMI Method:Stated General Appearance: moderate distress, obese HEENT: PERRL/EOMI (3 mm reactive bilaterally), normal ENT inspection, TMs normal, pharynx normal Neck: full range of motion, normal inspection Respiratory: lungs clear, normal breath sounds, no respiratory distress, no accessory muscle use Cardiovascular: normal peripheral pulses, regular rate, rhythm, no edema Peripheral Pulses: 2+ Radial Pulses (R), 2+ Radial Pulses (L) Gastrointestinal: normal bowel sounds, non tender, soft Extremities: normal range of motion, non-tender, normal capillary refill Neurologic/Psychiatric: other (GCS 9) Crainal Nerves: abnormal speech (mute) Motor/Sensory: other (unable to cooperate with drift or sensory examination) Skin: normal color, warm/dry Stroke Onset of Symptoms Date of Onset of Symptoms: August 28, 2019 Time of Symptom Onset: 08:30 Onset of Symptoms: Yes Symptoms onset unknown: No NIH Stroke Scale Assessment Select: Initial Level of Consciousness: 2=By repeated stimulation (2), Level of Consciousness-Questions: 2=Answer neither question (2), LOC Commands: 2=Performs neither task (2), Gaze: Normal (0), Visual Avila: 0=No visual loss (0), Facial Movement (Facial Paresis): 1=Minor paralysis (1), Motor Function-Arms Right: 2=Some effort/gravity (2), Motor Function-Arms Left: 2=Some effort/gravity (2), Motor Function-Legs Right: 4=No movement (4), Motor Function-Legs Left: 4=No movement (4), Limb Ataxia: 2=Present in two limbs (2), Sensory: 2=Severe to total loss (2), Best Language: 3=Mute (3), Dysarthria: 2=Severe dysarthria (2), Extinction & Inattention: 0=No abnormality (0), Total: 28 Stroke Thrombolytic Exclusion Age 18 or Over: No Acute intenal hemorrhage: No History of CVA: No Uncontrolled Coagulation Defec: No Intracranial Hemorrhage: No Severe Hypertension: Yes GI or Bleed: No Subarachnoid Hemorrhage: No Intracranial Neoplasm/Aneurysm: No Surgery or Trauma: No Puncture of Non-Compressible V: No Recent CPR: No Diabetic Hemorrhagic Retinopat: No Organ Biopsy: No Recent Obstetric Delivery: No Glucose: No (120) Significant Hepatic Dysfunctio: No NIH Stoke Scale >22: Yes Bacterial Endocarditis: No Pericarditis: No Improving Symptoms: Yes Platelets: No TPA Contraindication: No IV - TPa Received IV - TPa Procedure Performed?: No (symptoms improving. The patient is now responding by shaking head yes or no to certain questions and more alert. Last known well time was this morning, greater than 12 hours ago.) NIH Stroke Scale NIH : Select: Initial Level of Consciousness: 2=By repeated stimulation Level of Consciousness-Questio: 2=Answer neither question LOC Commands: 2=Performs neither task Visual Avila: 0=No visual loss Facial Movement (Facial Paresi: 1=Minor paralysis Motor Function-Arms Right: 2=Some effort/gravity Motor Function-Arms Left: 2=Some effort/gravity Motor Function-Legs Right: 4=No movement Motor Function-Legs Left: 4=No movement Limb Ataxia: 2=Present in two limbs Sensory: 2=Severe to total loss Best Language: 3=Mute Dysarthria: 2=Severe dysarthria Extinction & Inattention: 0=No abnormality Progress/Results/Core Measures Results/Orders Lab Results Laboratory Tests Test 08/28/19 22:42 08/28/19 23:15 08/28/19 23:49 Range/Units White Blood Count 7.4 4.3-11.0 10^3/uL Red Blood Count 4.48 4.35-5.85 10^6/uL Hemoglobin 14.6 13.3-17.7 G/DL Hematocrit 44 40-54 % Mean Corpuscular Volume 98 80-99 FL Mean Corpuscular Hemoglobin 33 25-34 PG Mean Corpuscular Hemoglobin Concent 33 32-36 G/DL Red Cell Distribution Width 13.1 10.0-14.5 % Platelet Count 122 L 130-400 10^3/uL Mean Platelet Volume 11.2 H 7.4-10.4 FL Neutrophils (%) (Auto) 61 42-75 % Lymphocytes (%) (Auto) 25 12-44 % Monocytes (%) (Auto) 11 0-12 % Eosinophils (%) (Auto) 2 0-10 % Basophils (%) (Auto) 0 0-10 % Neutrophils # (Auto) 4.5 1.8-7.8 X 10^3 Lymphocytes # (Auto) 1.9 1.0-4.0 X 10^3 Monocytes # (Auto) 0.8 0.0-1.0 X 10^3 Eosinophils # (Auto) 0.2 0.0-0.3 10^3/uL Basophils # (Auto) 0.0 0.0-0.1 10^3/uL Prothrombin Time 13.1 12.2-14.7 SEC INR Comment 1.0 0.8-1.4 Activated Partial Thromboplast Time 28 24-35 SEC D-Dimer 0.48 0.00-0.49 UG/ML Sodium Level 141 135-145 MMOL/L Potassium Level 4.8 3.6-5.0 MMOL/L Chloride Level 105 98-107 MMOL/L Carbon Dioxide Level 24 21-32 MMOL/L Anion Gap 12 5-14 MMOL/L Blood Urea Nitrogen 22 H 7-18 MG/DL Creatinine 1.41 H 0.60-1.30 MG/DL Estimat Glomerular Filtration Rate 48 BUN/Creatinine Ratio 16 Glucose Level 105 70-105 MG/DL Calcium Level 9.1 8.5-10.1 MG/DL Corrected Calcium 9.0 8.5-10.1 MG/DL Total Bilirubin 0.6 0.1-1.0 MG/DL Aspartate Amino Transf (AST/SGOT) 17 5-34 U/L Alanine Aminotransferase (ALT/SGPT) 16 0-55 U/L Alkaline Phosphatase 55 40-136 U/L Troponin I < 0.028 <0.028 NG/ML Total Protein 7.7 6.4-8.2 GM/DL Albumin 4.1 3.2-4.5 GM/DL Salicylates Level < 5.0 L 5.0-20.0 MG/DL Acetaminophen Level < 10 L 10-30 UG/ML Serum Alcohol < 10 <10 MG/DL Glucometer 120 H 70-110 MG/DL Urine Color YELLOW Urine Clarity SL CLOUDY Urine pH 5.0 5-9 Urine Specific [place] 1.025 H 1.016-1.022 Urine Protein NEGATIVE NEGATIVE Urine Glucose (UA) NEGATIVE NEGATIVE Urine Ketones NEGATIVE NEGATIVE Urine Nitrite NEGATIVE NEGATIVE Urine Bilirubin NEGATIVE NEGATIVE Urine Urobilinogen 0.2 < = 1.0 MG/DL Urine Leukocyte Esterase NEGATIVE NEGATIVE Urine RBC (Auto) NEGATIVE NEGATIVE Urine RBC NONE /HPF Urine WBC RARE /HPF Urine Squamous Epithelial Cells NONE /HPF Urine Crystals NONE /LPF Urine Bacteria NEGATIVE /HPF Urine Casts PRESENT /LPF Urine Hyaline Casts RARE /LPF Urine Mucus SMALL H /LPF Urine Yeast FEW H /HPF Urine Culture Indicated NO Urine Opiates Screen NEGATIVE NEGATIVE Urine Oxycodone Screen NEGATIVE NEGATIVE Urine Methadone Screen NEGATIVE NEGATIVE Urine Propoxyphene Screen NEGATIVE NEGATIVE Urine Barbiturates Screen NEGATIVE NEGATIVE Ur Tricyclic Antidepressants Screen NEGATIVE NEGATIVE Urine Phencyclidine Screen NEGATIVE NEGATIVE Urine Amphetamines Screen NEGATIVE NEGATIVE Urine Methamphetamines Screen NEGATIVE NEGATIVE Urine Benzodiazepines Screen NEGATIVE NEGATIVE Urine Cocaine Screen NEGATIVE NEGATIVE Urine Cannabinoids Screen NEGATIVE NEGATIVE My Orders Orders - DARY GROVES Chest 1 View, Ap/Pa Only (08/28/19 ) Ct Head Wo-R/O Stroke (08/28/19 ) Cbc With Automated Diff (08/28/19 23:25) Protime With Inr (08/28/19 23:25) Partial Thromboplastin Time (08/28/19 23:25) Comprehensive Metabolic Panel (08/28/19 23:25) Fibrin Degradation Products (08/28/19 23:25) Troponin I (08/28/19 23:25) Ua Culture If Indicated (08/28/19 23:25) Catheter(Urinary) Insert & Ass 03,15 (08/28/19 23:25) Ekg Tracing (08/28/19 23:25) Nothing By Mouth (08/29/19 Breakfast) Accucheck Stat ONCE (08/28/19 23:25) Ed Iv/Invasive Line Start (08/28/19 23:25) Ed Iv/Invasive Line Start (08/28/19 23:25) Vital Signs Stroke Patient Q15M (08/28/19 23:25) O2 (08/28/19 23:25) Intake & Output 06,14,22 (08/28/19 23:25) Nicardipine Iv (Cardene I.V.) (08/28/19 23:30) Monitor-Rhythm Ecg Trace Only (08/28/19 23:25) Dysphagia Screening Tool (08/28/19 23:25) Alteplase (Activase) (Activase Injection (08/28/19 23:25) Ns Iv 1000 Ml (Sodium Chloride 0.9%) (08/28/19 23:25) Post Thrombolytic Adminstratio (08/28/19 23:25) Lipid Panel (08/29/19 06:00) Post Thrombolytic Adminstratio (08/28/19 23:25) Alteplase (Activase) (Activase Injection (08/28/19 23:20) Ed Iv/Invasive Line Start (08/28/19 23:55) Ns Iv 1000 Ml (Sodium Chloride 0.9%) (08/28/19 23:55) Drug Screen Stat (Urine) (08/29/19 00:18) Salicylate (08/29/19 00:18) Acetaminophen (08/29/19 00:18) Alcohol (08/29/19 00:18) Ct Angio Head/Neck (08/29/19 00:01) Iohexol Injection (Omnipaque 350 Mg/Ml 1 (08/29/19 01:30) Received Contrast (Hold Metformin- Contr (08/29/19 01:30) Ns (Ivpb) (Sodium Chloride 0.9% Ivpb Bag (08/29/19 01:30) Medications Given in ED Current Medications Medications Dose Ordered Sig/Norbert Route Start Time Stop Time Status Last Admin Dose Admin Iohexol 100 ml ONCE ONCE IV 08/29/19 01:30 08/29/19 01:31 DC 08/29/19 01:23 75 ML Sodium Chloride 100 ml ONCE ONCE IV 08/29/19 01:30 08/29/19 01:31 DC 08/29/19 01:23 80 ML Progress Progress Note #1: Time: 23:54 Progress Note After further discussing with family it seems a last known well time was actually sometime this morning before taking a cough medicine. This could be metabolic versus infectious given he has a history of a cough. Wear outside the window as well as his symptoms seem to be improving. Second blood pressure is 148 systolic and now 163 systolic. This seems less consistent with stroke. Plan to get a CT angiogram of the head and neck. Progress Note #2: Time: 02:23 Progress Note Patient's symptoms did begin to improve within the first hour of being here. He was not a gastric no in response to questions. Halting yes or no answers. H ypertensive encephalopathy versus the cyclobenzaprine versus CVA Vs other metabolic? Patient does know his name and moves his upper two extremities independently. He follows commands. GCS 14. Initial ECG Impression Date: August 28, 2019 Initial ECG Impression Time: 23:11 Initial ECG Rate: 68 Initial ECG Rhythm: Normal Sinus Initial ECG Intervals: Normal Initial ECG Impression: Normal Comment Normal sinus rhythm without ST elevation or depression. Diagnostic Imaging Diagonstic Imaging: Xray Plain Films/CT/US/NM/MRI: chest (1v) Comments No acute cardiopulmonary processes noted on one view chest x-ray. Reviewed: Reviewed by Me Diagonstic Imaging: CT (c IV Contrast) Comments No acute intracranial hemorrhage, mass effect, midline shift or tumor. Reviewed: Reviewed [place] Hawk Study, Reviewed by Me Diagonstic Imaging: CT (angiogram) Plain Films/CT/US/NM/MRI: head, other (neck) Comments Heavily calcified atherosclerotic plaque is seen within the proximal to midportion of the right internal carotid artery. Heavily calcified atherosclerotic plaque is seen in the proximal to midportion of the right Some stenosis suspected of the A2 segment of the right anterior cerebral artery. Some stenosis suspected of the M1 segment of the left middle cerebral artery. The distal aspects of the vertebral arteries are very small in caliber. It is unclear if this is related to a congenital anomaly versus diffuse atherosclerotic disease. The basilar artery is very small in caliber. It is unclear if this is related to a congenital anomaly versus atherosclerotic disease. The right posterior communicating artery is very small caliber is unclear if this is related to congenital anomaly versus atherosclerotic disease. Diffuse irregularity of the right posterior cerebral artery which is likely related to atherosclerotic disease. Mild irregularity of the left posterior cerebral artery which is likely related to atherosclerotic disease. Heavily calcified atherosclerotic plaque is seen in the proximal to midportion of the right internal carotid artery. Evaluation of the amount of stenosis cannot be adequately performed due to the artifact from the dense calcifications. The proximal aspect of the right external carotid artery is likely occluded. There is some opacification of the more distal external carotid artery and external carotid artery branches likely from collateral flow. Heavily calcified atherosclerotic plaque in the proximal to mid aspect of the left internal carotid artery. Evaluation for stenosis is limited due to the artifact from the dense calcifications. No definite significant stenosis is appreciated. The distal aspect of the left vertebral artery is very small in caliber it is unclear if this is related to congenital anomaly or atherosclerotic disease. The distal aspect the right vertebral artery is small in caliber. It's unclear his related to congenital anomaly or atherosclerotic disease. Reviewed: Reviewed Night Hawk Study, Reviewed by Me Consults : Consults Notes Dr Hodge; stroke neurologist on-call says it rarely could be an aphasic stroke although that usually is accompanied with right side facial droop or symptoms. If we do not find any contraindications from family and the timeline fits then he would be okay with discussing the risks, benefits and alternatives with family on using TPA. If family is okay with that then it would be okay to try TPA. 0245: Discussed the results with the stroke neurologist on-call and he says there is no definite occlusion and any arteries that would relate to the clinical presentation. He agrees with the evaluation of this the patient is having improving symptoms we should do an MRI in the morning put him on antiplatelets and look for other sources in addition to a stroke. He says at this point there is no role for interventional radiology. He does recommend maximizing risk management using medications. Departure Communication (Admissions) Time/Spoke to Admitting Phy: 02:55 Dr. Antoine: Discussed case lab imaging findings and she agrees to place the patient and the ICU with neuro checks and MRI in the morning. Impression Primary Impression: Encephalopathy acute Disposition: ADMITTED INPATIENT Condition: Stable Admissions Decision to Admit Reason: Admit from ER (General) Decision to Admit/Date: August 29, 2019 Time/Decision to Admit Time: 00:00 Departure-Patient Inst. Referrals: MARCELLA ANAND DO (PCP/Family) Primary Care Physician NIH Stroke Scale NIH Stroke Scale NIH : Select: Post CT Level of Consciousness: 0=Alert Level of Consciousness-Questio: 1=Answers one question LOC Commands: 0=Performs both tasks Gaze: 0=Normal Visual Avila: 0=No visual loss Facial Movement (Facial Paresi: 0=Normal symmetrical mnt Motor Function-Arms Right: 0=No drift Motor Function-Arms Left: 0=No drift Motor Function-Legs Right: 0=No drift Motor Function-Legs Left: 0=No drift Limb Ataxia: 0=Absent Sensory: 0=Normal:no loss Best Language: 2=Severe aphasia Dysarthria: 1=Mild to moderate loss Extinction & Inattention: 0=No abnormality NIH Stroke Scale Score: 4 DARY GROVES August 28, 2019 23:33
[2019-08-28 23:51] LABS: BASOPHILS % (AUTO) 0 % (0-10); EOSINOPHILS # (AUTO) 0.2 10^3/uL (0.0-0.3); EOSINOPHILS % (AUTO) 2 % (0-10); HEMATOCRIT 44 % (40-54); HEMOGLOBIN 14.6 G/DL (13.3-17.7); LYMPHOCYTES # (AUTO) 1.9 X 10^3 (1.0-4.0); LYMPHOCYTES % (AUTO) 25 % (12-44); MEAN CORPUSCULAR HEMOGLOBIN 33 PG (25-34); MEAN CORPUSCULAR HGB CONC 33 G/DL (32-36); MEAN CORPUSCULAR VOLUME 98 FL (80-99); MEAN PLATELET VOLUME 11.2 FL (7.4-10.4); MONOCYTES # (AUTO) 0.8 X 10^3 (0.0-1.0); MONOCYTES % (AUTO) 11 % (0-12); NEUTROPHILS # (AUTO) 4.5 X 10^3 (1.8-7.8); NEUTROPHILS % (AUTO) 61 % (42-75); PLATELET COUNT 122 10^3/uL (130-400); RED CELL DISTRIBUTION WIDTH 13.1 % (10.0-14.5); WHITE BLOOD COUNT 7.4 10^3/uL (4.3-11.0)
[2019-08-28 23:59] LABS: BILIRUBIN,URINE NEGATIVE (NEGATIVE); CLARITY,URINE SL CLOUDY; COLOR,URINE YELLOW; GLUCOSE, URINE (UA) NEGATIVE (NEGATIVE); KETONES,URINE NEGATIVE (NEGATIVE); LEUKOCYTE ESTERASE ,URINE NEGATIVE (NEGATIVE); NITRITE,URINE NEGATIVE (NEGATIVE); PROTEIN,URINE NEGATIVE (NEGATIVE)
[2019-08-29] VITALS (26 sets, daily range): BP systolic 100–176; BP diastolic 58–101
[2019-08-29 00:01] LABS: ALBUMIN 4.1 GM/DL (3.2-4.5); CHLORIDE 105 MMOL/L (98-107)
[2019-08-29 00:02] LABS: POTASSIUM 4.8 MMOL/L (3.6-5.0); SODIUM 141 MMOL/L (135-145)
[2019-08-29 00:03] LABS: CALCIUM 9.1 MG/DL (8.5-10.1)
[2019-08-29 00:04] LABS: FIBRIN DEGRADATION PRODUCTS 0.48 UG/ML (0.00-0.49); GLUCOSE 105 MG/DL (70-105); PROTHROMBIN TIME PATIENT 13.1 SEC (12.2-14.7); TOTAL PROTEIN 7.7 GM/DL (6.4-8.2)
[2019-08-29 00:05] LABS: CARBON DIOXIDE 24 MMOL/L (21-32)
[2019-08-29 00:06] LABS: BILIRUBIN,TOTAL 0.6 MG/DL (0.1-1.0)
[2019-08-29 00:07] LABS: ALKALINE PHOSPHATASE 55 U/L (40-136)
[2019-08-29 00:08] LABS: CREATININE SERUM 1.41 MG/DL (0.60-1.30); GFR ESTIMATED 48
[2019-08-29 00:09] LABS: BUN/CREATININE RATIO 16
[2019-08-29 00:09] LABS: BACTERIA,URINE NEGATIVE /HPF; HYALINE CASTS, URINE RARE /LPF; WBC,URINE RARE /HPF; YEAST,URINE FEW /HPF
[2019-08-29 00:10] LABS: ALANINE AMINOTRANSFERASE 16 U/L (0-55)
[2019-08-29 00:35] LABS: SALICYLATE < 5.0 MG/DL (5.0-20.0)
[2019-08-29 00:36] LABS: AMPHETAMINE SCREEN, URINE NEGATIVE (NEGATIVE); BARBITURATE SCREEN URINE NEGATIVE (NEGATIVE); BENZODIAZEPINES SCREEN URINE NEGATIVE (NEGATIVE); CANNABINOID SCREEN, URINE NEGATIVE (NEGATIVE); COCAINE SCREEN URINE NEGATIVE (NEGATIVE); METHADONE STAT NEGATIVE (NEGATIVE); METHAMPHETAMINE SCREEN URINE S NEGATIVE (NEGATIVE); OPIATE SCREEN URINE NEGATIVE (NEGATIVE); OXYCODONE STAT NEGATIVE (NEGATIVE); PROPOXYPHENE STAT NEGATIVE (NEGATIVE); TRICYCLIC ANTIDEPRESSANTS SCRE NEGATIVE (NEGATIVE)
[2019-08-29 00:36] LABS: ACETAMINOPHEN < 10 UG/ML (10-30)
[2019-08-29] MEDS ORDERED: NS 100 ML (IVPB) BAG IV ONE (01:30)
[2019-08-29] MEDS ORDERED: HOLD METFORMIN - RECEIVED CONTRAST 20 ML VIAL IV SCH (01:30)
[2019-08-29] MEDS ORDERED: IOHEXOL 350 MG/ML 100 ML (OMNIPAQUE 350) VIAL IV ONE (01:30)
--- OUTSIDE RECORDS SUMMARY | 2019-08-29 03:10 | XMS REPORT ---
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 [employer] Address [address] [address] Care Team Providers Care Pharmacy Technician Infusion Name Role Phone GELDALE MARCELLA A Unavailable GELLENDER DO, MARCELLA A Unavailable Unavailable GELLENDER DO, MARCELLA A Unavailable Unavailable DARRIUS DO, ELMER K Unavailable Unavailable MCARTHUR DO, YVONNE L Unavailable Unavailable PCP, NONE Unavailable Unavailable GERMAIN AYALA, DARY [place] Unavailable Unavailable Unavailable Unavailable Unavailable Unavailable Unavailable Unavailable Unavailable Unavailable Allergies Normalized Allergy Reported Date of Reaction(s) Care Provider Facility Allergy Type classification allergen Allergy Onset DA (20 Unclassified No Known Drug 05-01-2016 - no information MARCELLA Not Available sources.) Allergies GELLENDER , DO (46405) Medications No Information Problems Active Problems Problem Normalized Date Last Normalized Normalized Provider Fa cility Classification Problem(s) Recorded Problem Problem Sta tus Duration 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 GELLENDER , DO (53609) source.) hyperplasia with lower urinary tract symptoms Chronic kidney Chronic kidney Chronic Active MARCELLA No t Available disease (1 disease, GELLENDER , DO (76937) source.) unspecified Chronic Chronic Chronic Active MARCELLA Not Available obstructive obstructive GELLENDER , DO (28064) pulmonary pulmonary disease and disease with bronchiectasis acute lower (1 source.) respiratory infection Diseases of Elevated white Chronic Active MARCELLA Not A vailable white blood blood cell GELLENDER , DO (44763) cells (1 count, source.) unspecified Essential Essential Chronic Active MARCELLA Not Availabl e hypertension (primary) GELLENDER , DO (30307) (18 sources.) hypertension Hypertension Hypertensive Chronic Active MARCELLA Not Av ailable with chronic kidney GELLENDER , DO (32584) complications disease with and secondary stage 1 hypertension through stage (1 source.) 4 chronic kidney disease, or unspecified chronic kidney disease Other Hypomagnesemia Chronic Active MARCELLA Not Macey ilable nutritional; GELLENDER , DO (62340) endocrine; and metabolic disorders (1 source.) Headache; Migraine, no information Active YVONNE MCARTHUR , Not Available including unspecified, DO (67850) migraine (4 not sources.) intractable, without status migrainosus Translations: [ HEADACHE] 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 , 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 (1 carotid source.) arteries Other ear and Unspecified Chronic Active MARCELLA Not Av ailable sense organ hearing loss, GELLENDER , DO (54957) disorders (14 unspecified sources.) ear Past or Other Problems Problem Normalized Date Last Normalized Normalized Provider Fa cility Classification Problem(s) Recorded Problem Problem Sta tus Duration Residual Altered mental Episodic Completed MARCELLA Not Macey ilable codes; status, GELLENDARION , DO (57663) unclassified unspecified (1 source.) Other Anorexia Episodic Completed MARCELLA Not Available nutritional; GELLENDER , DO (23180) endocrine; and metabolic disorders (4 sources.) Pleurisy; Atelectasis Episodic Completed MARCELLA Not Availa ble pneumothorax; Translations: GELDALE , DO (01440) pulmonary [ PLEURAL collapse (1 EFFUSION, NOT source.) ELSEWHERE CLASSIFI] Other lower Cough Episodic Completed MARCELLA Not Availab le respiratory CHENG DO (12878) disease (1 source.) Other diseases Disorder of Episodic Completed MARCELLA Not A vailable of kidney and kidney and GELLENDER , DO (04493) ureters (4 ureter, sources.) unspecified Residual Disorientation Episodic Completed MARCELLA Not Macey ilable codes; , unspecified GELLENDER , DO (23184) unclassified (4 sources.) Immunizations Encounter for Episodic Completed MARCELLA Not Available and screening immunization CHENG , DO (71183) for infectious disease (1 source.) Other injuries History of Episodic Completed AMRCELLA Not Av ailable and conditions falling GELLENDER , DO (19422) due to external causes (4 sources.) Other intermediate Episodic Completed YVONNE MCARTHUR , Not Avai lable aftercare (2 (current) use DO (60238) sources.) of aspirin Mood disorders Major no information no information MARCELLA Not Available (18 sources.) depressive CHENG , DO (73166) disorder, single episode, unspecified Other Other long Episodic Completed YVONNE MCARTHUR , Not Macey ilable aftercare (2 term (current) DO (36068) sources.) drug therapy Other Other Episodic Completed MARCELLA Not Available screening for specified CHENG DO (85352) suspected abnormal conditions findings of (not mental blood disorders or chemistry infectious disease) (3 sources.) Pancreatic Other no information no information MARCELLA No t Available disorders (not specified CHENG DO (65508) diabetes) (14 diseases of sources.) pancreas Translations: [ BILIARY ACUTE PANCREATITIS WITHOUT NECRO] Genitourinary Retention of Episodic Completed MARCELLA Not A vailable symptoms and urine, CHENG , DO (42173) ill-defined unspecified conditions (1 source.) Syncope (4 Syncope and Episodic Completed MARCELLA Not Avail able sources.) collapse CHENG DO (88737) Urinary tract Urinary tract Episodic Completed MARCELLA Not Available infections (3 infection, CHENG DO (28926) sources.) site not specified Procedures Procedure Normalized Procedure Procedure Result Performer Facility Date INSPECTION OF BLADDER, no information no name Not Macey ilable (43288) ENDO RESECTION OF no information no name Not Available ( 26300) GALLBLADDER, PERCUTANEOUS E ROBOTIC ASSISTED no information no name Not Available (64404) PROCEDURE OF TRUNK, PER Immunizations The data below is from unstructured sourcesNo immunization records. Results Test Name Value Interpretation Reference Range Date Time Fa cility (Normalized) (Normalized) (Medline Reference) laboratory on 2019-08-28 Acetaminophen ug/mL (L) 08-28-2019 PENDING LOCA TION [Mass/Vol] 18:42-0400 [facility] ([id number]) Albumin 4.1 g/dL (NEG) 3.4 - 5.4 g/dL 08-28-2019 PENDING LOCATION [Mass/Vol] 18:42-0400 [facility] ([id number]) ALP [Catalytic 55 U/L (NEG) 44 - 147 U/L 08-28-2019 PEND ING LOCATION activity/Vol] 18:42-0400 [facility] ([id number]) ALT [Catalytic 16 U/L (NEG) 4 - 40 U/L 08-28-2019 PENDIN G LOCATION activity/Vol] 18:42-0400 [facility] ([id number]) Amphetamines Negative (no code) 08-28-2019 PENDING LOCAT ION Screen Ql (U) 19:49-0400 [facility] (43732) Anion gap 12 mmol/L (NEG) 3 - 11 mmol/L 08-28-2019 PENDING LOCATION [Moles/Vol] 18:42-0400 [facility] (40860) aPTT Coag (PPP) 28 s (NEG) 25 - 35 s 08-28-2019 PENDIN G LOCATION [Time] 18:42-0400 [facility] ([id number]) AST [Catalytic 17 U/L (NEG) 10 - 34 U/L 08-28-2019 PENDI NG LOCATION activity/Vol] 18:42-0400 [facility] (88842) Bacteria LM Ql Negative (no code) 08-28-2019 PENDING LOC ATION (Urine sed) 19:49-0400 [facility] (10109) Barbiturates Ql Negative (no code) 08-28-2019 PENDING LO CATION (U) 19:49-0400 [facility] (83781) Basophils (Bld) 0.0 10*3/uL (NEG) 0 - 0.3 10*3/uL 08-28-2019 PENDING LOCATION [#/Vol] 18:42-0400 [facility] (72220) Basophils/100 0 % (NEG) 0.5 - 1 % 08-28-2019 PENDING LOCATION WBC (Bld) 18:42-0400 [facility] (72210) Benzodiazepines Negative (no code) 08-28-2019 PENDING LO CATION Ql (U) 19:49-0400 [facility] ([id number]) Bilirubin 0.6 mg/dL (NEG) 0.1 - 1.2 mg/dL 08-28-2019 PENDIN G LOCATION [Mass/Vol] 18:42-0400 [facility] ([id number]) Bilirubin Ql (U) Negative (no code) 08-28-2019 PENDING L OCATION 19:49-0400 [facility] ([id number]) Calcium 9.1 mg/dL (NEG) 8.5 - 10.2 mg/dL 08-28-2019 PENDI NG LOCATION [Mass/Vol] 18:42-0400 [facility] ([id number]) Calcium 9.0 mg/dL (NEG) 8.5 - 10.2 mg/dL 08-28-2019 PENDI NG LOCATION [Mass/Vol] 18:42-0400 [facility] ([id number]) Cannabinoids Negative (no code) 08-28-2019 PENDING LOCAT ION Screen Ql (U) 19:49-0400 [facility] ([id number]) Casts LM Ql PRESENT (no code) 08-28-2019 PENDING LOCATI ON (Urine sed) 19:49-0400 [facility] (82521) Chloride 105 mmol/L (NEG) 95 - 106 mmol/L 08-28-2019 PENDI NG LOCATION [Moles/Vol] 18:42-0400 [facility] (65852) Clarity (U) SL CLOUDY (no code) 08-28-2019 PENDING LOCATI ON 19:49-0400 [facility] ([id number]) CO2 [Moles/Vol] 24 mmol/L (NEG) 23 - 29 mmol/L 2020 P ENDING LOCATION 18:42-0400 [facility] ([id number]) Cocaine Ql (U) Negative (no code) 08-28-2019 PENDING LOC ATION 19:49-0400 [facility] (84892) Color (U) YELLOW (no code) 08-28-2019 PENDING LOCATI ON 19:49-0400 [facility] ([id number]) Creatinine 1.41 mg/dL (H) 08-28-2019 PENDING LOCATI ON [Mass/Vol] 18:42-0400 [facility] (85258) Creatinine and 48 (no code) 08-28-2019 PENDING LOC ATION Glomerular 18:42-0400 [facility] ([id number]) filtration rate.predicted panel - Serum, Plasma or Blood Crystals LM Ql NONE (no code) 08-28-2019 PENDING LOC ATION (Urine sed) 19:49-0400 [facility] ([id number]) Eosinophils 0.2 10*3/uL (NEG) 0.05 - 0.5 08-28-2019 PENDING LOCATION (Bld) [#/Vol] 10*3/uL 18:42-0400 [facility] ([id number]) Eosinophils/100 2 % (NEG) 1 - 4 % 08-28-2019 PENDIN G LOCATION WBC (Bld) 18:42-0400 [facility] (77953) Epithelial NONE (no code) 08-28-2019 PENDING LOCATI ON cells.squamous 19:49-0400 [facility] (76002) LM Ql (Urine sed) Erythrocyte 13.1 % (NEG) 11.6 - 14.6 % 08-28-2019 PENDIN G LOCATION distribution 18:42-0400 [facility] (39562) width (RBC) [Ratio] Ethanol mg/dL (NEG) 0 - 80 mg/dL 08-28-2019 PENDING L OCATION [Mass/Vol] 18:42-0400 [facility] (10944) Fibrin D-dimer 0.48 (NEG) 08-28-2019 PENDING LOC ATION FEU (PPP) 18:42-0400 [facility] (31917) [Mass/Vol] Glucose 105 mg/dL (NEG) 60 - 125 mg/dL 08-28-2019 PENDING LOCATION [Mass/Vol] 18:42-0400 [facility] (83633) Glucose 120 mg/dL (H) 60 - 125 mg/dL 08-28-2019 PENDING LOCATION [Mass/Vol] 19:15-0400 [facility] (69951) Glucose Auto Negative (no code) 08-28-2019 PENDING LOCAT ION test strip Ql 19:49-0400 [facility] (90047) (U) Hematocrit (Bld) 44 % (NEG) 36.1 - 50.3 % 08-28-2019 P ENDING LOCATION [Volume 18:42-0400 [facility] (99608) fraction] Hemoglobin (Bld) 14.6 g/dL (NEG) 12.1 - 17.2 g/dL 08-28-2019 PENDING LOCATION [Mass/Vol] 18:42-0400 [facility] (85642) Hyaline casts LM RARE (no code) 08-28-2019 PENDING L OCATION Ql (Urine sed) 19:49-0400 [facility] ([id number]) INR Coag 1.0 (NEG) 08-28-2019 PENDING LOCATI ON (Platelet poor 18:42-0400 [facility] (48879) plasma or blood) [Relative time] Ketones Auto Negative (no code) 08-28-2019 PENDING LOCAT ION test strip Ql 19:49-0400 [facility] (06621) (U) Leukocyte Negative (no code) 08-28-2019 PENDING LOCATI ON esterase Test 19:49-0400 [facility] (47149) strip Ql (U) Lymphocytes 1.9 10*3/uL (NEG) 0.9 - 2.9 08-28-2019 PENDING LOCATION (Bld) [#/Vol] 10*3/uL 18:42-0400 [facility] (17306) Lymphocytes/100 25 % (NEG) 20 - 40 % 08-28-2019 PENDIN G LOCATION WBC (Bld) 18:42-0400 [facility] (00150) MCH (RBC) 33 pg (NEG) 27 - 31 pg 08-28-2019 PENDING LOC ATION [Entitic mass] 18:42-0400 [facility] ([id number]) MCHC (RBC) 33 g/dL (NEG) 32 - 36 g/dL 08-28-2019 PENDING LOCATION [Mass/Vol] 18:42-0400 [facility] ([id number]) MCV (RBC) 98 (NEG) 08-28-2019 PENDING LOCATI ON [Entitic vol] 18:42-0400 [facility] (31893) Methadone Screen Negative (no code) 08-28-2019 PENDING L OCATION Ql (U) 19:49-0400 [facility] (03873) Methamphetamine Negative (no code) 08-28-2019 PENDING LO CATION (U) [Mass/Vol] 19:49-0400 [facility] ([id number]) Monocytes (Bld) 0.8 10*3/uL (NEG) 0.3 - 0.9 08-28-2019 PEND ING LOCATION [#/Vol] 10*3/uL 18:42-0400 [facility] (19758) Monocytes/100 11 % (NEG) 2 - 8 % 08-28-2019 PENDING LOCATION WBC (Bld) 18:42-0400 [facility] ([id number]) Mucus Ql (Urine SMALL (A) 08-28-2019 PENDING LO CATION sed) 19:49-0400 [facility] (10501) Neutrophils 4.5 10*3/uL (NEG) 1.7 - 7 10*3/uL 08-28-2019 PE NDING LOCATION (Bld) [#/Vol] 18:42-0400 [facility] (67752) Neutrophils/100 61 % (NEG) 40 - 60 % 08-28-2019 PENDIN G LOCATION WBC (Bld) 18:42-0400 [facility] (18013) Nitrite Ql (U) Negative (no code) 08-28-2019 PENDING LOC ATION 19:49-0400 [facility] (15529) Opiates Screen Negative (no code) 08-28-2019 PENDING LOC ATION Ql (U) 19:49-0400 [facility] ([id number]) Oxycodone Ql (U) Negative (no code) 08-28-2019 PENDING L OCATION 19:49-0400 [facility] (15414) pH (U) 5.0 [pH] (no code) 4.6 - 8 [pH] 08-28-2019 PENDING L OCATION 19:49-0400 [facility] (96027) Phencyclidine Ql Negative (no code) 08-28-2019 PENDING L OCATION (U) 19:49-0400 [facility] (52761) Platelet mean 11.2 (H) 08-28-2019 PENDING LOCA TION volume (Bld) 18:42-0400 [facility] ([id number]) [Entitic vol] Platelets (Bld) 122 10*3/uL (L) 150 - 450 08-28-2019 PEND ING LOCATION [#/Vol] 10*3/uL 18:42-0400 [facility] ([id number]) Potassium 4.8 mmol/L (NEG) 3.7 - 5.2 mmol/L 08-28-2019 PEND ING LOCATION [Moles/Vol] 18:42-0400 [facility] (85503) Propoxyphene Ql Negative (no code) 08-28-2019 PENDING LO CATION (U) 19:49-0400 [facility] (38109) Protein 7.7 g/dL (NEG) 6.4 - 8.3 g/dL 08-28-2019 PENDING LOCATION [Mass/Vol] 18:42-0400 [facility] ([id number]) Protein Ql (U) Negative (no code) 08-28-2019 PENDING LOC ATION 19:49-0400 [facility] (52587) PT Coag (PPP) 13.1 s (NEG) 9.4 - 12.5 s 08-28-2019 PENDI NG LOCATION [Time] 18:42-0400 [facility] (32562) RBC (Bld) 4.48 10*6/uL (NEG) 4.2 - 6.1 08-28-2019 PENDING L OCATION [#/Vol] 10*6/uL 18:42-0400 [facility] (21580) RBC LM.HPF NONE (no code) 08-28-2019 PENDING LOCATI ON (Urine sed) 19:49-0400 [facility] (66939) [#/Area] RBC Ql (U) Negative (no code) 08-28-2019 PENDING LOCATI ON 19:49-0400 [facility] ([id number]) Salicylates mg/dL (L) 0 - 30 mg/dL 08-28-2019 PENDING LOCATION [Mass/Vol] 18:42-0400 [facility] (18192) Sodium 141 mmol/L (NEG) 135 - 145 mmol/L 08-28-2019 PEND ING LOCATION [Moles/Vol] 18:42-0400 [facility] (67179) Specific gravity 1.025 (A) 08-28-2019 PENDING L OCATION (U) [Rel 19:49-0400 [facility] (50978) density] Tricyclic Negative (no code) 08-28-2019 PENDING LOCATI ON antidepressants 19:49-0400 [facility] (89797) Screen Ql (U) Troponin ng/mL (NEG) 0 - 0.4 ng/mL 08-28-2019 PENDING LOCATION I.cardiac 18:42-0400 [facility] (89143) [Mass/Vol] Urea nitrogen 22 mg/dL (H) 7 - 20 mg/dL 08-28-2019 PENDI NG LOCATION [Mass/Vol] 18:42-0400 [facility] (74401) Urea 16 mg/mg (no code) 6 - 22 mg/mg 08-28-2019 PENDING L OCATION nitrogen/Creatin 18:42-0400 [facility] (10488) ine [Mass ratio] Urinalysis NO (no code) 08-28-2019 PENDING LOCATI ON complete W 19:49-0400 [facility] ([id number]) Reflex Culture panel - Urine Urobilinogen (U) 0.2 mg/dL (no code) 08-28-2019 PENDING L OCATION [Mass/Vol] 19:49-0400 [facility] ([id number]) WBC (Bld) 7.4 10*3/uL (NEG) 3.5 - 10.5 08-28-2019 PENDING L OCATION [#/Vol] 10*3/uL 18:42-0400 [facility] (50143) WBC LM.HPF RARE (no code) 08-28-2019 PENDING LOCATI ON (Urine sed) 19:49-0400 [facility] ([id number]) [#/Area] Yeast LM Ql FEW (A) 08-28-2019 PENDING LOCATI ON (Urine sed) 19:49-0400 [facility] ([id number]) Vital Signs The data below is from unstructured sources Vital Response Date/Time Temperature (Fahrenheit) 98.4 degree s F (97.6 - 99.5) 05/01/2016 11:33pm Temperature (Calculated Celsius) 36. 75358 degrees C (36.4 - 37.5) 05/01/2016 11:33pm [...] Pain 05/01/2016 11:33pm Height (Feet) 5 feet 11:33pm Height (Inches) 10 inches 05/01/2016 11:33pm Height (Calculated Centimeters) 177. 964784 cm 05/01/2016 11:33pm Weight (Pounds) 225 pounds 05/01/2016 11:33pm Weight (Calculated Kilograms) 102.05 8284 kilograms 05/01/2016 11:33pm Capillary Refill Capillary Refill Less Than 3 Seconds 05/01/2016 11:33pm Height 5 ft 10 in Weight 225 lb Body Mass Index 32.3 kg/m^2 Vital Response Date/Time Temperature (Fahrenheit) 96.2 degree s F (97.6 - 99.5) 07/05/2016 4:00pm Temperature (Calculated Celsius) 35. 69999 degrees C (36.4 - 37.5) 07/05/2016 4:00pm Temperature Source Tympanic 07/05/2016 4:00pm Pulse Rate (adult) 85 bpm (60 - 90) 07/05/2016 4:00pm Respiratory Rate 20 bpm (12 - 24) 07/05/2016 4:00pm O2 Sat by Pulse Oximetry 94 % (88 - 100) 07/05/2016 4:00pm Blood Pressure 147/76 mm Hg 07/05/2016 4:00pm Blood Pressure Mean 99 mm Hg 07/05/2016 4:00pm Pain Numeric Pain Scale 0-No Pain 07/05/2016 6:15pm Height (Feet) 5 feet 9:00pm Height (Inches) 9.00 inches 06/25/2016 9:00pm Height (Calculated Centimeters) 175. 623365 cm 06/25/2016 9:00pm Weight (Pounds) 230 pounds 07/05/2016 6:00am Weight (Ounces) 8.0 oz 0 07/04/2016 6:23am Weight (Calculated Grams) 880979.246 gm 07/05/2016 6:00am Weight (Calculated Kilograms) 104.32 6246 kilograms 07/05/2016 6:00am Calculated BMI 32.5 06/05 9:00pm Capillary Refill Capillary Refill Less Than 3 Seconds 07/03/2016 7:35pm Vital Response Date/Time Temperature (Fahrenheit) 96.2 degree s F (97.6 - 99.5) 07/05/2016 4:00pm Temperature (Calculated Celsius) 35. 37009 degrees C (36.4 - 37.5) 07/05/2016 4:00pm Temperature Source Tympanic 07/05/2016 4:00pm Pulse Rate (adult) 85 bpm (60 - 90) 07/05/2016 4:00pm Respiratory Rate 20 bpm (12 - 24) 07/05/2016 4:00pm O2 Sat by Pulse Oximetry 94 % (88 - 100) 07/05/2016 4:00pm Blood Pressure 147/76 mm Hg 07/05/2016 4:00pm Blood Pressure Mean 99 mm Hg 07/05/2016 4:00pm Pain Numeric Pain Scale 0-No Pain 07/05/2016 6:15pm Height (Feet) 5 feet 9:00pm Height (Inches) 9.00 inches 06/25/2016 9:00pm Height (Calculated Centimeters) 175. 222543 cm 06/25/2016 9:00pm Weight (Pounds) 230 pounds 07/05/2016 6:00am Weight (Ounces) 8.0 oz 0 07/04/2016 6:23am Weight (Calculated Grams) 858078.246 gm 07/05/2016 6:00am Weight (Calculated Kilograms) 104.32 6246 kilograms 07/05/2016 6:00am Calculated BMI 32.5 06/05 9:00pm Capillary Refill Capillary Refill Less Than 3 Seconds 07/03/2016 7:35pm Interventions No Information Plan of Treatment The data below is from unstructured sources Discharge Date 05/02/16 12:42am Disposition 01 HOME, SELF-CARE Condition at Discharge Stable/Unchan ged Instructions/Education Provided Head ache, Adult (DC) Prescriptions See Medication Section Referrals MARCELLA ANA[facility] Physician Discharge Date 07/05/16 6:15pm Disposition 01 HOME, SELF-CARE Instructions/Education Provided Chol ecystectomy, Laparoscopic Surgery Forms Provided PDI Surgical Prescriptions See Medication Section Referrals DR. NOE (Unspecified) Entered Date: 07/04/2016 11:14am Note: FOLLOW UP APPOINTMENT ON JULY 22 AT 8:30 AM. ([phone]) DR. PARRY (Unspecified) Entered Date: 07/04/2016 3:13pm Note: FOLLOW UP ON JULY 24 AT 2:00 PM ([id number]) Care Plan and Goals See Discharge In structions Section Discharge Date 07/05/16 6:15pm Disposition 01 HOME, SELF-CARE Instructions/Education Provided Chol ecystectomy, Laparoscopic Surgery Forms Provided PDI Surgical Prescriptions See Medication Section Referrals DR. NOE (Unspecified) Entered Date: 07/04/2016 11:14am Note: FOLLOW UP APPOINTMENT ON JULY 22 AT 8:30 AM. ([phone]) DR. PARRY (Unspecified) Entered Date: 07/04/2016 3:13pm Note: FOLLOW UP ON JULY 24 AT 2:00 PM ([phone]) Care Plan and Goals See Discharge In structions Section Goals No Information Social History No Information Functional Status The data below is from unstructured sources Query Response Date Saurav rded Patient Orientation Normal For Age July 04, 2016 12:17pm Patient Orientation Person Place Time Situation Normal For Age July 05, 2016 8:45am Comprehension Ability Understands Co ncepts July 04, 2016 8:00pm Mental Status No Information Encounters Encounter Normalized Encounter Encounter Diagnosis Care Provi darion Organization Date Type 08-28-2019 Emergency department no information DARY GROVES MD (no [facility] [address] patient visit phone) [facility] (no phone) 06-25-2016 Emergency department no information no name no organization name patient visit 05-26-2016 Evaluation and no information no name no organ ization name - management of 05-30-2016 inpatient 08-10-2019 Patient encounter no information NONE PCP (no phone ) [facility] procedure Center [facility] (no phone) 05-26-2016 Patient encounter no information no name no or ganization name - procedure 05-30-2016 05-02-2016 Patient encounter no information no name no or ganization name procedure 02-22-2016 Patient encounter no information no name no or ganization name procedure 01-22-2016 Patient encounter no information no name no or ganization name procedure Patient encounter no information no name no organizat ion name procedure Medical Equipment No Information Payers No Information Advance Directives Directive Response Recor ded Date/Time Advance Directives No 11:33pm Resuscitation Status Full Code 05/01/16 11:33pm Directive Response Recor ded Date/Time Advance Directives No 9:00pm Health Care Power of Supervisor Bott[employer] No 06/25/16 9:00pm Organ Donor No 06/25/16 9:00pm Resuscitation Status Full Code 06/25/16 9:00pm Discharge Instructions No hospital discharge instructions. Patient Instructions Physician Instructions Prescription: Transmitted to Pharmacy Resume Normal Activity: Yes Discharge Diet: Regular Diet Driving Instructions: No Driving for 1 Week Return to The Hospital For: any concern for worsening symptoms, increase in abdominal pain, nausea that is uncontrolled, or lifethreatening illness or injury Symptoms to Reoprt to DrGerald: Appetite Changes, Bleeding Excessive, Fever Over 101 Degrees F, Pain/Pressure in Chest, Diarrhea(Persistant), Nausea/Vomiting, Shortness of Breath For Problems or Questions: Contact Your Physician, Go to Emergency Room Infection Signs and Symptoms: Increased Redness, Foul Odor of Wound, Increased Drainage, Skin Itchy or Has a Rash, Temperature Above 101 F Additional Source Comments This clinical document has been generated using [employer] software that has been certified by the Office of the National Coordinator for Health Information Technology (ONC 15.99.04.3023.Diam.31.00.0.491812) and the National Committee for Computer Science Teacher (NCQA, as an eMeasure certified technology). FOR RECORDS PERTAINING TO PATIENTS WHO ARE OR HAVE BEEN ENROLLED IN A CHEMICAL D EPENDENCY/SUBSTANCE ABUSE PROGRAM, SOME INFORMATION MAY BE OMITTED. This clinica l summary was aggregated from multiple sources. Caution should be exercised in using it in the provision of clinical care. This summary normalizes information from multiple sources, and as a consequence, information in this document may ma terially change the coding, format and clinical context of patient data. In ricardo tion, data may be omitted in some cases. CLINICAL DECISIONS SHOULD BE BASED ON T HE PRIMARY CLINICAL RECORDS. [facility]. provides no warranty or guara ntee of the accuracy or completeness of information in this document.The followi ng information is based on time limited clinical information
--- OUTSIDE RECORDS SUMMARY | 2019-08-29 03:11 | XMS REPORT | Continuity of Care Document ---
Author Organization Unknown Address Unknown Phone Unavailable Allergies Active Description Code Type Severity Reaction Onset Reported/Identified Relationship to Patient Clinical Status Yes No Known Drug Allergies [id number] Drug Allergy Unknown N/A 05/01/2016 Medications There is no data. Problems Date Dx Coded Attending Type Code Diagnosis Diagnosed By 01/23/2016 GELMARCELLA HUNTER DO Ot R05 COUGH 01/23/2016 GELLENDER DO, MARCELLA Mcdaniels Ot R05 COUGH 02/12/2016 GELLENDER DO, MARCELLA Mcdaniels Ot R05 COUGH 02/22/2016 GELLENDER DO, MARCELLA Mcdaniels Ot R05 COUGH 02/22/2016 GELLENDER DO, MARCELLA Mcdaniels Ot R09.89 OTH SYMPTOMS AND SIGNS INVOLVING THE CIR 02/25/2016 GELLENDER DO, MARCELLA Mcdaniels Ot R09.89 OTH SYMPTOMS AND SIGNS INVOLVING THE CIR 02/25/2016 GELLENDER DO, MARCELLA Mcdaniels Ot I10 ESSENTIAL (PRIMARY) HYPERTENSION 02/25/2016 GELLENDER DO, MARCELLA Mcdaniels Ot 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 03/19/2016 GELLENDER DO, MARCELLA Mcdaniels Ot I10 ESSENTIAL (PRIMARY) HYPERTENSION 03/19/2016 GELLENDER DO, MARCELLA Mcdaniels Ot 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 05/02/2016 MCARTHUR DO, YVONNE L Ot G43.9 09 MIGRAINE, UNSP, NOT INTRACTABLE, WITHOUT 05/02/2016 MCARTHUR DO, YVONNE L Ot R51 HEADACHE 05/02/2016 MCARTHUR DO, YVONNE L Ot Z79.8 2 ROUTE SPECIALIST (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) USE OF ASPIRIN 05/02/2016 MCARTHUR DO, YVONNE L Ot Z79.8 99 OTHER RESIDENTIAL (CURRENT) DRUG THERAPY 05/02/2016 DENVERLENDER MARCELLA LUONG Ot R05 COUGH 05/02/2016 GELLENDER DO, MARCELLA Mcdaniels Ot I10 ESSENTIAL (PRIMARY) HYPERTENSION 05/02/2016 MARCELLA ANAND DO Ot 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 05/02/2016 MCARTHUR DO, YVONNE L Ot G43.9 09 MIGRAINE, UNSP, NOT INTRACTABLE, WITHOUT 05/02/2016 MCARTHUR DO, YVONNE L Ot R51 HEADACHE 05/02/2016 LYUBOV LUONG, YVONNE L Ot Z79.8 2 ROUTE SPECIALIST (CURRENT) USE OF ASPIRIN 05/02/2016 LYUBOV LUONG, YVONNE L Ot Z79.8 99 OTHER ROUTE SPECIALIST (CURRENT) DRUG THERAPY 05/30[facility]2016 [facility] Mcdaniels Ot E86.0 DEHYDRATION 05/30/2016 GELLENDER DO, MARCELLA Mcdaniels Ot F32.9 MAJOR DEPRESSIVE DISORDER, SINGLE EPISOD 05/30/2016 GELLENDER DO, MARCELLA Mcdaniels Ot I10 ESSENTIAL (PRIMARY) HYPERTENSION 05/30/2016 GELLENDER DO, MARCELLA Mcdaniels Ot J18.9 PNEUMONIA, UNSPECIFIED ORGANISM 05/30/2016 GELLENDER DO, MARCELLA Mcdaniels Ot N28.9 DISORDER OF KIDNEY AND URETER, UNSPECIFI 05/30/2016 GELLENDER DO, MARCELLA Mcdaniels Ot N39.0 URINARY TRACT INFECTION, SITE NOT SPECIF 05/30/2016 [facility] Mcdaniels Ot R41.0 DISORIENTATION, UNSPECIFIED 05/30/2016 GELLENDER DO, MARCELLA Mcdaniels Ot R55 SYNCOPE AND COLLAPSE 05/30/2016 GELLENDER DO, MARCELLA Mcdaniels Ot R63.0 ANOREXIA 05/30/2016 GELLENDER DO, MARCELLA Mcdaniels Ot R79.89 OTHER SPECIFIED ABNORMAL FINDINGS OF BLO 05/30/2016 GELLENDER DO, MARCELLA Mcdaniels Ot Z91.81 HISTORY OF FALLING 06/27/2016 GELLENDER DO, MARCELLA Mcdaniels Ot F32.9 MAJOR DEPRESSIVE DISORDER, SINGLE EPISOD 06/27/2016 GELLENDER DO, MARCELLA Mcdaniels Ot H91.90 UNSPECIFIED HEARING LOSS, UNSPECIFIED EA 06/27/2016 GELLENDER DO, MARCELLA Mcdaniels Ot I10 ESSENTIAL (PRIMARY) HYPERTENSION 06/27/2016 GELLENDER DO, MARCELLA Mcdaniels Ot K80.01 CALCULUS OF GALLBLADDER W ACUTE CHOLECYS 06/27/2016 GELLENDER DO, MARCELLA Mcdaniels Ot K85.10 BILIARY ACUTE PANCREATITIS WITHOUT NECRO 06/28/2016 GELLENDER DO, MARCELLA Mcdaniels Ot F32.9 MAJOR DEPRESSIVE DISORDER, SINGLE EPISOD 06/28/2016 GELLENDER DO, MARCELLA Mcdaniels Ot H91.90 UNSPECIFIED HEARING LOSS, UNSPECIFIED EA 06/28/2016 GELLENDER DO, MARCELLA Mcdaniels Ot I10 ESSENTIAL (PRIMARY) HYPERTENSION 06/28/2016 GELLENDER DO, MARCELLA Mcdaniels Ot K80.01 CALCULUS OF GALLBLADDER W ACUTE CHOLECYS 06/28/2016 GELLENDER DO, MARCELLA Mcdaniels Ot K85.10 BILIARY ACUTE PANCREATITIS WITHOUT NECRO 06/29/2016 GELLENDER DO, MARCELLA Mcdaniels Ot F32.9 MAJOR DEPRESSIVE DISORDER, SINGLE EPISOD 06/29/2016 GELLENDER DO, MARCELLA Mcdaniels Ot H91.90 UNSPECIFIED HEARING LOSS, UNSPECIFIED EA 06/29/2016 GELLENDER DO, MARCELLA Mcdaniels Ot I10 ESSENTIAL (PRIMARY) HYPERTENSION 06/29/2016 GELLENDER DO, MARCELLA Mcdaniels Ot K80.01 CALCULUS OF GALLBLADDER W ACUTE CHOLECYS 06/29/2016 GELLENDER DO, MARCELLA Mcdaniels Ot K85.10 BILIARY ACUTE PANCREATITIS WITHOUT NECRO 06/30/2016 GELLENDER DO, MARCELLA Mcdaniels Ot F32.9 MAJOR DEPRESSIVE DISORDER, SINGLE EPISOD 06/30/2016 GELLENDER DO, MARCELLA Mcdaniels Ot H91.90 UNSPECIFIED HEARING LOSS, UNSPECIFIED EA 06/30/2016 GELLENDER DO, MARCELLA Mcdaniels Ot I10 ESSENTIAL (PRIMARY) HYPERTENSION 06/30/2016 GELLENDER DO, MARCELLA Mcdaniels Ot K80.01 CALCULUS OF GALLBLADDER W ACUTE CHOLECYS 06/30/2016 GELLENDER DO, MARCELLA Mcdaniels Ot K85.10 BILIARY ACUTE PANCREATITIS WITHOUT NECRO 06/30/2016 GELLENDER DO, MARCELLA Mcdaniels Ot F32.9 MAJOR DEPRESSIVE DISORDER, SINGLE EPISOD 06/30/2016 GELLENDER DO, MARCELLA Mcdaniels Ot H91.90 UNSPECIFIED HEARING LOSS, UNSPECIFIED EA 06/30/2016 GELLENDER DO, MARCELLA Mcdaniels Ot I10 ESSENTIAL (PRIMARY) HYPERTENSION 06/30/2016 GELLENDER DO, MARCELLA Mcdaniels Ot K80.01 CALCULUS OF GALLBLADDER W ACUTE CHOLECYS 06/30/2016 GELLENDER DO, MARCELLA Mcdaniels Ot K85.10 BILIARY ACUTE PANCREATITIS WITHOUT NECRO 07/01/2016 GELLENDER DO, MARCELLA Mcdaniels Ot F32.9 MAJOR DEPRESSIVE DISORDER, SINGLE EPISOD 07/01/2016 GELLENDER DO, MARCELLA Mcdaniels Ot H91.90 UNSPECIFIED HEARING LOSS, UNSPECIFIED EA 07/01/2016 GELLENDER DO, MARCELLA Mcdaniels Ot I10 ESSENTIAL (PRIMARY) HYPERTENSION 07/01/2016 GELLENDER DO, MARCELLA Mcdaniels Ot K80.01 CALCULUS OF GALLBLADDER W ACUTE CHOLECYS 07/01/2016 GELLENDER DO, MARCELLA Mcdaniels Ot K85.10 BILIARY ACUTE PANCREATITIS WITHOUT NECRO 07/01/2016 GELLENDER DO, MARCELLA Mcdaniels Ot F32.9 MAJOR DEPRESSIVE DISORDER, SINGLE EPISOD 07/01/2016 GELLENDER DO, MARCELLA Mcdaniels Ot H91.90 UNSPECIFIED HEARING LOSS, UNSPECIFIED EA 07/01/2016 GELLENDER DO, MARCELLA Mcdaniels Ot I10 ESSENTIAL (PRIMARY) HYPERTENSION 07/01/2016 GELLENDER DO, MARCELLA Mcdaniels Ot K80.01 CALCULUS OF GALLBLADDER W ACUTE CHOLECYS 07/01/2016 GELLENDER DO, MARCELLA Mcdaneils Ot K85.10 BILIARY ACUTE PANCREATITIS WITHOUT NECRO 07/01/2016 GELLENDER DO, MARCELLA Mcdaniels Ot F32.9 MAJOR DEPRESSIVE DISORDER, SINGLE EPISOD 07/01/2016 GELLENDER DO, MARCELLA Mcdaniels Ot H91.90 UNSPECIFIED HEARING LOSS, UNSPECIFIED EA 07/01/2016 GELLENDER DO, MARCELLA Mcdaniels Ot I10 ESSENTIAL (PRIMARY) HYPERTENSION 07/01/2016 GELLENDER DO, MARCELLA Mcdaniels Ot K80.01 CALCULUS OF GALLBLADDER W ACUTE CHOLECYS 07/01/2016 GELLENDER DO, MARCELLA Mcdaniels Ot K85.10 BILIARY ACUTE PANCREATITIS WITHOUT NECRO 07/02/2016 GELLENDER DO, MARCELLA Mcdaniels Ot F32.9 MAJOR DEPRESSIVE DISORDER, SINGLE EPISOD 07/02/2016 GELLENDER DO, MARCELLA Mcdaniels Ot H91.90 UNSPECIFIED HEARING LOSS, UNSPECIFIED EA 07/02/2016 GELLENDER DO, MARCELLA Mcdaniels Ot I10 ESSENTIAL (PRIMARY) HYPERTENSION 07/02/2016 GELLENDER DO, MARCELLA Mcdaniels Ot K80.01 CALCULUS OF GALLBLADDER W ACUTE CHOLECYS 07/02/2016 GELLENDER DO, MARCELLA Mcdaniels Ot K85.10 BILIARY ACUTE PANCREATITIS WITHOUT NECRO 07/03/2016 GELLENDER DO, MARCELLA Mcdaniels Ot F32.9 MAJOR DEPRESSIVE DISORDER, SINGLE EPISOD 07/03/2016 GELLENDER DO, MARCELLA Mcdaniels Ot H91.90 UNSPECIFIED HEARING LOSS, UNSPECIFIED EA 07/03/2016 GELLENDER DO, MARCELLA Mcdaniels Ot I10 ESSENTIAL (PRIMARY) HYPERTENSION 07/03/2016 GELLENDER DO, MARCELLA Mcdaniels Ot K80.01 CALCULUS OF GALLBLADDER W ACUTE CHOLECYS 07/03/2016 GELLENDER DO, MARCELLA Mcdaniels Ot K85.10 BILIARY ACUTE PANCREATITIS WITHOUT NECRO 07/04/2016 GELLENDER DO, MARCELLA Mcdaniels Ot F32.9 MAJOR DEPRESSIVE DISORDER, SINGLE EPISOD 07/04/2016 GELLENDER DO, MARCELLA Mcdaniels Ot H91.90 UNSPECIFIED HEARING LOSS, UNSPECIFIED EA 07/04/2016 GELLENDER DO, MARCELLA Mcdaniels Ot I10 ESSENTIAL (PRIMARY) HYPERTENSION 07/04/2016 GELLENDER DO, MARCELLA Mcdaniels Ot K80.01 CALCULUS OF GALLBLADDER W ACUTE CHOLECYS 07/04/2016 GELLENDER DO, MARCELLA Mcdaniels Ot K85.10 BILIARY ACUTE PANCREATITIS WITHOUT NECRO 07/05/2016 GELLENDER DO, MARCELLA Mcdaniels Ot F32.9 MAJOR DEPRESSIVE DISORDER, SINGLE EPISOD 07/05/2016 GELLENDER DO, MARCELLA Mcdaniels Ot H91.90 UNSPECIFIED HEARING LOSS, UNSPECIFIED EA 07/05/2016 GELLENDER DO, MARCELLA Mcdaniels Ot I10 ESSENTIAL (PRIMARY) HYPERTENSION 07/05/2016 GELLENDER DO, MARCELLA Mcdaniels Ot K80.01 CALCULUS OF GALLBLADDER W ACUTE CHOLECYS 07/05/2016 GELLENDER DO, MARCELLA Mcdaniels Ot K85.10 BILIARY ACUTE PANCREATITIS WITHOUT NECRO 07/05/2016 GELLENDER DO, MARCELLA Mcdaniels Ot D72.829 ELEVATED WHITE BLOOD CELL COUNT, UNSPECI 07/05/2016 GELLENDER DOMARCELLA Ot E83.42 HYPOMAGNESEMIA 07/05/2016 GELLENDER DOMARCELLA Ot E86.0 DEHYDRATION 07/05/2016 GELLENDER DO, MARCELLA Mcdaniels Ot F32.9 MAJOR DEPRESSIVE DISORDER, SINGLE EPISOD 07/05/2016 GELLENDER DO, MARCELLA Mcdaniels Ot H91.90 UNSPECIFIED HEARING LOSS, UNSPECIFIED EA 07/05/2016 GELLENDER DO, MARCELLA Mcdaniels Ot I12.9 HYPERTENSIVE CHRONIC KIDNEY DISEASE W ST 07/05/2016 GELLENDER DOMARCELLA Ot J18.9 PNEUMONIA, UNSPECIFIED ORGANISM 07/05/2016 GELLENDER DOMARCELLA Ot J44.0 CHRONIC OBSTRUCTIVE PULMON DISEASE W ACU 07/05/2016 GELLENDER DOMARCELLA Ot J90 PLEURAL EFFUSION, NOT ELSEWHERE CLASSIFI 07/05/2016 GELLENDER DOMARCELLA Ot J98.11 ATELECTASIS 07/05/2016 GELLENDER DO, MARCELLA Mcdaniels Ot K80.01 CALCULUS OF GALLBLADDER W ACUTE CHOLECYS 07/05/2016 GELLENDER DO, MARCELLA Mcdaniels Ot K85.10 BILIARY ACUTE PANCREATITIS WITHOUT NECRO 07/05/2016 GELLENDER DO, MARCELLA Mcdaniels Ot K86.89 OTHER SPECIFIED DISEASES OF PANCREAS 07/05/2016 CHENG LUONG, MARCELLA Mcdaniels Ot N18.9 CHRONIC KIDNEY DISEASE, UNSPECIFIED 07/05/2016 MARCELLA ANAND DO Ot N40.1 BENIGN PROSTATIC HYPERPLASIA WITH LOWER 07/05/2016 MARCELLA ANAND DO Ot R33.9 RETENTION OF URINE, UNSPECIFIED 07/05/2016 MARCELLA ANAND DO Ot Z23 ENCOUNTER FOR IMMUNIZATION Procedures Code Description Performed By Per formed On [id number] RE SECTION OF GALLBLADDER, PERCUTANEOUS E 06/27/2016 [id number] RO BOTIC ASSISTED PROCEDURE OF TRUNK, PER 06/27/2016 [id number] IN SPECTION OF BLADDER, ENDO 07/01/2016 Results Test Result Range Serum or plasma C reactive protein measu rement (mass/volume) - 05/01/16 23:30 Serum or plasma C reactive protein measurement (mass/v olume) 0.27 mg/dL 0.00-0.50 Erythrocyte sedimentation rate by jose manuel gren method - 05/01/16 23:30 Erythrocyte sedimentation rate by westergren method 15 mm NRG Complete blood count (CBC) with automate d white blood cell (WBC) differential - 05/01/16 23:38 Blood leukocytes automated count (number/volume) 7.4 10*3/uL 4.3-11.0 Blood erythrocytes automated count (number/volume) 4.62 10*6/uL 4.35-5.85 Venous blood hemoglobin measurement (mass/volume) 14.8 g/dL 13.3-17.7 Blood hematocrit (volume fraction) 43 % 40-54 Automated erythrocyte mean corpuscular volume 93 [ foz_us] 80-99 Automated erythrocyte mean corpuscular h emoglobin (mass per erythrocyte) 32 pg 25-34 Automated erythrocyte mean corpuscular h emoglobin concentration measurement (mass/volume) 35 g/dL 32-36 Automated erythrocyte distribution width ratio 13. 4 % 10.0- 14.5 Automated blood platelet count (count/volume) 137 10*3/uL 130-400 Automated blood platelet mean volume measurement 11.4 [foz_us] 7.4-10.4 Automated blood neutrophils/100 leukocytes 62 % 42-75 Automated blood lymphocytes/100 leukocytes 25 % 12-44 Blood monocytes/100 leukocytes 10 % 0-12 Automated blood eosinophils/100 leukocytes 3 % 0-10 Automated blood basophils/100 leukocytes 0 % 0-10 Blood neutrophils automated count (number/volume) 4.6 10*3 1.8-7.8 Blood lymphocytes automated count (number/volume) 1.9 10*3 1.0-4.0 Blood monocytes automated count (number/volume) 0. 7 10*3 0.0-1.0 Automated eosinophil count 0.2 10*3/uL 0 .0-0.3 Automated blood basophil count (count/volume) 0.0 10*3/uL 0.0-0.1 Comprehensive metabolic panel - 05/01/16 23:38 Serum or plasma sodium measurement (moles/volume) 139 mmol/L 135-145 Serum or plasma potassium measurement (moles/volume) 4.1 mmol/L 3.6-5.0 Serum or plasma chloride measurement (moles/volume) 105 mmol/L 98-107 Carbon dioxide 22 mmol/L 21-32 Serum or plasma anion gap determination (moles/volume) 12 mmol/L 5-14 Serum or plasma urea nitrogen measurement (mass/volume ) 23 mg/dL 7-18 Serum or plasma creatinine measurement (mass/volume) 1.39 mg/dL 0.60-1.30 Serum or plasma urea nitrogen/creatinine mass ratio 17 NRG Serum or plasma creatinine measurement w ith calculation of estimated glomerular filtration rate 49 NRG Serum or plasma glucose measurement (mass/volume) 114 mg/dL 70-105 Serum or plasma calcium measurement (mass/volume) 8.7 mg/dL 8.5-10.1 Serum or plasma total bilirubin measurement (mass/volu me) 0.6 mg/dL 0.1-1.0 Serum or plasma alkaline phosphatase josr surement (enzymatic activity/volume) 46 U/L 40-136 Serum or plasma aspartate aminotransfera se measurement (enzymatic activity/volume) 17 U/L 5-34 Serum or plasma alanine aminotransferase measurement (enzymatic activity/volume) 15 U/L 0-55 Serum or plasma protein measurement (mass/volume) 7.2 g/dL 6.4-8.2 Serum or plasma albumin measurement (mass/volume) 4.1 g/dL 3.2-4.5 Complete blood count (CBC) with automate d white blood cell (WBC) differential - 05/26/16 17:00 Blood leukocytes automated count (number/volume) 17.7 10*3/uL 4.3-11.0 Blood erythrocytes automated count (number/volume) 4.14 10*6/uL 4.35-5.85 Venous blood hemoglobin measurement (mass/volume) 13.3 g/dL 13.3-17.7 Blood hematocrit (volume fraction) 38 % 40-54 Automated erythrocyte mean corpuscular volume 93 [ foz_us] 80-99 Automated erythrocyte mean corpuscular h emoglobin (mass per erythrocyte) 32 pg 25-34 Automated erythrocyte mean corpuscular h emoglobin concentration measurement (mass/volume) 35 g/dL 32-36 Automated erythrocyte distribution width ratio 13. 3 % 10.0- 14.5 Automated blood platelet count (count/volume) 166 10*3/uL 130-400 Automated blood platelet mean volume measurement 10.9 [foz_us] 7.4-10.4 Automated blood neutrophils/100 leukocytes 86 % 42-75 Automated blood lymphocytes/100 leukocytes 5 % 12-44 Blood monocytes/100 leukocytes 9 % 0-12 Automated blood eosinophils/100 leukocytes 0 % 0-10 Automated blood basophils/100 leukocytes 0 % 0-10 Blood neutrophils automated count (number/volume) 15.3 10*3 1.8-7.8 Blood lymphocytes automated count (number/volume) 0.8 10*3 1.0-4.0 Blood monocytes automated count (number/volume) 1. 6 10*3 0.0-1.0 Automated eosinophil count 0.0 10*3/uL 0 .0-0.3 Automated blood basophil count (count/volume) 0.0 10*3/uL 0.0-0.1 PT panel in platelet poor plasma by coag ulation assay - 05/26/16 17:00 Prothrombin time (PT) in platelet poor plasma by coagu lation assay 13.6 s 12.2-14.7 INR in platelet poor plasma or blood by coagulation as say 1.1 0.8-1.4 Activated partial thromboplastin time (a PTT) in platelet poor plasma bycoagulation assay - 05/26/16 17:00 Activated partial thromboplastin time (a PTT) in platelet poor plasma bycoagulation assay 29 s 24-35 Blood lactic acid measurement (moles/vol ume) - 05/26/16 17:00 Blood lactic acid measurement (moles/volume) 1.1 m mol/L 0.5- 2.0 Comprehensive metabolic panel - 05/26/16 17:00 Serum or plasma sodium measurement (moles/volume) 135 mmol/L 135-145 Serum or plasma potassium measurement (moles/volume) 3.9 mmol/L 3.6-5.0 Serum or plasma chloride measurement (moles/volume) 102 mmol/L 98-107 Carbon dioxide 21 mmol/L 21-32 Serum or plasma anion gap determination (moles/volume) 12 mmol/L 5-14 Serum or plasma urea nitrogen measurement (mass/volume ) 29 mg/dL 7-18 Serum or plasma creatinine measurement (mass/volume) 1.32 mg/dL 0.60-1.30 Serum or plasma urea nitrogen/creatinine mass ratio 22 NRG Serum or plasma creatinine measurement w ith calculation of estimated glomerular filtration rate 52 NRG Serum or plasma glucose measurement (mass/volume) 145 mg/dL 70-105 Serum or plasma calcium measurement (mass/volume) 8.8 mg/dL 8.5-10.1 Serum or plasma total bilirubin measurement (mass/volu me) 1.3 mg/dL 0.1-1.0 Serum or plasma alkaline phosphatase josr surement (enzymatic activity/volume) 59 U/L 40-136 Serum or plasma aspartate aminotransfera se measurement (enzymatic activity/volume) 43 U/L 5-34 Serum or plasma alanine aminotransferase measurement (enzymatic activity/volume) 43 U/L 0-55 Serum or plasma protein measurement (mass/volume) 7.3 g/dL 6.4-8.2 Serum or plasma albumin measurement (mass/volume) 3.8 g/dL 3.2-4.5 Magnesium - 05/26/16 17:00 Magnesium 2.2 mg/dL 1.8-2.4 Serum or plasma troponin i.cardiac measu rement (mass/volume) - 05/26/16 17:00 Serum or plasma troponin i.cardiac measurement (mass/v olume) < ng/mL <0.30 Serum or plasma amylase measurement (enz ymatic activity/volume) - 05/26/16 17:00 Serum or plasma amylase measurement (enzymatic activit y/volume) 25 U/L 25-125 Lipase - 05/26/16 17:00 Lipase 7 U/L 8-78 Blood manual differential performed dete ction - 05/26/16 17:00 Blood monocytes/100 leukocytes 8 % NRG Manual blood segmented neutrophils/100 leukocytes 89 % NRG Manual blood lymphocytes/100 leukocytes 3 % NRG Blood erythrocyte morphology finding identification NORMAL NRG Bacterial blood culture - 05/26/16 17:00 Bacterial blood culture NG NRG Influenza virus A and B antigen detectio n - 05/26/16 17:05 FLU RESULT NEGATIVE FOR INFLUENZA A AND B ANTIGENS BY IA NRG Bacterial blood culture - 05/26/16 18:36 Bacterial blood culture NG NRG Complete urinalysis with reflex to cultu re - 05/27/16 01:25 Urine color determination YELLOW NRG Urine clarity determination VERY CLOUDY NRG Urine pH measurement by test strip 6 5-9 Specific gravity of urine by test strip 1.010 1.016-1.022 Urine protein assay by test strip, semi-quantitative 2+ NEGATIVE Urine glucose detection by automated test strip 3+ NEGATIVE Erythrocytes detection in urine sediment by light micr oscopy 4+ NEGATIVE Urine ketones detection by automated test strip NE GATIVE NEGATIVE Urine nitrite detection by test strip NEGATIVE NEGATIVE Urine total bilirubin detection by test strip NEGA TIVE NEGATIVE Urine urobilinogen measurement by automated test strip (mass/volume) 1 mg/dL NORMAL Urine leukocyte esterase detection by dipstick 3+ NEGATIVE Automated urine sediment erythrocyte cou nt by microscopy (number/high power field) NONE NRG Automated urine sediment leukocyte count by microscopy (number/high power field) [HPF] NRG Bacteria detection in urine sediment by light microsco py MODERATE NRG Squamous epithelial cells detection in u rine sediment by light microscopy 5-10 NRG Crystals detection in urine sediment by light microsco py NONE NRG Casts detection in urine sediment by light microscopy NONE NRG Mucus detection in urine sediment by light microscopy MODERATE NRG Complete urinalysis with reflex to culture YES NRG Bacterial urine culture - 05/27/16 01:25 URINE CULTURE RESULTS MORE THAN 3 ISOLATES NRG Complete blood count (CBC) with automate d white blood cell (WBC) differential - 05/27/16 04:20 Blood leukocytes automated count (number/volume) 15.0 10*3/uL 4.3-11.0 Blood erythrocytes automated count (number/volume) 4.04 10*6/uL 4.35-5.85 Venous blood hemoglobin measurement (mass/volume) 13.0 g/dL 13.3-17.7 Blood hematocrit (volume fraction) 37 % 40-54 Automated erythrocyte mean corpuscular volume 93 [ foz_us] 80-99 Automated erythrocyte mean corpuscular h emoglobin (mass per erythrocyte) 32 pg 25-34 Automated erythrocyte mean corpuscular h emoglobin concentration measurement (mass/volume) 35 g/dL 32-36 Automated erythrocyte distribution width ratio 13. 1 % 10.0- 14.5 Automated blood platelet count (count/volume) 149 10*3/uL 130-400 Automated blood platelet mean volume measurement 11.3 [foz_us] 7.4-10.4 Automated blood neutrophils/100 leukocytes 94 % 42-75 Automated blood lymphocytes/100 leukocytes 4 % 12-44 Blood monocytes/100 leukocytes 2 % 0-12 Automated blood eosinophils/100 leukocytes 0 % 0-10 Automated blood basophils/100 leukocytes 0 % 0-10 Blood neutrophils automated count (number/volume) 14.0 10*3 1.8-7.8 Blood lymphocytes automated count (number/volume) 0.6 10*3 1.0-4.0 Blood monocytes automated count (number/volume) 0. 4 10*3 0.0-1.0 Automated eosinophil count 0.0 10*3/uL 0 .0-0.3 Automated blood basophil count (count/volume) 0.0 10*3/uL 0.0-0.1 Comprehensive metabolic panel - 05/27/16 04:20 Serum or plasma sodium measurement (moles/volume) 136 mmol/L 135-145 Serum or plasma potassium measurement (moles/volume) 4.1 mmol/L 3.6-5.0 Serum or plasma chloride measurement (moles/volume) 104 mmol/L 98-107 Carbon dioxide 22 mmol/L 21-32 Serum or plasma anion gap determination (moles/volume) 10 mmol/L 5-14 Serum or plasma urea nitrogen measurement (mass/volume ) 22 mg/dL 7-18 Serum or plasma creatinine measurement (mass/volume) 1.20 mg/dL 0.60-1.30 Serum or plasma urea nitrogen/creatinine mass ratio 18 NRG Serum or plasma creatinine measurement w ith calculation of estimated glomerular filtration rate 58 NRG Serum or plasma glucose measurement (mass/volume) 263 mg/dL 70-105 Serum or plasma calcium measurement (mass/volume) 8.7 mg/dL 8.5-10.1 Serum or plasma total bilirubin measurement (mass/volu me) 0.8 mg/dL 0.1-1.0 Serum or plasma alkaline phosphatase josr surement (enzymatic activity/volume) 62 U/L 40-136 Serum or plasma aspartate aminotransfera se measurement (enzymatic activity/volume) 52 U/L 5-34 Serum or plasma alanine aminotransferase measurement (enzymatic activity/volume) 62 U/L 0-55 Serum or plasma protein measurement (mass/volume) 6.8 g/dL 6.4-8.2 Serum or plasma albumin measurement (mass/volume) 3.3 g/dL 3.2-4.5 Complete blood count (CBC) with automate d white blood cell (WBC) differential - 05/28/16 05:54 Blood leukocytes automated count (number/volume) 16.1 10*3/uL 4.3-11.0 Blood erythrocytes automated count (number/volume) 3.76 10*6/uL 4.35-5.85 Venous blood hemoglobin measurement (mass/volume) 12.1 g/dL 13.3-17.7 Blood hematocrit (volume fraction) 35 % 40-54 Automated erythrocyte mean corpuscular volume 93 [ foz_us] 80-99 Automated erythrocyte mean corpuscular h emoglobin (mass per erythrocyte) 32 pg 25-34 Automated erythrocyte mean corpuscular h emoglobin concentration measurement (mass/volume) 35 g/dL 32-36 Automated erythrocyte distribution width ratio 13. 1 % 10.0- 14.5 Automated blood platelet count (count/volume) 173 10*3/uL 130-400 Automated blood platelet mean volume measurement 11.2 [foz_us] 7.4-10.4 Automated blood neutrophils/100 leukocytes 93 % 42-75 Automated blood lymphocytes/100 leukocytes 4 % 12-44 Blood monocytes/100 leukocytes 3 % 0-12 Automated blood eosinophils/100 leukocytes 0 % 0-10 Automated blood basophils/100 leukocytes 0 % 0-10 Blood neutrophils automated count (number/volume) 15.0 10*3 1.8-7.8 Blood lymphocytes automated count (number/volume) 0.6 10*3 1.0-4.0 Blood monocytes automated count (number/volume) 0. 5 10*3 0.0-1.0 Automated eosinophil count 0.0 10*3/uL 0 .0-0.3 Automated blood basophil count (count/volume) 0.0 10*3/uL 0.0-0.1 Comprehensive metabolic panel - 05/28/16 05:54 Serum or plasma sodium measurement (moles/volume) 138 mmol/L 135-145 Serum or plasma potassium measurement (moles/volume) 4.1 mmol/L 3.6-5.0 Serum or plasma chloride measurement (moles/volume) 106 mmol/L 98-107 Carbon dioxide 20 mmol/L 21-32 Serum or plasma anion gap determination (moles/volume) 12 mmol/L 5-14 Serum or plasma urea nitrogen measurement (mass/volume ) 32 mg/dL 7-18 Serum or plasma creatinine measurement (mass/volume) 1.13 mg/dL 0.60-1.30 Serum or plasma urea nitrogen/creatinine mass ratio 28 NRG Serum or plasma creatinine measurement w ith calculation of estimated glomerular filtration rate > NRG Serum or plasma glucose measurement (mass/volume) 155 mg/dL 70-105 Serum or plasma calcium measurement (mass/volume) 8.4 mg/dL 8.5-10.1 Serum or plasma total bilirubin measurement (mass/volu me) 0.3 mg/dL 0.1-1.0 Serum or plasma alkaline phosphatase josr surement (enzymatic activity/volume) 61 U/L 40-136 Serum or plasma aspartate aminotransfera se measurement (enzymatic activity/volume) 111 U/L 5-34 Serum or plasma alanine aminotransferase measurement (enzymatic activity/volume) 112 U/L 0-55 Serum or plasma protein measurement (mass/volume) 6.4 g/dL 6.4-8.2 Serum or plasma albumin measurement (mass/volume) 3.2 g/dL 3.2-4.5 Complete urinalysis with reflex to cultu re - 05/28/16 11:15 Urine color determination YELLOW NRG Urine clarity determination CLEAR NR G Urine pH measurement by test strip 6 5-9 Specific gravity of urine by test strip 1.020 1.016-1.022 Urine protein assay by test strip, semi-quantitative 2+ NEGATIVE Urine glucose detection by automated test strip 1+ NEGATIVE Erythrocytes detection in urine sediment by light micr oscopy 2+ NEGATIVE Urine ketones detection by automated test strip NE GATIVE NEGATIVE Urine nitrite detection by test strip NEGATIVE NEGATIVE Urine total bilirubin detection by test strip NEGA TIVE NEGATIVE Urine urobilinogen measurement by automated test strip (mass/volume) 1 mg/dL NORMAL Urine leukocyte esterase detection by dipstick NEG ATIVE NEGATIVE Automated urine sediment erythrocyte cou nt by microscopy (number/high power field) NONE NRG Automated urine sediment leukocyte count by microscopy (number/high power field) NONE NRG Bacteria detection in urine sediment by light microsco py NEGATIVE NRG Squamous epithelial cells detection in u rine sediment by light microscopy 0-2 NRG Crystals detection in urine sediment by light microsco py NONE NRG Casts detection in urine sediment by light microscopy PRESENT NRG Mucus detection in urine sediment by light microscopy NEGATIVE NRG Complete urinalysis with reflex to culture NO NRG Hyaline casts detection in urine sediment by light lary roscopy 0-2 NRG Complete blood count (CBC) with automate d white blood cell (WBC) differential - 05/29/16 07:37 Blood leukocytes automated count (number/volume) 10.6 10*3/uL 4.3-11.0 Blood erythrocytes automated count (number/volume) 3.80 10*6/uL 4.35-5.85 Venous blood hemoglobin measurement (mass/volume) 12.1 g/dL 13.3-17.7 Blood hematocrit (volume fraction) 36 % 40-54 Automated erythrocyte mean corpuscular volume 94 [ foz_us] 80-99 Automated erythrocyte mean corpuscular h emoglobin (mass per erythrocyte) 32 pg 25-34 Automated erythrocyte mean corpuscular h emoglobin concentration measurement (mass/volume) 34 g/dL 32-36 Automated erythrocyte distribution width ratio 13. 3 % 10.0- 14.5 Automated blood platelet count (count/volume) 168 10*3/uL 130-400 Automated blood platelet mean volume measurement 10.7 [foz_us] 7.4-10.4 Automated blood neutrophils/100 leukocytes 82 % 42-75 Automated blood lymphocytes/100 leukocytes 11 % 12-44 Blood monocytes/100 leukocytes 7 % 0-12 Automated blood eosinophils/100 leukocytes 0 % 0-10 Automated blood basophils/100 leukocytes 0 % 0-10 Blood neutrophils automated count (number/volume) 8.7 10*3 1.8-7.8 Blood lymphocytes automated count (number/volume) 1.2 10*3 1.0-4.0 Blood monocytes automated count (number/volume) 0. 8 10*3 0.0-1.0 Automated eosinophil count 0.0 10*3/uL 0 .0-0.3 Automated blood basophil count (count/volume) 0.0 10*3/uL 0.0-0.1 Comprehensive metabolic panel - 05/29/16 07:37 Serum or plasma sodium measurement (moles/volume) 140 mmol/L 135-145 Serum or plasma potassium measurement (moles/volume) 3.8 mmol/L 3.6-5.0 Serum or plasma chloride measurement (moles/volume) 107 mmol/L 98-107 Carbon dioxide 25 mmol/L 21-32 Serum or plasma anion gap determination (moles/volume) 8 mmol/L 5-14 Serum or plasma urea nitrogen measurement (mass/volume ) 33 mg/dL 7-18 Serum or plasma creatinine measurement (mass/volume) 1.10 mg/dL 0.60-1.30 Serum or plasma urea nitrogen/creatinine mass ratio 30 NRG Serum or plasma creatinine measurement w ith calculation of estimated glomerular filtration rate > NRG Serum or plasma glucose measurement (mass/volume) 110 mg/dL 70-105 Serum or plasma calcium measurement (mass/volume) 7.9 mg/dL 8.5-10.1 Serum or plasma total bilirubin measurement (mass/volu me) 0.3 mg/dL 0.1-1.0 Serum or plasma alkaline phosphatase josr surement (enzymatic activity/volume) 56 U/L 40-136 Serum or plasma aspartate aminotransfera se measurement (enzymatic activity/volume) 64 U/L 5-34 Serum or plasma alanine aminotransferase measurement (enzymatic activity/volume) 125 U/L 0-55 Serum or plasma protein measurement (mass/volume) 5.7 g/dL 6.4-8.2 Serum or plasma albumin measurement (mass/volume) 2.8 g/dL 3.2-4.5 Complete blood count (CBC) with automate d white blood cell (WBC) differential - 06/25/16 19:01 Blood leukocytes automated count (number/volume) 8.5 10*3/uL 4.3-11.0 Blood erythrocytes automated count (number/volume) 4.17 10*6/uL 4.35-5.85 Venous blood hemoglobin measurement (mass/volume) 12.9 g/dL 13.3-17.7 Blood hematocrit (volume fraction) 38 % 40-54 Automated erythrocyte mean corpuscular volume 91 [ foz_us] 80-99 Automated erythrocyte mean corpuscular h emoglobin (mass per erythrocyte) 31 pg 25-34 Automated erythrocyte mean corpuscular h emoglobin concentration measurement (mass/volume) 34 g/dL 32-36 Automated erythrocyte distribution width ratio 13. 5 % 10.0- 14.5 Automated blood platelet count (count/volume) 133 10*3/uL 130-400 Automated blood platelet mean volume measurement 11.0 [foz_us] 7.4-10.4 Automated blood neutrophils/100 leukocytes 76 % 42-75 Automated blood lymphocytes/100 leukocytes 13 % 12-44 Blood monocytes/100 leukocytes 10 % 0-12 Automated blood eosinophils/100 leukocytes 1 % 0-10 Automated blood basophils/100 leukocytes 0 % 0-10 Blood neutrophils automated count (number/volume) 6.5 10*3 1.8-7.8 Blood lymphocytes automated count (number/volume) 1.1 10*3 1.0-4.0 Blood monocytes automated count (number/volume) 0. 9 10*3 0.0-1.0 Automated eosinophil count 0.1 10*3/uL 0 .0-0.3 Automated blood basophil count (count/volume) 0.0 10*3/uL 0.0-0.1 Comprehensive metabolic panel - 06/25/16 19:01 Serum or plasma sodium measurement (moles/volume) 139 mmol/L 135-145 Serum or plasma potassium measurement (moles/volume) 3.8 mmol/L 3.6-5.0 Serum or plasma chloride measurement (moles/volume) 104 mmol/L 98-107 Carbon dioxide 22 mmol/L 21-32 Serum or plasma anion gap determination (moles/volume) 13 mmol/L 5-14 Serum or plasma urea nitrogen measurement (mass/volume ) 12 mg/dL 7-18 Serum or plasma creatinine measurement (mass/volume) 0.98 mg/dL 0.60-1.30 Serum or plasma urea nitrogen/creatinine mass ratio 12 NRG Serum or plasma creatinine measurement w ith calculation of estimated glomerular filtration rate > NRG Serum or plasma glucose measurement (mass/volume) 127 mg/dL 70-105 Serum or plasma calcium measurement (mass/volume) 8.5 mg/dL 8.5-10.1 Serum or plasma total bilirubin measurement (mass/volu me) 5.5 mg/dL 0.1-1.0 Serum or plasma alkaline phosphatase josr surement (enzymatic activity/volume) 396 U/L 40-136 Serum or plasma aspartate aminotransfera se measurement (enzymatic activity/volume) 444 U/L 5-34 Serum or plasma alanine aminotransferase measurement (enzymatic activity/volume) 523 U/L 0-55 Serum or plasma protein measurement (mass/volume) 6.8 g/dL 6.4-8.2 Serum or plasma albumin measurement (mass/volume) 3.5 g/dL 3.2-4.5 Magnesium - 06/25/16 19:01 Magnesium 2.0 mg/dL 1.8-2.4 Serum or plasma amylase measurement (enz ymatic activity/volume) - 06/25/16 19:01 Serum or plasma amylase measurement (enzymatic activit y/volume) 1924 U/L 25-125 Lipase - 06/25/16 19:01 Lipase 2735 U/L 8-78 Complete urinalysis with reflex to cultu re - 06/25/16 19:14 Urine color determination RUIZ NRG Urine clarity determination SLIGHTLY CLOUDY NRG Urine pH measurement by test strip 7 5-9 Specific gravity of urine by test strip 1.015 1.016-1.022 Urine protein assay by test strip, semi-quantitative 2+ NEGATIVE Urine glucose detection by automated test strip NE GATIVE NEGATIVE Erythrocytes detection in urine sediment by light micr oscopy 1+ NEGATIVE Urine ketones detection by automated test strip NE GATIVE NEGATIVE Urine nitrite detection by test strip NEGATIVE NEGATIVE Urine total bilirubin detection by test strip 2+ NEGATIVE Urine urobilinogen measurement by automated test strip (mass/volume) 8 mg/dL NORMAL Urine leukocyte esterase detection by dipstick 1+ NEGATIVE Automated urine sediment erythrocyte cou nt by microscopy (number/high power field) RARE NRG Automated urine sediment leukocyte count by microscopy (number/high power field) [HPF] NRG Bacteria detection in urine sediment by light microsco py TRACE NRG Squamous epithelial cells detection in u rine sediment by light microscopy 10-25 NRG Crystals detection in urine sediment by light microsco py NONE NRG Casts detection in urine sediment by light microscopy NONE NRG Mucus detection in urine sediment by light microscopy MODERATE NRG Complete urinalysis with reflex to culture NO NRG Complete blood count (CBC) with automate d white blood cell (WBC) differential - 06/26/16 05:25 Blood leukocytes automated count (number/volume) 13.1 10*3/uL 4.3-11.0 Blood erythrocytes automated count (number/volume) 4.27 10*6/uL 4.35-5.85 Venous blood hemoglobin measurement (mass/volume) 13.2 g/dL 13.3-17.7 Blood hematocrit (volume fraction) 39 % 40-54 Automated erythrocyte mean corpuscular volume 91 [ foz_us] 80-99 Automated erythrocyte mean corpuscular h emoglobin (mass per erythrocyte) 31 pg 25-34 Automated erythrocyte mean corpuscular h emoglobin concentration measurement (mass/volume) 34 g/dL 32-36 Automated erythrocyte distribution width ratio 13. 8 % 10.0- 14.5 Automated blood platelet count (count/volume) 131 10*3/uL 130-400 Automated blood platelet mean volume measurement 11.6 [foz_us] 7.4-10.4 Automated blood neutrophils/100 leukocytes 81 % 42-75 Automated blood lymphocytes/100 leukocytes 9 % 12-44 Blood monocytes/100 leukocytes 10 % 0-12 Automated blood eosinophils/100 leukocytes 0 % 0-10 Automated blood basophils/100 leukocytes 0 % 0-10 Blood neutrophils automated count (number/volume) 10.6 10*3 1.8-7.8 Blood lymphocytes automated count (number/volume) 1.1 10*3 1.0-4.0 Blood monocytes automated count (number/volume) 1. 3 10*3 0.0-1.0 Automated eosinophil count 0.0 10*3/uL 0 .0-0.3 Automated blood basophil count (count/volume) 0.0 10*3/uL 0.0-0.1 Comprehensive metabolic panel - 06/26/16 05:25 Serum or plasma sodium measurement (moles/volume) 136 mmol/L 135-145 Serum or plasma potassium measurement (moles/volume) 3.8 mmol/L 3.6-5.0 Serum or plasma chloride measurement (moles/volume) 105 mmol/L 98-107 Carbon dioxide 19 mmol/L 21-32 Serum or plasma anion gap determination (moles/volume) 12 mmol/L 5-14 Serum or plasma urea nitrogen measurement (mass/volume ) 10 mg/dL 7-18 Serum or plasma creatinine measurement (mass/volume) 1.04 mg/dL 0.60-1.30 Serum or plasma urea nitrogen/creatinine mass ratio 10 NRG Serum or plasma creatinine measurement w ith calculation of estimated glomerular filtration rate > NRG Serum or plasma glucose measurement (mass/volume) 143 mg/dL 70-105 Serum or plasma calcium measurement (mass/volume) 8.1 mg/dL 8.5-10.1 Serum or plasma total bilirubin measurement (mass/volu me) 5.5 mg/dL 0.1-1.0 Serum or plasma alkaline phosphatase josr surement (enzymatic activity/volume) 388 U/L 40-136 Serum or plasma aspartate aminotransfera se measurement (enzymatic activity/volume) 344 U/L 5-34 Serum or plasma alanine aminotransferase measurement (enzymatic activity/volume) 468 U/L 0-55 Serum or plasma protein measurement (mass/volume) 6.5 g/dL 6.4-8.2 Serum or plasma albumin measurement (mass/volume) 3.3 g/dL 3.2-4.5 Serum or plasma amylase measurement (enz ymatic activity/volume) - 06/26/16 05:25 Serum or plasma amylase measurement (enzymatic activit y/volume) 647 U/L 25-125 Lipase - 06/26/16 05:25 Lipase 513 U/L 8-78 Complete blood count (CBC) with automate d white blood cell (WBC) differential - 06/27/16 06:00 Blood leukocytes automated count (number/volume) 18.0 10*3/uL 4.3-11.0 Blood erythrocytes automated count (number/volume) 3.90 10*6/uL 4.35-5.85 Venous blood hemoglobin measurement (mass/volume) 12.2 g/dL 13.3-17.7 Blood hematocrit (volume fraction) 36 % 40-54 Automated erythrocyte mean corpuscular volume 91 [ foz_us] 80-99 Automated erythrocyte mean corpuscular h emoglobin (mass per erythrocyte) 31 pg 25-34 Automated erythrocyte mean corpuscular h emoglobin concentration measurement (mass/volume) 34 g/dL 32-36 Automated erythrocyte distribution width ratio 13. 8 % 10.0- 14.5 Automated blood platelet count (count/volume) 122 10*3/uL 130-400 Automated blood platelet mean volume measurement 11.4 [foz_us] 7.4-10.4 Automated blood neutrophils/100 leukocytes 85 % 42-75 Automated blood lymphocytes/100 leukocytes 7 % 12-44 Blood monocytes/100 leukocytes 8 % 0-12 Automated blood eosinophils/100 leukocytes 0 % 0-10 Automated blood basophils/100 leukocytes 0 % 0-10 Blood neutrophils automated count (number/volume) 15.4 10*3 1.8-7.8 Blood lymphocytes automated count (number/volume) 1.2 10*3 1.0-4.0 Blood monocytes automated count (number/volume) 1. 4 10*3 0.0-1.0 Automated eosinophil count 0.0 10*3/uL 0 .0-0.3 Automated blood basophil count (count/volume) 0.0 10*3/uL 0.0-0.1 Comprehensive metabolic panel - 06/27/16 06:00 Serum or plasma sodium measurement (moles/volume) 133 mmol/L 135-145 Serum or plasma potassium measurement (moles/volume) 3.9 mmol/L 3.6-5.0 Serum or plasma chloride measurement (moles/volume) 105 mmol/L 98-107 Carbon dioxide 19 mmol/L 21-32 Serum or plasma anion gap determination (moles/volume) 9 mmol/L 5-14 Serum or plasma urea nitrogen measurement (mass/volume ) 8 mg/dL 7-18 Serum or plasma creatinine measurement (mass/volume) 0.95 mg/dL 0.60-1.30 Serum or plasma urea nitrogen/creatinine mass ratio 8 NRG Serum or plasma creatinine measurement w ith calculation of estimated glomerular filtration rate > NRG Serum or plasma glucose measurement (mass/volume) 166 mg/dL 70-105 Serum or plasma calcium measurement (mass/volume) 7.8 mg/dL 8.5-10.1 Serum or plasma total bilirubin measurement (mass/volu me) 2.8 mg/dL 0.1-1.0 Serum or plasma alkaline phosphatase josr surement (enzymatic activity/volume) 288 U/L 40-136 Serum or plasma aspartate aminotransfera se measurement (enzymatic activity/volume) 96 U/L 5-34 Serum or plasma alanine aminotransferase measurement (enzymatic activity/volume) 284 U/L 0-55 Serum or plasma protein measurement (mass/volume) 5.9 g/dL 6.4-8.2 Serum or plasma albumin measurement (mass/volume) 2.9 g/dL 3.2-4.5 Serum or plasma amylase measurement (enz ymatic activity/volume) - 06/27/16 06:00 Serum or plasma amylase measurement (enzymatic activit y/volume) 119 U/L 25-125 Lipase - 06/27/16 06:00 Lipase 85 U/L 8-78 Blood manual differential performed dete ction - 06/27/16 06:00 Blood monocytes/100 leukocytes 3 % NRG Manual blood segmented neutrophils/100 leukocytes 88 % NRG Blood band neutrophils/100 leukocytes 2 % NRG Manual blood lymphocytes/100 leukocytes 4 % NRG Manual eosinophils/100 leukocytes in nose 0 % NRG Manual blood basophils/100 leukocytes 0 % NRG Blood lymphocytes variant/100 leukocytes 3 % NRG Blood erythrocyte morphology finding identification NORMAL NRG Whole blood basic metabolic panel - 06/05 07/21 21:54 Serum or plasma sodium measurement (moles/volume) 134 mmol/L 135-145 Serum or plasma potassium measurement (moles/volume) 4.2 mmol/L 3.6-5.0 Serum or plasma chloride measurement (moles/volume) 104 mmol/L 98-107 Carbon dioxide 20 mmol/L 21-32 Serum or plasma anion gap determination (moles/volume) 10 mmol/L 5-14 Serum or plasma urea nitrogen measurement (mass/volume ) 11 mg/dL 7-18 Serum or plasma creatinine measurement (mass/volume) 1.41 mg/dL 0.60-1.30 Serum or plasma urea nitrogen/creatinine mass ratio 8 NRG Serum or plasma creatinine measurement w ith calculation of estimated glomerular filtration rate 48 NRG Serum or plasma glucose measurement (mass/volume) 144 mg/dL 70-105 Serum or plasma calcium measurement (mass/volume) 8.2 mg/dL 8.5-10.1 Magnesium - 06/27/16 21:54 Magnesium 1.6 mg/dL 1.8-2.4 Serum or plasma albumin measurement (mas s/volume) - 06/27/16 21:54 Serum or plasma albumin measurement (mass/volume) 3.0 g/dL 3.2-4.5 Serum or plasma lithium measurement (mol es/volume) - 06/27/16 21:54 BNP level 129.6 pg/mL <100.0 Complete blood count (CBC) with automate d white blood cell (WBC) differential - 06/28/16 03:30 Blood leukocytes automated count (number/volume) 18.5 10*3/uL 4.3-11.0 Blood erythrocytes automated count (number/volume) 3.83 10*6/uL 4.35-5.85 Venous blood hemoglobin measurement (mass/volume) 12.0 g/dL 13.3-17.7 Blood hematocrit (volume fraction) 36 % 40-54 Automated erythrocyte mean corpuscular volume 93 [ foz_us] 80-99 Automated erythrocyte mean corpuscular h emoglobin (mass per erythrocyte) 31 pg 25-34 Automated erythrocyte mean corpuscular h emoglobin concentration measurement (mass/volume) 34 g/dL 32-36 Automated erythrocyte distribution width ratio 14. 1 % 10.0- 14.5 Automated blood platelet count (count/volume) 130 10*3/uL 130-400 Automated blood platelet mean volume measurement 11.4 [foz_us] 7.4-10.4 Automated blood neutrophils/100 leukocytes 86 % 42-75 Automated blood lymphocytes/100 leukocytes 7 % 12-44 Blood monocytes/100 leukocytes 7 % 0-12 Automated blood eosinophils/100 leukocytes 0 % 0-10 Automated blood basophils/100 leukocytes 0 % 0-10 Blood neutrophils automated count (number/volume) 16.0 10*3 1.8-7.8 Blood lymphocytes automated count (number/volume) 1.3 10*3 1.0-4.0 Blood monocytes automated count (number/volume) 1. 2 10*3 0.0-1.0 Automated eosinophil count 0.0 10*3/uL 0 .0-0.3 Automated blood basophil count (count/volume) 0.0 10*3/uL 0.0-0.1 Serum or plasma phosphate measurement (m ass/volume) - 06/28/16 03:30 Serum or plasma phosphate measurement (mass/volume) 3.4 mg/dL 2.3-4.7 Magnesium - 06/28/16 03:30 Magnesium 1.3 mg/dL 1.8-2.4 Comprehensive metabolic panel - 06/28/16 03:30 Serum or plasma sodium measurement (moles/volume) 136 mmol/L 135-145 Serum or plasma potassium measurement (moles/volume) 4.1 mmol/L 3.6-5.0 Serum or plasma chloride measurement (moles/volume) 105 mmol/L 98-107 Carbon dioxide 20 mmol/L 21-32 Serum or plasma anion gap determination (moles/volume) 11 mmol/L 5-14 Serum or plasma urea nitrogen measurement (mass/volume ) 14 mg/dL 7-18 Serum or plasma creatinine measurement (mass/volume) 1.70 mg/dL 0.60-1.30 Serum or plasma urea nitrogen/creatinine mass ratio 8 NRG Serum or plasma creatinine measurement w ith calculation of estimated glomerular filtration rate 39 NRG Serum or plasma glucose measurement (mass/volume) 135 mg/dL 70-105 Serum or plasma calcium measurement (mass/volume) 7.7 mg/dL 8.5-10.1 Serum or plasma total bilirubin measurement (mass/volu me) 1.9 mg/dL 0.1-1.0 Serum or plasma alkaline phosphatase josr surement (enzymatic activity/volume) 211 U/L 40-136 Serum or plasma aspartate aminotransfera se measurement (enzymatic activity/volume) 35 U/L 5-34 Serum or plasma alanine aminotransferase measurement (enzymatic activity/volume) 145 U/L 0-55 Serum or plasma protein measurement (mass/volume) 5.3 g/dL 6.4-8.2 Serum or plasma albumin measurement (mass/volume) 2.6 g/dL 3.2-4.5 Serum or plasma amylase measurement (enz ymatic activity/volume) - 06/28/16 03:30 Serum or plasma amylase measurement (enzymatic activit y/volume) 34 U/L 25-125 Lipase - 06/28/16 03:30 Lipase 16 U/L 8-78 Complete blood count (CBC) with automate d white blood cell (WBC) differential - 06/29/16 03:50 Blood leukocytes automated count (number/volume) 12.4 10*3/uL 4.3-11.0 Blood erythrocytes automated count (number/volume) 3.49 10*6/uL 4.35-5.85 Venous blood hemoglobin measurement (mass/volume) 10.7 g/dL 13.3-17.7 Blood hematocrit (volume fraction) 32 % 40-54 Automated erythrocyte mean corpuscular volume 93 [ foz_us] 80-99 Automated erythrocyte mean corpuscular h emoglobin (mass per erythrocyte) 31 pg 25-34 Automated erythrocyte mean corpuscular h emoglobin concentration measurement (mass/volume) 33 g/dL 32-36 Automated erythrocyte distribution width ratio 14. 1 % 10.0- 14.5 Automated blood platelet count (count/volume) 128 10*3/uL 130-400 Automated blood platelet mean volume measurement 11.3 [foz_us] 7.4-10.4 Automated blood neutrophils/100 leukocytes 81 % 42-75 Automated blood lymphocytes/100 leukocytes 10 % 12-44 Blood monocytes/100 leukocytes 8 % 0-12 Automated blood eosinophils/100 leukocytes 1 % 0-10 Automated blood basophils/100 leukocytes 0 % 0-10 Blood neutrophils automated count (number/volume) 10.1 10*3 1.8-7.8 Blood lymphocytes automated count (number/volume) 1.2 10*3 1.0-4.0 Blood monocytes automated count (number/volume) 1. 0 10*3 0.0-1.0 Automated eosinophil count 0.1 10*3/uL 0 .0-0.3 Automated blood basophil count (count/volume) 0.0 10*3/uL 0.0-0.1 Comprehensive metabolic panel - 06/29/16 03:50 Serum or plasma sodium measurement (moles/volume) 133 mmol/L 135-145 Serum or plasma potassium measurement (moles/volume) 3.7 mmol/L 3.6-5.0 Serum or plasma chloride measurement (moles/volume) 104 mmol/L 98-107 Carbon dioxide 20 mmol/L 21-32 Serum or plasma anion gap determination (moles/volume) 9 mmol/L 5-14 Serum or plasma urea nitrogen measurement (mass/volume ) 16 mg/dL 7-18 Serum or plasma creatinine measurement (mass/volume) 1.43 mg/dL 0.60-1.30 Serum or plasma urea nitrogen/creatinine mass ratio 11 NRG Serum or plasma creatinine measurement w ith calculation of estimated glomerular filtration rate 47 NRG Serum or plasma glucose measurement (mass/volume) 112 mg/dL 70-105 Serum or plasma calcium measurement (mass/volume) 7.4 mg/dL 8.5-10.1 Serum or plasma total bilirubin measurement (mass/volu me) 1.4 mg/dL 0.1-1.0 Serum or plasma alkaline phosphatase josr surement (enzymatic activity/volume) 146 U/L 40-136 Serum or plasma aspartate aminotransfera se measurement (enzymatic activity/volume) 18 U/L 5-34 Serum or plasma alanine aminotransferase measurement (enzymatic activity/volume) 73 U/L 0-55 Serum or plasma protein measurement (mass/volume) 5.1 g/dL 6.4-8.2 Serum or plasma albumin measurement (mass/volume) 2.4 g/dL 3.2-4.5 Serum or plasma phosphate measurement (m ass/volume) - 06/29/16 03:50 Serum or plasma phosphate measurement (mass/volume) 2.5 mg/dL 2.3-4.7 Magnesium - 06/29/16 03:50 Magnesium 2.0 mg/dL 1.8-2.4 Serum or plasma amylase measurement (enz ymatic activity/volume) - 06/29/16 03:50 Serum or plasma amylase measurement (enzymatic activit y/volume) 18 U/L 25-125 Lipase - 06/29/16 03:50 Lipase 8 U/L 8-78 Complete blood count (CBC) with automate d white blood cell (WBC) differential - 06/30/16 03:50 Blood leukocytes automated count (number/volume) 8.1 10*3/uL 4.3-11.0 Blood erythrocytes automated count (number/volume) 3.24 10*6/uL 4.35-5.85 Venous blood hemoglobin measurement (mass/volume) 10.0 g/dL 13.3-17.7 Blood hematocrit (volume fraction) 30 % 40-54 Automated erythrocyte mean corpuscular volume 93 [ foz_us] 80-99 Automated erythrocyte mean corpuscular h emoglobin (mass per erythrocyte) 31 pg 25-34 Automated erythrocyte mean corpuscular h emoglobin concentration measurement (mass/volume) 33 g/dL 32-36 Automated erythrocyte distribution width ratio 13. 9 % 10.0- 14.5 Automated blood platelet count (count/volume) 137 10*3/uL 130-400 Automated blood platelet mean volume measurement 11.1 [foz_us] 7.4-10.4 Automated blood neutrophils/100 leukocytes 78 % 42-75 Automated blood lymphocytes/100 leukocytes 12 % 12-44 Blood monocytes/100 leukocytes 9 % 0-12 Automated blood eosinophils/100 leukocytes 2 % 0-10 Automated blood basophils/100 leukocytes 0 % 0-10 Blood neutrophils automated count (number/volume) 6.3 10*3 1.8-7.8 Blood lymphocytes automated count (number/volume) 1.0 10*3 1.0-4.0 Blood monocytes automated count (number/volume) 0. 7 10*3 0.0-1.0 Automated eosinophil count 0.1 10*3/uL 0 .0-0.3 Automated blood basophil count (count/volume) 0.0 10*3/uL 0.0-0.1 Comprehensive metabolic panel - 06/30/16 03:50 Serum or plasma sodium measurement (moles/volume) 137 mmol/L 135-145 Serum or plasma potassium measurement (moles/volume) 3.6 mmol/L 3.6-5.0 Serum or plasma chloride measurement (moles/volume) 108 mmol/L 98-107 Carbon dioxide 22 mmol/L 21-32 Serum or plasma anion gap determination (moles/volume) 7 mmol/L 5-14 Serum or plasma urea nitrogen measurement (mass/volume ) 12 mg/dL 7-18 Serum or plasma creatinine measurement (mass/volume) 1.17 mg/dL 0.60-1.30 Serum or plasma urea nitrogen/creatinine mass ratio 10 NRG Serum or plasma creatinine measurement w ith calculation of estimated glomerular filtration rate 60 NRG Serum or plasma glucose measurement (mass/volume) 136 mg/dL 70-105 Serum or plasma calcium measurement (mass/volume) 7.3 mg/dL 8.5-10.1 Serum or plasma total bilirubin measurement (mass/volu me) 1.2 mg/dL 0.1-1.0 Serum or plasma alkaline phosphatase josr surement (enzymatic activity/volume) 125 U/L 40-136 Serum or plasma aspartate aminotransfera se measurement (enzymatic activity/volume) 24 U/L 5-34 Serum or plasma alanine aminotransferase measurement (enzymatic activity/volume) 54 U/L 0-55 Serum or plasma protein measurement (mass/volume) 5.0 g/dL 6.4-8.2 Serum or plasma albumin measurement (mass/volume) 2.3 g/dL 3.2-4.5 Serum or plasma phosphate measurement (m ass/volume) - 06/30/16 03:50 Serum or plasma phosphate measurement (mass/volume) 1.9 mg/dL 2.3-4.7 Magnesium - 06/30/16 03:50 Magnesium 1.9 mg/dL 1.8-2.4 Automated blood complete blood count (he mogram) panel - 06/30/16 21:44 Blood leukocytes automated count (number/volume) 10.4 10*3/uL 4.3-11.0 Blood erythrocytes automated count (number/volume) 3.69 10*6/uL 4.35-5.85 Venous blood hemoglobin measurement (mass/volume) 11.3 g/dL 13.3-17.7 Blood hematocrit (volume fraction) 34 % 40-54 Automated erythrocyte mean corpuscular volume 93 [ foz_us] 80-99 Automated erythrocyte mean corpuscular h emoglobin (mass per erythrocyte) 31 pg 25-34 Automated erythrocyte mean corpuscular h emoglobin concentration measurement (mass/volume) 33 g/dL 32-36 Automated erythrocyte distribution width ratio 14. 1 % 10.0- 14.5 Automated blood platelet count (count/volume) 172 10*3/uL 130-400 Automated blood platelet mean volume measurement 10.6 [foz_us] 7.4-10.4 Comprehensive metabolic panel - 06/30/16 21:44 Serum or plasma sodium measurement (moles/volume) 136 mmol/L 135-145 Serum or plasma potassium measurement (moles/volume) 4.0 mmol/L 3.6-5.0 Serum or plasma chloride measurement (moles/volume) 106 mmol/L 98-107 Carbon dioxide 21 mmol/L 21-32 Serum or plasma anion gap determination (moles/volume) 9 mmol/L 5-14 Serum or plasma urea nitrogen measurement (mass/volume ) 14 mg/dL 7-18 Serum or plasma creatinine measurement (mass/volume) 1.17 mg/dL 0.60-1.30 Serum or plasma urea nitrogen/creatinine mass ratio 12 NRG Serum or plasma creatinine measurement w ith calculation of estimated glomerular filtration rate 60 NRG Serum or plasma glucose measurement (mass/volume) 187 mg/dL 70-105 Serum or plasma calcium measurement (mass/volume) 7.9 mg/dL 8.5-10.1 Serum or plasma total bilirubin measurement (mass/volu me) 1.1 mg/dL 0.1-1.0 Serum or plasma alkaline phosphatase josr surement (enzymatic activity/volume) 137 U/L 40-136 Serum or plasma aspartate aminotransfera se measurement (enzymatic activity/volume) 39 U/L 5-34 Serum or plasma alanine aminotransferase measurement (enzymatic activity/volume) 62 U/L 0-55 Serum or plasma protein measurement (mass/volume) 5.8 g/dL 6.4-8.2 Serum or plasma albumin measurement (mass/volume) 2.7 g/dL 3.2-4.5 Serum or plasma troponin i.cardiac measu rement (mass/volume) - 06/30/16 21:44 Serum or plasma troponin i.cardiac measurement (mass/v olume) < ng/mL <0.30 Serum or plasma lithium measurement (mol es/volume) - 06/30/16 21:44 BNP level 75.9 pg/mL <100.0 Complete blood count (CBC) with automate d white blood cell (WBC) differential - 07/01/16 05:53 Blood leukocytes automated count (number/volume) 11.0 10*3/uL 4.3-11.0 Blood erythrocytes automated count (number/volume) 3.58 10*6/uL 4.35-5.85 Venous blood hemoglobin measurement (mass/volume) 10.9 g/dL 13.3-17.7 Blood hematocrit (volume fraction) 33 % 40-54 Automated erythrocyte mean corpuscular volume 93 [ foz_us] 80-99 Automated erythrocyte mean corpuscular h emoglobin (mass per erythrocyte) 30 pg 25-34 Automated erythrocyte mean corpuscular h emoglobin concentration measurement (mass/volume) 33 g/dL 32-36 Automated erythrocyte distribution width ratio 14. 1 % 10.0- 14.5 Automated blood platelet count (count/volume) 156 10*3/uL 130-400 Automated blood platelet mean volume measurement 10.4 [foz_us] 7.4-10.4 Automated blood neutrophils/100 leukocytes 79 % 42-75 Automated blood lymphocytes/100 leukocytes 10 % 12-44 Blood monocytes/100 leukocytes 10 % 0-12 Automated blood eosinophils/100 leukocytes 1 % 0-10 Automated blood basophils/100 leukocytes 0 % 0-10 Blood neutrophils automated count (number/volume) 8.6 10*3 1.8-7.8 Blood lymphocytes automated count (number/volume) 1.1 10*3 1.0-4.0 Blood monocytes automated count (number/volume) 1. 1 10*3 0.0-1.0 Automated eosinophil count 0.1 10*3/uL 0 .0-0.3 Automated blood basophil count (count/volume) 0.0 10*3/uL 0.0-0.1 Serum or plasma phosphate measurement (m ass/volume) - 07/01/16 05:53 Serum or plasma phosphate measurement (mass/volume) 2.8 mg/dL 2.3-4.7 Magnesium - 07/01/16 05:53 Magnesium 1.7 mg/dL 1.8-2.4 Comprehensive metabolic panel - 07/01/16 05:53 Serum or plasma sodium measurement (moles/volume) 138 mmol/L 135-145 Serum or plasma potassium measurement (moles/volume) 3.6 mmol/L 3.6-5.0 Serum or plasma chloride measurement (moles/volume) 104 mmol/L 98-107 Carbon dioxide 24 mmol/L 21-32 Serum or plasma anion gap determination (moles/volume) 10 mmol/L 5-14 Serum or plasma urea nitrogen measurement (mass/volume ) 14 mg/dL 7-18 Serum or plasma creatinine measurement (mass/volume) 1.16 mg/dL 0.60-1.30 Serum or plasma urea nitrogen/creatinine mass ratio 12 NRG Serum or plasma creatinine measurement w ith calculation of estimated glomerular filtration rate 60 NRG Serum or plasma glucose measurement (mass/volume) 143 mg/dL 70-105 Serum or plasma calcium measurement (mass/volume) 8.0 mg/dL 8.5-10.1 Serum or plasma total bilirubin measurement (mass/volu me) 1.2 mg/dL 0.1-1.0 Serum or plasma alkaline phosphatase josr surement (enzymatic activity/volume) 128 U/L 40-136 Serum or plasma aspartate aminotransfera se measurement (enzymatic activity/volume) 31 U/L 5-34 Serum or plasma alanine aminotransferase measurement (enzymatic activity/volume) 58 U/L 0-55 Serum or plasma protein measurement (mass/volume) 5.8 g/dL 6.4-8.2 Serum or plasma albumin measurement (mass/volume) 2.7 g/dL 3.2-4.5 Bacterial blood culture - 07/01/16 08:35 Bacterial blood culture NG NRG Complete urinalysis with reflex to cultu re - 07/01/16 08:36 Urine color determination YELLOW NRG Urine clarity determination CLEAR NR G Urine pH measurement by test strip 6 5-9 Specific gravity of urine by test strip 1.010 1.016-1.022 Urine protein assay by test strip, semi-quantitative NEGATIVE NEGATIVE Urine glucose detection by automated test strip NE GATIVE NEGATIVE Erythrocytes detection in urine sediment by light micr oscopy NEGATIVE NEGATIVE Urine ketones detection by automated test strip NE GATIVE NEGATIVE Urine nitrite detection by test strip NEGATIVE NEGATIVE Urine total bilirubin detection by test strip NEGA TIVE NEGATIVE Urine urobilinogen measurement by automated test strip (mass/volume) NORMAL NORMAL Urine leukocyte esterase detection by dipstick NEG ATIVE NEGATIVE Automated urine sediment erythrocyte cou nt by microscopy (number/high power field) RARE NRG Automated urine sediment leukocyte count by microscopy (number/high power field) NONE NRG Bacteria detection in urine sediment by light microsco py NEGATIVE NRG Squamous epithelial cells detection in u rine sediment by light microscopy 0-2 NRG Crystals detection in urine sediment by light microsco py NONE NRG Casts detection in urine sediment by light microscopy NONE NRG Mucus detection in urine sediment by light microscopy NEGATIVE NRG Complete urinalysis with reflex to culture NO NRG Blood lactic acid measurement (moles/vol ume) - 07/01/16 08:36 Blood lactic acid measurement (moles/volume) 0.83 mmol/L 0.50-2.00 Bacterial blood culture - 07/01/16 08:45 Bacterial blood culture NG NRG Bacterial blood culture - 07/01/16 08:50 Bacterial blood culture NG NRG Complete blood count (CBC) with automate d white blood cell (WBC) differential - 07/02/16 05:07 Blood leukocytes automated count (number/volume) 11.1 10*3/uL 4.3-11.0 Blood erythrocytes automated count (number/volume) 3.16 10*6/uL 4.35-5.85 Venous blood hemoglobin measurement (mass/volume) 9.7 g/dL 13.3-17.7 Blood hematocrit (volume fraction) 29 % 40-54 Automated erythrocyte mean corpuscular volume 93 [ foz_us] 80-99 Automated erythrocyte mean corpuscular h emoglobin (mass per erythrocyte) 31 pg 25-34 Automated erythrocyte mean corpuscular h emoglobin concentration measurement (mass/volume) 33 g/dL 32-36 Automated erythrocyte distribution width ratio 13. 7 % 10.0- 14.5 Automated blood platelet count (count/volume) 169 10*3/uL 130-400 Automated blood platelet mean volume measurement 11.3 [foz_us] 7.4-10.4 Automated blood neutrophils/100 leukocytes 93 % 42-75 Automated blood lymphocytes/100 leukocytes 4 % 12-44 Blood monocytes/100 leukocytes 3 % 0-12 Automated blood eosinophils/100 leukocytes 0 % 0-10 Automated blood basophils/100 leukocytes 0 % 0-10 Blood neutrophils automated count (number/volume) 10.3 10*3 1.8-7.8 Blood lymphocytes automated count (number/volume) 0.5 10*3 1.0-4.0 Blood monocytes automated count (number/volume) 0. 3 10*3 0.0-1.0 Automated eosinophil count 0.0 10*3/uL 0 .0-0.3 Automated blood basophil count (count/volume) 0.0 10*3/uL 0.0-0.1 Comprehensive metabolic panel - 07/02/16 05:07 Serum or plasma sodium measurement (moles/volume) 138 mmol/L 135-145 Serum or plasma potassium measurement (moles/volume) 3.7 mmol/L 3.6-5.0 Serum or plasma chloride measurement (moles/volume) 104 mmol/L 98-107 Carbon dioxide 25 mmol/L 21-32 Serum or plasma anion gap determination (moles/volume) 9 mmol/L 5-14 Serum or plasma urea nitrogen measurement (mass/volume ) 21 mg/dL 7-18 Serum or plasma creatinine measurement (mass/volume) 1.33 mg/dL 0.60-1.30 Serum or plasma urea nitrogen/creatinine mass ratio 16 NRG Serum or plasma creatinine measurement w ith calculation of estimated glomerular filtration rate 52 NRG Serum or plasma glucose measurement (mass/volume) 257 mg/dL 70-105 Serum or plasma calcium measurement (mass/volume) 8.0 mg/dL 8.5-10.1 Serum or plasma total bilirubin measurement (mass/volu me) 0.8 mg/dL 0.1-1.0 Serum or plasma alkaline phosphatase josr surement (enzymatic activity/volume) 114 U/L 40-136 Serum or plasma aspartate aminotransfera se measurement (enzymatic activity/volume) 22 U/L 5-34 Serum or plasma alanine aminotransferase measurement (enzymatic activity/volume) 45 U/L 0-55 Serum or plasma protein measurement (mass/volume) 5.8 g/dL 6.4-8.2 Serum or plasma albumin measurement (mass/volume) 2.6 g/dL 3.2-4.5 Serum or plasma phosphate measurement (m ass/volume) - 07/02/16 05:07 Serum or plasma phosphate measurement (mass/volume) 3.3 mg/dL 2.3-4.7 Magnesium - 07/02/16 05:07 Magnesium 2.3 mg/dL 1.8-2.4 Blood CBC with ordered manual differenti al panel - 07/02/16 05:07 Blood monocytes/100 leukocytes 1 % NRG Manual blood segmented neutrophils/100 leukocytes 90 % NRG Blood band neutrophils/100 leukocytes 6 % NRG Manual blood lymphocytes/100 leukocytes 3 % NRG Blood erythrocyte morphology finding identification NORMAL NRG Complete blood count (CBC) with automate d white blood cell (WBC) differential - 07/03/16 04:25 Blood leukocytes automated count (number/volume) 14.0 10*3/uL 4.3-11.0 Blood erythrocytes automated count (number/volume) 3.21 10*6/uL 4.35-5.85 Venous blood hemoglobin measurement (mass/volume) 10.0 g/dL 13.3-17.7 Blood hematocrit (volume fraction) 30 % 40-54 Automated erythrocyte mean corpuscular volume 94 [ foz_us] 80-99 Automated erythrocyte mean corpuscular h emoglobin (mass per erythrocyte) 31 pg 25-34 Automated erythrocyte mean corpuscular h emoglobin concentration measurement (mass/volume) 33 g/dL 32-36 Automated erythrocyte distribution width ratio 13. 9 % 10.0- 14.5 Automated blood platelet count (count/volume) 210 10*3/uL 130-400 Automated blood platelet mean volume measurement 10.9 [foz_us] 7.4-10.4 Automated blood neutrophils/100 leukocytes 91 % 42-75 Automated blood lymphocytes/100 leukocytes 6 % 12-44 Blood monocytes/100 leukocytes 3 % 0-12 Automated blood eosinophils/100 leukocytes 0 % 0-10 Automated blood basophils/100 leukocytes 0 % 0-10 Blood neutrophils automated count (number/volume) 12.7 10*3 1.8-7.8 Blood lymphocytes automated count (number/volume) 0.8 10*3 1.0-4.0 Blood monocytes automated count (number/volume) 0. 5 10*3 0.0-1.0 Automated eosinophil count 0.0 10*3/uL 0 .0-0.3 Automated blood basophil count (count/volume) 0.0 10*3/uL 0.0-0.1 Whole blood basic metabolic panel - 06/06 04:25 Serum or plasma sodium measurement (moles/volume) 139 mmol/L 135-145 Serum or plasma potassium measurement (moles/volume) 3.6 mmol/L 3.6-5.0 Serum or plasma chloride measurement (moles/volume) 104 mmol/L 98-107 Carbon dioxide 24 mmol/L 21-32 Serum or plasma anion gap determination (moles/volume) 11 mmol/L 5-14 Serum or plasma urea nitrogen measurement (mass/volume ) 25 mg/dL 7-18 Serum or plasma creatinine measurement (mass/volume) 1.30 mg/dL 0.60-1.30 Serum or plasma urea nitrogen/creatinine mass ratio 19 NRG Serum or plasma creatinine measurement w ith calculation of estimated glomerular filtration rate 53 NRG Serum or plasma glucose measurement (mass/volume) 210 mg/dL 70-105 Serum or plasma calcium measurement (mass/volume) 8.0 mg/dL 8.5-10.1 Serum or plasma phosphate measurement (m ass/volume) - 07/03/16 04:25 Serum or plasma phosphate measurement (mass/volume) 3.4 mg/dL 2.3-4.7 Magnesium - 07/03/16 04:25 Magnesium 2.2 mg/dL 1.8-2.4 Comprehensive metabolic panel - 07/03/16 07:25 Serum or plasma sodium measurement (moles/volume) 140 mmol/L 135-145 Serum or plasma potassium measurement (moles/volume) 3.8 mmol/L 3.6-5.0 Serum or plasma chloride measurement (moles/volume) 105 mmol/L 98-107 Carbon dioxide 27 mmol/L -32 Serum or plasma anion gap determination (moles/volume) 8 mmol/L 5-14 Serum or plasma urea nitrogen measurement (mass/volume ) 25 mg/dL 7-18 Serum or plasma creatinine measurement (mass/volume) 1.27 mg/dL 0.60-1.30 Serum or plasma urea nitrogen/creatinine mass ratio 20 NRG Serum or plasma creatinine measurement w ith calculation of estimated glomerular filtration rate 54 NRG Serum or plasma glucose measurement (mass/volume) 181 mg/dL 70-105 Serum or plasma calcium measurement (mass/volume) 8.2 mg/dL 8.5-10.1 Serum or plasma total bilirubin measurement (mass/volu me) 0.8 mg/dL 0.1-1.0 Serum or plasma alkaline phosphatase josr surement (enzymatic activity/volume) 119 U/L 40-136 Serum or plasma aspartate aminotransfera se measurement (enzymatic activity/volume) 37 U/L 5-34 Serum or plasma alanine aminotransferase measurement (enzymatic activity/volume) 58 U/L 0-55 Serum or plasma protein measurement (mass/volume) 6.1 g/dL 6.4-8.2 Serum or plasma albumin measurement (mass/volume) 2.7 g/dL 3.2-4.5 Vancomycin trough - 07/03/16 07:25 Vancomycin trough 10.9 ug/mL 10.0-20.0 Complete blood count (CBC) with automate d white blood cell (WBC) differential - 07/04/16 05:31 Blood leukocytes automated count (number/volume) 8.8 10*3/uL 4.3-11.0 Blood erythrocytes automated count (number/volume) 3.17 10*6/uL 4.35-5.85 Venous blood hemoglobin measurement (mass/volume) 9.4 g/dL 13.3-17.7 Blood hematocrit (volume fraction) 30 % 40-54 Automated erythrocyte mean corpuscular volume 94 [ foz_us] 80-99 Automated erythrocyte mean corpuscular h emoglobin (mass per erythrocyte) 30 pg 25-34 Automated erythrocyte mean corpuscular h emoglobin concentration measurement (mass/volume) 31 g/dL 32-36 Automated erythrocyte distribution width ratio 14. 1 % 10.0- 14.5 Automated blood platelet count (count/volume) 234 10*3/uL 130-400 Automated blood platelet mean volume measurement 10.6 [foz_us] 7.4-10.4 Automated blood neutrophils/100 leukocytes 81 % 42-75 Automated blood lymphocytes/100 leukocytes 13 % 12-44 Blood monocytes/100 leukocytes 6 % 0-12 Automated blood eosinophils/100 leukocytes 0 % 0-10 Automated blood basophils/100 leukocytes 0 % 0-10 Blood neutrophils automated count (number/volume) 7.2 10*3 1.8-7.8 Blood lymphocytes automated count (number/volume) 1.1 10*3 1.0-4.0 Blood monocytes automated count (number/volume) 0. 6 10*3 0.0-1.0 Automated eosinophil count 0.0 10*3/uL 0 .0-0.3 Automated blood basophil count (count/volume) 0.0 10*3/uL 0.0-0.1 Whole blood basic metabolic panel - 06/06 04/22 05:31 Serum or plasma sodium measurement (moles/volume) 144 mmol/L 135-145 Serum or plasma potassium measurement (moles/volume) 3.6 mmol/L 3.6-5.0 Serum or plasma chloride measurement (moles/volume) 110 mmol/L 98-107 Carbon dioxide 27 mmol/L 21-32 Serum or plasma anion gap determination (moles/volume) 7 mmol/L 5-14 Serum or plasma urea nitrogen measurement (mass/volume ) 27 mg/dL 7-18 Serum or plasma creatinine measurement (mass/volume) 1.13 mg/dL 0.60-1.30 Serum or plasma urea nitrogen/creatinine mass ratio 24 NRG Serum or plasma creatinine measurement w ith calculation of estimated glomerular filtration rate > NRG Serum or plasma glucose measurement (mass/volume) 111 mg/dL 70-105 Serum or plasma calcium measurement (mass/volume) 7.7 mg/dL 8.5-10.1 Serum or plasma phosphate measurement (m ass/volume) - 07/04/16 05:31 Serum or plasma phosphate measurement (mass/volume) 2.9 mg/dL 2.3-4.7 Magnesium - 07/04/16 05:31 Magnesium 2.1 mg/dL 1.8-2.4 Complete blood count (CBC) with automate d white blood cell (WBC) differential - 07/05/16 05:30 Blood leukocytes automated count (number/volume) 10.1 10*3/uL 4.3-11.0 Blood erythrocytes automated count (number/volume) 3.35 10*6/uL 4.35-5.85 Venous blood hemoglobin measurement (mass/volume) 9.9 g/dL 13.3-17.7 Blood hematocrit (volume fraction) 31 % 40-54 Automated erythrocyte mean corpuscular volume 93 [ foz_us] 80-99 Automated erythrocyte mean corpuscular h emoglobin (mass per erythrocyte) 30 pg 25-34 Automated erythrocyte mean corpuscular h emoglobin concentration measurement (mass/volume) 32 g/dL 32-36 Automated erythrocyte distribution width ratio 13. 9 % 10.0- 14.5 Automated blood platelet count (count/volume) 261 10*3/uL 130-400 Automated blood platelet mean volume measurement 10.5 [foz_us] 7.4-10.4 Automated blood neutrophils/100 leukocytes 90 % 42-75 Automated blood lymphocytes/100 leukocytes 7 % 12-44 Blood monocytes/100 leukocytes 3 % 0-12 Automated blood eosinophils/100 leukocytes 0 % 0-10 Automated blood basophils/100 leukocytes 0 % 0-10 Blood neutrophils automated count (number/volume) 9.0 10*3 1.8-7.8 Blood lymphocytes automated count (number/volume) 0.7 10*3 1.0-4.0 Blood monocytes automated count (number/volume) 0. 3 10*3 0.0-1.0 Automated eosinophil count 0.0 10*3/uL 0 .0-0.3 Automated blood basophil count (count/volume) 0.0 10*3/uL 0.0-0.1 Whole blood basic metabolic panel - 04/0 04/22 05:30 Serum or plasma sodium measurement (moles/volume) 141 mmol/L 135-145 Serum or plasma potassium measurement (moles/volume) 3.8 mmol/L 3.6-5.0 Serum or plasma chloride measurement (moles/volume) 107 mmol/L 98-107 Carbon dioxide 26 mmol/L 21-32 Serum or plasma anion gap determination (moles/volume) 8 mmol/L 5-14 Serum or plasma urea nitrogen measurement (mass/volume ) 26 mg/dL 7-18 Serum or plasma creatinine measurement (mass/volume) 0.96 mg/dL 0.60-1.30 Serum or plasma urea nitrogen/creatinine mass ratio 27 NRG Serum or plasma creatinine measurement w ith calculation of estimated glomerular filtration rate > NRG Serum or plasma glucose measurement (mass/volume) 162 mg/dL 70-105 Serum or plasma calcium measurement (mass/volume) 7.6 mg/dL 8.5-10.1 Serum or plasma phosphate measurement (m ass/volume) - 07/05/16 05:30 Serum or plasma phosphate measurement (mass/volume) 3.3 mg/dL 2.3-4.7 Magnesium - 07/05/16 05:30 Magnesium 2.2 mg/dL 1.8-2.4 Encounters ACCT No. Visit Date/Time Discharge Status Pt. Type Provider Facility Loc./Unit Complaint [id number] 08/10/2019 12:40:00 08/10/2019 23:59: 59 CLS Outpatient WAQAS THAYER LAC [facility] [id number] 09/10/2016 09:21:27 09/10/2016 23:59:5 9 CLS Outpatient [id number] 06/25/2016 20:13:00 017 18:15:00 DIS Inpatient MARCELLA ANAND DO [facility] 4TH ACUTE CHOLECYSTITIS/LITHIASIS,PANCREATITIS,ELEVATE [id number] 05/26/2016 17:55:00 017 11:10:00 DIS Inpatient MARCELLA ANAND DO [facility] 4TH LLL PNEUMONIA,I NFLUENZA LIKE ILLNESS,DEHYDRATION [id number] 05/01/2016 23:29:00 017 00:42:00 DIS Emergency MCARTHUR YVONNE LUONG [facility] ER MIGRAINE [id number] 02/22/2016 14:29:00 016 23:59:59 CLS Outpatient MARCELLA ANAND DO [facility] RAD LEFT CAROTID BR UTI,CAD,HTN [id number] 01/22/2016 16:22:00 016 23:59:59 CLS Outpatient MARCELLA ANAND DO [facility] RAD COUGH
[2019-08-29] MEDS ORDERED: LACTATED RINGERS 1,000 ML IV ONE (04:45)
[2019-08-29 05:55] LABS: BASOPHILS % (AUTO) 0 % (0-10); EOSINOPHILS # (AUTO) 0.2 10^3/uL (0.0-0.3); EOSINOPHILS % (AUTO) 2 % (0-10); HEMATOCRIT 41 % (40-54); HEMOGLOBIN 13.5 G/DL (13.3-17.7); LYMPHOCYTES # (AUTO) 1.2 X 10^3 (1.0-4.0); LYMPHOCYTES % (AUTO) 14 % (12-44); MEAN CORPUSCULAR HEMOGLOBIN 32 PG (25-34); MEAN CORPUSCULAR HGB CONC 33 G/DL (32-36); MEAN CORPUSCULAR VOLUME 98 FL (80-99); MEAN PLATELET VOLUME 10.9 FL (7.4-10.4); MONOCYTES # (AUTO) 0.8 X 10^3 (0.0-1.0); MONOCYTES % (AUTO) 9 % (0-12); NEUTROPHILS # (AUTO) 6.2 X 10^3 (1.8-7.8); NEUTROPHILS % (AUTO) 75 % (42-75); PLATELET COUNT 106 10^3/uL (130-400); WHITE BLOOD COUNT 8.4 10^3/uL (4.3-11.0)
[2019-08-29 06:14] LABS: ALBUMIN 3.7 GM/DL (3.2-4.5); POTASSIUM 3.9 MMOL/L (3.6-5.0)
[2019-08-29 06:15] LABS: CALCIUM 8.2 MG/DL (8.5-10.1)
[2019-08-29 06:17] LABS: TOTAL PROTEIN 6.8 GM/DL (6.4-8.2)
[2019-08-29 06:18] LABS: BILIRUBIN,TOTAL 0.5 MG/DL (0.1-1.0)
[2019-08-29 06:20] LABS: CREATININE SERUM 1.21 MG/DL (0.60-1.30); PHOSPHORUS 3.8 MG/DL (2.3-4.7)
[2019-08-29 06:24] LABS: MAGNESIUM 2.3 MG/DL (1.6-2.4)
[2019-08-29] MEDS ORDERED: LACTATED RINGERS 1,000 ML IV SCH (06:45)
[2019-08-29] MEDS ORDERED: ONDANSETRON 4 MG/2 ML (SDV) Z0FRAN IV PRN (06:45)
--- NOTE | 2019-08-29 07:23 | Diagnostic Imaging Report ---
PROCEDURE: CT head wo r/o stroke. TECHNIQUE: Multiple contiguous axial images were obtained through the brain without the use of intravenous contrast. Auto Exposure Controls were utilized during the CT exam to meet ALARA standards for radiation dose reduction. INDICATION: Memory loss There is no mass, shift of the midline or hemorrhage to suggest an acute intracranial abnormality. There is no sign of an asymmetric hyperdense vessel. The ventricles are not abnormally dilated and stable in size when compared to the prior exam of 10/05/2016. The senescent changes seen previously are again visualized and no different. The bone windows show no sign of a fracture or destructive lesion. The orbits are symmetrical and within normal limits. The sinuses are generally clear. IMPRESSION: 1. There is no evidence for an acute intracranial abnormality. 2. Reportedly, CTA of the head and neck is pending for further study. Dictated by: Dictated on workstation # [id number]
--- NOTE | 2019-08-29 07:27 | Diagnostic Imaging Report ---
Portable erect AP chest at 11:55. Indication: Altered mental status. As on the prior exam of 07/04/2016, there is shallow inspiration. Allowing for this technical factor the heart is stable in size and the lungs are clear. The mediastinum is not widened. The osseous structures show no sign of an acute abnormality. The long-standing fracture of the left clavicle seen previously is again evident and no different. Impression: 1. Allowing for the shallow degree of inspiration, there is no evidence for an acute cardiopulmonary abnormality. 2. If clinical concern regarding an underlying abnormality persists, followup PA and lateral chest would be recommended. Dictated by: Dictated on workstation # [id number]
--- NOTE | 2019-08-29 07:43 | Diagnostic Imaging Report ---
PROCEDURE: CT angiography of the head and CT angiography of the neck with and without contrast. TECHNIQUE: Contiguous noncontrast images were obtained from the skull base through the vertex. After intravenous contrast administration, helical CT angiography of the neck was performed. Source data was reformatted into 3D MIP projections. Delayed post contrast acquisition was also obtained. Auto Exposure Controls were utilized during the CT exam to meet ALARA standards for radiation dose reduction. INDICATION: Altered mental status The CT head exam performed prior to this study failed to show any sign of an acute intracranial abnormality. On this study the images through the skull show no evidence for a large vessel occlusion. There is no sign of an aneurysm of the [place] either. The images through the neck show there is atherosclerotic disease involving both carotid bifurcations. The right carotid bifurcation appears to be the most severely affected and I suspect there is a 70-80% stenosis of the origin of the internal carotid artery on the right. There even more severe (80-90%) stenosis of the origin of the external carotid artery on the right. There is no evidence for hemodynamically significant stenosis of the left carotid system. Both vertebral arteries were opacified. The right vertebral artery is dominant. There is no mass or adenopathy involving the neck. The thyroid gland is generally unremarkable. The lung apices are clear. There is compressive atelectasis in the left lung base near the elevated left hemidiaphragm. As noted on the CT abdomen/pelvis exam performed in conjunction with the study, there is extensive osseous metastatic disease. There is no acute bony abnormality identified however. IMPRESSION: 1. There is no evidence for a large vessel occlusion nor is any sign of an aneurysm of the [place]. If further evaluation for an acute intracranial abnormality is desired, MRI would be recommended. 2. There is atherosclerotic disease involving both carotid systems with the right carotid system the more severely affected. There is a 70-80% stenosis of the origin of the internal carotid artery on the right and 80-90% type stenosis of the origin of the right external carotid artery. There is no hemodynamically significant stenosis of the left carotid system. 3. The vertebral arteries were opacified. The right vertebral is dominant. Dictated by: Dictated on workstation # [id number]
[2019-08-29] MEDS: CARVEDILOL 3.125 MG (COREG) TABLET PO SCH ×2 (08:03→20:39)
[2019-08-29] MEDS: amLODIPine 5 MG (NORVASC) TAB PO SCH (08:04)
[2019-08-29] MEDS: TAMSULOSIN 0.4 MG (FLOMAX) CAP PO SCH (08:04)
[2019-08-29] MEDS ORDERED: ASPIRIN 300 MG (5 GR) SUPPOSITORY PR SCH (09:00)
[2019-08-29] MEDS: ENOXAPARIN 40 MG/0.4 ML (LOVENOX) SYR SC SCH (11:43)
--- NOTE | 2019-08-29 12:46 | History & Physical-Hospitalist ---
History of Present Illness HPI/Chief Complaint Stephen Isaac is an 83-year-old male with past medical history of hypertension, BPH, depression, chronic back pain, who presented with altered mental status. He is confused and unable to provide any of the history. I spoke with his daughter, Ely. She states that he has been living with her for the past month. Prior to that he had been in a chcf in [place]. She said that he had been in [place] living with family members there but they were unable to take care of him and he went to the chcf. He was becoming depressed because he could not have any visitors and she took them out so he can live with her here in [place]. She reports that things at been going well until yesterday when he was not acting like himself. He has reportedly been having a cough over the past 2 days. They went to lunch at [employer] and as they were in the car and started at home, he raised his hand is up to tell him something but he was unable to form words and just made incomprehensible sounds. They decided to take him to the emergency room and by the time he got there he was minimally responsive. He had been taking Flexeril for low back pain which she received during an [place] [facility] He previously lived here with his daughter and the followed with Dr. Livingston at that time. I also spoke with another daughter, Evelyne, who lives in [place]. She has power of commonwealth attorney along with two of her siblings. She states that after he had his gallbladder taken out here a few years ago he went to [place]. He had trouble with fainting spells at that time but those have since improved. She also reports that he has been chronically aspirating. It started after his gallbladder was removed and has improved since that time. She reports that he ambulates with a wheeled walker with a seat. She says that he was wanting to live here in [place] until he is able to have visitors at the chcf after the restrictions from the coronavirus pandemic improve. Source: family Date Seen 08/29/19 Time Seen by a Provider: 09:00 Attending Physician Farheen Cordon MD PCP Henrik Livingston DO Referring Physician Date of Admission August 29, 2019 at 03:00 Home Medications & Allergies Home Medications Reviewed patient Home Medication Reconciliation performed by pharmacy medication reconciliations digital imaging technician and/or nursing. Patients Allergies have been reviewed. Allergies Allergies Coded Allergies No Known Drug Allergies (Unverified05/01/16) Past Ijmxehw-Soowem-Khrhgf Hx Past Med/Social Hx: Reviewed Nursing Past Med/Soc Hx Patient Social History Alcohol Use: Denies Use Recreational Drug Use: No Smoking Status: Never a Smoker Recent Foreign Travel: No Contact w/other who traveled: No Recent Hopitalizations: No Recent Infectious Disease Expo: No Immunizations Up To Date Tetanus Booster (TDap): Unknown Seasonal Allergies Seasonal Allergies: No Past Medical History Surgeries: Eye Surgery Respiratory: Pneumonia Currently Using CPAP: No Currently Using BIPAP: No Cardiac: High Cholesterol, Hypertension Neurological: Dementia Reproductive: No Sexually Transmitted Disease: No HIV/AIDS: No Musculoskeletal: Back Injury Loss of Vision: Denies Hearing Impairment: Hard of Hearing Psychosocial: Depression History of Blood Disorders: No Adverse Reaction to Blood Burris: No Family History FH: cancer 19 MOTHER No Pertinent Family Hx Review of Systems Constitutional: see HPI Physical Exam Physical Exam Vital Signs Vital Signs - First Documented 08/28/19 08/29/19 23:08 03:50 Temp 36.9 Pulse 67 Resp 16 B/P (MAP) 202/100 (134) Pulse Ox 98 O2 Delivery Room Air Capillary Refill : Less Than 3 Seconds Height, Weight, BMI Height: 5'9.00" Weight: 230lbs. 8.0oz. [id number]; 35.43 BMI Method:Stated General Appearance: No Apparent Distress, Chronically ill, Obese HEENT: PERRL/EOMI, Pharynx Normal Neck: Normal Inspection, Supple Respiratory: Lungs Clear, Normal Breath Sounds, No Respiratory Distress Cardiovascular: Regular Rate, Rhythm, No Edema, No Murmur, Normal Peripheral Pulses Gastrointestinal: Normal Bowel Sounds, Non Tender, Soft Extremity: Normal Inspection, Non Tender, No Pedal Edema Neurologic/Psychiatric: Alert, No Motor/Sensory Deficits, Disoriented, Other (following commands intermittently) Skin: Normal Color, Warm/Dry Results Results/Procedures Labs Laboratory Tests 08/28/19 22:42 08/29/19 05:45 Patient resulted labs reviewed. Imaging: Reviewed Imaging Films, Reviewed Imaging Report Assessment/Plan Admission Diagnosis acute encephalopathy Admission Status: Inpatient Order (span 2 midnights) Reason for Inpatient Admission: encephalopathy requiring further evaluation and treatment Assessment and Plan Acute encephalopathy Right carotid stenosis Advanced age HTN BPH No infectious etiologies identified, normal electrolytes, urine toxicology and alcohol negative Concern for possible stroke CT abdomen without acute abnormalities CTA with no large vessel occlusion, right carotid stenosis, vertebral artery opacification MRI tomorrow morning Begin aspirin and statin Echo ordered Consult cardiology, appreciate recommendations Continue amlodipine and carvedilol Continue Flomax DVT prophylaxis: Lovenox Diagnosis/Problems Diagnosis/Problems (1) Encephalopathy acute Status: Acute (2) 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
[2019-08-29] MEDS: D5 1/2 NS W/KCL 20 MEQ/L 1,000 ML IV SCH (13:01)
--- NOTE | 2019-08-29 14:22 | Consultation-Cardiology ---
HPI-Cardiology Cardiology Consultation: Date of Consultation 08/29/19 Date of Admission Attending Physician Farheen Cordon MD Admitting Physician Henrik Livingston DO Consulting Physician Magda HICKS MD HPI: Time Seen by a Provider: 14:21 Chief Complaint: Encephalopathy. This is a 83-year-old gentleman with history of hyperlipidemia, hypertension, back pain, depression and BPH. He is been evaluated for altered mental status with confusion. Poor historian. History is taken from the chart and from the nurses. Complain of some cough recently. Recent altered mental status. No recent history of smoking. Denies any cardiac complaints. He is been evaluated for possible stroke. Review of Systems-Cardiology Review of Systems Constitutional: As described under HPI; No As described under HPI, No no symptoms reported, No chills, No fever, No lightheadedness Eyes: No As described under HPI, No no symptoms reported, No blindness, No blurred vision, No contact lenses, No drainage, No decreased acuity, No foreign body sensation, No pain, No vision change Ears/Nose/Throat: No As described under HPI, No no symptoms reported, No chronic hearing loss, No ear discharge, No ear pain, No nasal drainage, No ulcerations Respiratory: No no symptoms reported; As described under HPI; No As described under HPI, No cough, No orthopnea, No shortness of breath, No SOB with excertion Cardiovascular: No no symptoms reported; As described under HPI; No As described under HPI, No chest pain, No edema, No irregular heart rate, No lightheadedness, No palpitations Gastrointestinal: No no symptoms reported, No As described under HPI, No abdomen distended, No abdominal pain, No blood streaked bowels, No constipation, No diarrhea, No nausea, No vomiting, No stool coloration changes Genitourinary: No As described under HPI, No burning, No dysuria, No discharge, No frequency, No flank pain, No hematuria, No urgency Skin: No rash, No skin related problems, No ulcerations Psychiatric/Neurological: As described under HPI; No anxiety, No depression, No seizure, No focal weakness, No syncope Hematologic: No bleeding abnormalities All Other Systems Reviewed Negative Unless Noted: Yes VOC-Ymbpsg-Exwuxn Hx Patient Social History Alcohol Use: Denies Use Recreational Drug Use: No Smoking Status: Never a Smoker Recent Foreign Travel: No Recent Infectious Disease Expo: No Hospitalization with Isolation: Denies Immunizations Up To Date Tetanus Booster (TDap): Unknown Past Medical History PMH As described under Assessment. Family Medical History Family History: FH: cancer 19 MOTHER Allergies and Home Medications Allergies Coded Allergies: No Known Drug Allergies (Unverified , 05/01/16) Home Medications Amlodipine Besylate 5 Mg Tablet, 5 MG PO DAILY, (Reported) Aspirin 81 Mg Tablet.dr, 81 MG PO DAILY Prescribed by: FARHEEN CORDON on 08/31/19 1026 Atorvastatin Calcium 80 Mg Tablet, 80 MG PO HS Prescribed by: FARHEEN CORDON on 08/31/19 1026 Benzonatate 100 Mg Capsule, 100-200 MG PO Q8H PRN for COUGH, (Reported) Carvedilol 3.125 Mg Tablet, 3.125 MG PO BID, (Reported) Diclofenac Sodium 50 Mg Tablet.dr, 50 MG PO BID PRN for PAIN-BREAKTHROUGH, (Reported) Furosemide 20 Mg Tablet, 20 MG PO DAILY, (Reported) Tamsulosin HCl 0.4 Mg Cap, 0.4 MG PO DAILY, (Reported) Patient Home Medication List Home Medication List Reviewed: Yes Physical Exam-Cardiology Physical Exam Vital Signs/I&O 08/31/19 08/31/19 08/31/19 08/31/19 04:00 07:07 07:48 09:00 Temp 36.7 36.5 Pulse 73 71 72 Resp 20 20 B/P (MAP) 140/82 (101) 139/82 (101) Pulse Ox 93 95 O2 Delivery Room Air Room Air Room Air 08/31/19 13:01 Temp 36.4 Pulse 73 Resp 20 B/P (MAP) 160/76 (104) Pulse Ox 94 O2 Delivery Room Air 08/31/19 00:00 Intake Total 1040 ml Output Total 900 ml Balance 140 ml Capillary Refill : Less Than 3 Seconds Constitutional: appears stated age; No apparent distress; well-developed, well- nourished HEENT: PERRL; No discharge; hearing is well preserved, oral hygience is good; No ulceration, No xanthelasmas are seen Neck: No carotid bruit; carotid pulses are 2 + bilaterally Respiratory: chest is bilaterally symmetric, lungs clear to auscultation Cardiovascular: regular rate-rhythm, S1 and S2, systolic murmur Gastrointestinal: soft, audible bowel sounds; No spleenomegaly Rectal: deferred Extremities: normal range of motion, non-tender, normal inspection; No clubbing, No cyanosis; no lower extremity edema bilateral; No significant edema Neurologic/Psychiatric: no motor/sensory deficits, alert, normal mood/affect, disoriented x 3, power is 5/5 both on sides Skin: normal color, warm/dry; No rash, No ulcerations Data Review Labs Laboratory Tests 08/31/19 04:55: White Blood Count 8.9, Red Blood Count 3.94L, Hemoglobin 13.0L, Hematocrit 39L, Mean Corpuscular Volume 98, Mean Corpuscular Hemoglobin 33, Mean Corpuscular Hemoglobin Concent 34, Red Cell Distribution Width 13.1, Platelet Count 84L, Mean Platelet Volume 11.5H, Neutrophils (%) (Auto) 69, Lymphocytes (%) (Auto) 19, Monocytes (%) (Auto) 10, Eosinophils (%) (Auto) 2, Basophils (%) (Auto) 0, Neutrophils # (Auto) 6.1, Lymphocytes # (Auto) 1.7, Monocytes # (Auto) 0.9, Eosinophils # (Auto) 0.2, Basophils # (Auto) 0.0, Sodium Level 138, Potassium Level 3.9, Chloride Level 107, Carbon Dioxide Level 22, Anion Gap 9, Blood Urea Nitrogen 15, Creatinine 1.06, Estimat Glomerular Filtration Rate > 60, BUN/Creatinine Ratio 14, Glucose Level 106H, Calcium Level 8.1L Microbiology 08/29/19 MRSA Screen - Final, Complete MRSA not isolated ECG Impression ECG Initial ECG Rhythm: Normal Sinus Initial ECG Impression: Normal A/P-Cardiology Assessment/Admission Diagnosis Possible acute stroke, Acute encephalopathy, Right carotid severe stenosis Plan Aspirin, Echocardiogram with bubble study. Thank you for your consultation. Please call me if you have any questions. Norman Hicks MD, FACP, FACC, FSCAI, FHRS, CCDS Interventional Cardiology Cardiac Electrophysiology Vascular Medicine and Endovascular Interventions Clinical Quality Measures DVT/VTE Risk/Contraindication: Risk Factor Score Per Nursin RFS Level Per Nursing on Admit: 4+=Very High Stroke: Date of last known well: August 28, 2019 Time of last known well: 08:30 Symptoms onset unknown: Magda Hassan MD August 29, 2019 14:22
[2019-08-29] MEDS: hydrALAZINE (APESOLINE) 20 MG/ML VIAL IV PRN (15:45)
--- NOTE | 2019-08-29 17:47 | NUR ---
Shift Summary: Pt remains confused throughout shift. Alert to only person. Neurological checks remain unchanged at this time. Pt remains able to move all extremities equally and pupils remain equal and reactive. Information provided to family during am portion of shift. VS have remained stable during shift. PRN hydralizine give x1 during shift. BP remains elevated 150-160s systolic throughout 12hours. Urine output has remained adequate despite NPO status. During am portion of shift, this RN offered liquids (water) with medications. Pt coughed continually after water exposure. Physician notified. Pt to remain NPO at this time until speech therapy to evaluate. MRI pending at this time due to availability and routine status. Physician aware. Will continue to monitor.
[2019-08-29] MEDS ORDERED: LORazepam INJ 2 MG/ML (ATIVAN) VIAL IVP PRN (20:30)
[2019-08-29] MEDS ORDERED: HALOPERIDOL 5 MG/ML (HALDOL) AMP IM PRN (20:30)
[2019-08-30] VITALS (14 sets, daily range): BP systolic 115–174; BP diastolic 65–90
[2019-08-30] MEDS: hydrALAZINE (APESOLINE) 20 MG/ML VIAL IV PRN (01:43)
[2019-08-30] MEDS: D5 1/2 NS W/KCL 20 MEQ/L 1,000 ML IV SCH ×2 (01:59→04:47)
[2019-08-30 03:37] LABS: BASOPHILS % (AUTO) 0 % (0-10); EOSINOPHILS # (AUTO) 0.1 10^3/uL (0.0-0.3); EOSINOPHILS % (AUTO) 1 % (0-10); HEMATOCRIT 42 % (40-54); HEMOGLOBIN 14.2 G/DL (13.3-17.7); LYMPHOCYTES # (AUTO) 1.6 X 10^3 (1.0-4.0); LYMPHOCYTES % (AUTO) 13 % (12-44); MEAN CORPUSCULAR HEMOGLOBIN 33 PG (25-34); MEAN CORPUSCULAR HGB CONC 34 G/DL (32-36); MEAN CORPUSCULAR VOLUME 97 FL (80-99); MEAN PLATELET VOLUME 11.6 FL (7.4-10.4); MONOCYTES # (AUTO) 1.1 X 10^3 (0.0-1.0); MONOCYTES % (AUTO) 8 % (0-12); NEUTROPHILS # (AUTO) 9.9 X 10^3 (1.8-7.8); NEUTROPHILS % (AUTO) 78 % (42-75); PLATELET COUNT 114 10^3/uL (130-400); RED CELL DISTRIBUTION WIDTH 12.9 % (10.0-14.5); WHITE BLOOD COUNT 12.7 10^3/uL (4.3-11.0)
[2019-08-30 03:56] LABS: CHLORIDE 105 MMOL/L (98-107); SODIUM 137 MMOL/L (135-145)
[2019-08-30 03:57] LABS: CALCIUM 8.4 MG/DL (8.5-10.1); GLUCOSE 121 MG/DL (70-105)
[2019-08-30 03:59] LABS: CARBON DIOXIDE 22 MMOL/L (21-32)
[2019-08-30 04:01] LABS: CREATININE SERUM 1.02 MG/DL (0.60-1.30); GFR ESTIMATED > 60; PHOSPHORUS 2.4 MG/DL (2.3-4.7)
[2019-08-30 04:02] LABS: BUN/CREATININE RATIO 12
[2019-08-30 04:04] LABS: MAGNESIUM 2.2 MG/DL (1.6-2.4)
--- NOTE | 2019-08-30 04:25 | NUR ---
This RN notified TELE-ICU of patient's decreasing Blood Sugar of 70 on morning labs, midnight finger stick was 90, despite fluids of D5 1/2 NS with 20 MEQ Potassium at 75ml/hr. Patient is NPO. New order received for 25ML IVP of D50.
[2019-08-30] MEDS ORDERED: DEXTROSE 50% 50 ML (IMS) SYR IV ONE (04:30)
--- NOTE | 2019-08-30 05:40 | Diagnostic Imaging Report ---
INDICATION: Encephalopathy. Comparison is made with prior examination from 08/28/2019 FINDINGS: The heart size is normal. There is mild venous congestion. There is no pleural effusion, pneumothorax or pneumonia. Mediastinum is unremarkable. IMPRESSION: Mild central pulmonary venous congestion. Dictated by: Dictated on workstation # [id number]
--- NOTE | 2019-08-30 08:19 | ST Dysphagia Evaluation ---
Speech Evaluation-General Medical Diagnosis Encephalopathy Onset Date: August 29, 2019 Therapy Diagnosis Therapy Diagnosis: Oropharyngeal Dysphagia Precautions Precautions: Aspiration Referral Referring Physician: Dr. Antoine Medical History Pertinent Medical History: HTN Reviewed History: Yes Social History Current Living Status: Other Family Speech PLF/Current-Dysphagia Prior Level of Function Patient lives with other family where he is assisted with his daily needs. Subjective Patient was pleasant and cooperative with the Bedside Dysphagia Evaluation. Cognitive Status Patient Orientation: Person, Confused, Place Patient stated he was in the hospital, however he thought he was in [place]. Oral Motor Skills Denture Type: Full- Upper & Lower Ability to Follow Directions: Good Patient was NPO pending BDE. Oral Expression Ability: No Impairment Patient demonstrated ability to answer questions presented appropriately. Voice Voice Pitch: Mildly Low Voice Loudness: Mildly Soft/Quiet Face Facial Symmetry: Symmetrical Oral-Facial Assessment Oral-Facial Dentition: Normal Labial Seal Description: Normal Smile: Normal Puff Cheeks: Reduced Strength Lingual Protrusion: Normal Lingual ROM: Normal Lingual Strength: Normal Gag Reflex Response: Normal Pharynx Velopharyngeal Move.: Normal Volitional Dry Swallow: Yes Voluntary Cough: Yes Can Clear Throat Volitionally: Yes Productive Cough: No Productive Throat Clear: No Dysphagia Evaluation Consistencies Presented: Regular, Thin Liquid, Mechanical Soft, Pureed Patient has some aspiration reported following his gall bladder surgery. Oral phase was within normal range of function for all consistencies presented. Pharyngeal phase was within normal range of function for all consistencies presented. Dietary Recommendations: Regular Liquid Recommendations: Thin Swallowing Precautions: Alternate Liquids/Solids, Decreased Bolus 1/2 Tsp, Li quids from Straw, Small Bites and Sips, Sitting Upright 90 Degrees, Sitting 90 Degrees 30 Post Intake Discussed with his nurse that he exhibited s/s of aspiration to downgrade liquids to nectar. There were no s/s of aspiration during BDE. Dysphagia Evaluation Summary Patient presented to the ER with AMS. Patient was seen in the ICU for the BDE. He was able to follow verbal directions without difficulty. Patient was noted to be mildly confused as to the state he was in. He does recall that he is in the hospital and hasn't eaten in 2 days. Patient completed the BDE without difficulty. He was given 1/2 tsp sips of thin x2 and small sips of thin via straw x2 without difficulty. He was also presented 1/2 tsp bite size of puree, mechanical soft and regular without difficulty. Patient is recommended for regular diet level with thin liquids. This information was provided to his nurse and written on his white board in the room. Nursing was advised if any s/s of aspiration was apparent to downgrade to nectar consistency liquids. Patient has been reported by family to have a recent history of aspiration s/p gall bladder surgery. No overt s/s of aspiration were exhibited at the time of the BDE. Barriers to Learning Patient's recent medical status. Speech Short Term Goals Short Term Goals Short Term Goals 1) Patient will tolerate least restrictive diet level without s/s of aspiration at 90%. 2) Patient/caregiver will utilize compensatory strategies as trained for safe oral intake at 90% given minimal cues. Speech Prison Goals Customer Service Agent Goals Patient will maintain adequate nutrition/hydration via safe effective swallow function. Speech-Plan Patient/Family Goals Patient/Family Goals: Patient will return to live with his family upon hospital discharge. Treatment Plan Speech Therapy Treatment Plan: Continue Plan of Care Treatment Duration: September 02, 2019 Frequency: 2 times per week Estimated Hrs Per Day: .25 hour per day Rehab Potential: Fair Barriers to Learning: Patient's recent medical status Pt/Family Agrees to Plan: Yes Safety Risks/Education Teaching Recipient: Patient Teaching Methods: Discussion Response to Teaching: Verbalize Understanding, Reinforcement Needed Education Topics Provided: Safety of oral intake and diet level Time Speech Therapy Time In: 08:00 Speech Therapy Time Out: 08:15 Total Billed Time: 15 Billed Treatment Time DOROTHEA Husain CYNTHIA Maki August 30, 2019 08:19
--- NOTE | 2019-08-30 11:38 | Progress Note - Hospitalist ---
Subjective HPI/CC On Admission Date Seen by Provider: August 30, 2019 Time Seen by Provider: 09:20 Stephen Isaac is an 83-year-old male with past medical history of hypertension, BPH, depression, chronic back pain, who presented with altered mental status. He is confused and unable to provide any of the history. I spoke with his daugh Ely chairez. She states that he has been living with her for the past month. Prior to that he had [place] in [place] [facility] [place]. She said that he had been in [place] living with family members there but they were unable to take care of him and [place] [facility] [place]. He was becoming depressed because he could not have any visitors and she took them out so he can live with her here in [place]. She reports that things at been going well until yesterday when he was not acting like himself. He has reportedly been having a cough over the past 2 days. They went to lunch at [employer] and as they were in the car and started at home, he raised his hand is up to tell him something but he was unable to form words and just made incomprehensible sounds. They decided to take him to the emergency room and by the time he got there he was minimally responsive. He had been taking Flexeril for low back pain which she received during an acute visit at the [facility]. He previously lived here with his daughter and the followed with Dr. Livingston at that time. I also spoke with another daughter, Evelyne, who lives in [place]. She has power of document review attorney along with two of her siblings. She states that after he had his gallbladder taken out here a few years ago he went to [place]. He had trouble with fainting spells at that time but those have since improved. She also reports that he has been chronically aspirating. It started after his gallbladder was removed and has improved since that time. She reports that he ambulates with a wheeled walker with a seat. She says that he was wanting to live here in [place] until he is able to have [place] [facility] after the restrictions from the coronavirus pandemic improve. Subjective/Events-last exam He is doing much better this morning. He is sitting on the commode. He had a bowel movement today. He ate his breakfast. He did not have any issues with coughing. He is alert and oriented. He denies any pain. He denies any trouble breathing. He denies any nausea or vomiting. Objective Exam Vital Signs Vital Signs Date Time Temp Pulse Resp B/P (MAP) Pulse Ox O2 Delivery O2 Flow Rate FiO2 08/30/19 11:00 73 15 129/65 (86) 92 Room Air 08/30/19 04:00 36.4 Capillary Refill : Less Than 3 Seconds General Appearance: No Apparent Distress, Obese Neck: Normal Inspection, Supple Respiratory: Lungs Clear, Normal Breath Sounds, No Respiratory Distress Cardiovascular: Regular Rate, Rhythm, No Murmur Gastrointestinal: Normal Bowel Sounds, Non Tender, Soft Extremity: Normal Inspection, Non Tender, Pedal Edema Neurologic/Psychiatric: Alert, No Motor/Sensory Deficits, Normal Mood/Affect; No Disoriented Skin: Normal Color, Warm/Dry Results/Procedures Lab Laboratory Tests 08/30/19 02:52 Patient resulted labs reviewed. Imaging: Reviewed Imaging Report Assessment/Plan Assessment and Plan Assess & Plan/Chief Complaint Right carotid stenosis Advanced age HTN BPH No infectious etiologies identified, normal electrolytes, urine toxicology and alcohol negative Concern for possible stroke CT abdomen without acute abnormalities CTA with no large vessel occlusion, right carotid stenosis, vertebral artery opacification MRI today Continue aspirin and statin Echo results pending Cardiology consulted, appreciate recommendations Continue amlodipine and carvedilol Continue Flomax Advanced care planning Change CODE STATUS to DO NOT RESUSCITATE following discussion with patient DVT prophylaxis: Lovenox Acute encephalopathy, resolved Diagnosis/Problems Diagnosis/Problems (1) Encephalopathy acute Status: Acute (2) Stenosis of right carotid artery greater than 50% (3) Advanced age Status: Chronic (4) HTN (hypertension) Status: Chronic Qualifiers: Hypertension type: essential hypertension Qualified Codes: I10 - Essential (primary) hypertension (5) BPH (benign prostatic hyperplasia) Status: Chronic Clinical Quality Measures DVT/VTE Risk/Contraindication: Risk Factor Score Per Nursin RFS Level Per Nursing on Admit: 4+=Very High Stroke: Date of last known well: August 28, 2019 Time of last known well: 08:30 Symptoms onset unknown: No FARHEEN CORDON MD August 30, 2019 11:38
[2019-08-30] MEDS ORDERED: GADOBUTROL 10 MMOL/10 ML (GADAVIST) VIAL IV ONE (11:45)
[2019-08-30] MEDS: CARVEDILOL 3.125 MG (COREG) TABLET PO SCH ×2 (13:30→20:19)
[2019-08-30] MEDS: ENOXAPARIN 40 MG/0.4 ML (LOVENOX) SYR SC SCH (13:30)
[2019-08-30] MEDS: ASPIRIN E.C. 325 MG (ECOTRIN) TABLET PO SCH (13:30)
[2019-08-30] MEDS: TAMSULOSIN 0.4 MG (FLOMAX) CAP PO SCH (13:30)
[2019-08-30] MEDS: amLODIPine 5 MG (NORVASC) TAB PO SCH (13:30)
--- NOTE | 2019-08-30 13:50 | NUR ---
CM/SS visited with patient for social service consult. Plan: The patient will return home to his daughter Ely's house in [place], [place]. The patient requested to be made a DNR. Family is aware and wants copies of paper work. DNR: CM/SS brought the DNR form to patient. CM/SS went over the form and the patient verbalized understanding and signed/dated form. This CM/SS was the witness. The patient physician signed document. A copy was left in the chart and the patient was given the original document plus a copy. The patient reports that he is currently staying with his daughter in [place] but was previously living at a nursing facility in [place]. He was having difficulty with the lock down and wanted to leave. The rest of his 7 children are currently living in [place]. According to the patient, he is able to get around the house fairly well. He is not using a walker but does have a walker at home. CM/SS contacted his daughter Ely ([phone]) to discuss any needs for discharge. She reports that he is getting around the house without any assistance and is able to bathe himself. CM/SS asked if he would benefit from home health and she stated "no, not at this time". She reported that she is not planning on him living with her terminal carman. The patients daughter agreed to inform the patients JOHNNY Stubbs about the DNR. No further needs at this time.
--- NOTE | 2019-08-30 13:57 | NUR ---
SPOKE WITH DR CORDON VIA TELEPHONE, ADVISED THAT UNSURE IF IV CONTRAST WAS INFILTRATED ON NEW MIDLINE. PER MRI STAFF, THEY DO NOT BELIEVE IT WAS INFUSED. RESULTS ARE PENDING. DR CORDON WILL AWAIT RESULTS FOR FURTHER ORDERS. AWAITING MIDLINE NURSE TO COME ASSESS PATENCY. ORDER TO D/C FLUIDS SECONDARY TO NEW CRACKLES IN THE UPPER LUNGS RECEIVED. OK TO PUT IN DNR PATIENT SIGNED PAPERWORK THIS AM. OK TO MOVE TO FOURTH FLOOR. DAUGHTER UPDATED VIA TELEPHONE.
--- NOTE | 2019-08-30 13:57 | Diagnostic Imaging Report ---
PROCEDURE: MR imaging of the brain without contrast. TECHNIQUE: Multiplanar, multisequence MR imaging of the brain was performed without contrast. INDICATION: Altered mental status. FINDINGS: The ventricles and sulci are prominent, consistent with the patient's age. There are significant periventricular and subcortical white matter signal abnormalities noted, consistent with senescent change and chronic microvascular ischemia. No diffusion restriction is identified. No acute intra-axial or extra-axial hemorrhage is detected. There is some generalized cerebral volume loss, consistent with cerebral atrophy. Corpus callosum is unremarkable. Sella and parasellar structures are unremarkable. IMPRESSION: Chronic and senescent changes. No acute intracranial process is detected. Dictated by: Dictated on workstation # [id number]
[2019-08-30] MEDS ORDERED: CARV3.12 PO (14:28)
[2019-08-30] MEDS ORDERED: BENZ-36 PO (14:28)
[2019-08-30] MEDS ORDERED: TMSL.4C PO (14:28)
[2019-08-30] MEDS ORDERED: FURO-125 PO (15:28)
[2019-08-30] MEDS ORDERED: DICL50TA6 PO (15:28)
[2019-08-30] MEDS ORDERED: CYCL10TA9 PO (15:28)
--- NOTE | 2019-08-30 15:30 | NUR ---
MIDLINE LEFT UPPER ARM THAT WAS OBTAINED EARLIER IN THE DAY APPEARS TO BE INFILTRATED. ORIGINAL ARM CIRCUMFERENCE WAS APPROX 34CM. ARM CIRCUMFERENCE AT THIS TIME IS APPOX 37CM. MIDLINE DC'D. ATTEMPT TO OBTAIN MIDLINE TO RIGHT UPPER ARM ET LEFT UPPER ARM UNSUCCESSFUL BY THIS RN. PT'S RN NOTIFIED.
--- NOTE | 2019-08-30 15:34 | NUR ---
SPOKE WITH THE PTS SISTER HOLGER AND CALLED [facility] IN [facility] TO COMPLETE THE MED REC THE PT WAS RECENTLY IN A FACILITY IN [place] BUT WAS BROUGHT HERE BY HOLGER AND SHE IS TAKING CARE OF HER MEDICATIONS. THE FOLLOWING ARE FILL DATES: 07-26-2019 FUROSEMIDE 20MG #30/30DS (FILLED AT [facility]) 08-08-2019 AMLODIPINE 5MG #30/30DS 08-08-2019 BENZONATATE 100MG #16 08-08-2019 COREG 3.125MG #60/30DS 08-11-2019 TAMSULOSIN 0.4MG #30/30DS [facility] FILLED DICLOFENAC 50MG AND FLEXERIL ON 08-10-2019 OTC MEDS: NONE Addendum: 08/30/19 at 1542 by IRMA ZHANG [facility] I REMOVED THE PREFERRED PHARM AT THIS TIME- THE PATIENTS SISTER LET ME KNOW HE HAS [place] MEDICAID AND SHE WAS HAVING A HARD TIME FINDING A PHARM IN THIS AREA THAT WOULD ACCEPT IT. I LET HER KNOW TO MY KNOWLEDGE THERE ARE NOT ANY PHARMACIES IN [place] CONTRACTED WITH [place] MEDICAID. SHE WOULD RATHER THE DISCHARGE SCRIPTS BE SENT SOMEWHERE IN [place] AND HER SISTER COULD MAIL THEM TO HER. I ASKED IF SHE WANTED ME TO PUT SOMEWHERE LOCAL CHRISTIANO KAHN NEEDED SOMETHING RIGHT AWAY WHEN HE WAS SENT HOME, SHE INDICATED SHE WOULD RATHER NOT DUE TO COST. I TOLD HER TO LET US KNOW WHERE SHE WANTS OUTGOING SCRIPTS TO BE SENT TO.
--- NOTE | 2019-08-30 16:38 | NUR ---
REPORT GIVEN TO VERN ISAACS. PT TRANSPORTED VIA BED WITH NO DIFFICULTIES. TELE MONITOR IN PLACE. NOTIFIED DR CORDON OF NO IV ACCESS PRIOR TO TRANSPORT AND PT TO REMAIN WITHOUT IV ACCESS AFTER MANY PIV ATTEMPTS AND MIDLINE ATTEMPTS X3. PT HAD NOISY RESPIRATIONS THAT CLEARED WITH COUGH. PTS DAUGHTER NOTIFIED OF MOVE AND NEW VISITOR REGULATIONS. VOICED UNDERSTANDING.
--- NOTE | 2019-08-30 16:40 | NUR ---
Patient transferred to 407-1 per BED accompanied by ICUstaff. Patient and family notified and understand transfer. Personal belongings with patient. Report given to THIS RN BY NAIL TECHNICIAN.
--- NOTE | 2019-08-30 16:58 | Cardiology Progress Note ---
Cardiology SOAP Progress Note Subjective: Improved mental status. Objective: I&O/Vital Signs 08/31/19 08/31/19 08/31/19 08/31/19 04:00 07:07 07:48 09:00 Temp 36.7 36.5 Pulse 73 71 72 Resp 20 20 B/P (MAP) 140/82 (101) 139/82 (101) Pulse Ox 93 95 O2 Delivery Room Air Room Air Room Air 08/31/19 13:01 Temp 36.4 Pulse 73 Resp 20 B/P (MAP) 160/76 (104) Pulse Ox 94 O2 Delivery Room Air 08/31/19 00:00 Intake Total 1040 ml Output Total 900 ml Balance 140 ml Weight (Pounds): 230 Weight (Ounces): 8.0 Weight (Calculated Kilograms): 104.856231 Constitutional: apparent distress, PERRL, well-developed, well-nourished Respiratory: chest is bilaterally symmetric, lungs clear to auscultation Cardiovascular: regular rate-rhythm, S1 and S2 Gastrointestional: soft, audible bowel sounds Extremities: normal range of motion, non-tender, normal inspection, no lower extremity edema bilateral Neurologic/Psychiatric: no motor/sensory deficits, alert, normal mood/affect Skin: normal color, warm/dry Results/Procedures: Labs Laboratory Tests 08/31/19 04:55: White Blood Count 8.9, Red Blood Count 3.94L, Hemoglobin 13.0L, Hematocrit 39L, Mean Corpuscular Volume 98, Mean Corpuscular Hemoglobin 33, Mean Corpuscular Hemoglobin Concent 34, Red Cell Distribution Width 13.1, Platelet Count 84L, Mean Platelet Volume 11.5H, Neutrophils (%) (Auto) 69, Lymphocytes (%) (Auto) 19, Monocytes (%) (Auto) 10, Eosinophils (%) (Auto) 2, Basophils (%) (Auto) 0, Neutrophils # (Auto) 6.1, Lymphocytes # (Auto) 1.7, Monocytes # (Auto) 0.9, Eosinophils # (Auto) 0.2, Basophils # (Auto) 0.0, Sodium Level 138, Potassium Level 3.9, Chloride Level 107, Carbon Dioxide Level 22, Anion Gap 9, Blood Urea Nitrogen 15, Creatinine 1.06, Estimat Glomerular Filtration Rate > 60, BUN/Creatinine Ratio 14, Glucose Level 106H, Calcium Level 8.1L Microbiology 08/29/19 MRSA Screen - Final, Complete MRSA not isolated A/P: Assessment/Dx: Possible acute stroke, Acute encephalopathy, improving. Right carotid severe stenosis, Hypertension, Hyperlipidemia Plan: Aspirin, Echocardiogram with bubble study. Continue outpatient medical therapy for hypertension and hyperlipidemia Thank you for your consultation. Please call me if you have any questions. Norman Hicks MD, FACP, FACC, FSCAI, FHRS, CCDS Interventional Cardiology Cardiac Electrophysiology Vascular Medicine and Endovascular Interventions Clinical Quality Measures Stroke: Date of last known well: August 28, 2019 Time of last known well: 08:30 Symptoms onset unknown: No Magda HICKS MD August 30, 2019 16:58
--- NOTE | 2019-08-30 17:03 | NUR ---
NOTE THAT THIS RN CALLED TO VERIFY THE SL OUT OR NEW PLACEMENT -- WOOD GRINDER OPERATOR VOICED SHE TALKED TO DR CORDON AND HE VOICED IT WAS OK TO LEAVE SL OUT --SEE NURSING OTHER INTERVENTION
--- NOTE | 2019-08-30 18:07 | CONSULTATION REPORT ---
DATE OF SERVICE: 08/30/2019 ATTENDING PHYSICIAN: Dr. Jordan, Dr. Antoine and Dr. Livingston. SUMMARY: An 83-year-old white man in the ICU, had a catheter. He is very confused, bad historian. He apparently tuck on his catheter, which caused some bleeding, so he was started on CBI and the urine today is totally clear. It is hard to get any history from him. He is apparently on Flomax in the hospital. IMPRESSION: Gross hematuria, traumatic, resolved. PLAN: Stop CBI today to be continued to be clear. Once catheter is not needed for medical reasons, they can remove it. Then, we will see how the patient voids and how the patient empties and manage accordingly. Job ID: [id number] DocumentID: [id number] Dictated Date: 08/30/2019 08:29:28 Crossing Guard Date: 08/30/2019 10:43:57 Dictated By: LAKESHA PARRY MD
--- NOTE | 2019-08-30 22:45 | NUR ---
REPORT RECEIVED FROM SHITAL ARCE. THIS RN AGREES WITH PRIOR ASSESSMENT. THIS RN WILL ASSUME CARE OF PATIENT AT THIS TIME.
[2019-08-31] VITALS: BP 163/83
[2019-08-31 04:00] VITALS: BP 140/82
[2019-08-31 05:24] LABS: BASOPHILS % (AUTO) 0 % (0-10); EOSINOPHILS # (AUTO) 0.2 10^3/uL (0.0-0.3); EOSINOPHILS % (AUTO) 2 % (0-10); HEMATOCRIT 39 % (40-54); LYMPHOCYTES # (AUTO) 1.7 X 10^3 (1.0-4.0); LYMPHOCYTES % (AUTO) 19 % (12-44); MEAN CORPUSCULAR HEMOGLOBIN 33 PG (25-34); MEAN CORPUSCULAR HGB CONC 34 G/DL (32-36); MEAN CORPUSCULAR VOLUME 98 FL (80-99); MEAN PLATELET VOLUME 11.5 FL (7.4-10.4); MONOCYTES # (AUTO) 0.9 X 10^3 (0.0-1.0); MONOCYTES % (AUTO) 10 % (0-12); NEUTROPHILS # (AUTO) 6.1 X 10^3 (1.8-7.8); NEUTROPHILS % (AUTO) 69 % (42-75); PLATELET COUNT 84 10^3/uL (130-400); RED CELL DISTRIBUTION WIDTH 13.1 % (10.0-14.5); WHITE BLOOD COUNT 8.9 10^3/uL (4.3-11.0)
[2019-08-31 05:48] LABS: CHLORIDE 107 MMOL/L (98-107); POTASSIUM 3.9 MMOL/L (3.6-5.0); SODIUM 138 MMOL/L (135-145)
[2019-08-31 05:49] LABS: CALCIUM 8.1 MG/DL (8.5-10.1); GLUCOSE 106 MG/DL (70-105)
[2019-08-31 05:51] LABS: CARBON DIOXIDE 22 MMOL/L (21-32)
[2019-08-31 05:53] LABS: CREATININE SERUM 1.06 MG/DL (0.60-1.30); GFR ESTIMATED > 60
[2019-08-31 05:54] LABS: BUN/CREATININE RATIO 14
[2019-08-31 07:48] VITALS: BP 139/82
[2019-08-31] MEDS: ENOXAPARIN 40 MG/0.4 ML (LOVENOX) SYR SC SCH (08:35)
[2019-08-31] MEDS: TAMSULOSIN 0.4 MG (FLOMAX) CAP PO SCH (08:35)
[2019-08-31] MEDS: CARVEDILOL 3.125 MG (COREG) TABLET PO SCH (08:36)
[2019-08-31] MEDS: ASPIRIN E.C. 325 MG (ECOTRIN) TABLET PO SCH (08:36)
[2019-08-31] MEDS: amLODIPine 5 MG (NORVASC) TAB PO SCH (08:36)
[2019-08-31] MEDS ORDERED: ASPI-983 PO (10:26)
[2019-08-31] MEDS ORDERED: ATOR80TA76 PO (10:26)
--- NOTE | 2019-08-31 11:31 | Discharge Summary ---
Discharge Summary Reconcile Patient Problems Problems Reviewed?: Yes Instructions for Patient Via [facility], Assessment/Instructions Take medications as prescribed. You're being set up with home health care on discharge. Follow up with cardiology. Physician to follow Patient: [facility] ([facility]) Discharge Diet for Home: Cardiac Diet Hospital Course Date of Admission: August 29, 2019 at 03:00 Admission Diagnosis : Altered mental status Family Physician/Provider: Henrik Livingston DO Date of Discharge: 08/31/19 Discharge Diagnosis: Delirium due to multiple etiologies Hospital Course: Stephen Isaac is an 83-year-old male with past medical history of hypertension, BPH, who presented with altered mental status. There is concern for acute st roke but his CT imaging was normal. His CTA did show a severe right-sided carotid stenosis. He underwent MRI for further evaluation and this did not show any acute stroke or other acute abnormalities. It showed chronic age-related changes, but nothing to explain his altered mentation. His mental status slowly improved and returned to his baseline of over 2 days. He had been taking cyclobenzaprine which may have contributed to his presentation. He is not to have delirium due to multiple etiologies including medications and advanced age. He has a history of episodes similar to this where he has been admitted and they have been unable to find a cause for his presentation. His course is complicated by hematuria due to irritation from his Reaves catheter. Urology is consulted and is placed on continuous bladder irrigation for a short period of time. His hematuria resolved and his Reaves catheter was removed. He had been living at a fdc in [place] until very recently. His daughter to get out of the fdc due to coronavirus restrictions leading to depression due to isolation. He is "vacationing" here in [place] with his daughter for a brief period until he can return to [place]. He is being set up with home health care on discharge. He should follow-up with cardiology. Labs and Pending Lab Test: Laboratory Tests 08/31/19 04:55: White Blood Count 8.9, Red Blood Count 3.94L, Hemoglobin 13.0L, Hematocrit 39L, Mean Corpuscular Volume 98, Mean Corpuscular Hemoglobin 33, Mean Corpuscular Hemoglobin Concent 34, Red Cell Distribution Width 13.1, Platelet Count 84L, Mean Platelet Volume 11.5H, Neutrophils (%) (Auto) 69, Lymphocytes (%) (Auto) 19, Monocytes (%) (Auto) 10, Eosinophils (%) (Auto) 2, Basophils (%) (Auto) 0, Neutrophils # (Auto) 6.1, Lymphocytes # (Auto) 1.7, Monocytes # (Auto) 0.9, Eosinophils # (Auto) 0.2, Basophils # (Auto) 0.0, Sodium Level 138, Potassium Level 3.9, Chloride Level 107, Carbon Dioxide Level 22, Anion Gap 9, Blood Urea Nitrogen 15, Creatinine 1.06, Estimat Glomerular Filtration Rate > 60, BUN/Creatinine Ratio 14, Glucose Level 106H, Calcium Level 8.1L Microbiology 08/29/19 MRSA Screen - Final, Complete MRSA not isolated Home Meds Active Aspirin EC (Aspirin) 81 Mg Tablet.dr 81 Mg PO DAILY 30 Days Atorvastatin Calcium 80 Mg Tablet 80 Mg PO HS 30 Days Reported Lasix (Furosemide) 20 Mg Tablet 20 Mg PO DAILY Cyclobenzaprine HCl 10 Mg Tablet 10 Mg PO DAILY PRN Diclofenac Sodium 50 Mg Tablet.dr 50 Mg PO BID PRN Flomax (Tamsulosin HCl) 0.4 Mg Cap 0.4 Mg PO DAILY Coreg (Carvedilol) 3.125 Mg Tablet 3.125 Mg PO BID Benzonatate 100 Mg Capsule 100-200 Mg PO Q8H PRN Norvasc (Amlodipine Besylate) 5 Mg Tablet 5 Mg PO DAILY Consulations Cardiology, urology Patient Allergies: Coded Allergies: No Known Drug Allergies (Unverified , 05/01/16) Height (Feet): 5 Height (Inches): 9.00 Weight (Pounds): 230 Weight (Ounces): 8.0 Home Health Need/Face to Face Date of Face to Face: August 31, 2019 Clinical Findings: Immune-compromised, Instability I have seen Pt [id number]: Yes Discharged To: Home Diagnosis/Conditions: Advanced age Debility Delirium Problems/Diagnosis/Condition: (1) Debility (2) Advanced age (3) Delirium due to multiple etiologies Patient is Homebound due to: Jarrell fall risk due to instabilty, Muscle weakness Homebound Status Due to the above stated illness, injury or surgical procedure (medical condition or diagnosis) and associated clinical findings, the patient is homebound because of his/her inability to leave home except with aid of a supportive device and/or person AND leaving the home requires a considerable and taxing effort or is medically contraindicated. Pt req the following assistanc: Aid of another person Home Health Nursing Orders Home Health Services Order: Nursing Services, Senior Svp-Evaluate & Treat, Physical Therapy-Evaluate & Treat Home Health Infusion Therapy Line Start Date: August 30, 2019 Therapy Orders Therapy Orders: OT (must have SN or PT order), Physical Therapy Therapy Specific Orders: Eval assistive deivces, Gait training, Increase strength/endurance Certify Stmt I certify that this patient is under my care and that I, a nurse practitioner or a physician; a patient care assistant working with me, had a face to face encounter that - meets the physician face to face encounter requirements with this patient as dated. Discharge Physical Exam General: Alert, Oriented X3, Cooperative, No Acute Distress HEENT: Atraumatic, PERRLA, EOMI, Mucous Memb Moist/Rhodes Lungs: Clear to Auscultation, Normal Air Movement Heart: Regular Rate, Normal S1, Normal S2, No Murmurs Abdomen: Normal Bowel Sounds, Soft, No Tenderness Extremities: No Edema, No Tenderness/Swelling Skin: No Rashes, No Significant Lesion Neuro: Normal Speech, Other (Motor weakness) Psych/Mental Status: Mental Status NL, Mood NL FARHEEN CORDON MD August 31, 2019 11:10
--- NOTE | 2019-08-31 12:52 | NUR ---
CM/SS finalized discharge. Plan: The patient will return to his daughter Ely's home with Home Health. Home Health: The patient was provided with a patient preference form and chose [facility]. CM/SS called and spoke with Geoff for the referral. Orders and discharge were faxed to [facility]. Primary Care: The patient usually lives in [place] and has not seen a primary care physician in the area for a couple of years. A primary Care Physician/MANAGER LABORATORY is required to followed the home health orders. CM/SS contacted [facility] in [place] to set up a visit. It is scheduled for ThursdaySeptember 04 at 10:[address] Zuluaga. The patient stated he was feeling much better today. CM/SS discussed with the patient the benefits and services of home health. He reported that he thought he would benefit from having it. CM/SS talked to Ely today and explained home health further and she was agreeable with plan. She thinks he will benefit strongly with a Aide. The patient and Ely did not have any further questions or concerns at this time.
--- NOTE | 2019-08-31 12:58 | NUR ---
"RD ASSESSMENT PMHx: HTN; BPH; hypercholesterolemia; dementia; PT INTERACTION: Pt was awake and pleasant during nutrition assessment. Note pt has AMS and is a poor historian, per chart review. Pt states current appetite is pretty good. Note avg PO intake 56% x1d, per chart review. Pt states following a regular diet at home, and has no issues with chewing/swallowing food. Pt states no recent issues with nausea, vomiting, constipation, or diarrhea, and that his last BM was 08/28. Note pt not currently on bowel regimen per chart review. Pt states no recent wt changes. Note unable to determine recent wt hx, per chart review. ABNORMAL NUTRITION-RELATED LAB VALUES LOW: Ca 8.1 HIGH: glu 106 Est. kcal needs: 7215-6892 kcal | 15-18 kcal/kg Est. Pro needs: 84-105 g Pro | 0.8-1.0 g Pro/kg PES STATEMENT: Inadequate oral intake (NI-2.1) related to loss of appetite | AMS as evidenced by pt interview | chart review | avg PO intake 56% x1d INTERVENTION: Continue with current diet order of Regular diet. Pt may benefit from nutrition supplementation d/t poor PO intake. Encouraged pt to eat when able. Will continue to follow and reassess as pt needs, intake, and status change. MONITOR/EVALUATE: PO Intake; Plan of Care; Hydration Status; Weight Status; Lab Values Bryan Maddox, MS, RD, LD"
[2019-08-31 13:00] VITALS: BP 160/76
[2019-08-31 13:01] VITALS: BP 160/76
--- NOTE | 2019-08-31 14:28 | Cardiology Progress Note ---
Cardiology SOAP Progress Note Subjective: Significant improvement in mental status. Objective: I&O/Vital Signs 08/31/19 08/31/19 08/31/19 08/31/19 04:00 07:07 07:48 09:00 Temp 36.7 36.5 Pulse 73 71 72 Resp 20 20 B/P (MAP) 140/82 (101) 139/82 (101) Pulse Ox 93 95 O2 Delivery Room Air Room Air Room Air 08/31/19 13:01 Temp 36.4 Pulse 73 Resp 20 B/P (MAP) 160/76 (104) Pulse Ox 94 O2 Delivery Room Air 08/31/19 00:00 Intake Total 1040 ml Output Total 900 ml Balance 140 ml Weight (Pounds): 230 Weight (Ounces): 8.0 Weight (Calculated Kilograms): 104.485114 Constitutional: apparent distress, PERRL, well-developed, well-nourished Respiratory: chest is bilaterally symmetric, lungs clear to auscultation Cardiovascular: regular rate-rhythm, S1 and S2 Gastrointestional: soft, audible bowel sounds Extremities: normal range of motion, non-tender, normal inspection, no lower extremity edema bilateral Neurologic/Psychiatric: no motor/sensory deficits, alert, normal mood/affect Skin: normal color, warm/dry Results/Procedures: Labs Laboratory Tests 08/31/19 04:55: White Blood Count 8.9, Red Blood Count 3.94L, Hemoglobin 13.0L, Hematocrit 39L, Mean Corpuscular Volume 98, Mean Corpuscular Hemoglobin 33, Mean Corpuscular Hemoglobin Concent 34, Red Cell Distribution Width 13.1, Platelet Count 84L, Mean Platelet Volume 11.5H, Neutrophils (%) (Auto) 69, Lymphocytes (%) (Auto) 19, Monocytes (%) (Auto) 10, Eosinophils (%) (Auto) 2, Basophils (%) (Auto) 0, Neutrophils # (Auto) 6.1, Lymphocytes # (Auto) 1.7, Monocytes # (Auto) 0.9, Eosinophils # (Auto) 0.2, Basophils # (Auto) 0.0, Sodium Level 138, Potassium Level 3.9, Chloride Level 107, Carbon Dioxide Level 22, Anion Gap 9, Blood Urea Nitrogen 15, Creatinine 1.06, Estimat Glomerular Filtration Rate > 60, BUN/Creatinine Ratio 14, Glucose Level 106H, Calcium Level 8.1L Microbiology 08/29/19 MRSA Screen - Final, Complete MRSA not isolated A/P: Assessment/Dx: Possible acute stroke, Acute encephalopathy, improving. Right carotid severe stenosis, Hypertension, Hyperlipidemia Plan: Possible stroke likely due to significant carotid stenosis. Aspirin, likely evaluation for carotid stenting or CEA in a month. Echocardiogram done 08/30/2019 shows normal LV function with mild diastolic dysfunction. No significant valvular heart disease. Telemetry for over 48 hours did not show atrial fibrillation. Continue outpatient medical therapy for hypertension and hyperlipidemia I can follow-up in 2-3 weeks. Thank you for your consultation. Please call me if you have any questions. Norman Hicks MD, FACP, FACC, FSCAI, FHRS, CCDS Interventional Cardiology Cardiac Electrophysiology Vascular Medicine and Endovascular Interventions Clinical Quality Measures Stroke: Date of last known well: August 28, 2019 Time of last known well: 08:30 Symptoms onset unknown: No Magda HICKS MD August 31, 2019 14:28
[2019-08-31 14:59] VITALS: BP 160/76
== END 2019-08-31 15:05 | disposition home health service (06) | DRG 71 ==
LOC: EDUNIT# 23:10 → ER 23:12 → ICU 08-29 03:00 → 4TH 08-30 16:27
PROVIDERS: ADMIT Family Medicine; ATTEND Internal Medicine
DX: G93.40 Encephalopathy, unspecified (principal); I65.21 Occlusion and stenosis of right carotid artery; R40.0 Somnolence; R40.2420 Glasgow coma scale score 9-12, unspecified time; R05 Cough; Z66 Do not resuscitate; S37.39XA Other injury of urethra, initial encounter; R31.0 Gross hematuria; R29.728 NIHSS score 28; I10 Essential (primary) hypertension; N40.1 Benign prostatic hyperplasia with lower urinary tract symptoms; R32 Unspecified urinary incontinence; M54.5 Low back pain; E78.5 Hyperlipidemia, unspecified; F03.90 Unspecified dementia, unspecified severity, without behavioral disturbance, psychotic disturbance, mood disturbance, and anxiety; E66.9 Obesity, unspecified; F32.9 Major depressive disorder, single episode, unspecified; Z68.35 Body mass index [BMI] 35.0-35.9, adult
CPT/HCPCS: 36415; 70450; 70496; 70498; 70551; 71045; 76937; 80048; 80053; 80061; 80306; 80320; 80329; 81000; 82962; 83735; 84100; 84484; 85025; 85379; 85610; 85730; 87081; 93005; 93041; 93306